=== PATIENT | male | born 1945 | race Caucasian/White ===

== ENCOUNTER 2018-02-17 02:09 | Outpatient (CLI) | payer BC, SELFPAY ==
--- NOTE | 2018-02-24 16:03 | HOLTER_ITS ---
DATE OF DICTATION: February 24, 2018 HOLTER MONITOR REPORT Baseline rhythm sinus. Frequent single PAC. Twenty-seven bursts of SVT, longest 15-beat duration, fastest 160 bpm. No atri al fibrillation. Frequent single PVC, 8082 total. 3.6% of total beat. 1329 couplet. 116 triplet. Eighteen bursts o f nonsustained ventricular tachycardia, longest 6-beat duration, fastest 161 bpm. Most ventricular tachycardia appears to be nocturnal, but not exclusively so. No bradycardia. No symptoms. Average heart rate 81 bpm. MH/dml D/
== END 2018-02-17 02:29 ==
PROVIDERS: PCP Emergency Medicine; Visit Provider Internal Medicine Cardiovascular Disease
DX: R00.2 Palpitations (principal); I47.1 Supraventricular tachycardia; I25.10 Atherosclerotic heart disease of native coronary artery without angina pectoris; I42.9 Cardiomyopathy, unspecified; I48.91 Unspecified atrial fibrillation
CPT/HCPCS: 93225

== ENCOUNTER 2018-02-20 13:57 | Outpatient (CLI) | payer BC, SELFPAY | END 2018-02-20 14:17 | PROVIDERS: PCP Emergency Medicine; Visit Provider Internal Medicine Cardiovascular Disease | DX: R00.2 Palpitations (principal); I47.1 Supraventricular tachycardia; I25.10 Atherosclerotic heart disease of native coronary artery without angina pectoris; I42.9 Cardiomyopathy, unspecified; I48.91 Unspecified atrial fibrillation | CPT/HCPCS: 93226 ==

== ENCOUNTER 2018-02-25 11:24 | Outpatient (CLI) | payer BC, SELFPAY ==
[2018-02-25 12:47] LABS: Abs Immature Grans 0.03 k/cumm (0.0-0.09); Absolute Basophil Count 0.02 k/cumm (0.0-0.2); Absolute Eosinophil Count 0.05 k/cumm (0.0-0.7); Absolute Lymphocyte Count 0.84 k/cumm (1.2-3.4); Absolute Monocyte Count 0.84 k/cumm (0.11-0.7); Absolute Neutrophil Count 8.25 k/cumm (1.2-6.7); Basophils % 0.2; Eosinophils % 0.5; HCT 40.4 % (40.0-50.0); HGB 12.8 g/dL (13.5-17.5); Immature Grans % 0.3; Lymphocytes % 8.4; Mean Corp. HGB Concentration 31.7 g/dL (32.0-36.0); Mean Corpuscular Hemoglobin 28.3 pg (27.0-33.0); Mean Corpuscular Volume 89.2 fL (80-95); Mean Platelet Volume 9.6 fL (8.0-11.0); Monocytes % 8.4; Neutrophils % 82.2; Platelet Count 545 x1000/uL (130-400); RBC 4.53 m/cumm (4.50-6.00); RBC Distribution Width 14.2 % (11.8-14.1); White Blood Cell Count 10.03 k/cumm (4.4-10.8)
[2018-02-25 13:31] LABS: ALT 51 U/L (12-78); AST 23 U/L (15-37); Albumin 2.5 g/dL (3.4-5.0); Alkaline Phosphatase 157 U/L (46-116); Anion Gap 9.7 mmol/L (3-11); BUN 15 mg/dL (7-18); Bilirubin, Total 0.8 mg/dL (0.2-1.0); CO2 30.3 mmol/L (21.0-32.0); CREATININE 1.04 mg/dL (0.70-1.30); Calcium 9.2 mg/dL (8.5-10.1); Chloride 99 mmol/L (98-107); Ferritin 911 ng/mL (8-388); Glucose 137 mg/dL (70-100); Potassium 5.1 mmol/L (3.5-5.1); Sodium 139 mmol/L (136-145); TSH 1.73 uIU/mL (0.358-3.74); Total Protein 6.6 g/dL (6.4-8.2)
[2018-02-25 14:15] LABS: C-Reactive Protein 12.11 mg/dL (0.0-0.3); NT-proBNP 1771 pg/mL
== END 2018-02-25 11:44 ==
PROVIDERS: PCP Emergency Medicine; Visit Provider Emergency Medicine
DX: R63.4 Abnormal weight loss (principal); R06.02 Shortness of breath; J90 Pleural effusion, not elsewhere classified; F32.9 Major depressive disorder, single episode, unspecified
CPT/HCPCS: 36415; 80053; 82728; 83880; 84443; 85025; 86140

== ENCOUNTER 2018-03-11 00:32 | Outpatient (CLI) | payer BC, SELFPAY ==
--- NOTE | 2018-03-11 08:19 | DI.RAD_ITS ---
SYMPTOM/DIAGNOSIS: PLEURAL EFFUSION J90 CHEST X-RAY: Comparison 08/22/17. Comparison CT scan is 09/06/17 The heart appears mildly enlarged. The patient is status post CABG. Sternal wires are in place. The left lung appears clear. No effusion or pneumothorax is identified. In the right lung there has been interval increase in the right pleural effusion which does remain small to moderate in size. There are increased opacities in the right lung base. These may represent areas of atelectasis or pneumonia. No pneumothorax is identified. Degenerative changes are seen in the spine. IMPRESSION: Interval increase in size of the right pleural effusion which is small to moderate in size. 2. Development of right basilar infiltrates. This may represent atelectasis or pneumonia. Mass cannot be entirely excluded. A follow up chest x-ray to document resolution of the effusion and infiltrate is recommended in this patient.
--- NOTE | 2018-03-11 08:20 | DI.CT_ITS ---
SYMPTOM/DIAGNOSIS: RECURRENT RIGHT EFFUSION, CHF. WT LOSS, DIASTASIS RECTI CT ABDOMEN AND PELVIS: CT scan of the abdomen and pelvis was performed following the uneventful administration of intravenous and oral contrast material. Comparison CT scan of the chest is 09/06/17. There is a moderate sized right pleural effusion present. There is a question of some encapsulation of the fluid. A few small foci of air is seen within the fluid. There is consolidation seen in the right middle and right lower lobes. The heart appears mildly enlarged. The liver is normal in size. There are several cysts seen within the liver. The largest is present in the left lobe and measures 4.8 cm. The portal and superior mesenteric veins are patent. The gallbladder is negative. No biliary ductal dilatation is present. The pancreas is unremarkable as are the spleen and adrenal glands. The kidneys show normal and symmetric enhancement. There are bilateral renal cysts present, the largest is seen in the mid pole of the left kidney and measures 3.3 cm. There is a 2 mm nonobstructing stone in the lower pole of the right kidney. The urinary bladder is intact. Reproductive organs are unremarkable. There is atherosclerosis of the abdominal aorta but no aneurysmal dilatation is present. No significant abdominal or pelvic adenopathy, ascites, or pneumoperitoneum is present. There is a small fat containing umbilical hernia. There is diverticulosis of the colon but no evidence of acute diverticulitis. There is a normal appendix seen in the right lower quadrant of the abdomen. At the rectosigmoid junction there is a segment of compressed bowel. No pericolonic inflammatory changes are seen. While this may represent nondistended bowel the possibility of a mass cannot be excluded. Colonoscopy and/or barium enema is recommended for further evaluation. The remainder of the bowel appears grossly unremarkable. Degenerative changes are present in the spine with Grade 1 pseudospondylolisthesis of L5 on S1. IMPRESSION: 1. Segment of compressed bowel at the rectosigmoid junction. While this may represent nondistended bowel mass cannot be entirely excluded. A follow up barium enema or colonoscopy is recommended for further evaluation. 2. Moderate size right pleural effusion, areas of consolidation in the right middle and right lower lobe which may represent atelectasis or pneumonia. 3. Hepatic and renal cysts, right nephrolithiasis, colonic diverticulosis but no evidence of acute diverticulitis.
[2018-03-11 08:59] LABS: INR 1.5 (1.0-3.5); Prothrombin Time 14.7 sec (9.3-10.8)
[2018-03-11 09:02] LABS: ALT 26 U/L (12-78); AST 17 U/L (15-37); Albumin 2.6 g/dL (3.4-5.0); Alkaline Phosphatase 103 U/L (46-116); BUN 14 mg/dL (7-18); Bilirubin, Total 0.6 mg/dL (0.2-1.0); CREATININE 1.07 mg/dL (0.70-1.30); Calcium 9.1 mg/dL (8.5-10.1); Chloride 99 mmol/L (98-107); Glucose 145 mg/dL (70-100); Potassium 4.5 mmol/L (3.5-5.1); Sodium 137 mmol/L (136-145); Total Protein 7.5 g/dL (6.4-8.2)
[2018-03-11] MEDS: Breeza Beverage 473 ML BTL PO (09:09)
[2018-03-11] MEDS: Omnipaque 350 MG/ML 50 ML BTL IJ (09:09)
[2018-03-11] MEDS: Omnipaque 350 MG/ML 100 ML BTL IJ (09:11)
== END 2018-03-11 00:52 ==
PROVIDERS: PCP Emergency Medicine; Visit Provider Emergency Medicine
DX: R63.4 Abnormal weight loss (principal); J90 Pleural effusion, not elsewhere classified; R91.8 Other nonspecific abnormal finding of lung field; I50.9 Heart failure, unspecified; I51.7 Cardiomegaly; K57.30 Diverticulosis of large intestine without perforation or abscess without bleeding; K56.699 Other intestinal obstruction unspecified as to partial versus complete obstruction; K76.89 Other specified diseases of liver; N28.1 Cyst of kidney, acquired; I48.91 Unspecified atrial fibrillation; Z79.01 Long term (current) use of anticoagulants; Z95.1 Presence of aortocoronary bypass graft
CPT/HCPCS: 36415; 80053; 71046; 74177; 85610; J3490; Q9967

== ENCOUNTER 2018-03-20 15:36 | Outpatient (REF) | payer BC, SELFPAY ==
[2018-03-20 22:25] LABS: Bilirubin Moderate (Negative); Blood Negative (Negative); Clarity Clear; Glucose Negative (Negative); Ketones Trace mg/dL (Negative); Leukocyte Esterase Negative (Negative); Nitrite Negative (Negative); Urobilinogen >=8.0 EU/dL (Up TO 0.2)
[2018-03-20 22:43] LABS: Bacteria Moderate HPF (Negative); C & S Indicated? Yes; Casts Negative LPF (Negative); Crystals Negative HPF (Negative); Epithelial Cells Negative HPF (Negative); Mucus Negative (Negative); RBC Negative (0-2)
== END 2018-03-20 15:56 ==
LOC: LBN 15:36
PROVIDERS: PCP Emergency Medicine; Visit Provider Emergency Medicine
DX: R30.0 Dysuria (principal); R82.2 Biliuria
CPT/HCPCS: 81003; 81015; 87086

== ENCOUNTER 2018-03-21 10:17 | Outpatient (CLI) | payer BC, SELFPAY ==
[2018-03-21 10:53] LABS: HCT 36.1 % (40.0-50.0); HGB 11.6 g/dL (13.5-17.5); Mean Corp. HGB Concentration 32.1 g/dL (32.0-36.0); Mean Corpuscular Hemoglobin 27.6 pg (27.0-33.0); Mean Corpuscular Volume 85.7 fL (80-95); Mean Platelet Volume 9.5 fL (8.0-11.0); Platelet Count 388 x1000/uL (130-400); RBC 4.21 m/cumm (4.50-6.00); RBC Distribution Width 14.4 % (11.8-14.1); White Blood Cell Count 14.27 k/cumm (4.4-10.8)
[2018-03-21 12:50] LABS: INR 2.4 (1.0-3.5); Prothrombin Time 24.3 sec (9.3-11.0)
[2018-03-21 13:04] LABS: ALT 112 U/L (12-78); AST 86 U/L (15-37); Albumin 2.1 g/dL (3.4-5.0); Alkaline Phosphatase 299 U/L (46-116); Anion Gap 12.5 mmol/L (3-11); BUN 20 mg/dL (7-18); Bilirubin, Total 1.6 mg/dL (0.2-1.0); CO2 28.5 mmol/L (21.0-32.0); CREATININE 1.03 mg/dL (0.70-1.30); Calcium 9.1 mg/dL (8.5-10.1); Chloride 94 mmol/L (98-107); Glucose 155 mg/dL (70-100); Potassium 3.9 mmol/L (3.5-5.1); Sodium 135 mmol/L (136-145); Total Protein 6.2 g/dL (6.4-8.2)
== END 2018-03-21 10:37 ==
PROVIDERS: PCP Emergency Medicine; Visit Provider Emergency Medicine
DX: R30.0 Dysuria (principal); I48.91 Unspecified atrial fibrillation; Z79.01 Long term (current) use of anticoagulants
CPT/HCPCS: 36415; 80053; 85027; 85610

== ENCOUNTER 2018-03-25 00:35 | Outpatient (CLI) | payer BC, SELFPAY ==
--- NOTE | 2018-03-25 09:15 | MERGE_ITS ---
*[facility]* *[facility]* [address] [place] [address] Date of study: 03/25/2018 Transthoracic Echocardiography M-mode, complete 2D, complete spectral Doppler, and color Doppler *STUDY CONCLUSIONS* Summary: 1. Left ventricle: The cavity size was normal. Wall thickness was normal. Systolic function was mildly reduced. The estimated ejection fraction was 45-50%. Diffuse hypokinesis. 2. Aortic valve: There was very mild stenosis. Peak velocity (S): 2m/sec. Valve area (VTI): 1.9cm^2. 3. Right ventricle: The cavity size was dilated (basal diameter 4.8 cm, mid 4.0 cm). Systolic function was reduced. 4. Right atrium: The atrium was dilated. 5. Tricuspid valve: There was moderate regurgitation. 6. Pulmonary arteries: Pulmonary systolic pressure was severely increased, >= 60mm Hg. *PATIENT PRESENTATION* Height: 193cm ((76in) ) S/D Pressure: 116 / 63 Weight: 113.4kg ((249.5lb) ) BSA: 2.49m^2 Test start time: 09:20 AM. Test stop time: 10:30 AM. ORDERING Senthil Escobar REFERRING Senthil Escobar PERFORMING Unknown REFERRING Rosa Head PERFORMING [facility] CRAB BUTCHER RT Carmen (R)(CT), CS CONSULTING Jerry Ji, Do Shawn Ndiaye *PROCEDURE DATA* Procedure information: The patient was identified by two identifiers. This study was interpreted by [facility]. Pertinent images and digital data are archived for permanent storage and are available for subsequent review. Comparison was made to the study of 07/05/2017. Study status: Routine. Transthoracic echocardiography. M-mode, complete 2D, complete spectral Doppler, and color Doppler. A Transthoracic Echocardiogram was performed. Scanning was performed from the parasternal, apical, subcostal, and suprasternal notch acoustic windows. Images were obtained using an [id number] cardiac ultrasound machine. Image quality was adequate. Study completion: The patient tolerated the procedure well. There were no complications. History: PMH: Recurrent pleural effusion on right. CHF, heart failure. *CARDIAC ANATOMY* Left ventricle: The cavity size was normal. Wall thickness was normal. Systolic function was mildly reduced. The estimated ejection fraction was 45-50%. Diffuse hypokinesis. Aortic valve: Trileaflet; mildly thickened, mildly calcified leaflets. Valve mobility was restricted. Doppler: There was very mild stenosis. There was no significant regurgitation. VTI ratio of LVOT to aortic valve: 0.51. Valve area (VTI): 1.9cm^2. Indexed valve area (VTI): 0.7cm^2/m^2. Peak velocity ratio of LVOT to aortic valve: 0.54. Valve area (Vmax): 2cm^2. Indexed valve area (Vmax): 0.8cm^2/m^2. Mean velocity ratio of LVOT to aortic valve: 0.45. Valve area (Vmean): 1.6cm^2. Indexed valve area (Vmean): 0.7cm^2/m^2. Mean gradient (S): 9.6mm Hg. Peak gradient (S): 16.7mm Hg. Aorta: Aortic root: The aortic root was normal in size. Ascending aorta: The ascending aorta was normal in size. Mitral valve: Structurally normal valve. Mobility was not restricted. Doppler: Transvalvular velocity was within the normal range. There was no evidence for stenosis. There was trivial regurgitation. Valve area by pressure half-time: 5.1cm^2. Indexed valve area by pressure half-time: 2cm^2/m^2. Peak gradient (D): 4.4mm Hg. Left atrium: The atrium was normal in size. Right ventricle: The cavity size was dilated (basal diameter 4.8 cm, mid 4.0 cm). Systolic function was reduced. Pulmonic valve: Structurally normal valve. Doppler: Transvalvular velocity was within the normal range. There was no evidence for stenosis. There was mild regurgitation. Peak gradient (S): 5.6mm Hg. Tricuspid valve: Structurally normal valve. Doppler: Transvalvular velocity was within the normal range. There was no evidence for stenosis. There was moderate regurgitation. Pulmonary artery: Pulmonary systolic pressure was severely increased, >= 60mm Hg. Right atrium: The atrium was dilated. Pericardium: There was no pericardial effusion. Systemic veins: Inferior vena cava: Well visualized. The vessel was patent and normal in size. The respirophasic diameter changes were in the normal range (greater than or equal to 50%). Baseline ECG: Normal sinus rhythm. Measurements Left ventricle Value 07/05/2017 Reference LV ID, ED, PLAX 5.5 cm 5.6 3.5 - 6.0 LV ID, ES, PLAX (H) 4.3 cm 4.3 2.1 - 4.0 LV PW thickness, ED, PLAX 1.0 cm 0.9 LV end-diastolic volume, 193 ml 142 1-p A2C LV ejection fraction, 1-p 45 % 48 A2C LV end-diastolic volume, 183 ml 169 1-p A4C LV ejection fraction, 1-p 30 % 37 A4C LV e', lateral 0.055 m/sec 0.097 LV E/e', lateral 19 11 LV e', medial 0.065 m/sec 0.058 LV E/e', medial 16 18 LV e', average 0.06 m/sec 0.078 LV E/e', average 17 13 Ventricular septum Value 07/05/2017 Reference IVS thickness, ED, PLAX 1.1 cm 1.1 LVOT Value 07/05/2017 Reference LVOT ID, A-P 2.1 cm 2.0 LVOT area 3.6 cm^2 3 LVOT peak velocity, S 1.11 m/sec 0.75 LVOT mean velocity, S 0.67 m/sec 0.58 LVOT VTI, S 23.1 cm 17.3 LVOT peak gradient, S 5 mm Hg 2.3 LVOT mean gradient, S 2.2 mm Hg 1.5 Stroke volume (SV), LVOT 84 ml 52 DP Stroke index (SV/bsa), 34 ml/m^2 20 LVOT DP Aortic valve Value 07/05/2017 Reference Aortic valve peak 2 m/sec 1.3 velocity, S Aortic valve mean 1.48 m/sec 0.93 velocity, S Aortic valve VTI, S 45.0 cm 26.5 Aortic mean gradient, S 9.6 mm Hg 3.9 Aortic peak gradient, S 16.7 mm Hg VTI ratio, LVOT/AV 0.51 0.65 Aortic valve area, VTI 1.9 cm^2 1.9 Velocity ratio, peak, 0.54 0.59 LVOT/AV Aortic valve area, peak 2 cm^2 1.8 velocity Velocity ratio, mean, 0.45 0.62 LVOT/AV Aortic valve area, mean 1.6 cm^2 1.9 velocity Aortic valve area/bsa, 0.7 cm^2/m^2 0.7 mean velocity Aorta Value 07/05/2017 Reference Aortic root ID, ED 3.4 cm 3.4 Ascending aorta ID, A-P, S 3.3 cm 3.4 RVOT Value 07/05/2017 Reference RVOT VTI, S 16.4 cm 13.0 Left atrium Value 07/05/2017 Reference LA ID, A-P, ES 4.6 cm 4.3 LA ID/bsa, A-P 1.9 cm/m^2 1.7 <=2.2 LA area, ES, A4C (H) 25 cm^2 28 8.8 - 23.4 LA area, ES, A2C 23 cm^2 29 LA volume/bsa, ES, 1-p A4C 40 ml/m^2 47 LA volume, ES, 2-p 86 ml 111 LA volume/bsa, ES, 2-p 34 ml/m^2 43 LA/aortic root ratio 1.37 1.28 Mitral valve Value 07/05/2017 Reference Mitral E-wave peak 1.05 m/sec 1.03 velocity Mitral deceleration time 150 ms 92 150 - 230 Mitral pressure half-time 43 ms 27 Mitral peak gradient, D 4.4 mm Hg 4.3 Mitral valve area, PHT, DP 5.1 cm^2 8.3 Tricuspid valve Value 07/05/2017 Reference Tricuspid regurg peak 3.9 m/sec 3 velocity Tricuspid peak RV-RA 61.7 mm Hg 36.3 gradient Right atrium Value 07/05/2017 Reference RA area, ES, A4C (H) 30.7 cm^2 36.6 8.3 - 19.5 Pulmonic valve Value 07/05/2017 Reference Pulmonic peak gradient, S 5.6 mm Hg 3.2 Legend: (L) and (H) [place] values outside specified reference range. I have personally reviewed the images and have reviewed and edited the reported findings. Electronically signed by Valentin Álvarez 03/25/2018 11:45
[2018-03-25 11:11] LABS: HCT 36.4 % (40.0-50.0); HGB 11.8 g/dL (13.5-17.5); Mean Corp. HGB Concentration 32.4 g/dL (32.0-36.0); Mean Corpuscular Hemoglobin 27.6 pg (27.0-33.0); Mean Platelet Volume 9.1 fL (8.0-11.0); Platelet Count 476 x1000/uL (130-400); RBC 4.28 m/cumm (4.50-6.00); RBC Distribution Width 14.6 % (11.8-14.1); White Blood Cell Count 14.64 k/cumm (4.4-10.8)
[2018-03-25 11:23] LABS: Prothrombin Time 52.9 sec (9.3-11.0)
[2018-03-25 11:46] LABS: INR 5.2 (1.0-3.5)
[2018-03-25 13:43] LABS: ALT 143 U/L (12-78); AST 110 U/L (15-37); Albumin 1.8 g/dL (3.4-5.0); Alkaline Phosphatase 377 U/L (46-116); Anion Gap 7.4 mmol/L (3-11); BUN 22 mg/dL (7-18); Bilirubin, Total 1.3 mg/dL (0.2-1.0); CO2 32.6 mmol/L (21.0-32.0); CREATININE 1.12 mg/dL (0.70-1.30); Calcium 8.9 mg/dL (8.5-10.1); Chloride 93 mmol/L (98-107); GGT 143 U/L (15-85); Glucose 240 mg/dL (70-100); Sodium 133 mmol/L (136-145); Total Protein 6.2 g/dL (6.4-8.2)
[2018-03-26 11:58] LABS: Hepatitis A Antibody IgM Negative (NEGAT); Hepatitis B Core Antibody Negative (NEGAT); Hepatitis B surface Ag Negative (NEGAT); Hepatitis C Ab w Rflx HCV PCR Negative (NEGAT)
== END 2018-03-25 00:55 ==
PROVIDERS: PCP Emergency Medicine; Visit Provider Emergency Medicine
DX: I50.9 Heart failure, unspecified (principal); J90 Pleural effusion, not elsewhere classified; I35.0 Nonrheumatic aortic (valve) stenosis; I36.1 Nonrheumatic tricuspid (valve) insufficiency; K75.9 Inflammatory liver disease, unspecified; I48.91 Unspecified atrial fibrillation; Z79.01 Long term (current) use of anticoagulants; Z95.2 Presence of prosthetic heart valve
CPT/HCPCS: 36415; 80053; 85027; 86704; 86709; 86803; 87340; 82977; 85610; 93306

== ENCOUNTER 2018-05-28 15:11 | Outpatient (CLI) | payer BC, SELFPAY ==
[2018-05-28 15:48] LABS: Absolute Basophil Count 0.01 k/cumm (0.0-0.2); Absolute Eosinophil Count 0.12 k/cumm (0.0-0.7); Absolute Lymphocyte Count 0.95 k/cumm (1.2-3.4); Absolute Monocyte Count 0.53 k/cumm (0.11-0.7); Absolute Neutrophil Count 4.34 k/cumm (1.2-6.7); Basophils % 0.2; HGB 10.6 g/dL (13.5-17.5); Mean Corp. HGB Concentration 31.2 g/dL (32.0-36.0); Mean Corpuscular Hemoglobin 27.5 pg (27.0-33.0); Mean Corpuscular Volume 88.1 fL (80-95); Mean Platelet Volume 8.9 fL (8.0-11.0); Monocytes % 8.9; Neutrophils % 72.9; Platelet Count 267 x1000/uL (130-400); RBC 3.86 m/cumm (4.50-6.00); RBC Distribution Width 17.8 % (11.8-14.1); White Blood Cell Count 5.95 k/cumm (4.4-10.8)
[2018-05-28 17:08] LABS: INR 2.9 (0.9-1.1); Prothrombin Time 29.2 sec (9.3-11.0)
== END 2018-05-28 15:31 ==
PROVIDERS: PCP Emergency Medicine; Visit Provider Emergency Medicine
DX: I48.91 Unspecified atrial fibrillation (principal); Z79.01 Long term (current) use of anticoagulants
CPT/HCPCS: 36415; 85025; 85610

== ENCOUNTER 2018-06-23 11:19 | Outpatient (CLI) | payer BC, SELFPAY ==
[2018-06-23 12:02] LABS: Abs Immature Grans 0.02 k/cumm (0.0-0.09); Absolute Basophil Count 0.02 k/cumm (0.0-0.2); Absolute Eosinophil Count 0.18 k/cumm (0.0-0.7); Absolute Lymphocyte Count 1.13 k/cumm (1.2-3.4); Absolute Monocyte Count 0.83 k/cumm (0.11-0.7); Absolute Neutrophil Count 5.79 k/cumm (1.2-6.7); Basophils % 0.3; Eosinophils % 2.3; HCT 33.7 % (40.0-50.0); HGB 10.4 g/dL (13.5-17.5); Immature Grans % 0.3; Lymphocytes % 14.2; Mean Corp. HGB Concentration 30.9 g/dL (32.0-36.0); Mean Corpuscular Hemoglobin 27.4 pg (27.0-33.0); Mean Corpuscular Volume 88.7 fL (80-95); Monocytes % 10.4; Neutrophils % 72.5; Platelet Count 410 x1000/uL (130-400); RBC Distribution Width 17.4 % (11.8-14.1); White Blood Cell Count 7.97 k/cumm (4.4-10.8)
[2018-06-23 12:23] LABS: INR 1.3 (0.9-1.1); Prothrombin Time 13.1 sec (9.3-11.0)
== END 2018-06-23 11:39 ==
PROVIDERS: PCP Emergency Medicine; Visit Provider Emergency Medicine
DX: I48.91 Unspecified atrial fibrillation (principal); Z79.01 Long term (current) use of anticoagulants
CPT/HCPCS: 36415; 85025; 85610

== ENCOUNTER 2018-06-30 00:59 | Outpatient (CLI) | payer BC, SELFPAY ==
--- NOTE | 2018-06-30 13:00 | DI.RAD_ITS ---
SYMPTOMS/DIAGNOSIS: LEFT HIP PAIN, M25.552 PELVIS AND LEFT HIP: There is moderate bilateral hip joint space narrowing and periarticular spurring. Spurring is also seen at the margin of the femoral heads and greater trochanters. The SI joints are unremarkable. Penile prosthesis is noted. Vascular calcifications are seen. There are degenerative changes of the left SI joint. IMPRESSION: Moderate degenerative changes of both hips.
[2018-06-30 13:33] LABS: Abs Immature Grans 0.02 k/cumm (0.0-0.09); Absolute Basophil Count 0.02 k/cumm (0.0-0.2); Absolute Eosinophil Count 0.11 k/cumm (0.0-0.7); Absolute Lymphocyte Count 1.17 k/cumm (1.2-3.4); Absolute Monocyte Count 0.62 k/cumm (0.11-0.7); Absolute Neutrophil Count 7.19 k/cumm (1.2-6.7); Basophils % 0.2; Eosinophils % 1.2; HCT 36.5 % (40.0-50.0); HGB 11.3 g/dL (13.5-17.5); Immature Grans % 0.2; Lymphocytes % 12.8; Mean Corpuscular Hemoglobin 27.6 pg (27.0-33.0); Mean Platelet Volume 9.1 fL (8.0-11.0); Monocytes % 6.8; Neutrophils % 78.8; Platelet Count 350 x1000/uL (130-400); RBC Distribution Width 17.2 % (11.8-14.1); White Blood Cell Count 9.13 k/cumm (4.4-10.8)
[2018-06-30 14:01] LABS: INR 2.2 (0.9-1.1); Prothrombin Time 21.9 sec (9.3-11.0)
[2018-06-30 14:10] LABS: Hemoglobin A1C 6.8 % (4.5-6.2)
[2018-06-30 14:28] LABS: Iron 28 ug/dL (50-175); Total Iron Binding Capacity 211 ug/dL (250-450); Transferrin Sat 13 % (20-55)
[2018-06-30 14:55] LABS: Vitamin B12 540 pg/mL (193-986)
[2018-06-30 15:22] LABS: Folate > 20.0 ng/mL (8.6-20.0)
[2018-06-30 15:32] LABS: Uric Acid 5.8 mg/dL (3.5-7.2)
== END 2018-06-30 01:19 ==
PROVIDERS: PCP Emergency Medicine; Visit Provider Emergency Medicine
DX: E11.9 Type 2 diabetes mellitus without complications (principal); D64.9 Anemia, unspecified; M10.9 Gout, unspecified; M25.552 Pain in left hip; M16.0 Bilateral primary osteoarthritis of hip; I48.91 Unspecified atrial fibrillation; Z79.01 Long term (current) use of anticoagulants
CPT/HCPCS: 36415; 73502; 82607; 82746; 83036; 83540; 83550; 84550; 85025; 85610

== ENCOUNTER 2018-07-09 13:40 | Outpatient (CLI) | payer BC, SELFPAY ==
[2018-07-09 14:13] LABS: Abs Immature Grans 0.01 k/cumm (0.0-0.09); Absolute Basophil Count 0.02 k/cumm (0.0-0.2); Absolute Eosinophil Count 0.19 k/cumm (0.0-0.7); Absolute Lymphocyte Count 1.22 k/cumm (1.2-3.4); Absolute Monocyte Count 0.59 k/cumm (0.11-0.7); Absolute Neutrophil Count 5.11 k/cumm (1.2-6.7); Basophils % 0.3; Eosinophils % 2.7; HCT 38.6 % (40.0-50.0); HGB 11.8 g/dL (13.5-17.5); Immature Grans % 0.1; Lymphocytes % 17.1; Mean Corp. HGB Concentration 30.6 g/dL (32.0-36.0); Mean Corpuscular Hemoglobin 26.9 pg (27.0-33.0); Mean Corpuscular Volume 87.9 fL (80-95); Mean Platelet Volume 9.5 fL (8.0-11.0); Monocytes % 8.3; Neutrophils % 71.5; Platelet Count 329 x1000/uL (130-400); RBC 4.39 m/cumm (4.50-6.00); RBC Distribution Width 16.4 % (11.8-14.1); White Blood Cell Count 7.14 k/cumm (4.4-10.8)
[2018-07-09 14:18] LABS: INR 2.3 (0.9-1.1); Prothrombin Time 23.5 sec (9.3-11.0)
== END 2018-07-09 14:00 ==
PROVIDERS: PCP Emergency Medicine; Visit Provider Emergency Medicine
DX: I48.91 Unspecified atrial fibrillation (principal); Z79.01 Long term (current) use of anticoagulants; Z95.1 Presence of aortocoronary bypass graft
CPT/HCPCS: 36415; 85025; 85610

== ENCOUNTER 2018-07-17 10:57 | Outpatient (CLI) | payer BC, SELFPAY ==
[2018-07-17 11:33] LABS: Abs Immature Grans 0.01 k/cumm (0.0-0.09); Absolute Basophil Count 0.02 k/cumm (0.0-0.2); Absolute Eosinophil Count 0.23 k/cumm (0.0-0.7); Absolute Monocyte Count 0.58 k/cumm (0.11-0.7); Absolute Neutrophil Count 4.86 k/cumm (1.2-6.7); Basophils % 0.3; Eosinophils % 3.4; HCT 36.7 % (40.0-50.0); HGB 11.6 g/dL (13.5-17.5); Immature Grans % 0.1; Lymphocytes % 16.2; Mean Corp. HGB Concentration 31.6 g/dL (32.0-36.0); Mean Corpuscular Hemoglobin 27.6 pg (27.0-33.0); Mean Corpuscular Volume 87.2 fL (80-95); Mean Platelet Volume 9.8 fL (8.0-11.0); Monocytes % 8.5; Neutrophils % 71.5; Platelet Count 306 x1000/uL (130-400); RBC 4.21 m/cumm (4.50-6.00); RBC Distribution Width 15.8 % (11.8-14.1)
[2018-07-17 12:11] LABS: INR 2.3 (0.9-1.1); Prothrombin Time 23.4 sec (9.3-11.0)
== END 2018-07-17 11:17 ==
PROVIDERS: PCP Emergency Medicine; Visit Provider Emergency Medicine
DX: I48.91 Unspecified atrial fibrillation (principal); Z79.01 Long term (current) use of anticoagulants
CPT/HCPCS: 36415; 85025; 85610

== ENCOUNTER 2018-07-28 00:49 | Outpatient (CLI) | payer BC, SELFPAY ==
--- NOTE | 2018-07-28 06:21 | DI.RAD_ITS ---
SYMPTOMS/DIAGNOSIS: LEFT HIP INJECTION, PRIMARY OSTEOARTHRITIS, LEFT HIP, M16.12 FLUOROSCOPIC-GUIDED LEFT HIP INJECTION: Fluoroscopy Time: 2 sec Fluoroscopy was provided for Dr. Lino for guidance with hip injection. A hard copy image shows a needle projecting at the lateral aspect of the left hip. Contrast is seen in the hip joint. Degenerative changes are also present. Please see procedure note for details.
[2018-07-28] MEDS: Bupivacaine 0.5% Pres-Free 10 ML VIAL IJ (12:26)
[2018-07-28] MEDS: Omnipaque 300 MG/ML 10 ML BTL IJ (12:26)
[2018-07-28] MEDS: methylPREDNISolone ACETATE 80 MG/ML VIAL IM (12:27)
--- NOTE | 2018-07-28 12:54 | W.PROCNOTE ---
Date of service: 07/28/18 Time of Service: 12:54 Procedure Note Date of procedure: 07/28/18 Procedure: Left Hip Injection with Fluoroscopic Guidance Surgeon/Proceduralist/Physician: David Lino Procedure Diagnosis: Left Hip Osteoarthritis Procedure Indications: Octavio has had persistent pain of the LEFT hip and groin. Noninvasive measures have been tried. To serve as both diagnostic and therapeutic, an injection under fluoroscopy was recommended. I had discussed the risks of the procedure and the patient elected to proceed. Procedure Description: Octavio was greeted in the flouroscopy room. The correct side was identified and the consent was reviewed with the patient and signed. The patient was then placed in the supine position on the fluoroscopy table. The LEFT hip was then prepped with Chloraprep. The anterolateral injection starting point was identiifed by bony landmarks and fluoroscopy. The skin and soft tissue in the tract of the injection was anesthetized with 1% Lidocaine. A spinal needle was then inserted deep into the hip joint at the level of the lateral femoral neck under fluoroscopic guidance. A small amount of Omnipaque solution was injected to confirm intraarticular placement. Once confirmed, the hip was injected with 6cc of 0.5% Bupivicaine and 80mg of Depo-Medrol. A bandaid was placed on the injection site. The patient tolerated the procedure well and noted improvement in pre-injection pain.
== END 2018-07-28 01:09 ==
PROVIDERS: PCP Emergency Medicine; Visit Provider Student in an Organized Health Care Education/Training Program
DX: M25.552 Pain in left hip (principal); M16.12 Unilateral primary osteoarthritis, left hip
CPT/HCPCS: 20610; 77002; J1040

== ENCOUNTER 2018-08-11 09:35 | Outpatient (CLI) | payer BC, SELFPAY ==
[2018-08-11 09:54] LABS: Abs Immature Grans 0.01 k/cumm (0.0-0.09); Absolute Basophil Count 0.01 k/cumm (0.0-0.2); Absolute Eosinophil Count 0.27 k/cumm (0.0-0.7); Absolute Lymphocyte Count 1.07 k/cumm (1.2-3.4); Absolute Monocyte Count 0.61 k/cumm (0.11-0.7); Basophils % 0.1; Eosinophils % 3.6; HCT 39.8 % (40.0-50.0); HGB 12.7 g/dL (13.5-17.5); Immature Grans % 0.1; Lymphocytes % 14.3; Mean Corp. HGB Concentration 31.9 g/dL (32.0-36.0); Mean Corpuscular Volume 87.7 fL (80-95); Mean Platelet Volume 9.6 fL (8.0-11.0); Monocytes % 8.2; Neutrophils % 73.7; Platelet Count 238 x1000/uL (130-400); RBC 4.54 m/cumm (4.50-6.00); RBC Distribution Width 15.9 % (11.8-14.1); White Blood Cell Count 7.47 k/cumm (4.4-10.8)
[2018-08-11 10:30] LABS: INR 1.5 (0.9-1.1); Prothrombin Time 14.7 sec (9.3-11.0)
[2018-08-11 10:43] LABS: C-Reactive Protein 1.48 mg/dL (0.0-0.3)
[2018-08-11 10:59] LABS: ESR 33 MM/HR (1-20)
== END 2018-08-11 09:55 ==
PROVIDERS: PCP Emergency Medicine; Visit Provider Family Medicine
DX: M46.1 Sacroiliitis, not elsewhere classified (principal); I48.91 Unspecified atrial fibrillation; Z79.01 Long term (current) use of anticoagulants; Z95.1 Presence of aortocoronary bypass graft
CPT/HCPCS: 36415; 85652; 85025; 85610; 86140

== ENCOUNTER 2018-08-19 13:39 | Outpatient (CLI) | payer BC, SELFPAY ==
[2018-08-19 14:04] LABS: Abs Immature Grans 0.01 k/cumm (0.0-0.09); Absolute Basophil Count 0.01 k/cumm (0.0-0.2); Absolute Eosinophil Count 0.21 k/cumm (0.0-0.7); Absolute Monocyte Count 0.61 k/cumm (0.11-0.7); Absolute Neutrophil Count 4.07 k/cumm (1.2-6.7); Basophils % 0.2; Eosinophils % 3.6; HCT 41.1 % (40.0-50.0); HGB 12.9 g/dL (13.5-17.5); Immature Grans % 0.2; Lymphocytes % 16.9; Mean Corp. HGB Concentration 31.4 g/dL (32.0-36.0); Mean Corpuscular Hemoglobin 27.6 pg (27.0-33.0); Mean Corpuscular Volume 87.8 fL (80-95); Mean Platelet Volume 9.8 fL (8.0-11.0); Monocytes % 10.3; Neutrophils % 68.8; Platelet Count 238 x1000/uL (130-400); RBC 4.68 m/cumm (4.50-6.00); RBC Distribution Width 15.8 % (11.8-14.1); White Blood Cell Count 5.91 k/cumm (4.4-10.8)
[2018-08-19 14:16] LABS: INR 1.7 (0.9-1.1); Prothrombin Time 16.8 sec (9.3-11.0)
== END 2018-08-19 13:59 ==
PROVIDERS: PCP Emergency Medicine; Visit Provider Emergency Medicine
DX: I48.91 Unspecified atrial fibrillation (principal); Z79.01 Long term (current) use of anticoagulants; Z95.1 Presence of aortocoronary bypass graft
CPT/HCPCS: 36415; 85025; 85610

== ENCOUNTER 2018-08-26 14:17 | Outpatient (CLI) | payer BC, SELFPAY ==
[2018-08-26 11:04] LABS: Abs Immature Grans 0.02 k/cumm (0.0-0.09); Absolute Basophil Count 0.02 k/cumm (0.0-0.2); Absolute Eosinophil Count 0.32 k/cumm (0.0-0.7); Absolute Lymphocyte Count 1.17 k/cumm (1.2-3.4); Absolute Monocyte Count 0.83 k/cumm (0.11-0.7); Absolute Neutrophil Count 4.34 k/cumm (1.2-6.7); Basophils % 0.3; Eosinophils % 4.8; HCT 39.9 % (40.0-50.0); HGB 12.6 g/dL (13.5-17.5); Immature Grans % 0.3; Lymphocytes % 17.5; Mean Corp. HGB Concentration 31.6 g/dL (32.0-36.0); Mean Corpuscular Hemoglobin 27.6 pg (27.0-33.0); Mean Corpuscular Volume 87.3 fL (80-95); Mean Platelet Volume 10.1 fL (8.0-11.0); Monocytes % 12.4; Neutrophils % 64.7; Platelet Count 272 x1000/uL (130-400); RBC 4.57 m/cumm (4.50-6.00); RBC Distribution Width 15.9 % (11.8-14.1)
[2018-08-26 11:17] LABS: INR 2.7 (0.9-1.1); Prothrombin Time 27.7 sec (9.3-11.0)
== END 2018-08-26 14:37 ==
PROVIDERS: PCP Emergency Medicine; Visit Provider Emergency Medicine
DX: I48.91 Unspecified atrial fibrillation (principal); Z79.01 Long term (current) use of anticoagulants
CPT/HCPCS: 36415; 85025; 85610

== ENCOUNTER 2018-09-11 09:04 | Outpatient (CLI) | payer BC, SELFPAY ==
[2018-09-11 09:33] LABS: Abs Immature Grans 0.01 k/cumm (0.0-0.09); Absolute Basophil Count 0.02 k/cumm (0.0-0.2); Absolute Eosinophil Count 0.23 k/cumm (0.0-0.7); Absolute Lymphocyte Count 1.18 k/cumm (1.2-3.4); Absolute Monocyte Count 0.71 k/cumm (0.11-0.7); Absolute Neutrophil Count 4.98 k/cumm (1.2-6.7); Basophils % 0.3; Eosinophils % 3.2; HCT 40.1 % (40.0-50.0); HGB 12.7 g/dL (13.5-17.5); Immature Grans % 0.1; Lymphocytes % 16.5; Mean Corp. HGB Concentration 31.7 g/dL (32.0-36.0); Mean Corpuscular Hemoglobin 27.9 pg (27.0-33.0); Mean Corpuscular Volume 88.1 fL (80-95); Mean Platelet Volume 9.4 fL (8.0-11.0); Neutrophils % 69.9; Platelet Count 264 x1000/uL (130-400); RBC 4.55 m/cumm (4.50-6.00); RBC Distribution Width 15.9 % (11.8-14.1); White Blood Cell Count 7.13 k/cumm (4.4-10.8)
[2018-09-11 09:43] LABS: INR 2.2 (0.9-1.1); Prothrombin Time 22.6 sec (9.3-11.0)
== END 2018-09-11 09:24 ==
PROVIDERS: PCP Emergency Medicine; Visit Provider Emergency Medicine
DX: I48.91 Unspecified atrial fibrillation (principal); Z79.01 Long term (current) use of anticoagulants
CPT/HCPCS: 36415; 85025; 85610

== ENCOUNTER 2018-10-08 09:33 | Outpatient (CLI) | payer BC, SELFPAY ==
--- NOTE | 2018-10-08 09:30 | DI.RAD_ITS ---
SYMPTOM/DIAGNOSIS: RIB PAIN, RECURRENT PLEURAL EFFUSION, J90 AP AND LATERAL CHEST: When compared with a 03/11/18 examination, again demonstrated is what appears to represent a small right pleural effusion which appears decreased in size when compared with the prior study. Again noted is an adjacent rounded density in the right lower lobe which could represent a mass. The left lung remains clear. There is no left pleural effusion. The heart is enlarged in this patient who is status post CABG. SUMMARY: Small right pleural effusion, question right lower lobe mass. The patient could be further evaluated with a thoracentesis and a follow up CT is suggested when clinically appropriate.
[2018-10-08 10:32] LABS: Abs Immature Grans 0.01 k/cumm (0.0-0.09); Absolute Basophil Count 0.01 k/cumm (0.0-0.2); Absolute Eosinophil Count 0.28 k/cumm (0.0-0.7); Absolute Lymphocyte Count 0.91 k/cumm (1.2-3.4); Absolute Monocyte Count 0.65 k/cumm (0.11-0.7); Absolute Neutrophil Count 4.73 k/cumm (1.2-6.7); Basophils % 0.2; Eosinophils % 4.2; HCT 41.2 % (40.0-50.0); HGB 13.3 g/dL (13.5-17.5); Immature Grans % 0.2; Lymphocytes % 13.8; Mean Corp. HGB Concentration 32.3 g/dL (32.0-36.0); Mean Corpuscular Hemoglobin 27.9 pg (27.0-33.0); Mean Corpuscular Volume 86.4 fL (80-95); Monocytes % 9.9; Neutrophils % 71.7; Platelet Count 244 x1000/uL (130-400); RBC 4.77 m/cumm (4.50-6.00); RBC Distribution Width 15.8 % (11.8-14.1); White Blood Cell Count 6.59 k/cumm (4.4-10.8)
[2018-10-08 10:39] LABS: INR 2.7 (0.9-1.1); Prothrombin Time 26.8 sec (9.3-11.0)
[2018-10-08 10:43] LABS: ALT 13 U/L (12-78); AST 11 U/L (15-37); Albumin 3.2 g/dL (3.4-5.0); Alkaline Phosphatase 89 U/L (46-116); Anion Gap 6.8 mmol/L (3-11); BUN 26 mg/dL (7-18); Bilirubin, Total 0.4 mg/dL (0.2-1.0); CO2 30.2 mmol/L (21.0-32.0); CREATININE 1.45 mg/dL (0.70-1.30); Chloride 104 mmol/L (98-107); Estimated GFR 47.44 (mL/min/1.73m2); Glucose 148 mg/dL (70-100); Potassium 4.4 mmol/L (3.5-5.1); Sodium 141 mmol/L (136-145); Total Protein 7.5 g/dL (6.4-8.2)
[2018-10-08 11:47] LABS: ESR 27 MM/HR (1-20)
== END 2018-10-08 09:53 ==
PROVIDERS: PCP Emergency Medicine; Visit Provider Emergency Medicine
DX: J90 Pleural effusion, not elsewhere classified (principal); R07.81 Pleurodynia; I48.91 Unspecified atrial fibrillation; Z79.01 Long term (current) use of anticoagulants; Z95.1 Presence of aortocoronary bypass graft
CPT/HCPCS: 36415; 80053; 85652; 71046; 85025; 85610

== ENCOUNTER 2018-12-05 12:08 | Outpatient (CLI) | payer BC, SELFPAY ==
[2018-12-05 12:51] LABS: Abs Immature Grans 0.02 k/cumm (0.0-0.09); Absolute Basophil Count 0.01 k/cumm (0.0-0.2); Absolute Eosinophil Count 0.21 k/cumm (0.0-0.7); Absolute Lymphocyte Count 1.24 k/cumm (1.2-3.4); Absolute Monocyte Count 0.73 k/cumm (0.11-0.7); Absolute Neutrophil Count 4.71 k/cumm (1.2-6.7); Basophils % 0.1; HCT 43.2 % (40.0-50.0); HGB 13.9 g/dL (13.5-17.5); Immature Grans % 0.3; Lymphocytes % 17.9; Mean Corp. HGB Concentration 32.2 g/dL (32.0-36.0); Mean Corpuscular Hemoglobin 28.4 pg (27.0-33.0); Mean Corpuscular Volume 88.3 fL (80-95); Mean Platelet Volume 10.1 fL (8.0-11.0); Monocytes % 10.5; Neutrophils % 68.2; Platelet Count 299 x1000/uL (130-400); RBC 4.89 m/cumm (4.50-6.00); White Blood Cell Count 6.92 k/cumm (4.4-10.8)
[2018-12-05 13:30] LABS: INR 2.8 (0.9-1.1); Prothrombin Time 27.9 sec (9.3-11.0)
== END 2018-12-05 12:28 ==
PROVIDERS: PCP Emergency Medicine; Visit Provider Emergency Medicine
DX: I48.91 Unspecified atrial fibrillation (principal); Z79.01 Long term (current) use of anticoagulants
CPT/HCPCS: 36415; 85025; 85610

== ENCOUNTER 2019-01-20 11:49 | Outpatient (CLI) | payer BC, SELFPAY ==
--- NOTE | 2019-01-20 12:00 | DI.RAD_ITS ---
EXAM: XR CHEST 2V PA LATERAL CLINICAL HISTORY: SOB, R06.02, chronic right pleural effusion TECHNIQUE: COMPARISON: XR CHEST 2V PA LATERAL from 10/08/2018 FINDINGS: The heart is enlarged. Multiple mediastinal clips and sternal sutures again noted. Right pleural ba sed radiodensities again seen, no gross interval change in appearance comparison with the previous ex amination of October 08. Lungs otherwise remain clear. IMPRESSION: No change from prior chest film of 10/08/2018. Right basilar pleural and parenchymal radiodensities again noted.
== END 2019-01-20 12:09 ==
PROVIDERS: PCP Emergency Medicine; Visit Provider General Practice
DX: R06.02 Shortness of breath (principal); J90 Pleural effusion, not elsewhere classified; I51.7 Cardiomegaly
CPT/HCPCS: 71046

== ENCOUNTER 2019-01-20 11:57 | Outpatient (CLI) | payer BC, SELFPAY ==
[2019-01-20 12:13] LABS: Abs Immature Grans 0.03 k/cumm (0.0-0.09); Absolute Basophil Count 0.03 k/cumm (0.0-0.2); Absolute Eosinophil Count 0.38 k/cumm (0.0-0.7); Absolute Lymphocyte Count 0.89 k/cumm (1.2-3.4); Absolute Monocyte Count 1.11 k/cumm (0.11-0.7); Basophils % 0.4; Eosinophils % 4.4; HCT 42.2 % (40.0-50.0); HGB 13.9 g/dL (13.5-17.5); Immature Grans % 0.4; Lymphocytes % 10.4; Mean Corp. HGB Concentration 32.9 g/dL (32.0-36.0); Mean Corpuscular Hemoglobin 29.2 pg (27.0-33.0); Mean Corpuscular Volume 88.7 fL (80-95); Mean Platelet Volume 9.5 fL (8.0-11.0); Neutrophils % 71.4; Platelet Count 248 x1000/uL (130-400); RBC 4.76 m/cumm (4.50-6.00); RBC Distribution Width 14.8 % (11.8-14.1); White Blood Cell Count 8.54 k/cumm (4.4-10.8)
[2019-01-20 12:58] LABS: INR 2.1 (0.9-1.1); Prothrombin Time 20.3 sec (9.3-11.0)
== END 2019-01-20 12:17 ==
PROVIDERS: PCP Emergency Medicine; Visit Provider Emergency Medicine
DX: I48.91 Unspecified atrial fibrillation (principal); Z95.1 Presence of aortocoronary bypass graft; Z79.01 Long term (current) use of anticoagulants
CPT/HCPCS: 36415; 85025; 85610

== ENCOUNTER 2019-02-27 11:00 | Outpatient (CLI) | payer BC, SELFPAY ==
[2019-02-27 11:39] LABS: Abs Immature Grans 0.01 k/cumm (0.0-0.09); Absolute Basophil Count 0.02 k/cumm (0.0-0.2); Absolute Lymphocyte Count 1.22 k/cumm (1.2-3.4); Absolute Monocyte Count 0.86 k/cumm (0.11-0.7); Absolute Neutrophil Count 5.29 k/cumm (1.2-6.7); Basophils % 0.3; Eosinophils % 5.1; HCT 43.7 % (40.0-50.0); HGB 13.9 g/dL (13.5-17.5); Immature Grans % 0.1; Lymphocytes % 15.6; Mean Corp. HGB Concentration 31.8 g/dL (32.0-36.0); Mean Corpuscular Hemoglobin 28.7 pg (27.0-33.0); Mean Corpuscular Volume 90.3 fL (80-95); Mean Platelet Volume 9.7 fL (8.0-11.0); Neutrophils % 67.9; Platelet Count 245 x1000/uL (130-400); RBC 4.84 m/cumm (4.50-6.00); RBC Distribution Width 14.6 % (11.8-14.1)
[2019-02-27 11:42] LABS: INR 2.1 (0.9-1.1); Prothrombin Time 20.6 sec (9.3-11.0)
== END 2019-02-27 11:20 ==
PROVIDERS: PCP Emergency Medicine; Visit Provider Emergency Medicine
DX: I48.91 Unspecified atrial fibrillation (principal); Z79.01 Long term (current) use of anticoagulants; Z95.1 Presence of aortocoronary bypass graft
CPT/HCPCS: 36415; 85025; 85610

== ENCOUNTER 2019-04-14 09:19 | Outpatient (CLI) | payer BC, SELFPAY ==
--- NOTE | 2019-04-14 13:16 | PFT_ITS ---
PULMONARY FUNCTION TEST REPORT DATE OF SERVICE: April 14, 2019 REQUESTING PROVIDER: Dr. Dill Spirometry shows no evidence of obstructive airways disease, no bronchodilator response. Lung volumes show moderate restriction. Diffusion capacity mildly reduced, which is normal when corrected to alveolar volume. Airways resistance normal. IMPRESSION: Moderately severe restrictive lung disease, which is associated with mild diffusion defect. Clinical correlation recommended. PATRICIA/bruce D/
[2019-04-14] MEDS: Albuterol HFA 18 GM 200 PUFF INH IH (16:11)
[2019-04-14] MEDS: Inhaler, Assist Device 1 EACH MC (16:11)
== END 2019-04-14 09:39 ==
PROVIDERS: PCP Emergency Medicine; Visit Provider Surgery
DX: J90 Pleural effusion, not elsewhere classified (principal)
CPT/HCPCS: 94060; 94150; 94726; 94729

== ENCOUNTER 2019-04-14 09:21 | Outpatient (CLI) | payer BC, SELFPAY ==
--- NOTE | 2019-04-14 13:47 | DI.RAD_ITS ---
EXAM: XR CHEST 2V PA LATERAL INDICATION: WORSENING SHORTNESS OF BREATH R06.02. TECHNIQUE: 2D digital imaging was performed. FINDINGS: Heart is enlarged, unchanged. The aorta shows calcification and is mildly tortuous. Sternal wires a nd mediastinal clips from prior CABG are again noted. There is no significant change in right lower lobe pleural-based densities. No new infiltrate, effusion or pulmonary edema is seen. IMPRESSION: Stable changes at the right lung base. No new abnormalities are seen.
== END 2019-04-14 09:41 ==
PROVIDERS: PCP Emergency Medicine; Visit Provider Emergency Medicine
DX: R06.02 Shortness of breath (principal); I51.7 Cardiomegaly; Z95.1 Presence of aortocoronary bypass graft; J98.4 Other disorders of lung
CPT/HCPCS: 71046

== ENCOUNTER 2019-04-27 12:15 | Outpatient (CLI) | payer BC, SELFPAY ==
[2019-04-27 12:54] LABS: Abs Immature Grans 0.02 k/cumm (0.0-0.09); Absolute Basophil Count 0.02 k/cumm (0.0-0.2); Absolute Eosinophil Count 0.22 k/cumm (0.0-0.7); Absolute Lymphocyte Count 0.94 k/cumm (1.2-3.4); Absolute Monocyte Count 0.91 k/cumm (0.11-0.7); Absolute Neutrophil Count 7.35 k/cumm (1.2-6.7); Basophils % 0.2; Eosinophils % 2.3; HCT 43.7 % (40.0-50.0); HGB 14.3 g/dL (13.5-17.5); Immature Grans % 0.2 %; Lymphocytes % 9.9; Mean Corp. HGB Concentration 32.7 g/dL (32.0-36.0); Mean Corpuscular Hemoglobin 28.9 pg (27.0-33.0); Mean Corpuscular Volume 88.5 fL (80-95); Monocytes % 9.6; Neutrophils % 77.8; Platelet Count 281 x1000/uL (130-400); RBC 4.94 m/cumm (4.50-6.00); RBC Distribution Width 14.9 % (11.8-14.1); White Blood Cell Count 9.46 k/cumm (4.4-10.8)
[2019-04-27 13:50] LABS: D-Dimer 769 ng/mlFEU (<500)
[2019-04-27 13:59] LABS: ALT 26 U/L (16-63); AST 32 U/L (15-37); Albumin 3.3 g/dL (3.4-5.0); Alkaline Phosphatase 96 U/L (46-116); Anion Gap 7.1 mmol/L (3-11); BUN 19 mg/dL (7-18); Bilirubin, Total 0.7 mg/dL (0.2-1.0); C-Reactive Protein 2.29 mg/dL (0.0-0.3); CO2 33.9 mmol/L (21.0-32.0); CREATININE 1.33 mg/dL (0.70-1.30); Calcium 9.1 mg/dL (8.5-10.1); Chloride 102 mmol/L (98-107); Estimated GFR 52.28 (mL/min/1.73m2); Glucose 137 mg/dL (74-106); NT-proBNP 1457 pg/mL (<300); Sodium 143 mmol/L (136-145); Total Protein 6.9 g/dL (6.4-8.2)
[2019-04-27 14:31] LABS: ESR 31 mm/hr (1-20)
== END 2019-04-27 12:35 ==
PROVIDERS: PCP Emergency Medicine; Visit Provider Emergency Medicine
DX: R06.02 Shortness of breath (principal); I50.9 Heart failure, unspecified
CPT/HCPCS: 36415; 80053; 85652; 83880; 85025; 85379; 86140

== ENCOUNTER 2019-05-26 10:47 | Outpatient (CLI) | payer BC, SELFPAY ==
[2019-05-26 14:59] LABS: INR 3.3 (0.9-1.1); Prothrombin Time 31.9 sec (9.3-11.0)
== END 2019-05-26 11:07 ==
PROVIDERS: PCP Emergency Medicine; Visit Provider Emergency Medicine
DX: I25.10 Atherosclerotic heart disease of native coronary artery without angina pectoris (principal); Z79.01 Long term (current) use of anticoagulants
CPT/HCPCS: 36415; 85610

== ENCOUNTER 2019-07-01 14:03 | Outpatient (CLI) | payer BC, SELFPAY ==
[2019-07-01 14:35] LABS: INR 2.8 (0.9-1.1); Prothrombin Time 27.4 sec (9.3-11.0)
== END 2019-07-01 14:23 ==
PROVIDERS: PCP Emergency Medicine; Visit Provider Emergency Medicine
DX: I48.91 Unspecified atrial fibrillation (principal); Z79.01 Long term (current) use of anticoagulants
CPT/HCPCS: 36415; 85610

== ENCOUNTER 2019-07-30 02:06 | Outpatient (CLI) | payer BC, SELFPAY ==
--- NOTE | 2019-08-03 11:02 | W.HOLTRPT ---
Date of service: 08/03/19 Time of Service: 11:03 Holter Monitor Report Holter Monitor Note: This is a 48-hour Holter monitor ordered for the indication of dyspnea. ?Patient was then atrial fibrillation for the majority of the recording (90%). ?The patient had one episode of atrial fibrillation lasting 1 day 18 hours and 57 minutes. Maximum heart rate while in AF was 113 bpm. ?There were 3 episodes of ventricular tachycardia with the longest lasting 6 beats. ?There were occasional (1.8%) single ventricular ectopic beats as well as couplets and triplets. ?There were no pauses greater than 3 seconds and no evidence of high degree heart block.
== END 2019-07-30 02:26 ==
PROVIDERS: PCP Emergency Medicine; Visit Provider Emergency Medicine
DX: R06.00 Dyspnea, unspecified (principal); I48.91 Unspecified atrial fibrillation
CPT/HCPCS: 93225

== ENCOUNTER 2019-08-03 08:48 | Outpatient (CLI) | payer BC, SELFPAY | END 2019-08-03 09:08 | PROVIDERS: PCP Emergency Medicine; Visit Provider Emergency Medicine | DX: R06.00 Dyspnea, unspecified (principal); I48.91 Unspecified atrial fibrillation | CPT/HCPCS: 93226 ==

== ENCOUNTER 2019-12-29 09:29 | Outpatient (REF) | payer BC, SELFPAY ==
[2019-12-29 13:14] LABS: Hemoglobin A1C 6.4 % (<5.7)
== END 2019-12-29 09:49 ==
LOC: LBN 09:29
PROVIDERS: PCP Emergency Medicine; Visit Provider Emergency Medicine
DX: E11.9 Type 2 diabetes mellitus without complications (principal)
CPT/HCPCS: 83036

== ENCOUNTER 2020-03-15 04:37 | Outpatient (CLI) | payer BC, SELFPAY ==
[2020-03-15 11:50] LABS: Bilirubin Negative (Negative); Blood Negative (Negative); Clarity Clear (Clear); Glucose Negative (Negative); Ketones Negative (Negative); Leukocyte Esterase Negative (Negative); Nitrite Negative (Negative); Urobilinogen 0.2 EU/dL (Up TO 0.2)
[2020-03-15 11:50] LABS: HCT 47.5 % (40.0-50.0); HGB 15.4 g/dL (13.5-17.5); MCH 29.8 pg (27.0-33.0); MCHC 32.4 % (32.0-36.0); MCV 91.9 fL (80-95); MPV 9.7 fL (8.0-11.0); Platelet Count 231 10^3/uL (130-400); RBC 5.17 10^6/uL (4.36-5.78); RDW 13.9 % (11.8-14.1); RDW-SD 47.3 fL; WBC 7.74 10^3/uL (4.4-10.8)
[2020-03-15 12:06] LABS: INR 2.1 (0.9-1.1); Prothrombin Time 20.8 sec (9.3-11.0)
[2020-03-15 12:55] LABS: Anion Gap 7.2 mmol/L (3-11); BUN 19 mg/dL (7-18); CO2 32.8 mmol/L (21.0-32.0); CREATININE 1.35 mg/dL (0.70-1.30); Chloride 102 mmol/L (98-107); Estimated GFR 51.38 (mL/min/1.73m2); Glucose 154 mg/dL (74-106); Potassium 4.3 mmol/L (3.5-5.1); Sodium 142 mmol/L (136-145)
== END 2020-03-15 04:57 ==
PROVIDERS: PCP Emergency Medicine; Visit Provider Emergency Medicine
DX: I48.91 Unspecified atrial fibrillation (principal); Z79.01 Long term (current) use of anticoagulants
CPT/HCPCS: 36415; 80048; 85027; 81003; 85610

== ENCOUNTER 2020-04-26 04:08 | Outpatient (RCR) | payer BC, SELFPAY ==
--- NOTE | 2020-04-26 13:00 | HOLTER_ITS ---
APPROVED REPORT Exam Type: HOLTER MONITOR APPLICATION Reason for Test: AF Patient Location: O Conclusion This was a 24-hour Holter monitor ordered for atrial fibrillation Predominant rhythm was sinus. Average heart rate was 75, minimum 61. There were moderately frequent premature ventricular contractions. There were several couplets tripl ets and 4-5 beat runs of nonsustained ventricular tachycardia There were were multiple brief runs of supraventricular tachycardia. Two more prolonged runs were co nsistent with self-limited paroxysmal atrial fibrillation with aberrant conduction rate approximately 148. These were not sustained ventricular tachycardia. There were no pauses greater than 3 seconds. There was no high-grade AV block. No patient symptoms corresponded to dysrhythmia
== END 2020-05-08 23:59 | disposition home or self-care (01) ==
LOC: RT 04:08
PROVIDERS: PCP Emergency Medicine; Visit Provider Emergency Medicine
DX: I48.91 Unspecified atrial fibrillation (principal)
CPT/HCPCS: 93225; 93226

== ENCOUNTER 2020-06-20 00:56 | Outpatient (CLI) | payer BC, SELFPAY ==
[2020-06-20 12:38] LABS: Abs Immature Grans 0.03 10^3/uL (0.0-0.06); Absolute Basophil Count 0.02 10^3/uL (0.0-0.2); Absolute Eosinophil Count 0.27 10^3/uL (0.0-0.7); Absolute Lymphocyte Count 0.96 10^3/uL (1.2-3.4); Absolute Neutrophil Count 5.43 10^3/uL (1.2-6.7); Basophils % 0.3; Eosinophils % 3.7; HCT 44.2 % (40.0-50.0); HGB 14.4 g/dL (13.5-17.5); Immature Grans % 0.4; Lymphocytes % 13.1; MCH 29.8 pg (27.0-33.0); MCHC 32.6 % (32.0-36.0); MCV 91.5 fL (80-95); Monocytes % 8.2; Neutrophils % 74.3; Nucleated RBC 0 %; Platelet Count 222 10^3/uL (130-400); RBC 4.83 10^6/uL (4.36-5.78); RDW-SD 43.6 fL; WBC 7.31 10^3/uL (4.4-10.8)
[2020-06-20 12:40] LABS: Anion Gap 7.8 mmol/L (3-11); BUN 24 mg/dL (7-18); CO2 30.2 mmol/L (21.0-32.0); CREATININE 1.2 mg/dL (0.70-1.30); Calcium 9.1 mg/dL (8.5-10.1); Chloride 102 mmol/L (98-107); Estimated GFR 58.71 (mL/min/1.73m2); Glucose 117 mg/dL (74-106); Potassium 3.9 mmol/L (3.5-5.1); Sodium 140 mmol/L (136-145)
[2020-06-20 12:41] LABS: Bilirubin Negative (Negative); Blood Negative (Negative); Clarity Clear (Clear); Glucose Negative (Negative); Ketones Negative (Negative); Leukocyte Esterase Negative (Negative); Nitrite Negative (Negative); Specific Gravity 1.025 (1.005-1.025); Urobilinogen 0.2 EU/dL (Up TO 0.2); pH 6.5 (5-8)
[2020-06-20 12:50] LABS: Bacteria Rare HPF (Negative); C & S Indicated? No; Casts Negative LPF (Negative); Crystals Negative HPF (Negative); Epithelial Cells Rare HPF (Negative); Mucus Trace (Negative)
[2020-06-20] MEDS: Normal Saline - Diluent 50 ML VIAL IV (12:57)
[2020-06-20] MEDS: Omnipaque 350 MG/ML 100 ML BTL IJ (12:58)
--- NOTE | 2020-06-20 12:58 | DI.CT_ITS ---
EXAM: CT CHEST W CLINICAL HISTORY: F/U abnormal chest ct done in [place],r93.89. TECHNIQUE: Multi planar reconstructions were performed. CONTRAST MATERIAL: Omnipaque 350; 75 cc COMPARISON: CT CHEST WITH CONTRAST from 09/06/2017 CR XR CHEST 2V PA LATERAL from 04/14/2019 FINDINGS: CHEST: LUNGS: The size of the right pleural effusion has decreased significantly when compared to 09/06/2017 . There is, however, some remaining mild loculated appearing pleural fluid in the lower right pleura l space. Also some infiltrate in the adjacent right lower lobe. There is no overlying rib destructi on evident.. The opposite-left lung is relatively clear and there is no pleural effusion on the left side. There is a 5 millimeter nodule in the left lower lobe which appears unchanged from the prior study. Also a few benign pleural based densities are again noted. There is no left pleural effusion There are no new focal findings in the trachea and mainstem bronchi. MEDIASTINUM: Slightly enlarged subcarinal and left hilar lymph nodes are noted.Visualized thyroid a ppears unremarkable. CARDIAC: Sternotomy wires again noted as well as CABG. Cardiomegaly is again noted.There is no peric ardial effusion. Caliber of the thoracic aorta is upper normal. VISUALIZED UPPER ABDOMEN:There are no significant adrenal masses. Previously described multiple hypo densities in the liver are again noted and are probably cysts, unchanged. OSSEOUS: No significant osseous lesions.. IMPRESSION: 1. Compared to the CT scan of September 2017 the size of right pleural effusion has decreased. Presently there is a small loculated appearing right pleural effusion noted. There is also some infiltrate in the right lung base noted.. 2. Stable appearance of 5 millimeters nodule in the left lung left lower lobe. No pleural effusion o n the left side. 3. Slightly enlarged left hilar and subcarinal lymph nodes noted. 4. Cardiomegaly. Sternotomy wires. 5. Stable appearing well-defined hypodensities in the liver which are probably benign cysts. RADIATION DOSE DELIVERED: 698.19mGy.cm Total DLP DATA REPOSITORY: All CT scans at this facility are submitted to the National Radiology Data Registry (NRDR) Dose Index Registry (DIR) with the [employer] ([employer]). RADIATION OPTIMIZATION: All CT scans at this facility use at least one of these dose optimization te chniques: automated exposure control; mA and/or kV adjustment per patient size (includes targeted exa ms where dose is matched to clinical indication); or iterative reconstruction.
== END 2020-06-20 01:16 ==
PROVIDERS: PCP Emergency Medicine; Visit Provider Emergency Medicine
DX: J90 Pleural effusion, not elsewhere classified; R91.1 Solitary pulmonary nodule; I51.7 Cardiomegaly; Z95.1 Presence of aortocoronary bypass graft; I10 Essential (primary) hypertension; Z01.810 Encounter for preprocedural cardiovascular examination
CPT/HCPCS: 80048; 71260; 81003; 81015; 85025; J3490

== ENCOUNTER 2020-12-21 03:11 | Outpatient (CLI) | payer BC, SELFPAY ==
[2020-12-21 13:54] LABS: Abs Immature Grans 0.02 10^3/uL (0.0-0.06); Absolute Basophil Count 0.02 10^3/uL (0.0-0.2); Absolute Eosinophil Count 0.24 10^3/uL (0.0-0.7); Absolute Lymphocyte Count 1.01 10^3/uL (1.2-3.4); Absolute Monocyte Count 0.92 10^3/uL (0.1-0.8); Basophils % 0.3; Eosinophils % 3.3; HCT 44.6 % (40.0-50.0); HGB 14.7 g/dL (13.5-17.5); Immature Grans % 0.3; MCH 30.2 pg (27.0-33.0); MCV 91.8 fL (80-95); MPV 10.2 fL (8.0-11.0); Monocytes % 12.8; Neutrophils % 69.3; Nucleated RBC 0 %; Platelet Count 221 10^3/uL (130-400); RBC 4.86 10^6/uL (4.36-5.78); RDW 13.2 % (11.8-14.1); RDW-SD 44.1 fL; WBC 7.21 10^3/uL (4.4-10.8)
[2020-12-21 14:15] LABS: Hemoglobin A1C 6.2 % (<5.7)
[2020-12-21 14:59] LABS: ALT 29 U/L (16-63); AST 17 U/L (15-37); Albumin 3.5 g/dL (3.4-5.0); Alkaline Phosphatase 77 U/L (46-116); Anion Gap 5.4 mmol/L (3-11); BUN 19 mg/dL (7-18); Bilirubin, Total 0.6 mg/dL (0.2-1.0); C-Reactive Protein 0.37 mg/dL (0.0-0.3); CO2 30.6 mmol/L (21.0-32.0); CREATININE 1.4 mg/dL (0.70-1.30); Calcium 8.9 mg/dL (8.5-10.1); Chloride 105 mmol/L (98-107); Estimated GFR 49.14 (mL/min/1.73m2); Glucose 136 mg/dL (74-106); Potassium 4.1 mmol/L (3.5-5.1); Sodium 141 mmol/L (136-145); Total Protein 6.9 g/dL (6.4-8.2)
[2020-12-21 21:39] LABS: Rheumatoid Factor <8.6 IU/mL (<12.0)
== END 2020-12-21 03:12 | disposition home or self-care (01) ==
LOC: LBO 03:11
PROVIDERS: PCP Emergency Medicine; Visit Provider Emergency Medicine
DX: E11.9 Type 2 diabetes mellitus without complications; R05 Cough; R93.89 Abnormal findings on diagnostic imaging of other specified body structures; R06.00 Dyspnea, unspecified; M25.50 Pain in unspecified joint
CPT/HCPCS: 36415; 80053; 83036; 85025; 86140; 86431

== ENCOUNTER 2021-03-16 13:08 | Outpatient (REF) | payer BC, SELFPAY ==
[2021-04-14 13:14] LABS: Fungus Smear No Fungi Seen
== END 2021-03-16 13:09 | disposition home or self-care (01) ==
LOC: LBN 13:08
PROVIDERS: PCP Emergency Medicine; Visit Provider Student in an Organized Health Care Education/Training Program
DX: J47.9 Bronchiectasis, uncomplicated (principal)
CPT/HCPCS: 87102; 87116; 87206; 87070; 87205

== ENCOUNTER 2021-03-17 15:23 | Outpatient (REF) | payer BC, SELFPAY ==
--- OUTSIDE RECORDS SUMMARY | 2021-03-17 15:25 | XMS_ITS ---
:1945 Author Care Team Providers Name Role Phone GURMEET ROBERT Primary Care Provider [phone] YASIR WOOD MD Media Analyst [phone] STEFAN GONSALEZ MD General Surgeon Unavailable LING WRIGHT MD Heel Nail Rasper Unavailable Allergies Code Code Name Reaction Severity Status Onset System Carlos Inhibitors Cough ? Active ? 4413 RxNorm Hydromorphone Hallucinations ? Active ? 5839 RxNorm Metformin Diarrhea ? Active ? 5552 RxNorm Morphine Hallucinations ? Active ? Nausea ? Active ? Other ? Active ? Medications Name Status Start Date Stop Date ? ? allopurinol 300 mg tablet Active ? Not av ailable amiodarone 200 mg tablet Completed ? 018 amoxicillin 500 mg capsule Active ? Not a vailable as needed for dental visits Arnuity Ellipta 200 mcg/actuation powder for inhalation Complete d ? 03/07/2018 Inhale 1 puff every day by inhalation route. aspirin 81 mg tablet,delayed release Active ? Not available Take 1 tablet every day by oral route. atorvastatin 20 mg tablet Completed 09/12/20172017 atorvastatin 40 mg tablet Active ? Not av ailable benzonatate 200 mg capsule Completed ? 09/12 bisoprolol fumarate 5 mg tablet Active ? Not available clindamycin HCl 150 mg capsule Completed ? 0 09/12/2017 Colace 100 mg capsule Completed ? 12/20/2017 Take 1 capsule every day by oral route as needed. Fish Oil Active ? Not available one capsule once daily Fluad 65yr up(PF)45 Completed ? 10/2017 mcg(15 mcgx3)/0.5 mL intramuscular syringe Fluad 65yr up(PF)45 Active ? Not available mcg(15 mcgx3)/0.5 mL intramuscular syringe fluticasone propionate 50 Completed ? 2017 mcg/actuation nasal spray,suspension furosemide 40 mg tablet Active ? Not avai lable hydromorphone 4 mg tablet Completed 02/06/20132015 1-3 Tablet: Every four hours as needed for pain indomethacin 25 mg capsule Completed ? 09/18 isosorbide mononitrate ER 30 mg Completed ? 03/07/2018 tablet,extended release 24 hr lisinopril 10 mg tablet Completed ? 09/13/19 18 lorazepam 1 mg tablet Active ? Not availa ble 1 tablet prior to flying or prior to surgical procedures losartan 25 mg tablet Active ? Not availa ble metoprolol succinate ER 25 mg tablet,extended release 24 hr Acti ve 09/18/2017 Not available one tablet once daily take with 50mg tablet to equal 75mg metoprolol succinate ER 50 mg Active ? No t available tablet,extended release 24 hr metoprolol tartrate 50 mg tablet Completed ? 09/12/2017 multivitamin Active ? Not available one tablet once daily prednisone 10 mg tablet Completed ? 03/07/20 18 20 mg qd x 10 days then 10 mg qd x 10 days then stop prednisone 20 mg tablet Completed ? 09/19/19 18 ProAir HFA 90 mcg/actuation Active ? Not available aerosol inhaler sertraline 25 mg tablet Active ? Not avai lable sulfamethoxazole 800 Active ? Not availab le mg-trimethoprim 160 mg tablet Vitamin C Active ? Not available one tablet once daily Vitamin D3 Active ? Not available one capsule once daily warfarin 5 mg tablet Active ? Not availab le Problems Name Status Onset Date Source ? [place]: Positive Active 04/08/1981 ? Diabetes Mellitus Active 09/09/2017 ? Coronary Arteriosclerosis Unknown 09/09/2017 ? Cardiomyopathy Active 09/09/2017 ? Atrial Fibrillation Active 09/09/2017 ? History of Hypertension Active 09/09/2017 ? Pleural Effusion Active 09/18/2017 ? Obstructive Sleep Apnea Syndrome Active ? History Idiopathic Sleep Related Active ? History Non-obstructive Alveolar Hypoventilation Posterior Rhinorrhea Active ? History Knee Pain Active ? History Procedures Date Name Performed by ? 02/05/2018 Chest Procedure Information not avai lable Notes: Pleurodesis Right lung 01/22/2018 Chest Procedure Information not avai lable Notes: Pleurodesis 12/23/2017 Chest Pleural Catheter Insertion Informa tion not available 11/27/2017 Thoracentesis Information not avai lable Notes: right for 2200 mL of fluid 03/08/2017 Cabg Information not avai lable Notes: x3 04/08/2015 Colonoscopy Information not avai lable Notes: [facility] 04/08/2011 Cataract Surgery Information not avai lable Notes: Bilateral during the same year 04/08/2010 Penis Plastic Surgery Information not av ailable Notes: Penile implant for erectile dy sfunction 04/08/2009 Total Knee Arthroplasty Information not available Notes: Bilateral 3 months apart 04/08/2003 Cardiac Surgery Information not avai lable Notes: cardiac ablation 5-6 times 200 4 being the first ? Dental Surgery Procedure Information not available Notes: tooth extraction 09/18/2017 [facility] [address] [place] [address] (Work Place) 11/19/2017 X[facility] [address] [place] [address] (Work Place) 11/28/2017 XR, Chest, [facility] [address] [place] [address] (Work Place) 01/10/2018 CT, Chest, W/ Contrast [facility] (Internal) [address] [place] [address] (Work Place) 02/10/2018 XR, [facility], [facility] [address] [place] [address] (Work Place) 02/19/2018 XR, Chest, [facility] [address] [place] [address] (Work Place) 02/24/2018 CT, Chest, W/ Contrast [facility] (Internal) [address] [place] [address] (Work Place) Results Lab Results Date Name Specimen Result Interpretation Description Value Range Status Address ? 05/19/2018 RBC Morphology, BLD - Aniso small ? Zuleyka l [facility] (Internal) : [address] ? ? BLD - Oval occasional ? Final [facility] ([facility]) : [address] 05/19/2018 Prothrombin BLD High Pt 40.9 S 9.1 Final N [facility] Time -11 Country .7 Hospital L ab S (Internal) : [address] ? ? BLD CRITICAL Inr 4.4 ? Final [facility] L [facility] (Internal) : [address] 05/19/2018 CBC W/ Auto BLD - Wbc 8.1 10*3/uL 5.0 Fin [facility] [place] Diff -10 Country .0 Hospital L ab 10* (Internal) : 3/u [address] [place] ? ? BLD Low Rbc 4.25 4.6 Final [facility] 10*6/uL 0-6 Country .00 Hospital L ab 10* (Internal) : 6/u [address] [place] ? ? BLD Low Hgb 11.4 g/dL 14. Final [facility] 0-1 Country 8.0 Hospital L ab g/d (Internal) : L [address] [place] ? ? BLD Low Hct 37.7 % 41. Final [facility] 0-5 Country 1.0 Hospital L ab % (Internal) : [address] [place] ? ? BLD - Mcv 88.7 fL 80. Final [facility] 0-9 Country 6.0 Hospital L ab fL (Internal) : [address] [place] ? ? BLD - Mch 26.8 pg 26. Final [facility] 0-3 Country 2.0 Hospital L ab pg (Internal) : [address] [place] ? ? BLD Low Mchc 30.2 g/dL 31. Final [facility] 0-3 Country 5.0 Hospital L ab g/d (Internal) : L [address] [place] ? ? BLD High Rdw 17.6 % 11. Final [facility] 5-1 Country 4.5 Hospital L ab % (Internal) : [address] [place] ? ? BLD - Plt 383 10*3/uL 130 Final [facility] - [facility] 0 Hospital L ab 10* (Internal) : 3/u [address] [place] ? ? BLD - Anc 6.19 ? Final [facility] 10*3/uL [facility] (Internal) : [address], [place] ? ? BLD High Neutro 76.6 % 40. Final [facility] 0-7 Country 5.0 Hospital L ab % (Internal) : [address], [place] ? ? BLD Low Lymph 11.4 % 20. Final [facility] 0-5 Country 0.0 Hospital L ab % (Internal) : [address] , [place] ? ? BLD - Coleman 9.3 % 2.0 Final [facility] -10 [facility] .0 Hospital L ab % (Internal) : [address] , [place] ? ? BLD - Eos 2.2 % 1.0 Final [facility] -6. Country 0 % Hospital L ab (Internal) : [address] [place] ? ? BLD - Baso 0.1 % 0.0 Final [facility]. Country 0 % Hospital L ab (Internal) : [address] [place] ? ? BLD - Ig 0.4 % 0.0 Final [facility]. Country 9 % Hospital L ab (Internal) : [address] 05/12/2018 RBC Morphology, BLD - Aniso small ? Zuleyka l [facility] (Internal) : [address] 05/12/2018 CBC W/ Auto BLD - Wbc 8.4 10*3/uL 5.0 [facility] Diff -10 Country .0 Hospital L ab 10* (Internal) : 3/u [address] [place] ? ? BLD Low Rbc 3.88 4.6 [facility] 10*6/uL 0-6 Country .00 Hospital L ab 10* (Internal) : 6/u [address] [place] ? ? BLD Low Hgb 10.7 g/dL 14. Final [facility] 0-1 Country 8.0 Hospital L ab g/d (Internal) : L [address] [place] ? ? BLD Low Hct 34.7 % 41. Final [facility] 0-5 Country 1.0 Hospital L ab % (Internal) : [address] [place] ? ? BLD - Mcv 89.4 fL 80. Final [facility] 0-9 Country 6.0 Hospital L ab fL (Internal) : [address] [place] ? ? BLD - Mch 27.6 pg 26. Final [facility] 0-3 Country 2.0 Hospital L ab pg (Internal) : [address] [place] ? ? BLD Low Mchc 30.8 g/dL 31. Final [facility] 0-3 Country 5.0 Hospital L ab g/d (Internal) : L [address], [place] ? ? BLD High Rdw 18.1 % 11. Final [facility] 5-1 Country 4.5 Hospital L ab % (Internal) : [address] [place] ? ? BLD - Plt 431 10*3/uL 130 Final [place] [address] Country 0 Hospital L ab 10* (Internal) : 3/u [address] [place] ? ? BLD - Anc 6.35 ? Final [facility] 10*3/uL [facility] (Internal) : [address] [place] ? ? BLD High Neutro 75.6 % 40. Final [facility] 0-7 Country 5.0 Hospital L ab % (Internal) : [address], [place] ? ? BLD Low Lymph 11.8 % 20. Final [facility] 0-5 Country 0.0 Hospital L ab % (Internal) : [address], [place] ? ? BLD - Coleman 9.9 % 2.0 Final [facility] -10 [facility] .0 Hospital L ab % (Internal) : [address], [place] ? ? BLD - Eos 2.1 % 1.0 Final [facility]. Country 0 % Hospital L ab (Internal) : [address], [place] ? ? BLD - Baso 0.2 % 0.0 Final [facility]. Country 0 % Hospital L ab (Internal) : [address], [place] ? ? BLD - Ig 0.4 % 0.0 Final [facility]. Country 9 % Hospital L ab (Internal) : [address] [place] 02/14/2018 Prothrombin BLD High Pt 17.4 S 9.1 Final N orth Time -11 Country .7 Hospital L ab S (Internal) : [address] [place] ? ? BLD - Inr 1.7 ? Final [facility] L ab (Internal) : [address] [place] 01/13/2018 Creatinine, S - Crea 1.20 mg/dL 0.6 [facility] Serum or Plasma 6-1 C ountry .25 Hospital L ab mg/ (Internal) : dL [address] 01/01/2018 Prothrombin BLD High Pt 16.7 S 9.1 Final N orth Time -11 Country .7 Hospital L ab S (Internal) : [address], [place] ? ? BLD - Inr 1.6 ? Final [facility] L ab (Internal) : [address] [place] 11/28/2017 Flow Cytometry, MISC - Report results ? [facility] Unspecified below Count ry Specimen Hospital Lab (Internal) : [address] [place] 11/27/2017 Cell Count, MISC - Source, Bf pleural ? [facility] L ab (Internal) : [address], [place] ? ? MISC - Color, Bf yellow ? Final [facility] L ab (Internal) : [address] , [place] ? ? MISC - Clarity hazy ? Final [facility] L ab (Internal) : [address] , [place] ? ? MISC - WBC, Bf 0.75 ? Final [facility] (Auto) 10*3/uL [facility] Hospital L ab (Internal) : [address] , [place] ? ? MISC - RBC, Bf <0.01 ? Final [facility] (Auto) 10*6/uL [facility] L ab (Internal) : [address] , [place] ? ? MISC - Polys, Bf 3 % ? Final [facility] (Auto) [facility] L ab (Internal) : [address] [place] ? ? MISC - Lymphs, 93 % ? Final [facility] Bf(auto) [facility] L ab (Internal) : [address] , [place] ? ? MISC - Monocyte, 4 % ? Final [facility] Bf (Auto) [facility] Hospital L ab (Internal) : [address] , [place] ? ? MISC - Eos, Bf 0 % ? Final [facility] (Auto) [facility] L ab (Internal) : [address] , [place] ? ? MISC - Baso, Bf 0 % ? Final [facility] (Auto) [facility] L ab (Internal) : [address] [place] 11/27/2017 Go-fahc MISC - [id number] see below ? Final No rth 11/27/2017 Countr y 08:58 pm Hospital Lab (Internal) : [address] [place] 11/27/2017 Go-fahc MISC - [id number] see below ? Final No rth 11/27/2017 Countr y 08:58 pm Hospital Lab (Internal) : [address] [place] 11/27/2017 Go-fahc MISC - [id number] see below ? Final No rth 11/27/2017 Countr y 08:40 pm Hospital Lab (Internal) : [address] [place] jordan 11/27/2017 Go-fahc MISC - [id number] see below ? Final No rth 11/27/2017 Countr y 08:58 pm Hospital Lab (Internal) : [address] [place] 11/27/2017 Go-fahc MISC - [id number] see below ? Final No rth 11/27/2017 Countr y 08:58 pm Hospital Lab (Internal) : [address] 11/27/2017 Cytology, TISS - Report results ? Final N orth Non-gynecologic below C ountry al, Unspecified H ospital Lab Specimen (Interna l): [address] [place] julian 11/27/2017 Go-roch MISC - [id number] see below ? Final No rth Refrigerate 11/29/2017 C ountry 11:46 pm Hospital Lab (Internal) : [address] [place] julian 11/27/2017 Go-roch Frozen MISC - [id number] see below ? Fi nal Saúl 12/03/2017 Countr y 11:39 AM Hospital Lab (Internal) : [address] 11/27/2017 Culture, Afb MISC - Specimen (see note) ? Final [facility] (Acid-fast Description C ountry Bacilli) Hospital Lab (Internal) : [address] ? ? MISC - Result (see note) ? Final [facility] L ab (Internal) : [address] ? ? MISC - Report (see note) ? Final [facility] L ab (Internal) : [address] 11/06/2017 Prothrombin BLD High Pt 20.1 S 9.1 Final N orth Time -11 Country .7 Hospital L ab S (Internal) : [address] ? ? BLD - Inr 2.0 ? Final [facility] L ab (Internal) : [address], [place] 08/13/2017 Venipuncture BLD ? Venpn* ? ? Final [facility] L ab (Internal) : [address], [place] 08/13/2017 Prothrombin BLD High Pt 21.4 S 9.1 Final N orth Time -11 Country .7 Hospital L ab S (Internal) : [address], [place] ? ? BLD ? Inr 2.1 ? Final [facility] L ab (Internal) : [address], [place] 08/05/2017 Venipuncture BLD ? Venpn* ? ? Final [facility] L ab (Internal) : [address], [place] 08/05/2017 Prothrombin BLD High Pt 13.2 S 9.1 Final N orth Time - Country .7 Hospital L ab S (Internal) : [address], [place] ? ? BLD ? Inr 1.3 ? Final [facility] L ab (Internal) : [address], [place] 07/26/2017 Venipuncture BLD ? Venpn* ? ? Final [facility] L ab (Internal) : [address], [place] 07/26/2017 Prothrombin BLD ? Pt 10.9 S 9.1 Final N orth Time - Country .7 Hospital L ab S (Internal) : [address], [place] ? ? BLD ? Inr 1.1 ? Final [facility] L ab (Internal) : [address], [place] 07/09/2017 Venipuncture BLD ? Venpn* ? ? Final [facility] L ab (Internal) : [address], [place] 07/09/2017 Prothrombin BLD High Pt 14.4 S 9.1 Final N orth Time -11 Country .7 Hospital L ab S (Internal) : [address], [place] ? ? BLD ? Inr 1.4 ? Final [facility] L ab (Internal) : [address], [place] 07/03/2017 Venipuncture BLD ? Venpn* ? ? Final [facility] L ab (Internal) : [address] 07/03/2017 Prothrombin BLD High Pt 14.3 S 9.1 Final N orth Time -11 Country .7 Hospital L ab S (Internal) : [address] ? ? BLD ? Inr 1.4 ? Final [facility] L ab (Internal) : [address], [facility] t 06/24/2017 Venipuncture BLD ? Venpn* ? ? Final [facility] L ab (Internal) : [address], [facility] t 06/24/2017 Prothrombin BLD High Pt 11.8 S 9.1 Final N orth Time -11 Country .7 Hospital L ab S (Internal) : [address] [facility] ? ? BLD ? Inr 1.1 ? Final [facility] L ab (Internal) : [address], [facility] t 06/17/2017 Venipuncture BLD ? Venpn* ? ? Final [facility] L ab (Internal) : [address] [facility] t 06/17/2017 Prothrombin BLD High Pt 11.9 S 9.1 Final N orth Time -11 Country .7 Hospital L ab S (Internal) : [address] [place] [address] ? ? BLD ? Inr 1.1 ? Final [facility] L ab (Internal) : [address] [facility] t 04/26/2017 Venipuncture BLD ? Venpn* ? ? Final [facility] L ab (Internal) : [address] [facility] t 04/26/2017 Prothrombin BLD High Pt 20.9 S 9.1 Final N orth Time -11 Country .7 Hospital L ab S (Internal) : [address] ? ? BLD ? Inr 2.0 ? Final [facility] L ab (Internal) : [address] [facility] t 03/09/2017 Partial BLD ? APTT (Op) 24 s 22- Final N orth Thromboplastin 35 Co untry Time s Hospital L ab (Internal) : [address] [facility] t 03/09/2017 Troponin I, S ? Trop <0.06 NG/mL 0.0 Fin al [facility] Serum or Plasma 0-0 C ountry .06 Hospital L ab NG/ (Internal) : mL [address] [place] 03/09/2017 CMP, Serum or S High g/r 121 mg/dL 74- Fin al [facility] Plasma 106 Country mg/ Hospital L ab dL (Internal) : [address], [place] ? ? S High Bun 31 mg/dL 9-2 Final [facility] 0 Country mg/ Hospital L ab dL (Internal) : [address], [place] ? ? S High Crea 1.60 mg/dL 0.6 Final [facility] 6-1 Country .25 Hospital L ab mg/ (Internal) : dL [address], [place] ? ? S ? Ca 9.5 mg/dL 8.4 Final [facility] -10 Country .2 Hospital L ab mg/ (Internal) : dL [address], [place] ? ? S ? Na 141 mmol/L 137 Final [facility] -14 Country 5 Hospital L ab mmo (Internal) : l/L [address] [place] ? ? S ? K 4.0 mmol/L 3.5 Final [facility] -5. Country 1 Hospital L ab mmo (Internal) : l/L [address] [place] ? ? S ? Cl 99 mmol/L 98- Final [facility] 107 Country mmo Hospital L ab l/L (Internal) : [address], [place] ? ? S High Tco2 31.0 mmol/L 22. Final [facility] 0-3 Country 0.0 Hospital L ab mmo (Internal) : l/L [address] [place] ? ? S ? Tp 7.2 g/dL 6.3 Final [facility] -8. Country 2 Hospital L ab g/d (Internal) : L [address] [place] ? ? S ? Alb 4.2 g/dL 3.5 Final [facility] -5. Country 0 Hospital L ab g/d (Internal) : L [address] [place] ? ? S ? Tbil 0.6 mg/dL 0.2 Final [facility] -1. Country 3 Hospital L ab mg/ (Internal) : dL [address] [place] ? ? S ? Alp 55 U/L 38- Final [facility] 126 [facility] U/L Hospital L ab (Internal) : [address] [place] ? ? S ? Alt (Sgpt) 40 U/L 21- Final [facility] 72 Country U/L Hospital L ab (Internal) : [address], [place] ? ? S ? Ast (Sgot) 27 U/L 17- Final [facility] 59 Country U/L Hospital L ab (Internal) : [address] , [place] 03/09/2017 CBC W/ Auto BLD ? Wbc 9.2 10*3/uL 5.0 Fin al [facility] Diff -10 Country .0 Hospital L ab 10* (Internal) : 3/u [address] , [place] ? ? BLD ? Rbc 5.11 4.6 Final [facility] 10*6/uL 0-6 Country .00 Hospital L ab 10* (Internal) : 6/u [address] , [place] ? ? BLD ? Hgb 15.2 g/dL 14. Final [facility] 0-1 Country 8.0 Hospital L ab g/d (Internal) : L [address] , [place] ? ? BLD ? Hct 46.1 % 41. Final [facility] 0-5 Country 1.0 Hospital L ab % (Internal) : [address] , [place] ? ? BLD ? Mcv 90.2 fL 80. Final [facility] 0-9 Country 6.0 Hospital L ab fL (Internal) : [address] [place] ? ? BLD ? Mch 29.7 pg 26. Final [facility] 0-3 Country 2.0 Hospital L ab pg (Internal) : [address] , [place] ? ? BLD ? Mchc 33.0 g/dL 31. Final [facility] 0-3 Country 5.0 Hospital L ab g/d (Internal) : L [address] , [place] ? ? BLD ? Rdw 13.0 % 11. Final [facility] 5-1 Country 4.5 Hospital L ab % (Internal) : [address] , [place] ? ? BLD ? Plt 222 10*3/uL 130 Final [facility] -45 Country 0 Hospital L ab 10* (Internal) : 3/u [address] , [place] ? ? BLD ? Anc 6.57 ? Final [facility] 10*3/uL [facility] Hospital L ab (Internal) : [address] , [place] ? ? BLD ? Neutro 71.1 % 40. Final [facility] 0-7 Country 5.0 Hospital L ab % (Internal) : [address], [place] ? ? BLD Low Lymph 15.4 % 20. Final [facility] 0-5 Country 0.0 Hospital L ab % (Internal) : [address], [place] ? ? BLD ? Coleman 9.5 % 2.0 Final [facility] -10 Country .0 Hospital L ab % (Internal) : [address], [place] ? ? BLD ? Eos 3.6 % 1.0 Final [facility] -6. Country 0 % Hospital L ab (Internal) : [address], [place] ? ? BLD ? Baso 0.2 % 0.0 Final [facility] -1. Country 0 % Hospital L ab (Internal) : [address], [place] ? ? BLD ? Ig 0.2 % 0.0 Final [facility] -0. Country 9 % Hospital L ab (Internal) : [address], [place] Past Encounters None recorded. Social History Tobacco Smoking Status Former Smoker Notes: quit 35 years ago Vaccine List Vaccine Type influenza, injectable, quadrivalent 12/24/2016 influenza, trivalent, adjuvanted 12/07/2017 pneumococcal polysaccharide PPV23 09/07/2007 Plan of Care Reminders Provider Appointments None ? ? recorded. Lab None ? ? recorded. Referral None ? ? recorded. Procedures None ? ? recorded. Surgeries None ? ? recorded. Imaging None ? ? recorded. Vitals 03/13/2018 02:00PM Office 15 Height 185.42 cm 03/07/2018 09:30AM Follow Up 30 Height Weight BMI Blood Pressure 185.42 cm 117.5 kg 34.2 kg/m2 130/70 mm[Hg] 03/05/2018 01:15PM Office 15 Height 185.42 cm 02/24/2018 09:00AM Office 15 Height 185.42 cm 02/14/2018 02:00PM Office 15 Height 185.42 cm 02/10/2018 09:30AM Follow Up 15 Height 185.42 cm 02/03/2018 01:30PM Office 15 Height 185.42 cm 01/27/2018 10:30AM Acute 15 Height 185.42 cm 01/20/2018 10:00AM Office 15 Height 185.42 cm 01/13/2018 01:45PM Office 15 Height 185.42 cm 01/09/2018 11:00AM Office 15 Height 185.42 cm 01/06/2018 09:30AM Office 30 Height 185.42 cm 01/06/2018 11:00AM Follow Up 30 Height Weight BMI Blood Pressure 185.42 cm 124.7 kg 36.3 kg/m2 128/70 mm[Hg] 12/30/2017 09:30AM Acute 15 Height 185.42 cm 12/19/2017 01:15PM Acute 15 Height 185.42 cm 09/12/2017 10:00AM Office 30 Height Weight BMI Blood Pressure 185.42 cm 123.38 kg 35.9 kg/m2 120/80 mm[Hg] 08/18/2015 Height Weight Blood Pressure 187.96 cm 126.69 kg 128/78 mm[Hg] 06/30/2015 Height Weight Blood Pressure 187.96 cm 127.46 kg 130/72 mm[Hg]
== END 2021-03-17 15:24 | disposition home or self-care (01) ==
LOC: LBN 15:23
PROVIDERS: PCP Emergency Medicine; Visit Provider Student in an Organized Health Care Education/Training Program
DX: J47.9 Bronchiectasis, uncomplicated (principal)
CPT/HCPCS: 87116; 87206; 87070; 87205

== ENCOUNTER 2021-06-15 01:21 | Outpatient (CLI) | payer BC, SELFPAY ==
--- NOTE | 2021-06-15 09:27 | DI.US_ITS ---
APPROVED REPORT EXAM: Comprehensive 2D, Doppler, and color-flow Echocardiogram Patient Location: Out-Patient [employer] Operator: Zakia Fernandes RDCS (AE) Indications: Dyspnea on exertion, Cardiomyopathy, CHF Other Information Study Quality: Adequate Conclusion Normal left ventricular wall thickness and chamber size. Estimated ejection fraction is 50 to 55%. There are no segmental wall motion abnormalities Right ventricle is moderately dilated The left atrium is normal in size. The right atrium is moderately dilated The aortic valve is calcified without stenosis or regurgitation. Unable to determine accurately numb er of aortic valve leaflets Mildly thickened mitral leaflets, mild mitral regurgitation Normal tricuspid valve with mild regurgitation. Estimated right ventricular systolic pressure is 34 mmHg Wall motion Left Ventricle The left ventricle is normal size. Left ventricular systolic function is borderline. There is normal left ventricular wall thickness. No segmental wall motion abnormalities There is no ventricular septa l defect visualized. LVEF is 50-55%. Right Ventricle Right ventricle is moderately dilated. Right ventricular systolic function is grossly normal. The RVS P is 34.4 mmHg. Atria The left atrium size is normal. Right atrium is moderately dilated. The interatrial septum is intact with no evidence for an atrial septal defect. Aortic Valve Aortic valve is calcified. Number of aortic valve leaflets could not be assessed. No hemodynamically significant valvular aortic stenosis. No aortic regurgitation is present. Mitral Valve Mitral valve leaflets are mildly thickened. No evidence of mitral valve stenosis. Mild mitral regurgi tation. Tricuspid Valve The tricuspid valve is normal in structure. There is no tricuspid valve stenosis. Mild tricuspid regu rgitation. Pulmonic Valve The pulmonary valve is normal in structure. There is no pulmonic valvular stenosis. Mild pulmonic reg urgitation. Great Vessels The aortic root is normal in size. The ascending aorta is normal in size. Aortic arch is not well vis ualized. IVC is normal in size and collapses >50% with inspiration. Pericardium There is no pericardial effusion. 2D Dimensions IVSD d PLAX 1.13 cm M: 0.6-1.2 LV Vol A2C d MOD 199.9 mL LVPW d PLAX 1.10 cm M: 0.6 - 1.2 LV Vol A4C d MOD 171.7 mL LVID d PLAX 5.40 cm M: 4.2 - 5.8 LA vol/ BSA A2C s A-L 17.6 mL/m2 LVDs 4.00 cm M: 2.5 - 4.0 LA vol/ BSA A4C s A-L 14.4 mL/m2 Ao Root d 3.41 cm M: 3.1 - 3.7 LA Vol/ BSA Biplane s A-L 16.2 mL/m2 RA Area A4C 27.96 cm2 LA Area A4C s MOD 16.21 cm2 RA Vol/ BSA A4C s A-L 38.2 mL/m2 LA Area A2C s MOD 17.58 cm2 Ao Asc Diam d 3.42 cm M: 2.6 - 3.4 LV EF A4C MOD 45.7 % LV EF Teichholz 49.4 % LV EF A2C MOD 40.2 % LVEF (Salas's) 42.92 % M: 52 - 72 LV EF Biplane MOD 42.9 % LV Volume 129.16 mL M: 62 - 150 SV 79.86 mL LV Volume Index 50.25 mL/m2 M: 34 - 74 SV Index 31.01 mL/m2 LV Vol Biplane MOD 186.1 mL FS 25.20 % LV Diastology MV E Vmax 0.82 (0.4-1.3 m/s) Aortic Valve LVOT Area 4.15 cm2 AoV Area Vmax 2.81 cm2 LVOT Vmax 1.29 m/s AoV Area/ BSA (Vmax) 1.09 cm2/m2 LVOT Mean Ralf. 0.98 m/s BORIS Mean Ralf. 2.91 cm2 LVOT Peak Grad 6.7 mmHg BORIS Mean Ralf. Index 1.13 cm2/m2 LVOT Mean Grad 4.4 mmHg LVOT VTI 0.317 m LVOT Diam s 2.25 cm AoV Vmax 1.91 m/s Velocity Ratio 0.67 AoV Mean Ralf. 1.40 m/s AoV Peak Grad 14.6 mmHg LVOT SV 131.65 mL AoV Mean Grad 8.5 mmHg AoV VTI 0.446 m AoV Area VTI 2.95 cm2 AoV Area/ BSA (VTI) 1.15 cm/m2 Mitral Valve MV DT 253 (160-240 msec) MV PHT 73 msec MV Area PHT 3.00 cm2 MV VTI 0.361 m MV Area VTI 3.65 (4.0-6.0 cm2) Pulmonary Valve PV Vmax 1.04 (0.5-1.5 m/s) RVOT Peak Gr. 1.36 mmHg PV Peak Grad 4.4 mmHg RVOT Mean Gr. 0.70 mmHg PV Mean Grad 1.7 mmHg RVOT VTI 0.148 m PV VTI 0.212 m RVOT Vmax 0.58 m/s Tricuspid Valve TR Peak Grad 31.4 mmHg TR Vmax 2.80 m/s RA Pressure 3.00 mmHg RVSP (TR) 34.4 mmHg
== END 2021-06-15 01:41 ==
PROVIDERS: PCP Family Medicine; Visit Provider Emergency Medicine
DX: I42.8 Other cardiomyopathies (principal); I50.89 Other heart failure; R06.09 Other forms of dyspnea
CPT/HCPCS: 93306

== ENCOUNTER 2021-07-11 08:07 | Outpatient (CLI) | payer BC, SELFPAY ==
--- NOTE | 2021-07-11 08:00 | RT.EKG_ITS ---
APPROVED REPORT Exam: Resting ECG Reason for Exam: cardiomyopathy Patient Location: O HR:83 bpm ECG Measurements Heart Rate 83 AXIS OR 127 P 119 QRSd 155 QRS 8 QT 468 T -5 QTc 550 Conclusion Sinus rhythm...normal P axis, V-rate 50- 99 Ventricular bigeminy...bigeminy string>4 w/ V complexes Right bundle branch block...QRSd>120, terminal axis(90,270)
== END 2021-07-11 08:08 | disposition home or self-care (01) ==
LOC: DI.CARD 08:08
PROVIDERS: PCP Family Medicine; Visit Provider Internal Medicine Cardiovascular Disease
DX: I45.10 Unspecified right bundle-branch block; I48.91 Unspecified atrial fibrillation; I25.10 Atherosclerotic heart disease of native coronary artery without angina pectoris; I42.9 Cardiomyopathy, unspecified; I50.82 Biventricular heart failure
CPT/HCPCS: 93010

== ENCOUNTER 2021-07-25 00:35 | Outpatient (CLI) | payer BC, SELFPAY ==
--- NOTE | 2021-07-25 07:45 | DI.NM_ITS ---
APPROVED REPORT Exam: Pharmacologic paired w/ low level exercise Patient Location: Out-Patient Room/Bed: Stress Nurse: Mimi Wilson RN Ordering Provider:TC CHINCHILLA, Contact Number: BMI: 0 Indications: SOB, HX CARDIAC RADIOFREQUENCY ABLATION, CARDIOMOPATHY, AFIB. Medical History Medical History: CVA (during AFIB Ablation), Cardiomyopathy, SYKES, CAD, HLD, pAF, DM, DOLLY, Obesity, HT N, CKD stage 2 Cardiac Medications: Metoprolol succinate, Furosemide, Atorvastatin, Apixaban, Albuterol sulfate. Allergies: JAMAL Inhibitors, Hydromorphone, Metformin Cardiac Risk Factors: FHX of CAD, HTN, Hyperlipidemia, DM, CVD, Obesity, Smoking (former) Previous Cardiac Procedures: Ablations, CABG Pretest Chest Pain Characteristics: Dyspnea Exercise History: Sedentary Physical Disabilities: None Lung Sounds: Left side CTA, Right side diminished/absent airflow Heart Sounds: Regular Stress Test Details Test: Exercise stress converted to pharmacologic stress due to failure to obtain a diagnostic stress test. Reason for pharmacologic stress test: physical limitation. Nuclear Acquisition: Rest Tc-99m/Stress Tc-99m 1 day Rest Isotope: Tc-99m Sestamibi. Dose: 13.5 Date: 07/25/2021 Injection Time: 1100 Stress Isotope: Tc-99m Sestamibi. Dose: 43.0 Date: 07/25/2021 Injection Time: 1300 HR Resting HR Supine: 70 bpm Max Heart Rate (APMHR): 142.901305 bpm Resting HR Standin bpm Target HR (85% APMHR): 120.130004 bpm Max HR Achieved: 132 bpm % of APMHR: 92.96 Recovery HR: 76 bpm Comment: Metoprolol succinate not held for test. BP Resting BP Supine: 128/78 mmHg Resting BP Standin/78 mmHg Max BP: 158/70 mmHg Recovery BP: 142/78 mmHg ECG Resting ECG: Sinus Rhythm, Bundle Branch Block (Nonspecific intraventricular conduction delay) Ectopy: mutifocal PVCs, PVC couplet, PACs Comment: T wave inversions noted in leads V2 and V3 Stress ECG: Sinus Tachycardia ST Change: No significant ST segment changes noted Arrhythmia: PACs, PVCs, PVC couplets, bigeminy Recovery ECG: Sinus Rhythm/Tachycardia Recovery ST Change: No significant ST segment changes noted Recovery Arrhythmia: PACs, PVCs, bigeminy, 3 beat runs, Comment: brief period of tachycardia (HR in the 120's) at 2:41 recovery. Clinical Reason for Termination: Dyspnea Stress Symptoms: Dyspnea, Dizziness, Nausea Exercise duration: 1 min59 sec Rate Pressure Product: [id number] Stress ECG Conclusion 1. The resting electrocardiogram showed a right bundle branch block 2. Patient underwent exercise testing using low-level exercise and pharmacologic stress with regadeno son 3. Peak heart rate achieved was 92% of predicted for age. Normal blood pressure response to stress 4. The electrocardiographic portion of the test was nondiagnostic, in part due to frequent ventricula r ectopic beats 5. See MPI report Stress Test Summary STAGE Time (mins) Speed (mph) Grade (%) HR BP SYMPTOMS METS Supine 70 128/78 Standing 65 138/78 SpO2 96% RA 1 3 1.7 10 severe dyspnea reported, SpO2 90% 4.6 3 min post Lexiscan injection 80 158/70 SpO2 96%; symptoms resolved 6 min post Lexiscan injection 76 142/78 MPI Conclusion No evidence of myocardial ischemia or prior infarction EF 39% LV appears mildly dilated. Wall motion is normal Radiologist Interpretation Radiologist agrees with Bobbin Washer's Interpretation. Radiologist Interpretation by: Mendez Hobbs MD Interpretation Date/Time: 07/26/2021 11:23:39
[2021-07-25] MEDS: Regadenoson 0.4 MG/5 ML SYR IVP (13:10)
== END 2021-07-25 00:55 ==
PROVIDERS: PCP Family Medicine; Visit Provider Internal Medicine Cardiovascular Disease
DX: I25.10 Atherosclerotic heart disease of native coronary artery without angina pectoris (principal); I42.9 Cardiomyopathy, unspecified; I48.91 Unspecified atrial fibrillation; Z98.890 Other specified postprocedural states; R06.02 Shortness of breath
CPT/HCPCS: 78452; 93017; J2785

== ENCOUNTER 2021-07-25 09:25 | Outpatient (CLI) | payer BC, SELFPAY ==
--- NOTE | 2021-08-21 09:21 | W.CARDEVENT ---
Date of service: 08/21/21 Time of Service: 08:21 Cardiac Event Recorder Referring Provider:: Marilyn Wong Indications:: Paroxysmal atrial fibrillation, cardiomyopathy Cardiac Event Note: This is a 14-day event recorder Predominant rhythm was sinus with an average heart rate of 77. Minimum was 50, maximum 119 There were moderately frequent premature ventricular contractions, comprising 6% of total. There were multiple brief episodes of nonsustained ventricular tachycardia. These were not symptomatic. Longest episode was 8 beats in duration. Some episodes labeled ventricular tachycardia were more likely SVT with a Arevalo C There were moderately frequent atrial premature beats, comprising 4% of total. There were multiple episodes of supraventricular tachycardia. Some episodes labeled SVT may have been sinus tachycardia. Other episodes labeled SVT may have been self-limited paroxysmal atrial fibrillation. None of these dysrhythmias were symptomatic There was no high-grade AV block, no pauses greater than 3 seconds Patient symptoms were reported which did not correspond to any dysrhythmia
== END 2021-07-25 09:26 | disposition home or self-care (01) ==
PROVIDERS: PCP Family Medicine; Visit Provider Internal Medicine Cardiovascular Disease
DX: Z98.890 Other specified postprocedural states (principal); I48.91 Unspecified atrial fibrillation; I42.9 Cardiomyopathy, unspecified
CPT/HCPCS: 93246

== ENCOUNTER → 2021-09-07 01:21 | Outpatient (CLI) | payer BC, SELFPAY ==
--- NOTE | 2021-09-07 15:11 | W.PROCNOTE ---
Date of service: 09/07/21 Time of Service: 14:20 Procedure Note Date of procedure: 09/07/21 Procedure: Right Hip Injection with Fluoroscopic Guidance Surgeon/Proceduralist/Physician: David Lino Procedure Diagnosis: Right Hip Osteoarthritis Procedure Indications: Octavio has had persistent pain of the RIGHT hip and groin. Noninvasive measures have been tried. To serve as both diagnostic and therapeutic, an injection under fluoroscopy was recommended. I had discussed the risks of the procedure and the patient elected to proceed. Procedure Description: Octavio was greeted in the flouroscopy room. The correct side was identified and the consent was reviewed with the patient and signed. The patient was then placed in the supine position on the fluoroscopy table. The RIGHT hip was then prepped with Chloraprep. The anterolateral injection starting point was identiifed by bony landmarks and fluoroscopy. The skin and soft tissue in the tract of the injection was anesthetized with 1% Lidocaine. A spinal needle was then inserted deep into the hip joint at the level of the lateral femoral neck under fluoroscopic guidance. A small amount of Omnipaque solution was injected to confirm intraarticular placement. Once confirmed, the hip was injected with 6cc of 0.5% Bupivicaine and 80mg of Depo-Medrol. A bandaid was placed on the injection site. The patient tolerated the procedure well and noted improvement in pre-injection pain.
--- NOTE | 2021-09-07 15:23 | DI.RAD_ITS ---
Exam(s) RF JOINT INJECTION FLUORO GUID EXAM: RF JOINT INJECTION FLUORO GUID CLINICAL HISTORY: OA RT HIP, RT HIP INJ UNDER FLUORO, M16.11 TECHNIQUE: Fluoroscopy provided. Radiologist not present. CONTRAST MATERIAL: None COMPARISON: No exams were available for comparison FINDINGS: Fluoroscopy was provided for therapeutic right hip injection. Submitted image(s) reveal needle tip at lateral aspect femoral head-junction injection of a small nicole unt of intra-articular contrast for position verification. Please refer to the procedure report for complete details. Cumulative Dose: Ka,r=0.410 mGy IMPRESSION: RADIATION DOSE DELIVERED:
[2021-09-07] MEDS: methylPREDNISolone ACETATE 80 MG/ML VIAL IM (15:24)
[2021-09-07] MEDS: Omnipaque 300 MG/ML 10 ML BTL IJ (15:24)
[2021-09-07] MEDS: Bupivacaine 0.5% Pres-Free 30 ML VIAL 5 ML IJ (15:25)
== END ==
PROVIDERS: PCP Family Medicine; Visit Provider Student in an Organized Health Care Education/Training Program
DX: M16.11 Unilateral primary osteoarthritis, right hip (principal); M25.551 Pain in right hip
CPT/HCPCS: 20610; 77002; J1040

== ENCOUNTER 2021-09-07 18:46 | Outpatient (CLI) | payer BC, SELFPAY ==
[2021-09-07 11:29] LABS: HCT 44.8 % (40.0-50.0); HGB 14.8 g/dL (13.5-17.5); MCH 30.2 pg (27.0-33.0); MCV 91 fL (80-95); MPV 9.9 fL (8.0-11.0); Platelet Count 263 10^3/uL (130-400); RDW 13.5 % (11.8-14.1); RDW-SD 45.2 fL; WBC 6.86 10^3/uL (4.4-10.8)
[2021-09-07 11:53] LABS: COMMENT (LAB VIEW ONLY) 142.32 mg/dL
[2021-09-07 12:18] LABS: Hemoglobin A1C 6.2 % (<5.7)
[2021-09-07 12:54] LABS: ALT 27 U/L (16-63); Anion Gap 10.5 mmol/L (3-11); BUN 33 mg/dL (7-18); CO2 32.5 mmol/L (21.0-32.0); CREATININE 1.6 mg/dL (0.70-1.30); Calcium 9.3 mg/dL (8.5-10.1); Calculated LDL 92 mg/dL (<100); Chloride 100 mmol/L (98-107); Cholesterol 161 mg/dL (<200); Estimated GFR 42.01 (mL/min/1.73m2); Glucose 121 mg/dL (74-106); HDL Cholesterol 58 mg/dL (40-60); Potassium 4.1 mmol/L (3.5-5.1); Sodium 143 mmol/L (136-145); TSH (W/Ref FT4) 2.38 uIU/mL (0.36-3.74); Triglyceride 58 mg/dL (<150)
== END 2021-09-07 18:47 | disposition home or self-care (01) ==
LOC: LBO 18:49
PROVIDERS: PCP Family Medicine; Visit Provider Family Medicine
DX: I10 Essential (primary) hypertension (principal); E11.9 Type 2 diabetes mellitus without complications; R53.83 Other fatigue
CPT/HCPCS: 36415; 80048; 80061; 85027; 82043; 82570; 83036; 84443; 84460

== ENCOUNTER 2022-11-01 09:36 | Outpatient (CLI) | payer SELFPAY ==
[2022-11-01 15:54] LABS: HCT 41.4 % (40.0-50.0); HGB 13.7 g/dL (13.5-17.5); MCH 30.5 pg (27.0-33.0); MCHC 33.1 % (32.0-36.0); MCV 92 fL (80-95); Platelet Count 198 10^3/uL (130-400); RBC 4.49 10^6/uL (4.36-5.78); RDW 14.4 % (11.8-14.1); RDW-SD 48.6 fL; WBC 6.52 10^3/uL (4.4-10.8)
[2022-11-01 16:02] LABS: Anion Gap 4.4 mmol/L (3-11); BUN 32 mg/dL (7-18); CO2 29.6 mmol/L (21.0-32.0); CREATININE 1.4 mg/dL (0.70-1.30); Calcium 8.8 mg/dL (8.5-10.1); Calculated LDL 74 mg/dL (<100); Chloride 106 mmol/L (98-107); Cholesterol 148 mg/dL (<200); Estimated GFR 51.13 (mL/min/1.73m2); Glucose 122 mg/dL (74-106); HDL Cholesterol 64 mg/dL (40-60); Potassium 4.2 mmol/L (3.5-5.1); Sodium 140 mmol/L (136-145); Triglyceride 51 mg/dL (<150)
[2022-11-01 16:06] LABS: ESR 14 mm/hr (0-20)
[2022-11-04 10:06] LABS: HIV-1/2 Ag & Ab Screen Negative (Negative)
[2022-11-05 15:38] LABS: Hepatitis C Ab w Rflx HCV PCR Negative (Negative)
[2022-11-05 17:02] LABS: Hep B Core Antibody Negative (Negative)
== END 2022-11-01 09:37 | disposition home or self-care (01) ==
LOC: LOS 09:36
PROVIDERS: PCP Family Medicine; Referring Provider Family Medicine; Visit Provider Family Medicine
DX: E78.5 Hyperlipidemia, unspecified (principal); M25.50 Pain in unspecified joint; R53.83 Other fatigue; E87.1 Hypo-osmolality and hyponatremia; Z00.00 Encounter for general adult medical examination without abnormal findings; Z11.59 Encounter for screening for other viral diseases
CPT/HCPCS: 36415; 80048; 80061; 85027; 85652; 86704; 86803; 87389

== ENCOUNTER 2022-11-01 16:20 | Outpatient (REF) | payer SELFPAY ==
[2022-11-03 13:04] LABS: Chlamydia Result Negative (Negative); GC Result Negative (Negative)
== END 2022-11-01 16:21 | disposition home or self-care (01) ==
LOC: LBN 16:20
PROVIDERS: PCP Family Medicine; Visit Provider Family Medicine
DX: Z20.2 Contact with and (suspected) exposure to infections with a predominantly sexual mode of transmission (principal)
CPT/HCPCS: 87491; 87591

== ENCOUNTER 2023-08-22 09:40 | Outpatient (CLI) | payer BC, SELFPAY ==
[2023-08-22 12:50] LABS: Abs Immature Grans 0.01 10^3/uL (0.0-0.06); Absolute Basophil Count 0.03 10^3/uL (0.0-0.2); Absolute Eosinophil Count 0.19 10^3/uL (0.0-0.7); Absolute Lymphocyte Count 0.94 10^3/uL (1.2-3.4); Absolute Monocyte Count 0.72 10^3/uL (0.1-0.8); Absolute Neutrophil Count 4.79 10^3/uL (1.2-6.7); Basophils % 0.4 %; Eosinophils % 2.8 %; HCT 43.7 % (40.0-50.0); Immature Grans % 0.1 %; Lymphocytes % 14.1 %; MCH 29.8 pg (27.0-33.0); MCV 93 fL (80-95); MPV 11.4 fL (8.0-11.0); Monocytes % 10.8 %; Neutrophils % 71.8 %; Platelet Count 250 10^3/uL (130-400); RDW 14.7 % (11.8-14.1); RDW-SD 50.9 fL; WBC 6.68 10^3/uL (4.4-10.8)
[2023-08-22 13:13] LABS: Hemoglobin A1C 6.7 % (<5.7)
[2023-08-22 15:40] LABS: ALT 31 U/L (16-63); AST 22 U/L (15-37); Albumin 3.4 g/dL (3.4-5.0); Alkaline Phosphatase 78 U/L (46-116); Anion Gap 9.1 mmol/L (3-11); BUN 21 mg/dL (7-18); CO2 29.9 mmol/L (21.0-32.0); CREATININE 1.4 mg/dL (0.70-1.30); Calcium 9.4 mg/dL (8.5-10.1); Chloride 102 mmol/L (98-107); Estimated GFR 50.81 (mL/min/1.73m2); Glucose 134 mg/dL (74-106); Sodium 141 mmol/L (136-145); Total Protein 7.4 g/dL (6.4-8.2)
== END 2023-08-22 09:41 | disposition home or self-care (01) ==
LOC: LOS 09:41
PROVIDERS: PCP Family Medicine; Visit Provider Family Medicine
DX: R73.01 Impaired fasting glucose (principal); E11.9 Type 2 diabetes mellitus without complications; L03.115 Cellulitis of right lower limb; Z00.00 Encounter for general adult medical examination without abnormal findings
CPT/HCPCS: 36415; 80053; 83036; 85025

== ENCOUNTER 2023-09-18 16:52 | Inpatient (IN) | payer BC, SELFPAY ==
[2023-09-18] VITALS (15 sets, daily range): BP systolic 120–152; BP diastolic 68–119; PULSE 95–125; RESP 12–32; TEMP 35.9–36.6; O2SAT 91–94
--- NOTE | 2023-09-18 16:45 | RT.EKG_ITS ---
APPROVED REPORT Exam: Resting ECG Reason for Exam: a-fib rvr Patient Location: E HR:121 bpm ECG Measurements Heart Rate 121 AXIS CA [id number] P [id number] QRSd 148 QRS 30 QT 376 T 39 QTc 534 Conclusion Atrial fibrillation...? atrial activity Right bundle branch block...QRSd>120, terminal axis(90,270) Atrial fibrillation with rapid ventricular response at a rate of 121. Left axis deviation. Right bu ndle branch block?bifascicular block. Prolonged QTc. Multiple PVCs. Mild inferior new ST segm ent depressions.
--- NOTE | 2023-09-18 17:00 | DI.RAD_ITS ---
Exam(s) XR PORTABLE CHEST AP EXAM: XR PORTABLE CHEST AP CLINICAL HISTORY: sob TECHNIQUE: 2D digital imaging was performed of the chest. One image was obtained. An AP view was ob tained. COMPARISON: CR XR CHEST 2V PA LATERAL from 01/20/2019 CR XR CHEST 2V PA LATERAL from 04/14/2019 FINDINGS: MEDIASTINUM: Normal. HEART: There is cardiomegaly. The patient is status post CABG. PULMONARY VASCULATURE: Normal. LUNGS: There is a persistent opacity in the lateral aspect of the base of the right lung. There is i ncreased opacity in the right lower lobe and a superimposed pneumonia should be considered. The left lung appears clear. PLEURAL SPACE: No pleural effusion or pneumothorax. BONE:Within normal limits for the patient's age. OTHER FINDINGS:Normal. IMPRESSION: 1. Stable opacity in the lateral aspect of the right lung base. 2. Superimposed infiltrate in the right lung base. This may represent a developing pneumonia. The l eft lung is clear. 3. Cardiomegaly. DATA REPOSITORY: RADIATION DOSE DELIVERED:
--- NOTE | 2023-09-18 17:12 | W.ED.GENAD ---
Discharge Plan Disposition Patient Disposition: Admit to [facility] Discharge Details Clinical Impression: Acute HFrEF (heart failure with reduced ejection fraction), Atrial fibrillation with rapid ventricular response Admit Date/Time: 09/18/23 19:05 Admit Provider: Huan Upton Attending Provider: Huan Upton Primary Care Provider: Severiano Coy ED Provider: Huan Benitez Discharge Data Discharge Date/Time-TO BE ENTERED AT DEPARTURE: 09/18/23 20:02 HPI General Date/Time Provider Initiated Documentation: 09/18/23 17:06. HPI Narrative: MDM This is a normotensive and normothermic 78-year-old male with atrial fibrillation rapid ventricular response and acute systolic heart failure for which patient will receive diuresis and digoxin load given reduced ejection fraction. No chest pain to suggest ACS however will obtain troponin to assess for demand ischemia. I considered PE however the patient is not hypoxic nor hypotensive and given that he takes apixaban I did not send a D-dimer. No pain out of proportion to suggest necrotizing soft tissue infection. No cough nor fevers to suggest pneumonia. No trauma so doubt pneumothorax. No black nor bloody stools so doubt anemia. Given 10 pound weight gain over the past month and a half with bilateral B-lines suspect patient will benefit from hospitalization for updated echocardiogram and diuresis. Will defer metoprolol given digoxin load. 6:25 PM Negative troponin. Elevated proBNP worse compared to prior. Comprehensive metabolic panel showing CKD. No KALYAN. No acute LFT abnormalities. Potassium within normal limits. Mild hypomagnesemia. CBC lacks anemia thrombocytopenia and leukocytosis. 6:50 PM I spoke with Dr. Upton who agreed graciously to accept the patient for hospitalization. I updated the patient on his plan of care. Chronic conditions affecting the care of the patient: Heart failure History obtained from an outside historian: N/A External record review: [facility] EMR [Diagnostic interpretations performed by me: Per my independent interpretation chest x-ray shows: Bilateral increased interstitial markings Per my independent interpretation EKG shows: Atrial fibrillation with rapid ventricular response at a rate of 121. Left axis deviation. Right bundle branch block??bifascicular block. Prolonged QTc. Multiple PVCs. Mild inferior new ST segment depressions. ]Medications: Furosemide digoxin Social determinants of health affecting disposition: N/A Management discussed with: Hospitalist Treatment/interventions considered: Discharge but deferred Response to therapies provided: N/A HPI This is an 78-year-old male history of pulmonary hypertension remote CVA atrial fibrillation on apixaban arrived to the emergency department via private vehicle in the setting of shortness of breath and lower extremity swelling. Patient also notes that he has had rapid heart rates. He says over the past month and a half he has unintentionally gained 10 pounds of weight. He endorses a tightness in his chest. He has a history of right pleural effusion. No recent falls. Remote history of CABG. He reports that he is due to take 50 mg of metoprolol this evening. No fevers no cough. He is on for 40 mg of daily furosemide. He denies routine tobacco, ethanol, and illicits. Exam General: Chronically ill-appearing in no acute distress speaking in complete sentences. Head: Normocephalic, atraumatic. Eye: Extraocular eye movements intact. No conjunctival injection. No scleral icterus. Ear, nose, mouth, throat: Grossly normal inspection. Normal voice, handling secretions normally. Neck: Trachea midline. Cardiovascular: Well-perfused distal extremities. Irregularly irregular rhythm Respiratory: Nonlabored respiration. Decreased breath sounds bilateral bases Gastrointestinal: Nondistended abdomen. Soft nontender Musculoskeletal: 2+ bilateral lower extremity pitting edema. Moving all 4 extremities spontaneously. Skin: Normal for age and race, grossly normal temperature and turgor. No acute rash. Neurologic: Alert and appropriate, no apparent acute deficits. Psychiatric: Mood and manner are appropriate. Grooming and personal hygiene are appropriate. Related Data Home Medications Medication Instructions Recorded Confirmed cholecalciferol (vitamin D3) 25 1,000 unit PO DAILY 06/27/12 09/18/23 mcg (1,000 unit) tablet multivitamin (Daily Multi-Vitamin 1 ea PO DAILY 06/27/12 09/18/23 tablet) ascorbic acid (vitamin C) 500 mg 500 mg PO DAILY 12/09/12 09/18/23 tablet (Vitamin C) blood sugar diagnostic (FreeStyle #90 strips 08/25/19 09/18/23 Test strips) lancets 28 gauge (FreeStyle #90 ea 08/25/19 09/18/23 Lancets) allopurinol 300 mg tablet 300 mg PO DAILY #90 tab-caps 01/30/23 09/18/23 atorvastatin 40 mg tablet 40 mg PO DAILY #90 tab-caps 01/30/23 09/18/23 triamcinolone acetonide 0.1 % 1 applic topical BID rash on back 02/25/23 09/18/23 topical ointment #80 grams tramadol 50 mg tablet 50 mg PO Q8H PRN pain #20 tabs 05/07/23 09/18/23 apixaban 5 mg tablet (Eliquis) 5 mg PO BID #180 tabs 08/14/23 09/18/23 lorazepam 1 mg capsule,extended 1 mg PO DAILY PRN 09/18/23 09/18/23 release 24 hr digoxin 125 mcg (0.125 mg) tablet 0.125 mg PO Q48H #15 tabs 09/20/23 empagliflozin 10 mg tablet 10 mg PO DAILY #30 tabs 09/20/23 potassium chloride 20 mEq 20 meq PO TID #90 tabs 09/20/23 tablet,extended release(part/cryst) (Klor-Con M) spironolactone 25 mg tablet 25 mg PO DAILY #30 tabs 09/20/23 torsemide 20 mg tablet 20 mg PO DAILY #30 tabs 09/20/23 Previous Rx's Medication Instructions Recorded blood sugar diagnostic (FreeStyle #90 strips 08/25/19 Test strips) lancets 28 gauge (FreeStyle #90 ea 08/25/19 Lancets) allopurinol 300 mg tablet 300 mg PO DAILY #90 tab-caps 01/30/23 atorvastatin 40 mg tablet 40 mg PO DAILY #90 tab-caps 01/30/23 triamcinolone acetonide 0.1 % 1 applic topical BID rash on back 02/25/23 topical ointment #80 grams tramadol 50 mg tablet 50 mg PO Q8H PRN pain #20 tabs 05/07/23 apixaban 5 mg tablet (Eliquis) 5 mg PO BID #180 tabs 08/14/23 digoxin 125 mcg (0.125 mg) tablet 0.125 mg PO Q48H #15 tabs 09/20/23 empagliflozin 10 mg tablet 10 mg PO DAILY #30 tabs 09/20/23 potassium chloride 20 mEq 20 meq PO TID #90 tabs 09/20/23 tablet,extended release(part/cryst) (Klor-Con M) spironolactone 25 mg tablet 25 mg PO DAILY #30 tabs 09/20/23 torsemide 20 mg tablet 20 mg PO DAILY #30 tabs 09/20/23 Allergies Allergy/AdvReac Type Severity Reaction Status Date / Time hydromorphone HCl AdvReac Severe Hallucinati Verified 09/18/23 17:04 [From Dilaudid] ons morphine AdvReac Intermediate Nausea Verified 09/18/23 17:04 JAMAL Inhibitors AdvReac Mild COUGH Verified 09/18/23 17:04 General Stated Complaint: SOB LIZZY: 2 Course Vital Signs Vital signs: Vital Signs Temperature 36.6 C 09/18/23 16:55 Pulse 125 H 09/18/23 16:55 Respiratory Rate 32 H 09/18/23 16:55 Blood Pressure 152/104 H 09/18/23 16:55 Pulse Oximetry 94 09/18/23 16:55 Temperature 36.6 C 09/18/23 16:55 Temperature Source Skin 09/18/23 16:55 Pulse 125 H 09/18/23 16:55 Respiratory Rate 32 H 09/18/23 16:55 Respiratory Effort Short of Breath 09/18/23 17:01 Blood Pressure 152/104 H 09/18/23 16:55 Blood Pressure Position Supine 09/18/23 16:55 Pulse Oximetry 94 09/18/23 16:55 Oxygen Delivery Method Room Air 09/18/23 16:55 Oxygen Flow Rate 0 09/18/23 16:55 Medical Decision Making Quality:SDOH Health Related Social Needs: No Data to Display PFSH All Active Problems (Updated 09/21/23 @ 00:01 by ANABELLE SHEETS) Medication monitoring encounter (Acute) Abnormal gall bladder diagnostic imaging (Acute) Cor pulmonale (Acute) Acute on chronic heart failure with reduced ejection fraction and diastolic dysfunction (Acute) RUQ abdominal tenderness (Acute) Atrial fibrillation with rapid ventricular response (Acute) Acute HFrEF (heart failure with reduced ejection fraction) (Acute) Chronic venous stasis dermatitis of both lower extremities (Acute) COVID-19 (Acute ~12/28/22) Bilateral knee pain (Acute) Chronic pain (Chronic) Joint pain (Acute) Asymmetrical sensorineural hearing loss (Acute) Hearing loss (Acute) Hip pain, right (Acute) Stage 3 chronic kidney disease (Acute) 09/2021- cr-1.6 Premature ventricular contractions (Acute) History of cardiac radiofrequency ablation (Acute) last ablation 03/27 [facility] Fibrothorax (Acute) Bronchiectasis (Acute) Pulmonary hypertension (Acute) Biventricular heart failure (Acute) Restrictive lung disease (Acute) Dyspnea on exertion (Acute) Chronic cough (Acute) Abnormal chest CT (Acute) CVA (cerebral vascular accident) (Chronic) righgt hemispshere during AF ablation. 28.20 Pre-operative cardiovascular examination (Acute) Facial skin lesion (Acute) Anticoagulation adequate (Acute) Hypoxemia (Acute) Exertional dyspnea (Acute) Depressive disorder (Acute) Perennial allergic rhinitis (Acute 03/22/16) Sacroiliitis (Chronic) Primary osteoarthritis of left hip (Chronic) Steroid injection: 07/28/2018 Chronic anticoagulation (Acute) Sexual function problem (Chronic) Tubular adenoma of colon (Chronic) 01/29/14-DR. 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) Diverticulosis (Chronic) Cardiomyopathy (Chronic) Coronary atherosclerosis of [place] coronary vessel (Chronic) Atrial fibrillation (Chronic) success after multiple ablations Anxiety (Chronic) Anal fistula (Chronic) Hyperlipidemia (Chronic) Obstructive sleep apnea (Chronic) Osteoarthritis (Chronic) Hypertension (Chronic) History of atrial fibrillation (Chronic) Diabetes mellitus (Chronic) Recurrent right pleural effusion (Chronic) s/p VATS total decortication 04/18/19 Medical History Acute urinary retention (05/15/13) Alcohol abuse Edema Encounter for rehabilitation (05/15/13) Gout of hand index finger History of tobacco use Infected finger joint (12/16/14) Surgical History Colonoscopy - MAC 01/29/14 Extraction of cataract Bilateral History of cataract removal with insertion of prosthetic lens History of tonsillectomy and adenoidectomy Prosthesis, Penile implant Recurrent major depression in partial remission Atrial Replacement of total knee joint 2012; [facility] [place]; RIGHT, left Status post ablation of atrial fibrillation Status post total bilateral knee replacement Family History Brother Stroke Diabetes Father Heart attack pt of [place] at 51 Mother Skin cancer Breast cancer Colon cancer Social History Smoking/Tobacco Use Status: Former Tobacco Use tobacco type: cigarettes Quit Date: 04/08/79 Smoking risk assessment performed?: Yes Alcohol Intake: current Alcohol Intake frequency: a few times a week Drug use: Never Housing: house Pets and animals: Yes Pets and animals: cat(s) and dog(s) What type of physical activity do you participate in: additional Details: [employer]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 Do you feel safe in your relationship?: Yes POCUS Exam (ED) Limited Cardiac Exam DATE OF EXAM: 09/18/23 TIME OF EXAM: 18:00 PROVIDER THAT PERFORMED THE STUDY: Huan Benitez IS THIS A REPEAT EXAM DURING THIS ENCOUNTER: no REASON FOR EXAM: Dyspnea VISUALIZED STRUCTURES: Four Chambers, Left ventricle, LVOT and Other structure: Bilateral lungs VIEW OBTAINED: Apical 4-Chamber, Parasternal long-axis and Subxiphoid PERTINENT FINDINGS/IMPRESSION: No pericardial effusion and No RV dilation DIFFERENTIAL DIAGNOSES: Aortic outflow track less than 4 cm, moderate squeeze, RV less than LV, no significant pericardial effusion. Exam complete
[2023-09-18 17:49] LABS: Abs Immature Grans 0.02 10^3/uL (0.0-0.06); Absolute Basophil Count 0.03 10^3/uL (0.0-0.2); Absolute Eosinophil Count 0.18 10^3/uL (0.0-0.7); Absolute Lymphocyte Count 1.06 10^3/uL (1.2-3.4); Absolute Monocyte Count 0.72 10^3/uL (0.1-0.8); Absolute Neutrophil Count 4.87 10^3/uL (1.2-6.7); Basophils % 0.4 %; Eosinophils % 2.6 %; HCT 42.1 % (40.0-50.0); HGB 13.6 g/dL (13.5-17.5); Immature Grans % 0.3 %; Lymphocytes % 15.4 %; MCHC 32.3 % (32.0-36.0); MCV 93 fL (80-95); MPV 10.9 fL (8.0-11.0); Monocytes % 10.5 %; Neutrophils % 70.8 %; Platelet Count 215 10^3/uL (130-400); RBC 4.53 10^6/uL (4.36-5.78); RDW 14.8 % (11.8-14.1); RDW-SD 51.1 fL; WBC 6.88 10^3/uL (4.4-10.8)
[2023-09-18 18:10] LABS: Magnesium 1.7 mg/dL (1.8-2.4)
[2023-09-18 18:21] LABS: ALT 35 U/L (16-63); AST 22 U/L (15-37); Albumin 3.3 g/dL (3.4-5.0); Alkaline Phosphatase 88 U/L (46-116); Anion Gap 7.2 mmol/L (3-11); BUN 19 mg/dL (7-18); CO2 31.8 mmol/L (21.0-32.0); CREATININE 1.5 mg/dL (0.70-1.30); Calcium 8.9 mg/dL (8.5-10.1); Chloride 102 mmol/L (98-107); Estimated GFR 46.77 (mL/min/1.73m2); Glucose 122 mg/dL (74-106); NT-proBNP 5398 pg/mL (<300); Potassium 3.6 mmol/L (3.5-5.1); Sodium 141 mmol/L (136-145); Troponin I < 50 ng/L (< or =60)
[2023-09-18] MEDS: Potassium Chloride 20 MEQ TABCR 40 MEQ PO (18:46)
[2023-09-18] MEDS: Magnesium Oxide 400 MG TAB PO (18:46)
[2023-09-18] MEDS: Furosemide 40 MG/4 ML VIAL IVP (18:47)
[2023-09-18] MEDS: Digoxin 0.5 MG/2 ML AMP IVP (18:47)
[2023-09-18 20:35] LABS: Troponin I < 50 ng/L (< or =60)
--- NOTE | 2023-09-18 22:17 | HPE_ITS ---
Date of service: 09/18/23 Time of Service: 22:17 Assessment and Plan Assessment and plan (1) Acute HFrEF (heart failure with reduced ejection fraction): Status: Acute Assessment and plan: Exacerbated by atrial fibrillation with elevated rate. Initial trigger seems to be related to evolving lack of response to 40mg oral furosemide, with his CKD this dose likely didn't hit threshhold to cause diuresis. Last echo at [facility] [place] in 2022, trend in LVEF was down He is responding to 40mg IV furosemide, continue this in am Repeat ECHO admit to tele (2) Atrial fibrillation with rapid ventricular response: Status: Acute Assessment and plan: Due to acute CHF metoprolol held, started digoxin. I will complete her loading IV over the next 16 hours. He is interested in rate control that makes him less tired than metoprolol, though we did discuss survival benefit to beta rajiv so he may want to try a lower dose of metoprolol with digoxin if the dig works well. With dig I'd like his magnesium around 2 and potassium around 4, will supplument (3) Stage 3 chronic kidney disease: Status: Acute Assessment and plan: At his baseline, monitor renal function with diuresis. (4) Fibrothorax: Status: Acute Assessment and plan: Abnormal right lower lung x-ray, raises concern for pneumonia but he does not have fever, WBC, significant cough. I don't this focal finding explain his SOB. Treating CHF as above. (5) RUQ abdominal tenderness: Status: Acute Assessment and plan: Liver feels big and tender. Probably some congestion, but would like to get u/s imaging. (6) Coronary atherosclerosis of [place] coronary vessel: Status: Chronic Assessment and plan: Some EKG chages but no chest pain or troponemia. Continue atorvastatin, also on apixaban. History of Present Illness History of Present Illness Chief Complaint: shortness of breath Narrative: 78 yo M with history of ASCVD s/p CABG complicated by recurrent effusions, HFmrEF 43%, PAD and atrial fibrillation s/p ablations, type 2 DM, and CVA complicating his second ablation who went to his PCP today for progressive dyspnea on exertion over the past 6 weeks and was sent to the emergency room with atrial fibrillation and heart rate around 120. He states about 6 weeks ago his 40mg furosemide stopped working and he started to put on weight. He tried taking a second dose in the afternoon but this didn't help. He noted increased shortness of breath, especially with exertion, as well as increased general fatigue during this time. He never had chest pain or overt palpitations. He did not change his medication otherwise. By the Saturday 2 days prior to admission the SOB was becoming intolerable, but he waited to go see his primary care, who sent him to the ED for evaluation. He does have a history of pulmonary effusions after his CABG which needed draining, but not recently. He has been taking all his medication regularly Review of Systems All systems reviewed & are unremarkable except as noted in HPI and below Cardiovascular Cardiovascular: Denies chest pain, Denies chest pain with activity, Reports pedal edema, Reports dyspnea, Reports dyspnea on exertion, Denies orthopnea and Denies paroxysmal nocturnal dyspnea Respiratory Respiratory: Denies chest congestion, Denies cough, Reports dyspnea, Reports dyspnea on exertion and Denies wheezing Gastrointestinal Gastrointestinal: Denies melena, Denies hematochezia, Denies nausea and Denies vomiting Hematologic/Lymphatic Comments: taking apixaban, no bleeding noted Allergic/Immunologic Allergic/Immunologic: Denies wheezing PFSH All Active Problems (Updated 09/18/23 @ 22:49 by Huan Upton) RUQ abdominal tenderness (Acute) Atrial fibrillation with rapid ventricular response (Acute) Acute HFrEF (heart failure with reduced ejection fraction) (Acute) Chronic venous stasis dermatitis of both lower extremities (Acute) COVID-19 (Acute ~12/28/22) Bilateral knee pain (Acute) Chronic pain (Chronic) Joint pain (Acute) Asymmetrical sensorineural hearing loss (Acute) Hearing loss (Acute) Hip pain, right (Acute) Stage 3 chronic kidney disease (Acute) 09/2021- cr-1.6 Premature ventricular contractions (Acute) History of cardiac radiofrequency ablation (Acute) last ablation 03/[facility] Fibrothorax (Acute) Bronchiectasis (Acute) Pulmonary hypertension (Acute) Biventricular heart failure (Acute) Restrictive lung disease (Acute) Dyspnea on exertion (Acute) Chronic cough (Acute) Abnormal chest CT (Acute) CVA (cerebral vascular accident) (Chronic) righgt hemispshere during AF ablation. 04.04.20 Pre-operative cardiovascular examination (Acute) Facial skin lesion (Acute) Anticoagulation adequate (Acute) Hypoxemia (Acute) Exertional dyspnea (Acute) Depressive disorder (Acute) Perennial allergic rhinitis (Acute 03/22/16) Sacroiliitis (Chronic) Primary osteoarthritis of left hip (Chronic) Steroid injection: 07/28/2018 Chronic anticoagulation (Acute) Sexual function problem (Chronic) Tubular adenoma of colon (Chronic) 01/29/14-DR. 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) Diverticulosis (Chronic) Cardiomyopathy (Chronic) Coronary atherosclerosis of [place] coronary vessel (Chronic) Atrial fibrillation (Chronic) success after multiple ablations Anxiety (Chronic) Anal fistula (Chronic) Hyperlipidemia (Chronic) Obstructive sleep apnea (Chronic) Osteoarthritis (Chronic) Hypertension (Chronic) History of atrial fibrillation (Chronic) Diabetes mellitus (Chronic) Recurrent right pleural effusion (Chronic) s/p VATS total decortication 04/18/19 Medical History Acute urinary retention (05/15/13) Alcohol abuse Edema Encounter for rehabilitation (05/15/13) Gout of hand index finger History of tobacco use Infected finger joint (12/16/14) Surgical History Colonoscopy - MAC 01/29/14 Extraction of cataract Bilateral History of cataract removal with insertion of prosthetic lens History of tonsillectomy and adenoidectomy Prosthesis, Penile implant Recurrent major depression in partial remission Atrial Replacement of total knee joint 2012; [facility] [place]; RIGHT, left Status post ablation of atrial fibrillation Status post total bilateral knee replacement Family History Brother Stroke Diabetes Father Heart attack pt of [place] at 51 Mother Skin cancer Breast cancer Colon cancer Social History Smoking/Tobacco Use Status: Former Tobacco Use tobacco type: cigarettes Quit Date: 04/08/79 Smoking risk assessment performed?: Yes Alcohol Intake: current Alcohol Intake frequency: a few times a week Drug use: Never Pets and animals: Yes Pets and animals: cat(s) and dog(s) What type of physical activity do you participate in: additional 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 Do you feel safe in your relationship?: Yes Meds Allergies and Home Medications Allergies Allergy/AdvReac Type Severity Reaction Status Date / Time hydromorphone HCl AdvReac Severe Hallucinati Verified 09/18/23 17:04 [From Dilaudid] ons morphine AdvReac Intermediate Nausea Verified 09/18/23 17:04 JAMAL Inhibitors AdvReac Mild COUGH Verified 09/18/23 17:04 Home Medications Medication Instructions Recorded Confirmed Type cholecalciferol (vitamin D3) 25 1,000 unit PO DAILY 06/27/12 09/18/23 History mcg (1,000 unit) tablet multivitamin (Daily Multi-Vitamin 1 ea PO DAILY 06/27/12 09/18/23 History tablet) ascorbic acid (vitamin C) 500 mg 500 mg PO DAILY 12/09/12 09/18/23 History tablet (Vitamin C) blood sugar diagnostic (FreeStyle #90 strips 08/25/19 09/18/23 Rx Test strips) lancets 28 gauge (FreeStyle #90 ea 08/25/19 09/18/23 Rx Lancets) allopurinol 300 mg tablet 300 mg PO DAILY #90 tab-caps 01/30/23 09/18/23 Rx atorvastatin 40 mg tablet 40 mg PO DAILY #90 tab-caps 01/30/23 09/18/23 Rx furosemide 40 mg tablet 40 mg PO DAILY #90 tabs 01/30/23 09/18/23 Rx metoprolol succinate 50 mg 50 mg PO DAILY #90 tabs 01/30/23 09/18/23 Rx tablet,extended release 24 hr triamcinolone acetonide 0.1 % 1 applic topical BID rash on back 02/25/23 09/18/23 Rx topical ointment #80 grams tramadol 50 mg tablet 50 mg PO Q8H PRN pain #20 tabs 05/07/23 09/18/23 Rx apixaban 5 mg tablet (Eliquis) 5 mg PO BID #180 tabs 08/14/23 09/18/23 Rx lorazepam 1 mg capsule,extended 1 mg PO DAILY PRN 09/18/23 09/18/23 History release 24 hr Exam Narrative Exam Narrative: GEN: Alert and oriented, pleasent and cooperative, gives linear history. No acute distress at rest. HEENT: Head atraumatic. Conjunctiva clear, no icterus. PEERL, EOMI. no rhinorrhea. MMM, OP benign. Neck is supple with no masses or lymphadenopathy, trachea midline LUNGS: CTAB with slight basilar rales more on left, slightly diminished on right base, but normal effort. no wheeze. CV: RRR with 2/6 systolic at RSB, no radiation. No gallops or rubs. ABD: +BS, soft, mild RUQ tenderness with hepatomegaly to palpation, purcusses to around 15cm. no other masses, no fluid palpable. EXT: no cyanosis, clubbing. 2-3+ montserrat pitting edema to knees MSK: No joint redness or swelling. NEURO: CN 2-12 grossly intact. Normal movement of 4 extremities. Normal speech and coordination SKIN: bilateral venous stasis changes in ankles to shins. no open wounds. pink intertrigo on panus. PSYCH: normal mood and affect Results Imaging Chest x-ray: report reviewed (1. Stable opacity in the lateral aspect of the right lung base. 2. Superimposed infiltrate in the right lung base. This may represent a developing pneumonia. The left lung is clear. 3. Cardiomegaly.) and image reviewed EKG: report reviewed and image reviewed (atrial fibrillation 121, RBBB with borderline left axis. PVCs. No STEMI, ST depressed in V2-3, which is new) Labs 09/18/23 17:14 09/18/23 17:14 Labs: Laboratory Results - last 24 hr 09/18/23 09/18/23 17:14 20:18 WBC 6.88 RBC 4.53 Hgb 13.6 Hct 42.1 MCV 93 MCH 30.0 MCHC 32.3 RDW 14.8 H Plt Count 215 MPV 10.9 Immature Gran % 0.3 Neutrophils % 70.8 Lymphocytes % 15.4 Monocytes % 10.5 Eosinophils % 2.6 Basophils % 0.4 Nucleated RBC % 0.0 Absolute Neutrophils 4.87 Absolute Lymphocytes 1.06 L Absolute Monocytes 0.72 Absolute Eosinophils 0.18 Absolute Basophils 0.03 Sodium 141 Potassium 3.6 Chloride 102 Carbon Dioxide 31.8 Anion Gap 7.2 BUN 19 H Creatinine 1.5 H Est GFR (CKD-EPI 2020) 46.77 Glucose 122 H Calcium 8.9 Magnesium 1.7 L Total Bilirubin 1.0 AST 22 ALT 35 Alkaline Phosphatase 88 Troponin I < 50 < 50 NT-Pro-B Natriuret Pep 5398 H Total Protein 7.0 Albumin 3.3 L Last Vital Signs Temp 35.9 C L 09/18/23 22:04 Pulse 95 H 09/18/23 22:04 Resp 18 09/18/23 22:04 BP 120/75 09/18/23 22:04 Pulse Ox 91 L 09/18/23 22:04 Time Spent Time spent with Patient: 55-74 minutes Time was spent: preparing to see the patient(eg.review tests), obtaining and/or reviewing separately otained hiistory, ordering medications,tests, procedures, referring, communicating with other health hospice care transitions coordinator, indepentently interpreting results and counseling the patient
[2023-09-18] MEDS: Apixaban 5 MG TAB PO (22:35)
[2023-09-18] MEDS: Triamcinolone 0.1% OINT 15 GM TUBE TP (22:36)
[2023-09-18] MEDS: MAGNESIUM SULFATE 1 GM/100 ML BAG IVINF (23:56)
[2023-09-19] VITALS (13 sets, daily range): BP systolic 100–141; BP diastolic 58–97; PULSE 72–113; RESP 16–20; TEMP 36.2–36.7; O2SAT 93–96
--- NOTE | 2023-09-19 | DI.US_ITS ---
Exam(s) US ABDOMEN EXAM: US ABDOMEN CLINICAL HISTORY: hepatomegaly, RUQ tenderness in setting of CHF TECHNIQUE: Ultrasound abdomen performed using standard protocol. FINDINGS: ABDOMINAL AORTA AND IVC: The IVC was visualized proximally and is unremarkable. The aorta cannot be visualized due to overlying bowel. PANCREAS: Normal where visualized. LIVER: There are several hepatic cysts again seen. The liver measures 17.9 cm long. No suspicious h epatic masses are seen sonographically. Hepatopetal flow in the Portal Vein. GALLBLADDER:Gallstones and sludge are present. There is gallbladder wall thickening. No pericholecy stic fluid identified. BILIARY SYSTEM: Common bile duct measures < 7 mm. No intrahepatic biliary ductal dilation. STEWART'S SIGN: Negative. KIDNEYS: Kidneys are symmetric in size. No evidence of renal calculi. No evidence of hydronephrosis. Left renal cysts are again visualized. No follow-up is recommended. SPLEEN: Not enlarged. ASCITES: There is a small amount of perihepatic ascites. IMPRESSION: 1. Cholelithiasis and gallbladder sludge. No biliary ductal dilatation. Mild gallbladder wall thick ening. 2. Small amount of perihepatic ascites. 3. Hepatic and renal cysts are again noted. 4. Mild hepatomegaly. DATA REPOSITORY:
[2023-09-19] MEDS: Nystatin POWDER 15 GM JAR TP (00:08)
[2023-09-19] MEDS: Digoxin 0.5 MG/2 ML AMP 0.125 MG IVP ×2 (02:10→11:27)
--- NOTE | 2023-09-19 06:00 | DI.US_ITS ---
APPROVED REPORT EXAM: Comprehensive 2D, Doppler, and color-flow Echocardiogram Patient Location: In-Patient Room/Bed: 211 Agent Contract Clerk: Zakia Fernandes RDCS (AE) Indications: CHF exacerbation, CAD Other Information Study Quality: Fair. Technically limited study due to body habitus. Conclusion Normal left ventricular wall thickness and chamber size. Ejection fraction is approximately 40%. Se ptal motion is paradoxic Right ventricle is severely dilated, with paradoxic septal motion consistent with right ventricular v olume overload Normal left atrial size. Right atrium is severely dilated Aortic valve is sclerotic. There is mild aortic stenosis with a mean gradient of 9 mmHg. No aortic regurgitation Mildly thickened mitral leaflets. Mild mitral annular calcification. Mild mitral regurgitation Moderate tricuspid regurgitation. Estimated right ventricular systolic pressure is 50 mmHg Wall motion Left Ventricle The left ventricle is normal size. Left ventricular systolic function is decreased. There is normal l eft ventricular wall thickness. Paradoxical septal motion consistent with right ventricular volume ov erload. There is no ventricular septal defect visualized. LVEF is 40%. Right Ventricle Right ventricle is severely dilated. Right ventricle is hypokinetic. Atria The left atrium size is normal. Right atrium is severely dilated. The interatrial septum is intact wi th no evidence for an atrial septal defect. Aortic Valve Aortic valve is calcified. Number of aortic valve leaflets could not be assessed. Mild aortic stenosi s. No aortic regurgitation is present. Mitral Valve Mild mitral annular calcification. Mitral valve leaflets are mildly thickened. Mild mitral regurgita tion. Tricuspid Valve The tricuspid valve is normal in structure. There is no tricuspid valve stenosis. Moderate tricuspid regurgitation. The RVSP is 49.4_ mmHg. Pulmonic Valve The pulmonary valve is normal in structure. There is no pulmonic valvular stenosis. Trace to mild pul arian regurgitation. Great Vessels The aortic root is normal in size. Ascending aorta is not well visualized. Aortic arch is not well vi sualized. The IVC collapses <50% with inspiration. Pericardium There is no pericardial effusion. 2D Dimensions IVSD d PLAX 1.10 cm M: 0.6-1.2 Ao Root d 3.18 cm M: 3.1 - 3.7 LVPW d PLAX 1.10 cm M: 0.6 - 1.2 LVID d PLAX 5.28 cm M: 4.2 - 5.8 LVDs 4.27 cm M: 2.5 - 4.0 LV EF Teichholz 39.0 % FS 19.06 % LV EDV (Teich) 134.0 mL LV ESV (Teich) 81.8 mL LV Diastology MV E' medial 0.044 (>0.07 m/s) MV E Vmax 1.02 (0.4-1.3 m/s) MV E/E' MED 23.23 (<14) Aortic Valve AoV Vmax 2.00 m/s LVOT Vmax 0.78 m/s AoV Peak Grad 15.9 mmHg LVOT Peak Grad 2.4 mmHg AoV VTI 0.364 m LVOT VTI 0.159 m AoV Mean Ralf. 1.47 m/s LVOT Mean Grad 1.2 mmHg AoV Mean Grad 9.5 mmHg Velocity Ratio 0.39 Mitral Valve MV DT 133 (160-240 msec) MV Vmax TIPS 0.92 m/s MV Mean Grad 1.3 (<2mmHg) MV VTI 0.150 m Pulmonary Valve PV Vmax 0.88 (0.5-1.5 m/s) RVOT Vmax 0.45 m/s PV Peak Grad 3.1 mmHg RVOT Peak Gr. 0.8 mmHg PV Mean Ralf 0.65 m/s RVOT VTI 0.075 m PV Mean Grad 1.8 mmHg RVOT Mean Gr. 0.5 mmHg Tricuspid Valve RA Pressure 8.00 mmHg TR Vmax 3.22 m/s TV S' 0.06 m/s TR Peak Grad 41.3 mmHg RVSP (TR) 49.4 mmHg
[2023-09-19] MEDS: Allopurinol 300 MG TAB PO (09:30)
[2023-09-19] MEDS: Multivitamin TAB 1 TAB PO (09:30)
[2023-09-19] MEDS: Potassium Chloride 20 MEQ TABCR PO ×2 (09:30→19:37)
[2023-09-19] MEDS: Furosemide 40 MG/4 ML VIAL IVP ×3 (09:30→17:41)
[2023-09-19] MEDS: Cholecalciferol (Vitamin D3) 1,000 UNIT TAB 1000 UNITS PO (09:30)
[2023-09-19] MEDS: Ascorbic Acid 500 MG TAB PO (09:30)
[2023-09-19] MEDS: Apixaban 5 MG TAB PO ×2 (09:30→19:36)
[2023-09-19] MEDS: Atorvastatin 40 MG TAB PO (09:30)
[2023-09-19 10:21] LABS: BUN 19 mg/dL (7-18); CREATININE 1.3 mg/dL (0.70-1.30); Calcium 8.6 mg/dL (8.5-10.1); Chloride 104 mmol/L (98-107); Estimated GFR 55.53 (mL/min/1.73m2); Glucose 100 mg/dL (74-106); Magnesium 1.9 mg/dL (1.8-2.4); Potassium 3.4 mmol/L (3.5-5.1); Sodium 143 mmol/L (136-145)
--- NOTE | 2023-09-19 15:04 | PHA.REVIEW2 ---
Pharmacy Admission Review Admission Clinical Review Admission Pharmacy Review: RUQ abdominal tenderness (Acute) Atrial fibrillation with rapid ventricular response (Acute) Acute HFrEF (heart failure with reduced ejection fraction) (Acute) Stage 3 chronic kidney disease (Acute) Fibrothorax (Acute) hydromorphone HCl [From Dilaudid] Adverse Reaction (Severe, Verified 09/18/23 17:04) Hallucinations morphine Adverse Reaction (Intermediate, Verified 09/18/23 17:04) Nausea JAMAL Inhibitors Adverse Reaction (Mild, Verified 09/18/23 17:04) COUGH Resuscitation Status Full Code Height 6 ft 2 in Weight 118.1 kg Pharmacy Admission Review Renal Dosing Renal Dosing: BUN 19 mg/dL (7-18) H 09/19/23 06:25 Creatinine 1.3 mg/dL (0.70-1.30) 09/19/23 06:25 Medications needing adjustments: Reviewed (CrCl 61.8 mL/min, SCr decreased from 1.5) List of meds needing interventions: Current medications are okay Anticoagulation Anticoagulation: Hgb 13.6 g/dL (13.5-17.5) 09/18/23 17:14 Hct 42.1 % (40.0-50.0) 09/18/23 17:14 Plt Count 215 10^3/uL (130-400) 09/18/23 17:14 Creatinine 1.3 mg/dL (0.70-1.30) 09/19/23 06:25 DVT Prophylaxis: Reviewed Medications: Apixaban (5mg PO BID) Relevant Labs Relevant Labs: Sodium 143 mmol/L (136-145) 09/19/23 06:25 Potassium 3.4 mmol/L (3.5-5.1) L 09/19/23 06:25 Chloride 104 mmol/L (98-107) 09/19/23 06:25 Magnesium 1.9 mg/dL (1.8-2.4) 09/19/23 06:25 Electrolytes, C-Reactive P, ESR: Reviewed (K 3.4 - has order for 20mEq tablet daily) Cardiac Review Cardiac Review: Troponin I < 50 ng/L (< or =60) 09/18/23 20:18 NT-Pro-B Natriuret Pep 5398 pg/mL (<300) H 09/18/23 17:14 BP, HR, EF%: Reviewed (HR and BP WNL) QTc Review QTc: Reviewed (534 from 09/18/23) IV to PO Switch IV Medications: Reviewed (Furosemide) Home Meds Home Med List reviewed: Intervened Relevent Home Meds Not ordered & why?: metoprolol (on hold per H+P), lorazepam (order was put in as patients own, there is no fill history from the past year per [facility], canceled order) Current Meds Current Medication Order Review: Intervened Comments: Canceled [place] lorazepam order (see above) Added IV access order set
--- NOTE | 2023-09-19 16:09 | PGE_ITS ---
Date of Service Date of service: 09/19/23 Time of Service: 16:09 Assessment and Plan Assessment and plan (1) Atrial fibrillation with rapid ventricular response: Status: Acute Assessment and plan: rate is improved control. Dr. Bailey has decided to put him on digoxin. While metoprolol would be usual choice in ischemic heart disease, given his worsening LVEF and RV, it may be some benefit to using digoxin for rate control and allow more BP for diuresis and GDT of his CHF. I will ask Dr. Wong for her opinion on best course of action given his worsening LV and RV function. I will continue iv lasix and add spironolactone, continue apixaban, he should be referred to pulmonary htn clinic. I will get CTA today to be sure he has not had some chronic or acute thromboembolic contribution to his recent worsening. (2) Acute on chronic heart failure with reduced ejection fraction and diastolic dysfunction: Status: Acute Assessment and plan: as above (3) Cor pulmonale: Status: Acute (4) Pulmonary hypertension: Status: Acute (5) Stage 3 chronic kidney disease: Status: Acute (6) Fibrothorax: Status: Acute (7) Coronary atherosclerosis of [place] coronary vessel: Status: Chronic Assessment and plan: Some EKG chages but no chest pain or troponemia. Continue atorvastatin, also on apixaban. (8) Abnormal gall bladder diagnostic imaging: Status: Acute Assessment and plan: he has some GB wall thickening and sludge but clinically he does not have acute cholecystitis Subjective Subjective Interval history since last seen: Mr. Davidson states that he has had progressive bilateral leg edema developing for over a month. He felt that his lasix was not working for him. He says that his usual weight is around 260 lb. He states that his CHF began after his CABG in 2017 when he had complications w/ right sided effusion and had to have repeated thoracentesis and eventually ended up w/ a physican at [facility] performing pleurodesis. Since that time he had gone back to [facility] to see Dr. Dill who performed a VATS procedure. As for his afib he says that he has had multiple ablations including some done at [facility]. He says that he feels better today but is still edematous. I went over his echo w/ him. His current echo has shown deterioration in his RV function w/ severely dilated w/ paradoxical septal wall motion, severely dilated RA and RVSP of 50 mm, moderate TR. He also now has mild LV dysfunction w/ LVEF 40%. compared to his echo 06/15/21, his LV function has decreased from 50-55% and his RV went from moderate to severe dilatation. His RVSP has gone up from 34 to 50. I am recommending to him that we consult w/ Dr. Wong while he is here but then get him a referral to pulmonary hypertension clinic given his worsening RV function and elevated PHTN. I inquired about hx of COPD or DOLLY. He says that until he lost 80 lbs a few years ago he was on CPAP for DOLLY. As for COPD he has never been given this dx and he quit smoking 40 yrs ago. Exam Narrative Exam Narrative: Large while male who is moderately obes (BMI 33). he is not on oxygen and not dy spneic w/ prolonged conversation Lungs: clear anteriorly, posterior there is diminished breath sounds at right lung base but clear on the left Heart: irregularly irregular, slightly tachycardic, he is currently in afib Abdomen: obese, soft, nontender Legs: 3+ pitting edema to his thighs Objective Last Vital Signs Temp 36.6 C 09/19/23 15:44 Pulse 83 09/19/23 15:44 Resp 16 09/19/23 15:44 BP 141/89 H 09/19/23 15:44 Pulse Ox 93 09/19/23 15:44 Laboratory Results - last 24 hr 09/18/23 09/18/23 09/19/23 17:14 20:18 06:25 WBC 6.88 RBC 4.53 Hgb 13.6 Hct 42.1 MCV 93 MCH 30.0 MCHC 32.3 RDW 14.8 H Plt Count 215 MPV 10.9 Immature Gran % 0.3 Neutrophils % 70.8 Lymphocytes % 15.4 Monocytes % 10.5 Eosinophils % 2.6 Basophils % 0.4 Nucleated RBC % 0.0 Absolute Neutrophils 4.87 Absolute Lymphocytes 1.06 L Absolute Monocytes 0.72 Absolute Eosinophils 0.18 Absolute Basophils 0.03 Sodium 141 143 Potassium 3.6 3.4 L Chloride 102 104 Carbon Dioxide 31.8 30.0 Anion Gap 7.2 9.0 BUN 19 H 19 H Creatinine 1.5 H 1.3 Est GFR (CKD-EPI 2020) 46.77 55.53 Glucose 122 H 100 Calcium 8.9 8.6 Magnesium 1.7 L 1.9 Total Bilirubin 1.0 AST 22 ALT 35 Alkaline Phosphatase 88 Troponin I < 50 < 50 NT-Pro-B Natriuret Pep 5398 H Total Protein 7.0 Albumin 3.3 L Time Spent with Patient Time Spent with Patient: >50 minutes Time was spent: preparing to see the patient(eg.review tests), obtaining and/or reviewing separately otained hiistory, ordering medications,tests, procedures, indepentently interpreting results, counseling the patient and care coordination
[2023-09-19] MEDS: Normal Saline Flush 10 ML SYR IVP ×2 (16:12→17:41)
--- NOTE | 2023-09-19 16:30 | INITIAL_ITS ---
Date of service: 09/19/23 Time of Service: 16:30 Care Management Initial Assmt Initial Assessment Reason for Hospitalization: CHF Functional Status/Living Situation Patient Presentation: Vinny, leighton Moss as he prefers to be called, was sitting on the side of the bed when CM met with him. He was pleasant in interaction and agreeable to conversation. Isa was admitted with CHF and Afib with RVR. He is being diuresed with IV Lasix and received Digoxin for rate control with good effect. His HR is now in the 80s. Although Isa is age eligible for Medicare, he never contributed to social Security so he does not have that benefit. He shared that he pays almost $900/month for his BC/BS plan. Isa does not have advanced directives. At his request, CM provided him with a blank copy and a plan to complete them together in the morning. 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) Instrumental Activities of Daily Living (ADLs): Independent Physical Functioning/Mobility Assistive Device: none Advance Directives Advance Directives: Do you have an Advance Directive: N 05/15/13 15:16 AD On File at [facility]: N 05/15/13 15:16 Date Asked 09/18/23 09/18/23 16:56 AD Date Reviewed COLST On File at [facility] COLST Date Scanned Comment: given forms; will complete in am Code Status Resuscitation Status Full Code Portal Pt does not currently have a portal and education provided: No Insurance Coverage/Financial Issues Insurance: BC/BS ACO Member: No Care Team Visit Care Team Role Provider Type Severiano Coy MD Primary Care Provider [facility] STAFF PHYSICIAN Huan Benitez MD Emergency Provider [facility] STAFF PHYSICIAN Huan Upton Admit Provider [facility] STAFF PHYSICIAN Attending Provider Discharge Potential Discharge Needs: PCP F/U Appt and Other (possibly Cardiology) Anticipated Barriers to Discharge: None Identified Patient/Family Education Needs: Review discharge instructions, discuss Ask Me Three Transportation: Private vehicle Plan: Anticipate Isa will be discharged home with no new services. he will follow up with his PCP and plan of care and transport with family. CM will follow and continue to assess for discharge needs. PFSH All Active Problems (Updated 09/18/23 @ 22:49 by Huan Upton) RUQ abdominal tenderness (Acute) Atrial fibrillation with rapid ventricular response (Acute) Acute HFrEF (heart failure with reduced ejection fraction) (Acute) Chronic venous stasis dermatitis of both lower extremities (Acute) COVID-19 (Acute ~12/28/22) Bilateral knee pain (Acute) Chronic pain (Chronic) Joint pain (Acute) Asymmetrical sensorineural hearing loss (Acute) Hearing loss (Acute) Hip pain, right (Acute) Stage 3 chronic kidney disease (Acute) 09/2021- cr-1.6 Premature ventricular contractions (Acute) History of cardiac radiofrequency ablation (Acute) last ablation 03/27 [facility] Fibrothorax (Acute) Bronchiectasis (Acute) Pulmonary hypertension (Acute) Biventricular heart failure (Acute) Restrictive lung disease (Acute) Dyspnea on exertion (Acute) Chronic cough (Acute) Abnormal chest CT (Acute) CVA (cerebral vascular accident) (Chronic) righgt hemispshere during AF ablation. 20 Pre-operative cardiovascular examination (Acute) Facial skin lesion (Acute) Anticoagulation adequate (Acute) Hypoxemia (Acute) Exertional dyspnea (Acute) Depressive disorder (Acute) Perennial allergic rhinitis (Acute 03/22/16) Sacroiliitis (Chronic) Primary osteoarthritis of left hip (Chronic) Steroid injection: 07/28/2018 Chronic anticoagulation (Acute) Sexual function problem (Chronic) Tubular adenoma of colon (Chronic) 01/29/14-DR. 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) Diverticulosis (Chronic) Cardiomyopathy (Chronic) Coronary atherosclerosis of redding coronary vessel (Chronic) Atrial fibrillation (Chronic) success after multiple ablations Anxiety (Chronic) Anal fistula (Chronic) Hyperlipidemia (Chronic) Obstructive sleep apnea (Chronic) Osteoarthritis (Chronic) Hypertension (Chronic) History of atrial fibrillation (Chronic) Diabetes mellitus (Chronic) Recurrent right pleural effusion (Chronic) s/p VATS total decortication 04/18/19 Medical History Acute urinary retention (05/15/13) Alcohol abuse Edema Encounter for rehabilitation (05/15/13) Gout of hand index finger History of tobacco use Infected finger joint (12/16/14) Surgical History Colonoscopy - MAC 01/29/14 Extraction of cataract Bilateral History of cataract removal with insertion of prosthetic lens History of tonsillectomy and adenoidectomy Prosthesis, Penile implant Recurrent major depression in partial remission Atrial Replacement of total knee joint 2012; [facility] [place]; RIGHT, left Status post ablation of atrial fibrillation Status post total bilateral knee replacement Family History Brother Stroke Diabetes Father Heart attack pt of RI at 51 Mother Skin cancer Breast cancer Colon cancer Social History Smoking/Tobacco Use Status: Former Tobacco Use tobacco type: cigarettes Quit Date: 04/08/79 Smoking risk assessment performed?: Yes Alcohol Intake: current Alcohol Intake frequency: a few times a week Drug use: Never Housing: house Pets and animals: Yes Pets and animals: cat(s) and dog(s) What type of physical activity do you participate in: 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
[2023-09-19] MEDS: Spironolactone 25 MG TAB PO (17:41)
[2023-09-19] MEDS: Potassium Chloride 10 MEQ CAPCR 20 MEQ PO (17:50)
[2023-09-19] MEDS: Digoxin 0.125 MG TAB PO (18:07)
--- NOTE | 2023-09-19 18:15 | RT.EKG_ITS ---
APPROVED REPORT Exam: Resting ECG Reason for Exam: ST depression Patient Location: I HR:111 bpm ECG Measurements Heart Rate 111 AXIS OR [id number] P [id number] QRSd 147 QRS 41 QT 381 T 27 QTc 518 Conclusion Atrial fibrillation...? atrial activity Ventricular premature complex...V complex w/ short R-R interval Right bundle branch block...QRSd>120, terminal axis(90,270)
[2023-09-19] MEDS: Triamcinolone 0.1% OINT 15 GM TUBE TP (19:37)
[2023-09-19] MEDS: Omnipaque 350 MG/ML 100 ML BTL IJ (19:48)
[2023-09-19] MEDS: Normal Saline - Diluent 50 ML VIAL IJ (19:49)
--- NOTE | 2023-09-19 20:00 | DI.CT_ITS ---
Exam(s) CT CHEST PE CTA EXAM: CT CHEST PE CTA CLINICAL HISTORY: dyspnea, RV failure. TECHNIQUE: Imaging Protocol: CT angiography of the chest was performed using pulmonary embolus delgado col. Multi planar reconstructions were performed. CONTRAST MATERIAL: Intravenous: Omnipaque 350 Contrast volume: 100 cc COMPARISON: CT,NM,TMT NM MPI REST STRESS GRP from 07/25/2021 CR XR PORTABLE CHEST AP from 09/18/2023 FINDINGS: CHEST: PULMONARY ARTERIES: There are no intraluminal filling defects to suggest acute pulmonary emboli. LUNGS: There are small bilateral pleural effusions, slightly larger on the left side. The left pleur al effusion is not loculated. The right pleural effusion is loculated with peripheral calcification. There is also adjacent infiltrate in the right lung base-right lower lobe adjacent to this loculate d pleural effusion, possibly rounded-type atelectasis. Other infiltrate higher up in the lateral asp ect of the right upper lobe is also noted. Mild increased markings are noted in the left lower lobe basal segments but no confluent infiltrate.. There is no evidence of rib destruction. Appearance of a few right ribs reflects prior healed fractures. MEDIASTINUM: There few enlarged lymph nodes in left hilum; less so on the right side. A few slightly enlarged subcarinal lymph nodes are noted. Visualized thyroid unremarkable. CARDIAC: Are sternotomy wires and evidence of previous CABG. Heart is significantly enlarged. Some reflux of contrast into the intrahepatic IVC implies an element of right heart failure. Caliber of t he thoracic aorta is within normal limits. There is no evidence of aortic dissection. PARTIALLY VISUALIZED UPPERMOST ABDOMEN: No adrenal masses. Multiple hypodensities in the liver noted which are probably cysts, 1 of which contains some focal mural calcification. Spleen size is normal . OSSEOUS: No significant osseous lesions.No acute fractures.. IMPRESSION: 1. No evidence of acute pulmonary emboli.. 2. Cardiomegaly. Sternotomy/CABG. Probable element of right heart failure. 3. Small bilateral pleural effusions. The right pleural effusion is peripherally calcified and locul ated. Adjacent to this in the right lower lobe are findings which suggest rounded atelectasis and/or infiltrates. 4. Enlarged lymph nodes in left hilum and subcarinal region. RADIATION DOSE DELIVERED: Total DLP DATA REPOSITORY: All CT scans at this facility are submitted to the National Radiology Data Registry (NRDR) Dose Index Registry (DIR) with the [employer] (ACR). RADIATION OPTIMIZATION: All CT scans at this facility use at least one of these dose optimization te chniques: automated exposure control; mA and/or kV adjustment per patient size (includes targeted exa ms where dose is matched to clinical indication); or iterative reconstruction.
--- NOTE | 2023-09-19 20:20 | DI.VRAD_ITS ---
PROCEDURE INFORMATION: Exam: CTA Chest With Contrast Exam date and time: 09/19/2023 7:51 PM Age: 78 years old Clinical indication: Other: Dyspnea, rv failure TECHNIQUE: Imaging protocol: Computed tomographic angiography of the chest with contrast. Exam focused on the arteries. 3D rendering (Not supervised by radiologist): MIP and/or 3D reconstructed images were created by the technologist. Contrast material: OMNIPAQUE; Contrast volume: 100 ml; Contrast route: INTRAVENOUS (IV); COMPARISON: CT CHEST WO 12/20/2020 8:59 AM FINDINGS: Pulmonary arteries: Well opacified with contrast. No pulmonary emboli. Aorta: Atherosclerotic calcium. No aortic aneurysm. No aortic dissection. Lungs: Increased interstitial ground-glass markings bilaterally suggesting interstitial edema or congestive heart failure. Mild chronic atelectasis in the posteroinferior right lower lobe. Pleural spaces: Small to moderate left pleural effusion. Small right pleural effusion. There is a component of the right pleural fluid which is loculated in the inferolateral right hemithorax. There is a calcified pleural rind at this level. Recommend clinical correlation. This appears to be chronic and was present in 2020. Likely a benign chronic loculated pleural effusion. Heart: Severe cardiac enlargement. Severe coronary artery atherosclerotic calcium. Previous open-heart surgery. Right atrial dilatation. Minor reflux of contrast into the inferior vena cava and hepatic veins suggesting elevated right heart pressure or right heart failure. Lymph nodes: Mild left hilar lymph node enlargement. Largest node measuring 21 x 18 mm. Liver: Liver with benign-appearing low-attenuation foci consistent with cysts. Largest measuring 3.7 cm in the medial left hepatic lobe. Bones/joints: Degenerative thoracic spine changes. Soft tissues: Unremarkable. IMPRESSION: 1. Congestive heart failure/fluid overload. 2. Cardiomegaly. Coronary artery atherosclerosis. Previous open-heart surgery. Right atrial dilatation. 3. Bilateral pleural effusions. Posteriorly layering left pleural effusion of small to moderate size. Chronic rim calcified loculated inferior right hemithorax pleural fluid collection. 4. Pulmonary arterial opacification of good quality. No embolism. 5. Enlarged left hilar lymph node measuring 21 x 18 mm. Dictated and Authenticated by: Nasim Meier MD. Ordering:[facility] Shantanu Lee MD
[2023-09-20 03:21] VITALS: BP 100/58; PULSE 89; RESP 18; TEMP 36.7; O2SAT 96
[2023-09-20 05:39] VITALS: BP 121/74; PULSE 77; RESP 16; TEMP 36.2; O2SAT 90
[2023-09-20 07:26] VITALS: BP 102/68; PULSE 71; RESP 18; TEMP 36.8; O2SAT 96
[2023-09-20 07:35] LABS: Anion Gap 8.2 mmol/L (3-11); BUN 22 mg/dL (7-18); CO2 31.8 mmol/L (21.0-32.0); CREATININE 1.6 mg/dL (0.70-1.30); Calcium 8.9 mg/dL (8.5-10.1); Chloride 100 mmol/L (98-107); Estimated GFR 43.29 (mL/min/1.73m2); Glucose 163 mg/dL (74-106); Potassium 3.5 mmol/L (3.5-5.1); Sodium 140 mmol/L (136-145)
[2023-09-20 07:42] LABS: ALT 24 U/L (16-63); AST 16 U/L (15-37); Albumin 2.9 g/dL (3.4-5.0); Alkaline Phosphatase 79 U/L (46-116); Bilirubin, Total 0.9 mg/dL (0.2-1.0); Total Protein 6.3 g/dL (6.4-8.2)
[2023-09-20] MEDS: Furosemide 40 MG/4 ML VIAL 80 MG IVP (07:49)
[2023-09-20] MEDS: Normal Saline Flush 10 ML SYR IVP (07:50)
[2023-09-20] MEDS: Potassium Chloride 20 MEQ TABCR PO ×2 (07:52→14:21)
[2023-09-20] MEDS: Cholecalciferol (Vitamin D3) 1,000 UNIT TAB 1000 UNITS PO (07:52)
[2023-09-20] MEDS: Apixaban 5 MG TAB PO (07:52)
[2023-09-20] MEDS: Ascorbic Acid 500 MG TAB PO (07:52)
[2023-09-20] MEDS: Atorvastatin 40 MG TAB PO (07:52)
[2023-09-20] MEDS: Spironolactone 25 MG TAB PO (07:52)
[2023-09-20] MEDS: Multivitamin TAB 1 TAB PO (07:52)
[2023-09-20] MEDS: Allopurinol 300 MG TAB PO (07:52)
[2023-09-20 07:53] LABS: Bilirubin, Direct 0.3 mg/dL (0.0-0.2)
--- NOTE | 2023-09-20 08:41 | PDOC.CMPRO ---
Date of service: 09/20/23 Time of Service: 08:41 Care Management Progress Note Discharge Potential Discharge Needs: PCP F/U Appt Anticipated Barriers to Discharge: None Identified Patient/Family Education Needs: Review discharge instructions, discuss Ask Me Three Transportation: Private vehicle Plan: Anticipate Isa will be discharged home with no new services. he will follow up with his PCP and plan of care and transport with family. CM will follow and continue to assess for discharge needs. SDOH(Care Management) Screening Will the Patient Participate in the Screening?: Yes Do you worry about having a steady place to live?: no Problems where you live: no known problems In the past 12 months, have you had to go without electric, gas, oil or water in your home?: no Have you or anyone in your house had to go without enough food to eat?: no Has lack of transportation kept you from medical appointments or from doing things needed for daily living?: no Has anyone in your support network made you feel unsafe for any reason?: no
[2023-09-20 09:58] VITALS: PULSE 94
[2023-09-20] MEDS: Digoxin 0.125 MG TAB PO (09:58)
[2023-09-20] MEDS: Triamcinolone 0.1% OINT 15 GM TUBE TP (09:58)
--- NOTE | 2023-09-20 10:33 | W.PM.PROGNOT ---
Date of Service Date of service: 09/20/23 Time of Service: 10:34 Objective Last Vital Signs Temp 36.8 C 09/20/23 07:26 Pulse 94 H 09/20/23 09:58 Resp 18 09/20/23 07:26 BP 102/68 09/20/23 07:26 Pulse Ox 96 09/20/23 07:26 Laboratory Results - last 24 hr 09/19/23 09/20/23 06:25 06:05 Sodium 143 140 Potassium 3.4 L 3.5 Chloride 104 100 Carbon Dioxide 30.0 31.8 Anion Gap 9.0 8.2 BUN 19 H 22 H Creatinine 1.3 1.6 H Est GFR (CKD-EPI 2020) 55.53 43.29 Glucose 100 163 H Calcium 8.6 8.9 Magnesium 1.9 2.0 Total Bilirubin 0.9 Conjugated Bilirubin 0.3 H AST 16 ALT 24 Alkaline Phosphatase 79 Total Protein 6.3 L Albumin 2.9 L
[2023-09-20 11:10] VITALS: BP 123/90; PULSE 89; RESP 18; TEMP 36.9; O2SAT 94
--- NOTE | 2023-09-20 14:24 | W.PM.DS.N ---
Date of service: 09/20/23 Time of Service: 14:25 DS: Diagnosis Discharge Diagnosis (1) Atrial fibrillation with rapid ventricular response: Status: Acute (2) Acute on chronic heart failure with reduced ejection fraction and diastolic dysfunction: Status: Acute (3) Cor pulmonale: Status: Acute (4) Pulmonary hypertension: Status: Acute (5) Stage 3 chronic kidney disease: Status: Acute (6) Fibrothorax: Status: Acute (7) Coronary atherosclerosis of [place]iat[place] coronary vessel: Status: Chronic (8) Abnormal gall bladder diagnostic imaging: Status: Acute Discharge Plan Disposition Patient Disposition: Home Condition: Improving Discharge Details Reason For Visit: CHF Admit Date/Time: 09/18/23 19:05 Admit Provider: Huan Upton Attending Provider: Huan Upton Primary Care Provider: Severiano Coy Home Meds and New Rx's Prescriptions: New spironolactone 25 mg Tablet 25 mg PO DAILY Qty: 30 0RF digoxin 125 mcg (0.125 mg) Tablet 0.125 mg PO Q48H Qty: 15 0RF potassium chloride [Klor-Con M20] 20 mEq Tablet,Er Particles/Crystals 20 meq PO TID Qty: 90 0RF torsemide 20 mg tablet 20 mg PO DAILY Qty: 30 0RF empagliflozin 10 mg tablet 10 mg PO DAILY Qty: 30 0RF Continued atorvastatin 40 mg tablet 40 mg PO DAILY Qty: 90 3RF allopurinol 300 mg tablet 300 mg PO DAILY Qty: 90 3RF Eliquis 5 mg tablet 5 mg PO BID Qty: 180 3RF tramadol 50 mg tablet 50 mg PO Q8H PRN (Reason: pain) Qty: 20 0RF multivitamin [Daily Multi-Vitamin] 1 EACH tablet 1 ea PO DAILY cholecalciferol (vitamin D3) 1,000 UNIT tablet 1,000 unit PO DAILY ascorbic acid (vitamin C) [Vitamin C] 500 MG tablet 500 mg PO DAILY triamcinolone acetonide 0.1 % ointment 1 applic topical BID Qty: 80 2RF lorazepam 1 mg capsule,extended release 24hr 1 mg PO DAILY PRN Discontinued furosemide 40 mg tablet 40 mg PO DAILY Qty: 90 3RF metoprolol succinate 50 mg tablet extended release 24 hr 50 mg PO DAILY Qty: 90 3RF No Action (DME) FreeStyle Test Strip 1 ea Miscellaneous DAILY Qty: 90 3RF Rx Instructions: test in a.m. daily (DME) lancets [FreeStyle Lancets] 28 gauge misc 1 ea Miscellaneous DAILY Qty: 90 3RF Rx Instructions: test daily in a.m Discharge Instructions Instructions: Heart Failure, Adult (DC), Digoxin, Spironolactone, Torsemide, Empagliflozin Additional Instructions: You were treated for rapid atrial fibrillation which likely worsened your chronic congestive heart failure. You were treated w/ digoxin which replaced your metoprolol and your were given iv lasix to diurese fluids and decongest you from your acute heart failure.Troponin levels were checked to rule out a myocardial infarction (heart attack) and this showed that no acute heart attack was occurring. Initially you were given iv form of digoxin given a loading dose then put on oral digoxin. With the iv diuretics (lasix) your wt came down from 119.4 kg (262 lbs) to 113.7 kg (250 lbs). We monitored your labs including electrolytes and kidney function. Your potassium dropped below normal and you were put on oral potassium supplementation. Low potassium is a side effect or consequence of taking diuretics. We added spironolactone to help with diuresis and to help limit potassium losses. I have added Jardiance (empagliflozin) which is a diabetic agent that has been found to reduce the incidence of worsening heart failure and kidney failure. It is now used in patients who do not have diabetes but have heart failure. You should get follow up labs next week to asses your kidney function and electrolytes. When taking digoxin low potassium levels should be avoided, best to keep potassium over 4. However because you are now on spironolactone potassium levels and kidney function should be monitored periodically to also avoid too high of potassium level or watch for worsening renal function. I am recommending that you follow up locally w/ Dr. Wong as well as Dr. Coy and recommend referral to a pulmonary hypertensive specialist as you have worsening right heart failure and you may be eligible for medications that help w/ pulmonary artery dilatation which can help lower pulmonary pressures. However, a parachute accessories attacher who specializes in pulmonary hypertension would be the best one to assess this. Please monitor your weights daily, report any significant weight gain or loss over 3 lbs. Please follow low sodium diet. Sodium will stimulate the kidneys to retain fluids and worsen your heart failure. During your workup you had an ultrasound of your abdomen and this gallstones and bile sludge but no evidence of acute cholecystitis. If you develope abdomominal pain, nausea and vomiting particularly right upper abdominal pain or upper back pains this could be a gall bladder attack and should be evaluated immediately. Stand Alone Forms: Nursing Discharge Form Referrals: CARDIOLOGY,[facility] [place] [OTHER] - (needs referral to pulmonary hypertension clinic) Karol Wong MD [ [facility] STAFF PHYSICIAN] - 09/23/23 1:00 pm Severiano Coy MD [Primary Care Provider] - (Please call the office to set up a hospital follow up within 10-14 days, the office may call you as I left a message. ) Activity:: Activity as Tolerated Equipment/Supplies:: No Equipment Needed Diet:: Low Sodium Discharge Orders Discharge Orders: Discharge Order (Routine); Ordered 09/20/23 Ordered By: Jesus Johnson Ambulatory Orders: Basic Metabolic Panel (Routine) Timeframe: 5 Days Facility: [facility] - Location: Laboratory Outpatient - [facility] Ordered By: Jesus Fournier Discharge Data Discharge Date/Time-TO BE ENTERED AT DEPARTURE: 09/20/23 15:25 DS: Summary Time Spent with Patient providing and/or coordinating discharge services: Greater than 30 minutes Specific discharge activities: Interview/exam of patient; review of discharge instructions, completion of prescriptions/discharge instructions; discussion w/ nursing and CM; documentation of hospital visit Status at Discharge Functional status at discharge: independent ambulation Overall status at discharge: patient is back to baseline Mental Status: mental status grossly normal Speech and Movement: speech and movement normal Mood: congruent mood Affect: normal affect Quality:SDOH Health Related Social Needs: No Data to Display Exam Narrative Exam Narrative: Octavio is feeling markedly better. Leg edema has gone down significantly, he has had no dyspnea or CP or palpitations. in fact he says he purposely did laps around the nursing station this morning to see if this would worsen his afib and he felt fine. Lungs: markedly improved, although right lung base still w/ diminished sounds, I think this is going to be chronic condition from his fibrothorax; left side is clear Heart: irregularly irregular but rate is improved, controlled. soft systolic mumur over LLSB Abdomen appears smaller today Legs: definite improvement in the edema, now has definitiion of his tibia over the anterior lower legs and definition of his ankles; still w/ 1+ pedal edema Psych Mental Status: mental status grossly normal Speech and Movement: speech and movement normal Mood: congruent mood Affect: normal affect DS: Data Vitals/I&O Vitals and I&O: Vital Signs Temperature 36.9 C 09/20/23 11:10 Temperature Source Tympanic 09/20/23 11:10 Pulse 89 09/20/23 11:10 Pulse Rhythm Irregular 09/20/23 08:01 Respiratory Rate 18 09/20/23 11:10 Respiratory Effort Normal 09/20/23 08:01 Respiratory Depth Normal 09/20/23 08:01 Respiratory Pattern Normal 09/20/23 08:01 Blood Pressure 123/90 09/20/23 11:10 Blood Pressure Position Supine 09/18/23 18:11 Pulse Oximetry 94 09/20/23 11:10 Oxygen Delivery Method Room Air 09/20/23 11:10 Oxygen Flow Rate 0 09/20/23 11:10 Pain Level 0 09/20/23 11:10 Intake & Output 09/19/23 09/20/23 09/20/23 23:59 11:59 23:59 Intake Total 550 / 550 50 / 50 Output Total 5025 / 5525 2850 / 2850 Balance -4475 / -4975 -2800 / -2800 Weight 113.7 kg Intake: IV 50 / 50 50 / 50 Oral 500 / 500 Output: Urine 5025 / 5525 2850 / 2850 Other: Urine Color Yellow Yellow Urine Appearance Clear Clear Urine Odor Normal None Voiding Methods Urinal Urinal Data Completed and Pending Labs on day of discharge: Labs from last 24 hours 09/20/23 06:05 Sodium 140 Potassium 3.5 Chloride 100 Carbon Dioxide 31.8 Anion Gap 8.2 BUN 22 H Creatinine 1.6 H Est GFR (CKD-EPI 2020) 43.29 Glucose 163 H Calcium 8.9 Magnesium 2.0 Total Bilirubin 0.9 Conjugated Bilirubin 0.3 H AST 16 ALT 24 Alkaline Phosphatase 79 Total Protein 6.3 L Albumin 2.9 L PFSH All Active Problems (Updated 09/20/23 @ 13:46 by Jesus Fournier MD) Medication monitoring encounter (Acute) Abnormal gall bladder diagnostic imaging (Acute) Cor pulmonale (Acute) Acute on chronic heart failure with reduced ejection fraction and diastolic dysfunction (Acute) RUQ abdominal tenderness (Acute) Atrial fibrillation with rapid ventricular response (Acute) Acute HFrEF (heart failure with reduced ejection fraction) (Acute) Chronic venous stasis dermatitis of both lower extremities (Acute) COVID-19 (Acute ~12/28/22) Bilateral knee pain (Acute) Chronic pain (Chronic) Joint pain (Acute) Asymmetrical sensorineural hearing loss (Acute) Hearing loss (Acute) Hip pain, right (Acute) Stage 3 chronic kidney disease (Acute) 09/2021- cr-1.6 Premature ventricular contractions (Acute) History of cardiac radiofrequency ablation (Acute) last ablation 03/27 [facility] Fibrothorax (Acute) Bronchiectasis (Acute) Pulmonary hypertension (Acute) Biventricular heart failure (Acute) Restrictive lung disease (Acute) Dyspnea on exertion (Acute) Chronic cough (Acute) Abnormal chest CT (Acute) CVA (cerebral vascular accident) (Chronic) righgt hemispshere during AF ablation. 04.04.20 Pre-operative cardiovascular examination (Acute) Facial skin lesion (Acute) Anticoagulation adequate (Acute) Hypoxemia (Acute) Exertional dyspnea (Acute) Depressive disorder (Acute) Perennial allergic rhinitis (Acute 03/22/16) Sacroiliitis (Chronic) Primary osteoarthritis of left hip (Chronic) Steroid injection: 07/28/2018 Chronic anticoagulation (Acute) Sexual function problem (Chronic) Tubular adenoma of colon (Chronic) 01/29/14-DR. 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) Diverticulosis (Chronic) Cardiomyopathy (Chronic) Coronary atherosclerosis of [place]iat[place] coronary vessel (Chronic) Atrial fibrillation (Chronic) success after multiple ablations Anxiety (Chronic) Anal fistula (Chronic) Hyperlipidemia (Chronic) Obstructive sleep apnea (Chronic) Osteoarthritis (Chronic) Hypertension (Chronic) History of atrial fibrillation (Chronic) Diabetes mellitus (Chronic) Recurrent right pleural effusion (Chronic) s/p VATS total decortication 04/18/19 Medical History Acute urinary retention (05/15/13) Alcohol abuse Edema Encounter for rehabilitation (05/15/13) Gout of hand index finger History of tobacco use Infected finger joint (12/16/14) Surgical History Colonoscopy - MAC 01/29/14 Extraction of cataract Bilateral History of cataract removal with insertion of prosthetic lens History of tonsillectomy and adenoidectomy Prosthesis, Penile implant Recurrent major depression in partial remission Atrial Replacement of total knee joint 2012; [facility] [place]; RIGHT, left Status post ablation of atrial fibrillation Status post total bilateral knee replacement Family History Brother Stroke Diabetes Father Heart attack pt of OR at 51 Mother Skin cancer Breast cancer Colon cancer Social History Smoking/Tobacco Use Status: Former Tobacco Use tobacco type: cigarettes Quit Date: 04/08/79 Smoking risk assessment performed?: Yes Alcohol Intake: current Alcohol Intake frequency: a few times a week Drug use: Never Housing: house Pets and animals: Yes Pets and animals: cat(s) and dog(s) What type of physical activity do you participate in: 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
--- NOTE | 2023-09-20 15:11 | PDOC.CMDIS ---
Date of service: 09/20/23 Time of Service: 15:11 LACE Index Scoring Tool Questions: Length of Stay (in days): 2 Was the patient admitted via the E.D.?: Yes Comorbidities: Cerebrovascular Disease, Diabetes w/o Complication, Congestive Heart Failure, Chronic Pulmonary Disease and Liver or Renal Disease E.D. Visits: 1 Answers: Total Score: 11 Risk of Readmission: High Risk Care Management Discharge Plan Reason for Hospitalization: CHF Discharge Plan: Isa will be discharged home with no new services. He will follow up with his PCP and plan of care and transport with family. A referral has been sent [place] [facility] [facility] by his provider. Patient/Family Education Needs: Review discharge instructions, discuss Ask Me Three [facility] Health Related Social Needs: No Data to Display
== END 2023-09-20 15:25 | disposition home or self-care (01) | DRG 292 ==
LOC: ER 18:49 → MS 19:56
PROVIDERS: Internal Medicine; Admitting Provider Family Medicine; Emergency Provider Emergency Medicine; PCP Family Medicine; Visit Provider Family Medicine
DX: I50.43 Acute on chronic combined systolic (congestive) and diastolic (congestive) heart failure (principal); I42.9 Cardiomyopathy, unspecified; I45.2 Bifascicular block; I48.91 Unspecified atrial fibrillation; N18.30 Chronic kidney disease, stage 3 unspecified; J94.1 Fibrothorax; I25.10 Atherosclerotic heart disease of native coronary artery without angina pectoris; R10.811 Right upper quadrant abdominal tenderness; I27.81 Cor pulmonale (chronic); Z79.01 Long term (current) use of anticoagulants; Z86.73 Personal history of transient ischemic attack (TIA), and cerebral infarction without residual deficits; Z95.1 Presence of aortocoronary bypass graft; Z79.899 Other long term (current) drug therapy; I73.9 Peripheral vascular disease, unspecified; I87.2 Venous insufficiency (chronic) (peripheral); G89.29 Other chronic pain; I49.3 Ventricular premature depolarization; M16.12 Unilateral primary osteoarthritis, left hip; E66.9 Obesity, unspecified; K57.30 Diverticulosis of large intestine without perforation or abscess without bleeding; F41.9 Anxiety disorder, unspecified; G47.33 Obstructive sleep apnea (adult) (pediatric); E11.22 Type 2 diabetes mellitus with diabetic chronic kidney disease; Z96.653 Presence of artificial knee joint, bilateral; K80.20 Calculus of gallbladder without cholecystitis without obstruction
CPT/HCPCS: 00123; 36415; 71275; 80048; 80053; 80076; 93005; 93308; 96374; 96375; 99285; 71045; 76700; 83735; 83880; 84484; 85025; 93010; 93306; 99222; 99233; 99239; J1160; J1205; J1940; J3475; J3490

== ENCOUNTER 2023-09-27 01:12 | Outpatient (CLI) | payer BC, SELFPAY ==
[2023-09-27 13:09] LABS: Anion Gap 9.9 mmol/L (3-11); BUN 27 mg/dL (7-18); CO2 27.1 mmol/L (21.0-32.0); CREATININE 1.7 mg/dL (0.70-1.30); Calcium 9.7 mg/dL (8.5-10.1); Chloride 101 mmol/L (98-107); Estimated GFR 40.25 (mL/min/1.73m2); Glucose 136 mg/dL (74-106); Potassium 4.9 mmol/L (3.5-5.1); Sodium 138 mmol/L (136-145)
== END 2023-09-27 01:13 | disposition home or self-care (01) ==
LOC: LOS 01:16
PROVIDERS: PCP Family Medicine; Visit Provider Internal Medicine
DX: I50.43 Acute on chronic combined systolic (congestive) and diastolic (congestive) heart failure (principal); N18.30 Chronic kidney disease, stage 3 unspecified; Z51.81 Encounter for therapeutic drug level monitoring
CPT/HCPCS: 36415; 80048

== ENCOUNTER 2023-10-09 02:31 | Outpatient (CLI) | payer BC, SELFPAY ==
[2023-10-09 13:01] LABS: Anion Gap 8.6 mmol/L (3-11); BUN 31 mg/dL (7-18); CO2 27.4 mmol/L (21.0-32.0); CREATININE 1.6 mg/dL (0.70-1.30); Calcium 9.5 mg/dL (8.5-10.1); Chloride 102 mmol/L (98-107); Estimated GFR 43.29 (mL/min/1.73m2); Glucose 167 mg/dL (74-106); Potassium 4.3 mmol/L (3.5-5.1); Sodium 138 mmol/L (136-145)
== END 2023-10-09 02:32 | disposition home or self-care (01) ==
LOC: LOS 02:31
PROVIDERS: PCP Family Medicine; Visit Provider Family Medicine
DX: E87.1 Hypo-osmolality and hyponatremia (principal)
CPT/HCPCS: 36415; 80048

== ENCOUNTER 2023-11-08 02:41 | Outpatient (CLI) | payer BC, SELFPAY ==
[2023-11-08 12:48] LABS: Anion Gap 8.5 mmol/L (3-11); BUN 32 mg/dL (7-18); CO2 31.5 mmol/L (21.0-32.0); CREATININE 1.7 mg/dL (0.70-1.30); Calcium 9.5 mg/dL (8.5-10.1); Chloride 100 mmol/L (98-107); Digoxin 0.58 ng/mL (0.90-2.00); Estimated GFR 40.25 (mL/min/1.73m2); Glucose 135 mg/dL (74-106); Potassium 4.4 mmol/L (3.5-5.1); Sodium 140 mmol/L (136-145)
== END 2023-11-08 02:42 | disposition home or self-care (01) ==
PROVIDERS: PCP Family Medicine; Visit Provider Family Medicine
DX: I48.91 Unspecified atrial fibrillation (principal); E87.1 Hypo-osmolality and hyponatremia
CPT/HCPCS: 36415; 80048; 80162

== ENCOUNTER 2024-01-18 10:35 | Emergency (ER) | payer BC, SELFPAY ==
[2024-01-18 10:42] VITALS: BP 128/84; PULSE 87; RESP 15; TEMP 36.3; O2SAT 92
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
[2024-01-18] MEDS: Lidocaine/Epinephri/Tetracaine Topical Gel 3 ML (11:33)
[2024-01-18] MEDS: Chlorhexidine 4% 120 ML BTL (11:34)
[2024-01-18] MEDS: Silver Nitrate Stick 1 EACH (11:34)
--- NOTE | 2024-01-18 12:00 | ED.GENADUL_ITS ---
Discharge Plan Disposition Patient Disposition: Home Condition: Good Discharge Details Clinical Impression: Fracture of phalanx of multiple toes of right foot, Laceration of foot, right Primary Care Provider: Severiano Coy ED Provider: Brown Manjarrez Home Meds and New Rx's Prescriptions: New cephalexin 500 mg capsule 500 mg PO QID 7 Days Qty: 28 0RF No Action atorvastatin 40 mg tablet 40 mg PO DAILY Qty: 90 3RF apixaban 2.5 mg tablet 2.5 mg PO BID Qty: 180 3RF tramadol 50 mg tablet 50 mg PO Q8H PRN (Reason: pain) Qty: 20 0RF diltiazem HCl 120 mg capsule,extended release 24 hr 120 mg PO DAILY Qty: 30 2RF allopurinol 100 mg tablet 100 mg PO DAILY Qty: 90 3RF triamcinolone acetonide 0.1 % ointment 1 applic topical BID Qty: 80 2RF multivitamin [Daily Multi-Vitamin] 1 EACH tablet 1 ea PO DAILY cholecalciferol (vitamin D3) 1,000 UNIT tablet 1,000 unit PO DAILY ascorbic acid (vitamin C) [Vitamin C] 500 MG tablet 500 mg PO DAILY (DME) FreeStyle Test Strip 1 ea Miscellaneous DAILY Qty: 90 3RF Rx Instructions: test in a.m. daily (DME) lancets [FreeStyle Lancets] 28 gauge misc 1 ea Miscellaneous DAILY Qty: 90 3RF Rx Instructions: test daily in a.m torsemide 20 mg tablet 20 mg PO DAILY Qty: 90 3RF empagliflozin 10 mg tablet 10 mg PO DAILY Qty: 90 3RF spironolactone 25 mg tablet 12.5 mg PO DAILY Qty: 60 3RF Rx Instructions: dose reduction 10/29/23 potassium chloride [Klor-Con M20] 20 mEq tablet,ER particles/crystals 20 meq PO TID Qty: 90 3RF metoprolol succinate 50 mg tablet extended release 24 hr 50 mg PO DAILY lorazepam 1 mg capsule,extended release 24hr 1 mg PO DAILY PRN Discharge Instructions Instructions: Wound Infection Additional Instructions: At this time you have a fracture of your third and fourth toes. Additionally we are not able to suture the laceration secondary to the amount of time since the initial injury. Please resume taking your blood thinner. Please keep your foot elevated to prevent any repeat bleeding. Please remain nonweightbearing on your foot for the next few weeks as your toes heal and allowing opportunity for the lacerations to heal. As we discussed together for the process for bandaging, please change the bandaging every day. Please use the supplies that were given to you. Please allow few hours for your foot to be out in the open air to dry every day. If you do develop bleeding, please apply mild direct pressure to the area with the bandaging technique that we discussed. Because of the fracture and the nature of the lacerations, please take the antibiotic to prevent infection. Please follow-up closely with your primary care provider for reassessment. There is a risk that infection of the skin and the bones can develop, and this is why you need close continued monitoring and close follow-up with your primary care provider. If you notice any worsening of your symptoms, or any new symptoms such as vomiting, diarrhea, fever, chills, shortness of breath, chest pain, numbness, weakness, or fainting , please return immediately to the emergency department for reevaluation. Please follow up with your primary care provider as soon as possible for reassessment and reevaluation. As always, it was a pleasure participating in your medical care today. Referrals: Severiano Coy MD [Primary Care Provider] - [facility] General Date/Time Provider Initiated Documentation: 01/18/24 10:43 . 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 Patient states that 3 days ago he dropped a large piece of wood on his right foot and had notable pain. There was also significant bleeding. He stopped taking his anticoagulant at that time. He has not taken it for the last 3 days. The bandaging was changed that day, but has not been changed for the last 48 hours. He admits notable pain on the foot. He is uncertain if there is a laceration. He denies any other complaints at this time. He denies any fever or chills. He denies any pain in the ankle. No other complaint Related Data Home Medications ?Medication ?Instructions ?Recorded ?Confirmed cholecalciferol (vitamin D3) 25 1,000 unit PO DAILY 06/27/12 01/18/24 mcg (1,000 unit) tablet multivitamin (Daily Multi-Vitamin 1 ea PO DAILY 06/27/12 01/18/24 tablet) ascorbic acid (vitamin C) 500 mg 500 mg PO DAILY 12/09/12 01/18/24 tablet (Vitamin C) blood sugar diagnostic (FreeStyle #90 strips 08/25/19 01/18/24 Test strips) lancets 28 gauge (FreeStyle #90 ea 08/25/19 01/18/24 Lancets) atorvastatin 40 mg tablet 40 mg PO DAILY #90 tab-caps 01/30/23 01/18/24 tramadol 50 mg tablet 50 mg PO Q8H PRN pain #20 tabs 05/07/23 01/18/24 lorazepam 1 mg capsule,extended 1 mg PO DAILY PRN 09/18/23 01/18/24 release 24 hr triamcinolone acetonide 0.1 % 1 applic topical BID rash on back 10/02/23 01/18/24 topical ointment #80 grams allopurinol 100 mg tablet 100 mg PO DAILY #90 tabs 10/29/23 01/18/24 diltiazem HCl 120 mg capsule,24 120 mg PO DAILY #30 caps 10/29/23 01/18/24 hr,extended release empagliflozin 10 mg tablet 10 mg PO DAILY #90 tabs 11/07/23 01/18/24 potassium chloride 20 mEq 20 meq PO TID #90 tabs 11/07/23 01/18/24 tablet,extended release(part/cryst) (Klor-Con M) spironolactone 25 mg tablet 12.5 mg (1/2 x 25 mg) PO DAILY #60 11/07/23 01/18/24 tabs torsemide 20 mg tablet 20 mg PO DAILY #90 tabs 11/07/23 01/18/24 metoprolol succinate 50 mg 50 mg PO DAILY 12/03/23 01/18/24 tablet,extended release 24 hr apixaban 2.5 mg tablet 2.5 mg PO BID #180 tabs 12/05/23 01/18/24 cephalexin 500 mg capsule 500 mg PO QID 7 days #28 caps 01/18/24 Previous Rx's ?Medication ?Instructions ?Recorded blood sugar diagnostic (FreeStyle #90 strips 08/25/19 Test strips) lancets 28 gauge (FreeStyle #90 ea 08/25/19 Lancets) atorvastatin 40 mg tablet 40 mg PO DAILY #90 tab-caps 01/30/23 tramadol 50 mg tablet 50 mg PO Q8H PRN pain #20 tabs 05/07/23 triamcinolone acetonide 0.1 % 1 applic topical BID rash on back 10/02/23 topical ointment #80 grams allopurinol 100 mg tablet 100 mg PO DAILY #90 tabs 10/29/23 diltiazem HCl 120 mg capsule,24 120 mg PO DAILY #30 caps 10/29/23 hr,extended release empagliflozin 10 mg tablet 10 mg PO DAILY #90 tabs 11/07/23 potassium chloride 20 mEq 20 meq PO TID #90 tabs 11/07/23 tablet,extended release(part/cryst) (Klor-Con M) spironolactone 25 mg tablet 12.5 mg (1/2 x 25 mg) PO DAILY #60 11/07/23 tabs torsemide 20 mg tablet 20 mg PO DAILY #90 tabs 11/07/23 apixaban 2.5 mg tablet 2.5 mg PO BID #180 tabs 12/05/23 cephalexin 500 mg capsule 500 mg PO QID 7 days #28 caps 01/18/24 Allergies Allergy/AdvReac Type Severity Reaction Status Date / Time hydromorphone HCl (From AdvReac Severe Hallucinati Verified 12/05/23 10:13 Dilaudid) ons morphine AdvReac Intermediate Nausea Verified 12/05/23 10:13 JAMAL Inhibitors AdvReac Mild COUGH Verified 12/05/23 10:13 General Stated Complaint: Orthopedic LIZZY: 3 Review of Systems All systems reviewed & are unremarkable except as noted in HPI and below Exam Narrative Exam Narrative: 1.Const: Well-nourished, Well-developed, appearing stated age 2.Eyes: PERRL, no conjunctival injection, and symmetrical lids. 3.ENT: Atraumatic external nose and ears. Moist MM. Neck: Symmetric, trachea midline, No thyromegaly. 4.CVS: +S1/S2, No murmurs or gallops. Peripheral pulses 2+ and equal in all extremities. Brisk capillary refill in all extremities. 5.RESP: Unlabored respiratory effort. Clear to auscultation bilaterally. No wheezes rales or rhonchi 6.GI: Soft, Nontender/Nondistended, No hepatosplenomegaly. No guarding or rebound. 7.MSK: Patient's right foot demonstrates tenderness over the third and fourth proximal phalanges. There is also a laceration noted over the dorsal aspect that is relatively 4 to 5 cm long, and relatively superficial. There is also a small laceration 2 cm long between the third and the fourth toe at the toe interspace. Notable tenderness with movement of the third and fourth toes. No active bleeding at this time. No purulent drainage or discharge. No erythema or redness. Capillary refill is around 3 to 4 seconds for all toes. Sensation is intact for the toes. 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 Sensation grossly intact, no focal neurologic deficits. 10.Psych: (AAO) x3. Appropriate mood and affect Course Vital Signs Vital signs: Vital Signs Temperature 36.3 C L 01/18/24 10:42 Pulse 87 01/18/24 10:42 Respiratory Rate 15 01/18/24 10:42 Blood Pressure 128/84 01/18/24 10:42 Pulse Oximetry 92 01/18/24 10:42 Temperature 36.3 C L 01/18/24 10:42 Pulse 87 01/18/24 10:42 Respiratory Rate 15 01/18/24 10:42 Respiratory Effort Normal 01/18/24 10:45 Blood Pressure 128/84 01/18/24 10:42 Blood Pressure Position Sitting 01/18/24 10:42 Pulse Oximetry 92 01/18/24 10:42 Oxygen Delivery Method Room Air 01/18/24 10:42 Oxygen Flow Rate 0 01/18/24 10:42 Pain Level 8 01/18/24 11:58 Medical Decision Making This is a very pleasant 78-year-old male with a past medical history of heart failure, atrial fibrillation on Eliquis, diabetes, chronic kidney disease, previous stroke, 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 Patient states that 3 days ago he dropped a large piece of wood on his right foot and had notable pain. There was also significant bleeding. He stopped taking his anticoagulant at that time. He has not taken it for the last 3 days. The bandaging was changed that day, but has not been changed for the last 48 hours. He admits notable pain on the foot. He is uncertain if there is a laceration. He denies any other complaints at this time. He denies any fever or chills. He denies any pain in the ankle. No other complaint Patient's right foot demonstrates tenderness over the third and fourth proximal phalanges. There is also a laceration noted over the dorsal aspect that is relatively 4 to 5 cm long, and relatively superficial. There is also a small laceration 2 cm long between the third and the fourth toe at the toe interspace. Notable tenderness with movement of the third and fourth toes. No active bleeding at this time. No purulent drainage or discharge. No erythema or redness. Capillary refill is around 3 to 4 seconds for all toes. Sensation is intact for the toes. Concern for potential fracture secondary to the patient's notable tenderness. Unfortunately he is out of the window for suturing secondary to the nature of the superficial lacerations and the timing index as well. Last tetanus was 2016, we will update today. We will get an x-ray to evaluate for fracture. We will anesthetize the area prior to cleaning with topical let. Will monitor closely and reassess. 12:25 PM X-ray shows notable fracture of the proximal phalanx for the third and fourth toes. Because of this there is increased concern for need for antibiotics. Area was anesthetized, then cleaned with chlorhexidine. Clots were removed. No active bleeding. The area was then chemically cauterized with silver nitrate to prevent any bleeding as the patient restarts his anticoagulation. The area was then bandaged, and a large amount of supplies was given to the patient and his for bandage changes. Will start the patient on Keflex. Will give a dose here, small bottle to go, and a prescription for 7 days. Recommend close follow-up with his PCP in the next week for wound recheck. Additionally we discussed how to control bleeding if some oozing does occur, the importance of remaining nonweightbearing while he heals and to stay off the wound itself, the importance of keeping the wound elevated and clean and dry, and also red flags that would indicate return and infection. Patient does have both crutches and walker at home. Recommend continue nonweightbearing. Discussed red flags which to return. I have extensively reviewed the treatment plan and discharge instructions with the patient. I have addressed all patient concerns at this time. The patient was made aware of what symptoms to monitor for that would warrant a return to the emergency department. Discussed the plan with the patient, they demonstrate verbal understanding and agreement with our assessment and plan at this time. The documentation in this chart was dictated using [employer] dictation software. Please excuse any dictation errors. Quality:SDOH Health Related Social Needs: No Data to Display PFSH All Active Problems Laceration of foot, right (Acute) Fracture of phalanx of multiple toes of right foot (Acute) Actinic keratosis (Acute) Gout (Chronic) Medication monitoring encounter (Acute) Abnormal gall bladder diagnostic imaging (Acute) Cor pulmonale (Acute) Acute on chronic heart failure with reduced ejection fraction and diastolic dysfunction (Acute) RUQ abdominal tenderness (Acute) Atrial fibrillation with rapid ventricular response (Acute) Acute HFrEF (heart failure with reduced ejection fraction) (Acute) Chronic venous stasis dermatitis of both lower extremities (Acute) COVID-19 (Acute ~12/28/22) Bilateral knee pain (Acute) Chronic pain (Chronic) Joint pain (Acute) Asymmetrical sensorineural hearing loss (Acute) Hearing loss (Acute) Hip pain, right (Acute) Stage 3 chronic kidney disease (Acute) 09/2021- cr-1.6 Premature ventricular contractions (Acute) History of cardiac radiofrequency ablation (Acute) last ablation 03/27 [facility] Fibrothorax (Acute) Bronchiectasis (Acute) Pulmonary hypertension (Acute) Biventricular heart failure (Acute) Restrictive lung disease (Acute) Dyspnea on exertion (Acute) Chronic cough (Acute) Abnormal chest CT (Acute) CVA (cerebral vascular accident) (Chronic) righgt hemispshere during AF ablation. 04.04.20 Pre-operative cardiovascular examination (Acute) Facial skin lesion (Acute) Anticoagulation adequate (Acute) Hypoxemia (Acute) Exertional dyspnea (Acute) Depressive disorder (Acute) Perennial allergic rhinitis (Acute 03/22/16) Sacroiliitis (Chronic) Primary osteoarthritis of left hip (Chronic) Steroid injection: 07/28/2018 Chronic anticoagulation (Acute) Sexual function problem (Chronic) Tubular adenoma of colon (Chronic) 01/29/14-DR. 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) Diverticulosis (Chronic) Cardiomyopathy (Chronic) Coronary atherosclerosis of chilkoot coronary vessel (Chronic) Atrial fibrillation (Chronic) success after multiple ablations Anxiety (Chronic) Anal fistula (Chronic) Hyperlipidemia (Chronic) Obstructive sleep apnea (Chronic) Osteoarthritis (Chronic) Hypertension (Chronic) History of atrial fibrillation (Chronic) Diabetes mellitus (Chronic) Recurrent right pleural effusion (Chronic) s/p VATS total decortication 04/18/19 Medical History Alcohol abuse History of tobacco use Infected finger joint (12/16/14) Edema Gout of hand index finger Acute urinary retention (05/15/13) Encounter for rehabilitation (05/15/13) Surgical History History of tonsillectomy and adenoidectomy History of cataract removal with insertion of prosthetic lens Status post ablation of atrial fibrillation Status post total bilateral knee replacement Replacement of total knee joint 2012; [facility] [place]; RIGHT, left Prosthesis, Penile implant Colonoscopy - MAC 01/29/14 Extraction of cataract Bilateral Recurrent major depression in partial remission Atrial Family History Brother Stroke Diabetes Father Heart attack pt of MD at 51 Mother Skin cancer Breast cancer Colon cancer Social History Smoking/Tobacco Use Status: Former Tobacco Use tobacco type: cigarettes Quit Date: 04/08/79 Smoking risk assessment performed?: Yes Alcohol Intake: current Alcohol Intake frequency: a few times a week Drug use: Never Housing: house Pets and animals: Yes Pets and animals: cat(s) and dog(s) What type of physical activity do you participate in: 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
[2024-01-18] MEDS: Cephalexin 500 MG CAP, 4 CAPS/BTL PO (12:22)
--- NOTE | 2024-01-18 12:58 | DI.VRAD_ITS ---
PROCEDURE INFORMATION: Exam: XR Right Foot Exam date and time: 01/18/2024 11:22 AM Age: 78 years old Clinical indication: Injury or trauma; Other: Hit toes on woodblock; Blunt trauma; Right lesser toe(s) TECHNIQUE: Imaging protocol: Radiologic exam of the right foot. Views: 3 or more views. COMPARISON: No relevant prior studies available. FINDINGS: Bones/joints: Acute fractures in the proximal phalanx of the 3rd 4th and 5th toes. Fractures in the 3rd and 4th toes are displaced. Fifth toe fractures are essentially nondisplaced Acute fracture in the middle phalanx of the 5th toe. Degenerative changes in the tarsal bones and tarsometatarsal joints and 1st metatarsophalangeal joint Soft tissues: Soft tissue swelling of the foot IMPRESSION: Acute fractures in the proximal phalanx of the 3rd 4th and 5th toes. Fractures in the 3rd and 4th toes are displaced. Fifth toe fractures are essentially nondisplaced Acute fracture in the middle phalanx of the 5th toe. Dictated and Authenticated by: Blank Vazquez MD. Ordering:DAVID Dasilva MD
== END 2024-01-18 12:33 | disposition home or self-care (01) ==
PROVIDERS: Emergency Provider Student in an Organized Health Care Education/Training Program; PCP Family Medicine
DX: S92.501A Displaced unspecified fracture of right lesser toe(s), initial encounter for closed fracture (principal); W20.8XXA Other cause of strike by thrown, projected or falling object, initial encounter; S91.311A Laceration without foreign body, right foot, initial encounter
CPT/HCPCS: 90471; 90715; 99284; 73630

== ENCOUNTER 2024-01-24 15:08 | Emergency (ER) | payer BC, SELFPAY ==
[2024-01-24 15:09] VITALS: BP 108/74; PULSE 98; RESP 17; TEMP 36.4
--- NOTE | 2024-01-24 15:40 | W.ED.GENAD ---
Discharge Plan Disposition Patient Disposition: Home Condition: Stable Discharge Details Clinical Impression: Fracture of phalanx of multiple toes of right foot, Laceration of foot, right Primary Care Provider: Severiano Coy ED Provider: Kelsie Mendiola Home Meds and New Rx's Prescriptions: New cephalexin 500 mg capsule 500 mg PO QID Qty: 30 0RF Continued atorvastatin 40 mg tablet 40 mg PO DAILY Qty: 90 3RF apixaban 2.5 mg tablet 2.5 mg PO BID Qty: 180 3RF tramadol 50 mg tablet 50 mg PO Q8H PRN (Reason: pain) Qty: 20 0RF diltiazem HCl 120 mg capsule,extended release 24 hr 120 mg PO DAILY Qty: 30 2RF allopurinol 100 mg tablet 100 mg PO DAILY Qty: 90 3RF triamcinolone acetonide 0.1 % ointment 1 applic topical BID Qty: 80 2RF multivitamin [Daily Multi-Vitamin] 1 EACH tablet 1 ea PO DAILY cholecalciferol (vitamin D3) 1,000 UNIT tablet 1,000 unit PO DAILY ascorbic acid (vitamin C) [Vitamin C] 500 MG tablet 500 mg PO DAILY (DME) FreeStyle Test Strip 1 ea Miscellaneous DAILY Qty: 90 3RF Rx Instructions: test in a.m. daily (DME) lancets [FreeStyle Lancets] 28 gauge misc 1 ea Miscellaneous DAILY Qty: 90 3RF Rx Instructions: test daily in a.m torsemide 20 mg tablet 20 mg PO DAILY Qty: 90 3RF empagliflozin 10 mg tablet 10 mg PO DAILY Qty: 90 3RF spironolactone 25 mg tablet 12.5 mg PO DAILY Qty: 60 3RF Rx Instructions: dose reduction 10/29/23 potassium chloride [Klor-Con M20] 20 mEq tablet,ER particles/crystals 20 meq PO TID Qty: 90 3RF metoprolol succinate 50 mg tablet extended release 24 hr 50 mg PO DAILY lorazepam 1 mg capsule,extended release 24hr 1 mg PO DAILY PRN Discharge Instructions Additional Instructions: Please follow-up with orthopedics within the week as discussed. Continue taking antibiotics, I have sent a refill of your prescription. You can get your foot wet, just be sure to change the dressing and put the Xeroform dressing between your toes to help keep the skin from sticking to a bandage. Cover with nonstick bandage. Elevate foot as much as possible throughout the day. Use a postop shoe to help support your foot. Return to emergency care if you develop new fever/chills, general feeling of unwellness/malaise, worsening swelling/redness, pus drainage, or if you are very worried and need to be rechecked again immediately. Referrals: [facility] [Provider Group] HPI General Date/Time Provider Initiated Documentation: 01/24/24 15:23. HPI Narrative: Vinny is a 78 year old male who presents to the emergency dept for evaluation of R foot cellulitis following open fx at the recommendation of Dr Garcia, who he saw for a follow up today. He reports he dropped a cord of wood on his foot 8 days ago while barefoot on cement; did not seek care for it until two days later. He was started on keflex and has been taking that as prescribed. Has been doing dressing changes with celar/pink drainage on bandages, no other wound care. Denies fever/chills, general malaise, change in appetite, change in bowel/bladder function, distal numbness/tingling, or pain to foot at rest. Denies history of T2DM or immunocompromise. He is anticoagulated on eliquis 2.5 mg bid. Physical exam remarkable for erythema and edema to dorsum of R foot up to ankle. Significant tenderness with palpation. Blacked tissue noted along healing laceration, scant pus drainage noted from between 3rd and 4th toes. Distal pulses intact, 2 sec cap refill. He is able to wiggle toes, sensation is intact. Patient is well appearing, in no acute distress. D/dx includes but is not limited to: cellulitis associated with open fracture, abscess, osteomyelitis, healing hematoma I independently interpreted the following tests: CBC reassuring. CMp unchanged from baseline. Slightly elevated CRP 2.59, ESR and procalcitonin negative. CT of right lower extremity obtained, acute fractures of the proximal phalanges of the third, fourth, and fifth toes of the right foot as well as fracture of the middle phalanx of the fifth toe noted, unchanged from previous. No evidence of osteomyelitis, radiopaque foreign body, or abscess. Discussed findings with Dr. Martinez. I did review PCP visit today and ED visit from 01/18/24. Bleeding was controlled using silver nitrate. 4-5 cm laceration noted to dorsum of foot and 2 cm laceration between 3rd and 4th toes. Fractures to proximal phalynxes of 3rd and 4th toes of R foot. He does take Jardiance. Discussed case with Dr Lino, orthopedic surgeon. There is concern that patient may require skin grafting after debridement if there is any abscess/pus collection; this would necessitate transfer for specialized care. He does have a history of significant peripheral vascular disease. Labs and CT ordered per discussion with specialist. Dr Lino in to see patient and evaluate labs, feels this is likely not infected but rather healing hematoma. If CT negative, wound to be cleansed with xeroform dressing applied. Recommends post op shoe and daily dressing changes w/ orthopedics follow up. Reviewed discharge instructions with patient. Wound was cleansed by RN and dressed with gauze and bacitracin, covered with nonstick bandage. Patient is agreeable with plan of care, will follow-up with Dr. Lino. Will continue Keflex until patient is reevaluated by ortho. Related Data Home Medications ?Medication ?Instructions ?Recorded ?Confirmed cholecalciferol (vitamin D3) 25 1,000 unit PO DAILY 06/27/12 01/24/24 mcg (1,000 unit) tablet multivitamin (Daily Multi-Vitamin 1 ea PO DAILY 06/27/12 01/24/24 tablet) ascorbic acid (vitamin C) 500 mg 500 mg PO DAILY 12/09/12 01/24/24 tablet (Vitamin C) blood sugar diagnostic (FreeStyle #90 strips 08/25/19 01/24/24 Test strips) lancets 28 gauge (FreeStyle #90 ea 08/25/19 01/24/24 Lancets) atorvastatin 40 mg tablet 40 mg PO DAILY #90 tab-caps 01/30/23 01/24/24 tramadol 50 mg tablet 50 mg PO Q8H PRN pain #20 tabs 05/07/23 01/24/24 lorazepam 1 mg capsule,extended 1 mg PO DAILY PRN 09/18/23 01/24/24 release 24 hr triamcinolone acetonide 0.1 % 1 applic topical BID rash on back 10/02/23 01/24/24 topical ointment #80 grams allopurinol 100 mg tablet 100 mg PO DAILY #90 tabs 10/29/23 01/24/24 diltiazem HCl 120 mg capsule,24 120 mg PO DAILY #30 caps 10/29/23 01/24/24 hr,extended release empagliflozin 10 mg tablet 10 mg PO DAILY #90 tabs 11/07/23 01/24/24 potassium chloride 20 mEq 20 meq PO TID #90 tabs 11/07/23 01/24/24 tablet,extended release(part/cryst) (Klor-Con M) spironolactone 25 mg tablet 12.5 mg (1/2 x 25 mg) PO DAILY #60 11/07/23 01/24/24 tabs torsemide 20 mg tablet 20 mg PO DAILY #90 tabs 11/07/23 01/24/24 metoprolol succinate 50 mg 50 mg PO DAILY 12/03/23 01/24/24 tablet,extended release 24 hr apixaban 2.5 mg tablet 2.5 mg PO BID #180 tabs 12/05/23 01/24/24 cephalexin 500 mg capsule 500 mg PO QID #30 caps 01/24/24 Previous Rx's ?Medication ?Instructions ?Recorded blood sugar diagnostic (FreeStyle #90 strips 08/25/19 Test strips) lancets 28 gauge (FreeStyle #90 ea 08/25/19 Lancets) atorvastatin 40 mg tablet 40 mg PO DAILY #90 tab-caps 01/30/23 tramadol 50 mg tablet 50 mg PO Q8H PRN pain #20 tabs 05/07/23 triamcinolone acetonide 0.1 % 1 applic topical BID rash on back 10/02/23 topical ointment #80 grams allopurinol 100 mg tablet 100 mg PO DAILY #90 tabs 10/29/23 diltiazem HCl 120 mg capsule,24 120 mg PO DAILY #30 caps 10/29/23 hr,extended release empagliflozin 10 mg tablet 10 mg PO DAILY #90 tabs 11/07/23 potassium chloride 20 mEq 20 meq PO TID #90 tabs 11/07/23 tablet,extended release(part/cryst) (Klor-Con M) spironolactone 25 mg tablet 12.5 mg (1/2 x 25 mg) PO DAILY #60 11/07/23 tabs torsemide 20 mg tablet 20 mg PO DAILY #90 tabs 11/07/23 apixaban 2.5 mg tablet 2.5 mg PO BID #180 tabs 12/05/23 cephalexin 500 mg capsule 500 mg PO QID #30 caps 01/24/24 Allergies Allergy/AdvReac Type Severity Reaction Status Date / Time hydromorphone HCl (From AdvReac Severe Hallucinati Verified 01/24/24 15:14 Dilaudid) ons morphine AdvReac Intermediate Nausea Verified 01/24/24 15:14 JAMAL Inhibitors AdvReac Mild COUGH Verified 01/24/24 15:14 General Stated Complaint: Orthopedic LIZZY: 4 Review of Systems Narrative: see HPI Exam Const General: cooperative, healthy appearing, comfortable, no acute distress and well developed Nutritional Appearance: average body habitus Orientation: alert and oriented x3 Resp Effort & Inspection: normal respiratory effort and able to speak in complete sentences Skin Rashes: rashes noted (dorsum of R foot) Extrem Right lower extremity: foot (blackened eschar noted to dorsum of R foot along laceration extending betwe) Details: normal capillary refill Course Vital Signs Vital signs: Vital Signs Temperature 36.4 C 01/24/24 15:09 Pulse 98 H 01/24/24 15:09 Respiratory Rate 17 01/24/24 15:09 Blood Pressure 108/74 01/24/24 15:09 Temperature 36.4 C 01/24/24 15:09 Pulse 98 H 01/24/24 15:09 Respiratory Rate 17 01/24/24 15:09 Blood Pressure 108/74 01/24/24 15:09 Pain Level 1 01/24/24 15:09 Medical Decision Making Imaging Data Radiologic Study: Radiologist's impression: CLINICAL HISTORY: cellulitis with concern for abscess. TECHNIQUE: Imaging Protocol: Axial computed tomography images with coronal and sagittal reformatted images were created and reviewed. CONTRAST MATERIAL: Intravenous: Omnipaque 350 Contrast volume:structured data in ml Contrast route:IV COMPARISON: CR,XR XR FOOT RT COMPLETE from 01/18/2024 FINDINGS: OSSEOUS: This patient recently sustained acute fractures of the proximal phalanges of the 3rd, 4th, and 5th toes of the right foot as well as a fracture of the middle phalanx of the 5th toe. (See plain from report 01/18/2024) CT reveals the above phalangeal fractures. Also advanced degenerative changes in the great toe metatarsophalangeal joint. There are no metatarsal fractures evident. No midfoot fractures nor hindfoot fractures evident. Moderate size inferior calcaneal spur is noted. There are no fractures of the tibia and fibula nor significant lesions nor erosions of the tibia and fibula. There is no evidence of osteomyelitis. Ipsilateral knee prosthesis is noted. SOFT TISSUES: There is vascular calcification in the runoff vessels of the calf including the posterior tibial and peroneal arteries with this calcification extending into the foot within the plantar vessels. There is a diffuse subcutaneous edema pattern throughout the lower leg and extending into the foot consistent with probable cellulitis-type pattern. There is no discernible abscess. There is no obvious radiopaque foreign body evident. IMPRESSION: The previously described fractures of the 3rd, 4th, and 5th toes are again evident, seen on recent plain films of 6 days ago. There is diffuse subcutaneous edema in the calf. There is no discernible abscess. There is no radiopaque foreign body. No evidence of osteomyelitis. There is no gas in the soft tissues. Findings discussed by phone with ER provider 01/24/2024 6:25 p.m. Quality:SDOH Health Related Social Needs: No Data to Display PFSH All Active Problems (Updated 01/24/24 @ 17:33 by Kelsie Brock) Laceration of foot, right (Acute) Fracture of phalanx of multiple toes of right foot (Acute) Actinic keratosis (Acute) Gout (Chronic) Medication monitoring encounter (Acute) Abnormal gall bladder diagnostic imaging (Acute) Cor pulmonale (Acute) Acute on chronic heart failure with reduced ejection fraction and diastolic dysfunction (Acute) RUQ abdominal tenderness (Acute) Atrial fibrillation with rapid ventricular response (Acute) Acute HFrEF (heart failure with reduced ejection fraction) (Acute) Chronic venous stasis dermatitis of both lower extremities (Acute) COVID-19 (Acute ~12/28/22) Bilateral knee pain (Acute) Chronic pain (Chronic) Joint pain (Acute) Asymmetrical sensorineural hearing loss (Acute) Hearing loss (Acute) Hip pain, right (Acute) Stage 3 chronic kidney disease (Acute) 09/2021- cr-1.6 Premature ventricular contractions (Acute) History of cardiac radiofrequency ablation (Acute) last ablation 03/27 [facility] Fibrothorax (Acute) Bronchiectasis (Acute) Pulmonary hypertension (Acute) Biventricular heart failure (Acute) Restrictive lung disease (Acute) Dyspnea on exertion (Acute) Chronic cough (Acute) Abnormal chest CT (Acute) CVA (cerebral vascular accident) (Chronic) righgt hemispshere during AF ablation. 28.20 Pre-operative cardiovascular examination (Acute) Facial skin lesion (Acute) Anticoagulation adequate (Acute) Hypoxemia (Acute) Exertional dyspnea (Acute) Depressive disorder (Acute) Perennial allergic rhinitis (Acute 03/22/16) Sacroiliitis (Chronic) Primary osteoarthritis of left hip (Chronic) Steroid injection: 07/28/2018 Chronic anticoagulation (Acute) Sexual function problem (Chronic) Tubular adenoma of colon (Chronic) 01/29/14-DR. 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) Diverticulosis (Chronic) Cardiomyopathy (Chronic) Coronary atherosclerosis of [place] coronary vessel (Chronic) Atrial fibrillation (Chronic) success after multiple ablations Anxiety (Chronic) Anal fistula (Chronic) Hyperlipidemia (Chronic) Obstructive sleep apnea (Chronic) Osteoarthritis (Chronic) Hypertension (Chronic) History of atrial fibrillation (Chronic) Diabetes mellitus (Chronic) Recurrent right pleural effusion (Chronic) s/p VATS total decortication 04/18/19 Medical History Alcohol abuse History of tobacco use Infected finger joint (12/16/14) Edema Gout of hand index finger Acute urinary retention (05/15/13) Encounter for rehabilitation (05/15/13) Surgical History History of tonsillectomy and adenoidectomy History of cataract removal with insertion of prosthetic lens Status post ablation of atrial fibrillation Status post total bilateral knee replacement Replacement of total knee joint 2012; [facility] [place], left Prosthesis, Penile implant Colonoscopy - MAC 01/29/14 Extraction of cataract Bilateral Recurrent major depression in partial remission Atrial Family History Brother Stroke Diabetes Father Heart attack pt of [place] at 51 Mother Skin cancer Breast cancer Colon cancer Social History Smoking/Tobacco Use Status: Former Tobacco Use tobacco type: cigarettes Quit Date: 04/08/79 Smoking risk assessment performed?: Yes Alcohol Intake: current Alcohol Intake frequency: a few times a week Drug use: Never Substance use type: does not use Housing: house Pets and animals: Yes Pets and animals: cat(s) and dog(s) 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
[2024-01-24 16:03] LABS: Abs Immature Grans 0.02 10^3/uL (0.0-0.06); Absolute Basophil Count 0.02 10^3/uL (0.0-0.2); Absolute Eosinophil Count 0.17 10^3/uL (0.0-0.7); Absolute Lymphocyte Count 0.78 10^3/uL (1.2-3.4); Absolute Monocyte Count 0.86 10^3/uL (0.1-0.8); Basophils % 0.3 %; Eosinophils % 2.4 %; HCT 44.7 % (40.0-50.0); HGB 14.4 g/dL (13.5-17.5); Immature Grans % 0.3 %; Lymphocytes % 11.1 %; MCH 30.2 pg (27.0-33.0); MCHC 32.2 % (32.0-36.0); MCV 94 fL (80-95); MPV 10.2 fL (8.0-11.0); Monocytes % 12.2 %; Neutrophils % 73.7 %; Platelet Count 252 10^3/uL (130-400); RBC 4.77 10^6/uL (4.36-5.78); RDW 13.9 % (11.8-14.1); RDW-SD 47.6 fL; WBC 7.05 10^3/uL (4.4-10.8)
[2024-01-24 16:04] LABS: ESR 18 mm/hr (0-20)
[2024-01-24 16:19] LABS: ALT 24 U/L (16-63); AST 20 U/L (15-37); Albumin 3.4 g/dL (3.4-5.0); Alkaline Phosphatase 96 U/L (46-116); Anion Gap 9.1 mmol/L (3-11); BUN 36 mg/dL (7-18); Bilirubin, Total 0.87 mg/dL (0.2-1.0); C-Reactive Protein 2.59 mg/dL (<or=0.5); CO2 31.9 mmol/L (21.0-32.0); CREATININE 1.6 mg/dL (0.70-1.30); Calcium 9.4 mg/dL (8.5-10.1); Chloride 101 mmol/L (98-107); Estimated GFR 43.29 (mL/min/1.73m2); Glucose 94 mg/dL (74-106); Sodium 142 mmol/L (136-145); Total Protein 7.8 g/dL (6.4-8.2)
[2024-01-24 16:40] LABS: Lab Add On Test DONE
[2024-01-24 16:51] LABS: Procalcitonin < 0.1 ng/mL
[2024-01-24 17:18] LABS: Hemoglobin A1C 6.1 % (<5.7)
[2024-01-24] MEDS: Omnipaque 350 MG/ML 100 ML BTL IJ (17:22)
[2024-01-24] MEDS: Normal Saline - Diluent 50 ML VIAL IJ (17:24)
--- NOTE | 2024-01-24 17:24 | DI.CT_ITS ---
Exam(s) CT LOWER EXTREMITY RT W EXAM: CT LOWER EXTREMITY RT W CLINICAL HISTORY: cellulitis with concern for abscess. TECHNIQUE: Imaging Protocol: Axial computed tomography images with coronal and sagittal reformatted images were created and reviewed. CONTRAST MATERIAL: Intravenous: Omnipaque 350 Contrast volume:structured data in ml Contrast route:I V COMPARISON: CR,XR XR FOOT RT COMPLETE from 01/18/2024 FINDINGS: OSSEOUS: This patient recently sustained acute fractures of the proximal phalanges of the 3rd, 4th, and 5th to es of the right foot as well as a fracture of the middle phalanx of the 5th toe. (See plain from rep ort 01/18/2024) CT reveals the above phalangeal fractures. Also advanced degenerative changes in the great toe metat arsophalangeal joint. There are no metatarsal fractures evident. No midfoot fractures nor hindfoot fractures evident. Moderate size inferior calcaneal spur is noted. There are no fractures of the tibia and fibula nor significant lesions nor erosions of the tibia and fibula. There is no evidence of osteomyelitis. Ipsilateral knee prosthesis is noted. SOFT TISSUES: There is vascular calcification in the runoff vessels of the calf including the posteri or tibial and peroneal arteries with this calcification extending into the foot within the plantar ve ssels. There is a diffuse subcutaneous edema pattern throughout the lower leg and extending into the foot co nsistent with probable cellulitis-type pattern. There is no discernible abscess. There is no obviou s radiopaque foreign body evident. IMPRESSION: The previously described fractures of the 3rd, 4th, and 5th toes are again evident, seen on recent pl ain films of 6 days ago. There is diffuse subcutaneous edema in the calf. There is no discernible abscess. There is no radio paque foreign body. No evidence of osteomyelitis. There is no gas in the soft tissues. Findings discussed by phone with ER provider 01/24/2024 6:25 p.m. RADIATION DOSE DELIVERED: 516.28mGy.cm Total DLP DATA REPOSITORY: All CT scans at this facility are submitted to the National Radiology Data Registry (NRDR) Dose Index Registry (DIR) with the [employer] ([employer]). RADIATION OPTIMIZATION: All CT scans at this facility use at least one of these dose optimization te chniques: automated exposure control; mA and/or kV adjustment per patient size (includes targeted exa ms where dose is matched to clinical indication); or iterative reconstruction.
--- NOTE | 2024-01-24 21:15 | W.ORTHOCONSU ---
Date of service: 01/24/24 Time of Service: 16:55 History of Present Illness Narrative: Ocatvio presents to the ED today for his right foot. Approximately 9 days ago he had a large log fall onto his right foot. He noted some mild bleeding at the time for which she astutely stopped his blood thinners. He is able to walk and move but noticed some increasing swelling and some persistent bleeding therefore presented to the emergency department approximately 3 days after his injury. He is diagnosed with multiple toe fractures. There is also noted to be notable bleeding from what appeared to be a superficial wound about the top of the foot. Silver nitrate was utilized to decrease bleeding at that time. He reports he still been able to walk and move around on this. He denies fevers or chills. He was seen by his primary care physician today who is concerned about swelling and redness and infection. He denies any purulent discharge from the wound. He does report having some very mild scant amount of clear type fluid. He denies any increase in pain. He denies any ill feeling. Consults Consult date: 01/24/24 Requesting physician: Kelsie Brock Consult Reason Right foot wound Assessment and Plan Assessment and plan (1) Laceration of foot, right: Status: Acute Qualifiers: Encounter type: subsequent encounter Qualified Code(s): S91.311D - Laceration without foreign body, right foot, subsequent encounter (2) Fracture of phalanx of multiple toes of right foot: Status: Acute Assessment and plan: Octavio is an 78-year-old male who suffered a direct contusion to the right foot with a superficial laceration. It took him 3 days to present initially to the emergency department and is now been a week since that visit. Is very possible this did actually represent open fracture of the foot. He has been on some antibiotics and for the most part I think his ongoing issue the foot is actually not related to infection. There is no collection on the CT scan. There is no expressible fluid today. Unfortunately, given the blood thinner usage and the intensity of the injury, this is likely devitalized some tissues about the foot giving it its appearance today. Engorgement of blood within the soft tissues leads to discoloration. At this point, I think is very reasonable to continue to follow. He has significant medical comorbidities which makes surgery at [facility] unlikely as I would recommend tertiary referral for surgical treatment. Nevertheless, the best option is to let his tissues heal. I recommend he elevate is much as possible when not ambulating. He may ambulate with a postop shoe. We will clean the foot the day of some of the dried blood and fluid and dressed with Xeroform, 4 x 4's and gauze. He should redo the dressing daily. Furthermore, he may shower although it avoid soaking this for any extended period of times. I will plan to see him back in 1 week for an evaluation of the foot. If he has any new symptoms, he is to let me know. Review of Systems All systems reviewed & are unremarkable except as noted in HPI and below PFSH All Active Problems (Updated 01/24/24 @ 17:33 by Kelsie Brock) Laceration of foot, right (Acute) Fracture of phalanx of multiple toes of right foot (Acute) Actinic keratosis (Acute) Gout (Chronic) Medication monitoring encounter (Acute) Abnormal gall bladder diagnostic imaging (Acute) Cor pulmonale (Acute) Acute on chronic heart failure with reduced ejection fraction and diastolic dysfunction (Acute) RUQ abdominal tenderness (Acute) Atrial fibrillation with rapid ventricular response (Acute) Acute HFrEF (heart failure with reduced ejection fraction) (Acute) Chronic venous stasis dermatitis of both lower extremities (Acute) COVID-19 (Acute ~12/28/22) Bilateral knee pain (Acute) Chronic pain (Chronic) Joint pain (Acute) Asymmetrical sensorineural hearing loss (Acute) Hearing loss (Acute) Hip pain, right (Acute) Stage 3 chronic kidney disease (Acute) 09/2021- cr-1.6 Premature ventricular contractions (Acute) History of cardiac radiofrequency ablation (Acute) last ablation 03/27 [facility] Fibrothorax (Acute) Bronchiectasis (Acute) Pulmonary hypertension (Acute) Biventricular heart failure (Acute) Restrictive lung disease (Acute) Dyspnea on exertion (Acute) Chronic cough (Acute) Abnormal chest CT (Acute) CVA (cerebral vascular accident) (Chronic) righgt hemispshere during AF ablation. 04.04.20 Pre-operative cardiovascular examination (Acute) Facial skin lesion (Acute) Anticoagulation adequate (Acute) Hypoxemia (Acute) Exertional dyspnea (Acute) Depressive disorder (Acute) Perennial allergic rhinitis (Acute 03/22/16) Sacroiliitis (Chronic) Primary osteoarthritis of left hip (Chronic) Steroid injection: 07/28/2018 Chronic anticoagulation (Acute) Sexual function problem (Chronic) Tubular adenoma of colon (Chronic) 01/29/14-DR. 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) Diverticulosis (Chronic) Cardiomyopathy (Chronic) Coronary atherosclerosis of [place] coronary vessel (Chronic) Atrial fibrillation (Chronic) success after multiple ablations Anxiety (Chronic) Anal fistula (Chronic) Hyperlipidemia (Chronic) Obstructive sleep apnea (Chronic) Osteoarthritis (Chronic) Hypertension (Chronic) History of atrial fibrillation (Chronic) Diabetes mellitus (Chronic) Recurrent right pleural effusion (Chronic) s/p VATS total decortication 04/18/19 Medical History Alcohol abuse History of tobacco use Infected finger joint (12/16/14) Edema Gout of hand index finger Acute urinary retention (05/15/13) Encounter for rehabilitation (05/15/13) Surgical History History of tonsillectomy and adenoidectomy History of cataract removal with insertion of prosthetic lens Status post ablation of atrial fibrillation Status post total bilateral knee replacement Replacement of total knee joint 2012; [facility] [place], [place]; RIGHT, left Prosthesis, Penile implant Colonoscopy - MAC 01/29/14 Extraction of cataract Bilateral Recurrent major depression in partial remission Atrial Family History Brother Stroke Diabetes Father Heart attack pt of [place] at 51 Mother Skin cancer Breast cancer Colon cancer Social History Smoking/Tobacco Use Status: Former Tobacco Use tobacco type: cigarettes Quit Date: 04/08/79 Smoking risk assessment performed?: Yes Alcohol Intake: current Alcohol Intake frequency: a few times a week Drug use: Never Substance use type: does not use Housing: house Pets and animals: Yes Pets and animals: cat(s) and dog(s) What type of physical activity do you participate in: 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 No acute distress. Alert and oriented x 3. Evaluation of the right lower extremity shows some generalized edema from the knee down. This seems to be similar to the contralateral side. At the level of foot there is some hyperemia and some increased swelling in addition to a wound about the dorsal and distal aspect. This has an oblique nature running around from the fourth toe proximally. There is engorgement of the tissue with blood and potentially some superficial necrosis. There is pain to palpation in this region. However, I am unable to express any purulent material. There is no area of fluctuance. There is bruising and engorgement seen into the third and fourth toe with some dried blood in between. No crepitus with palpation of the soft tissues. Results Last Vital Signs Temp 36.4 C 01/24/24 15:09 Pulse 98 H 01/24/24 15:09 Resp 17 01/24/24 15:09 BP 108/74 01/24/24 15:09 Labs 01/24/24 15:40 01/24/24 15:40 Labs: Laboratory Results - last 24 hr 01/24/24 01/24/24 15:40 Unknown WBC 7.05 RBC 4.77 Hgb 14.4 Hct 44.7 MCV 94 MCH 30.2 MCHC 32.2 RDW 13.9 Plt Count 252 MPV 10.2 Immature Gran % 0.3 Neutrophils % 73.7 Lymphocytes % 11.1 Monocytes % 12.2 Eosinophils % 2.4 Basophils % 0.3 Nucleated RBC % 0.0 Absolute Neutrophils 5.20 Absolute Lymphocytes 0.78 L Absolute Monocytes 0.86 H Absolute Eosinophils 0.17 Absolute Basophils 0.02 ESR 18 Sodium 142 Potassium 4.0 Chloride 101 Carbon Dioxide 31.9 Anion Gap 9.1 BUN 36 H Creatinine 1.6 H Est GFR (CKD-EPI 2020) 43.29 Glucose 94 Hemoglobin A1c 6.1 H Calcium 9.4 Total Bilirubin 0.87 AST 20 ALT 24 Alkaline Phosphatase 96 C-Reactive Protein 2.59 H Total Protein 7.8 Albumin 3.4 Procalcitonin < 0.1 Add-On Test Request DONE Imaging Imaging Studies: Previous x-rays of the right foot reviewed. This shows fractures of the third, fourth, and fifth toes. There is some mild displacement seen. CT scan of the right foot also shows the aforementioned fractures. If anything, alignment is improved from the x-rays. There is notable soft tissue edema. No abscess. No fluid collection.
--- NOTE | 2024-01-25 12:48 | NUR.NOTE ---
Accessed Pt chart to obtain the DX for the [facility] paperwork
== END 2024-01-24 18:43 | disposition home or self-care (01) ==
PROVIDERS: Student in an Organized Health Care Education/Training Program; Emergency Provider Nurse Practitioner Family; PCP Family Medicine
DX: S92.511D Displaced fracture of proximal phalanx of right lesser toe(s), subsequent encounter for fracture with routine healing; S92.521D Displaced fracture of middle phalanx of right lesser toe(s), subsequent encounter for fracture with routine healing; S91.311D Laceration without foreign body, right foot, subsequent encounter; M77.31 Calcaneal spur, right foot; E11.22 Type 2 diabetes mellitus with diabetic chronic kidney disease; I13.0 Hypertensive heart and chronic kidney disease with heart failure and stage 1 through stage 4 chronic kidney disease, or unspecified chronic kidney disease; N18.30 Chronic kidney disease, stage 3 unspecified; I50.22 Chronic systolic (congestive) heart failure; I48.91 Unspecified atrial fibrillation; E78.5 Hyperlipidemia, unspecified; Z96.653 Presence of artificial knee joint, bilateral; Z79.01 Long term (current) use of anticoagulants; Z87.891 Personal history of nicotine dependence; W20.8XXD Other cause of strike by thrown, projected or falling object, subsequent encounter
CPT/HCPCS: 80053; 84145; 85652; 87040; 99285; 73701; 83036; 85025; 86140; 99284; J3490

== ENCOUNTER 2024-03-24 01:44 | Outpatient (CLI) | payer BC, SELFPAY ==
--- NOTE | 2024-03-24 07:30 | DI.CT_ITS ---
Exam(s) CT ABD AORTA CTA W RUNOFF EXAM: CT ABD AORTA CTA W RUNOFF CLINICAL HISTORY: noN healing wound LLE,HYPERTENSION. TECHNIQUE: Imaging Protocol: Axial CT angiography was performed with multi-slice acquisition and mu lti-planar and/or 3D reconstructions. CONTRAST MATERIAL: Intravenous: Omnipaque 350 Contrast volume:150 mL Oral: No CT CT CHEST PE CTA from 09/19/[address] LOWER EXTREMITY RT W from 01/24/2024 FINDINGS: Vascular Structures: Abdomen and pelvis: Celiac [place]/SMA: Atherosclerotic calcification is seen at the origins of both the celiac axis and th e superior mesenteric artery. There is moderate stenosis seen at the origin of the superior mesenter ic artery. Renal Arteries: No evidence of occlusion or significant stenosis. There is atherosclerosis seen at th e origins the renal arteries bilaterally. Aorta: No aneurysm, occlusion or significant stenosis. No dissection. Atherosclerotic calcification is present. Iliac Arteries: No evidence of occlusion or significant stenosis. Atherosclerotic calcification is p resent. Lower extremities: Right: Femoral: No evidence of occlusion or significant stenosis. Atherosclerotic calcification is present. Deep Femoral Artery: No evidence of occlusion or significant stenosis. Popliteal: No evidence of occlusion or significant stenosis. Atherosclerotic calcification is present . Knee Trifurcation: No evidence of occlusion or significant stenosis. Atherosclerotic calcification is present. Anterior Tibial: No evidence of occlusion or significant stenosis. Atherosclerotic calcification is p resent. Posterior Tibial: No evidence of occlusion or significant stenosis. Atherosclerotic calcification is present. Peroneal:No evidence of occlusion or significant stenosis. Atherosclerotic calcification is present. Left: Femoral: No evidence of occlusion or significant stenosis. Atherosclerotic calcification is present b ut no significant stenosis is seen. Deep femoral artery: No evidence of occlusion or significant stenosis. There is mild atherosclerotic calcification seen at the origin. Popliteal: No evidence ofocclusion or significant stenosis. Mild atherosclerotic calcification is s een. Knee Trifurcation: No evidence of occlusion or significant stenosis. Atherosclerotic calcification i s seen. Anterior tibial: No evidence of occlusion or significant stenosis. There is atherosclerotic calcifica tion without significant stenosis. Posterior Tibial: No evidence of occlusion or significant stenosis. There is atherosclerotic calcific ation present without significant stenosis. Peroneal: No evidence of occlusion or significant stenosis. There is atherosclerotic calcification p resent. Soft Tissues: Lung bases: There is again seen and in capsulated and peripherally partially calcified fluid collecti on in the right lower quadrant with subjacent infiltrate which may represent atelectasis or pneumonia . Cardiomegaly. There is a stable nodule in the left lower lobe. Liver: Normal density. There are multiple hepatic cysts again seen. No suspicious hepatic masses pre sent. Portal, splenic and superior mesenteric veins: Due to the timing of the bolus, the veins are not adeq uately opacified. Gallbladder and biliary tract: There are few small stones seen within the gallbladder. No biliary du ctal dilatation. Pancreas: Normal density, no abnormal calcifications or inflammatory process. Spleen: Normal. Kidneys: Normal size, contour and axis. No radiodense stones or obstructive uropathy. Bilateral renal cysts are present. No follow-up is recommended. Adrenal glands: No masses seen. Lymph nodes: Unremarkable. Bladder: Portions of the base of the urinary bladder are poorly visualized due to artifact from the p dash's right hip prosthesis. Overall no gross abnormality is seen in the urinary bladder. Reproductive organs: A large portion of the prostate gland could not be visualized. Prostatic calci fications are seen. Patient has a penile prosthesis. Bowel: No obstruction or bowel wall thickening. No evidence of appendicitis. Peritoneal cavity: No ascites, collection or mesenteric inflammatory response. No free air. Bones: Within normal limits for the patient's age. The patient has a right total hip arthroplasty. There are degenerative changes seen in the left hip. Soft tissues: Unremarkable. IMPRESSION: 1. Atherosclerotic calcification is present in the lower extremities without evidence of occlusion or significant stenosis. 2. Stable appearance of the right lung base as described above. 3. No acute abdominal or pelvic process. 4. Limited visualization in the lower pelvis due to artifact from the patient's right total hip arthr oplasty. RADIATION DOSE DELIVERED: 1,104.07mGy.cm Total DLP 1,104.07mGy.cm Total DLP DATA REPOSITORY: All CT scans at this facility are submitted to the National Radiology Data Registry (NRDR) Dose Index Registry (DIR) with the [employer] (ACR). RADIATION OPTIMIZATION: All CT scans at this facility use at least one of these dose optimization te chniques: automated exposure control; mA and/or kV adjustment per patient size (includes targeted exa ms where dose is matched to clinical indication); or iterative reconstruction.
[2024-03-24 13:04] LABS: CREATININE 1.6 mg/dL (0.70-1.30); Estimated GFR 43.29 (mL/min/1.73m2)
[2024-03-24] MEDS: Omnipaque 350 MG/ML 500 ML BTL-Imaging package IJ (13:14)
[2024-03-24] MEDS: Normal Saline - Diluent 50 ML VIAL IJ ×2 (13:15→13:16)
== END 2024-03-24 02:04 ==
LOC: DI 01:44
PROVIDERS: PCP Family Medicine; Visit Provider Surgery
DX: N18.30 Chronic kidney disease, stage 3 unspecified; I50.43 Acute on chronic combined systolic (congestive) and diastolic (congestive) heart failure
CPT/HCPCS: 75635; 82565

== ENCOUNTER 2024-05-20 08:40 | Day surgery (SDC) | payer BC, SELFPAY ==
--- NOTE | 2024-05-19 20:01 | W.PM.DSUDISC ---
Date of service: 05/20/24 Discharge Plan Disposition Patient Disposition: Home Condition: Good Discharge Details Reason For Visit: excisional biopsy of skin lesion on back Attending Provider: Jonathan Morton Primary Care Provider: Severiano Coy Home Meds and New Rx's Prescriptions: New tramadol 50 mg tablet 50 mg PO Q8H PRNQty: 12 0RF Rx Instructions: Take 1 tablet by mouth if needed for severe pain. Continued atorvastatin 40 mg tablet 40 mg PO DAILY Qty: 90 3RF tramadol 50 mg tablet 50 mg PO Q8H PRN (Reason: pain) Qty: 20 0RF allopurinol 100 mg tablet 100 mg PO DAILY Qty: 90 3RF triamcinolone acetonide 0.1 % ointment 1 applic topical BID Qty: 80 2RF multivitamin [Daily Multi-Vitamin] 1 EACH tablet 1 ea PO DAILY cholecalciferol (vitamin D3) 1,000 UNIT tablet 1,000 unit PO DAILY ascorbic acid (vitamin C) [Vitamin C] 500 MG tablet 500 mg PO DAILY (DME) FreeStyle Test Strip 1 ea Miscellaneous DAILY Qty: 90 3RF Rx Instructions: test in a.m. daily (DME) lancets [FreeStyle Lancets] 28 gauge misc 1 ea Miscellaneous DAILY Qty: 90 3RF Rx Instructions: test daily in a.m torsemide 20 mg tablet 20 mg PO DAILY Qty: 90 3RF empagliflozin 10 mg tablet 10 mg PO DAILY Qty: 90 3RF potassium chloride [Klor-Con M20] 20 mEq tablet,ER particles/crystals 20 meq PO TID Qty: 90 3RF metoprolol succinate 50 mg tablet extended release 24 hr See Rx Instructions .ROUTE .COMPLEX Qty: 90 3RF Dose Instruction: TAKE ONE TABLET BY MOUTH EVERY DAY Rx Instructions: TAKE ONE TABLET BY MOUTH EVERY DAY spironolactone 25 mg tablet 12.5 mg PO DAILY Qty: 60 3RF Rx Instructions: dose reduction 10/29/23 lorazepam 1 mg capsule,extended release 24hr 1 mg PO DAILY PRN No Action apixaban 2.5 mg tablet 2.5 mg PO BID Qty: 180 3RF Discharge Instructions Additional Instructions: Octavio, it was a pleasure meeting you today, and I hope you make a quick recovery from the operation. Everything went very smoothly. I excised the lesion just like we talked about, taking care to ensure that we had good margins of healthy tissue all around it. I was able to get the skin back together primarily, so you just have a bandage on top, and then a few layers of stitches underneath. The stitches on your skin will need to be removed in the office, and we have gone ahead and set up a follow-up appointment on the at 10 AM. You can leave the Band-Aid in place until tomorrow, then remove it, and shower with warm soapy water just like you normally would. After the shower, you are welcome to apply a new Band-Aid if that is most comfortable, but the incision itself does not necessarily need it. Be a little careful when you lean over and stretch her back with activities like putting your shoes on, or getting up from bed or the chair. He did have any questions, please do not hesitate to call at any point. Otherwise we look forward to seeing you in the office. 1. Resume all of your regular medications. 2. Use ice packs over the incision if needed for pain and swelling 3. Alternate [id number] Tylenol and ibuprofen every 6 hours for the first 2 days, then use as needed. Use the prescription for tramadol if needed for more severe pain. 4. Leave bandage in place for 24 hours, then remove. 5. Shower with warm soapy water. Pat dry. Use a bandaid if needed to protect your clothing. 6. No soaking or tub baths until I see you in the office. 7. No heavy lifting until I see you in the office. 8. Call the office (or go directly to the emergency room after hours) if you notice any of the following: Develop chills (warm to touch), or if you have a thermometer and your temperature is above 101 Difficulty breathing or difficultly swallowing Persistent vomiting Any bleeding ? exceeding one tablespoon 9. Call your physician if the site where your intravenous was started becomes red, swollen, painful, and warm to touch. Stand Alone Forms: Anesthesia Discharge InstJuan, Charmaine Blount (DSU) Referrals: Jonathan Morton MD [ [facility] STAFF PHYSICIAN] - (June 03 at 10 AM) Activity:: Activity as Tolerated Remove Dressings/Wound Care:: 24 hours Shower/Bathe:: 24 hours Diet:: As Tolerated Discharge Orders Discharge Orders: Discharge Order (Routine); Ordered 05/19/24 Ordered By: Jonathan Morton DS: Diagnosis Discharge Diagnosis (1) Dysplastic nevus: Status: Acute
--- NOTE | 2024-05-19 20:05 | W.PM.OP ---
Operative Note Operative Note PRE-OP DIAGNOSIS: dysplastic nevus POST-OP DIAGNOSIS: same PROCEDURE: Excision and primary closure of the lesion from the right back SURGEON: Jonathan Morton SECRETARIAL TEACHER: Joanna Cain Refer to Anesthesia Record ESTIMATED BLOOD LOSS: 25 PATHOLOGY: other (Skin lesion from back) COMPLICATIONS: None Patient was transported to: same day Patient's condition: stable Indications: Octavio is an 79-year-old male with a dysplastic nevus on his back. Clinical features are concerning for basal cell carcinoma. He needs a wide local excision Procedure Description: I met with Octavio in the preoperative area and reviewed the plan for surgery today. He had the chance to ask any questions. He was able to provide informed consent. Next, we moved back to the operating room, and he was assisted onto the OR table. He was gently assisted to the left lateral cubitus position, taking great care to pad and support him appropriately. Once he felt comfortable, general anesthesia with a natural airway was initiated. I prepped and draped the right side of his back incorporating the skin lesion. I established a generous field block using local anesthetic. Next, given the clinical features that were consistent with basal cell carcinoma, I marked out 5 mm margins on each side of the lesion. Next, I made semielliptical incisions on each side of the lesion in a horizontal fashion. This orientation appeared to provide optimal tissue coverage for primary closure. I incised the skin sharply and dissected down into the subcutaneous fat. Next, using combination of sharp dissection as well as electrocautery, I mobilized the entire pedicle of skin down to the subcutaneous fat, taking great care to ensure that I had a full-thickness specimen, and an appropriate deep margin. Once this was completely excised, sutures were used to affix orientation. 1 suture to [place] to the medial aspect of the lesion, and 2 stitches marked cephalad portion. The specimen was passed off for pathologic analysis. The wound was irrigated. Small amount of bleeding from the skin edge was easily controlled with electrocautery. Next, the deep edges were reapproximated with interrupted Vicryl stitches. With the skin edges aligned, interrupted vertical mattress stitches were used as the final closure. Bandages were applied, the patient was awoken from the anesthetic, rolled into the supine position, and transferred back to the recovery unit. Date of Procedure: 05/20/24
[2024-05-20] VITALS (15 sets, daily range): BP systolic 111–149; BP diastolic 55–112; PULSE 63–122; RESP 11–24; TEMP 36.2–36.5; O2SAT 90–98; BMI 32.1
[2024-05-20] MEDS: Lactated Ringers 1,000 ML 80 ML IV ×2 (09:53→12:40)
--- NOTE | 2024-05-20 12:00 | ANES.PREOP_ITS ---
General Info Date of Service Date Performed: 05/20/24 Height: 6 ft 2 in Weight: 113.6 kg Body Mass Index (BMI): 32.1 Surgical Procedure: Operation Date: 05/20/24 10:25 Proposed Procedure Side Surgeon p Excisional Biopsy Lesion on Back Jonathan Morton MD Meds Allergies and Home Medications Allergies Allergy/AdvReac Type Severity Reaction Status Date / Time JAMAL Inhibitors AdvReac Mild COUGH Verified 05/20/24 09:21 Home Medication ?Medication ?Instructions ?Recorded cholecalciferol (vitamin D3) 25 1,000 unit PO DAILY 06/27/12 mcg (1,000 unit) tablet multivitamin (Daily Multi-Vitamin 1 ea PO DAILY 06/27/12 tablet) ascorbic acid (vitamin C) 500 mg 500 mg PO DAILY 12/09/12 tablet (Vitamin C) blood sugar diagnostic (FreeStyle #90 strips 08/25/19 Test strips) lancets 28 gauge (FreeStyle #90 ea 08/25/19 Lancets) lorazepam 1 mg capsule,extended 1 mg PO DAILY PRN 09/18/23 release 24 hr triamcinolone acetonide 0.1 % 1 applic topical BID rash on back 10/02/23 topical ointment #80 grams allopurinol 100 mg tablet 100 mg PO DAILY #90 tabs 10/29/23 empagliflozin 10 mg tablet 10 mg PO DAILY #90 tabs 11/07/23 potassium chloride 20 mEq 20 meq PO TID #90 tabs 11/07/23 tablet,extended release(part/cryst) (Klor-Con M) torsemide 20 mg tablet 20 mg PO DAILY #90 tabs 11/07/23 apixaban 2.5 mg tablet 2.5 mg PO BID #180 tabs 12/05/23 metoprolol succinate 50 mg See Rx Instructions .Route 02/11/24 tablet,extended release 24 hr .COMPLEX #90 tabs atorvastatin 40 mg tablet 40 mg PO DAILY #90 tab-caps 03/26/24 tramadol 50 mg tablet 50 mg PO Q8H PRN pain #20 tabs 03/26/24 spironolactone 25 mg tablet 12.5 mg (1/2 x 25 mg) PO DAILY #60 03/30/24 tabs Current Visit Medications: Current Medications Generic Name Dose Route Start Last Admin Trade Name Freq PRN Reason Stop Dose Admin Droperidol 0.625 mg 05/20/24 11:15 Droperidol 2.5 Mg/Ml Vial IVP 06/19/24 11:14 DIRECTED PRN Ephedrine Sulfate 0 mg 05/20/24 11:15 Ephedrine 25 Mg/5 Ml Syringe IVP 06/19/24 11:14 DIRECTED PRN Hypotension Fentanyl 0 mcg 05/20/24 11:15 Fentanyl 100 Mcg/2 Ml Vial IVP 06/19/24 11:14 DIRECTED PRN Moderate to Severe Pain Ringer's Solution 1,000 mls @ 80 mls/hr 05/20/24 06:00 05/20/24 09:53 IV 06/18/24 23:59 80 mls/hr INFUSION FRANCISCO Administration IV Miscellaneous Supplies 1 each 05/20/24 06:00 Iv Access IV 06/18/24 23:59 DIRECTED FRANCISCO Lorazepam 0.5 mg 05/20/24 11:15 Lorazepam 2 Mg/Ml Vial IVP 06/19/24 11:14 DIRECTED PRN Naloxone HCl 0 mg 05/20/24 11:15 Naloxone 0.4 Mg/Ml Vial IVP 06/19/24 11:14 PRN PRN Ondansetron HCl 4 mg 05/20/24 11:15 Ondansetron 4 Mg/2 Ml Vial IVP 06/19/24 11:14 .X 1 DOSE PRN Nausea / Vomiting Sodium Chloride 0 ml 05/20/24 06:00 Normal Saline Flush 10 Ml Syr IV 06/18/24 23:59 PRN PRN Sodium Chloride 0 ml 05/20/24 06:00 Normal Saline 10 Ml Vial IJ 06/18/24 23:59 DIRECTED PRN Sterile Water 0 ml 05/20/24 06:00 Water,Injection,Sterile 10 Ml Vial IJ 06/18/24 23:59 DIRECTED PRN Tramadol HCl 50 mg 05/19/24 20:06 Tramadol 50 Mg Tab PO 06/18/24 20:05 Q6H PRN PRN Pain PFSH Active Problems Active Problems: Problem Status Onset Code Dysplastic nevus Acute D23.9 Seborrheic keratoses Acute L82.1 Non-healing wound of left lower extremity Acute S81.802A Actinic keratosis Acute L57.0 Gout Chronic M10.9 Medication monitoring encounter Acute Z51.81 Abnormal gall bladder diagnostic imaging Acute R93.2 Cor pulmonale Acute I27.81 Acute on chronic heart failure with reduced ejection fraction and diastolic dysfunction Acute I50.43 RUQ abdominal tenderness Acute R10.811 Atrial fibrillation with rapid ventricular response Acute I48.91 Acute HFrEF (heart failure with reduced ejection fraction) Acute I50.21 Chronic venous stasis dermatitis of both lower extremities Acute I87.2 COVID-19 Acute ~12/28/23 U07.1 Bilateral knee pain Acute M25.561, M25.562 Chronic pain Chronic G89.29 Joint pain Acute M25.50 Asymmetrical sensorineural hearing loss Acute H90.3 Hearing loss Acute H91.90 Hip pain, right Acute M25.551 Stage 3 chronic kidney disease Acute N18.30 Premature ventricular contractions Acute I49.3 History of cardiac radiofrequency ablation Acute Z98.890 Fibrothorax Acute 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 Bronchiectasis Acute J47.9 Pulmonary hypertension Acute I27.20 Biventricular heart failure Acute I50.82 Restrictive lung disease Acute J98.4 Dyspnea on exertion Acute R06.00 Chronic cough Acute R05 Abnormal chest CT Acute R93.89 CVA (cerebral vascular accident) Chronic I63.9 Pre-operative cardiovascular examination Acute Z01.810 Facial skin lesion Acute L98.9 Anticoagulation adequate Acute Z79.01 Hypoxemia Acute R09.02 Exertional dyspnea Acute R06.00 Depressive disorder Acute F32.9 Perennial allergic rhinitis Acute 15/16 J30.89 Sacroiliitis Chronic M46.1 Primary osteoarthritis of left hip Chronic M16.12 Chronic anticoagulation Acute Z79.01 Tubular adenoma of colon Chronic D12.6 Stage 2 chronic kidney disease Chronic 17 N18.2 Sexual function problem Chronic F52.9 Obesity Chronic E66.9 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 Lumbago Chronic M54.5 Knee pain Chronic 12/09/12 M25.569 Idiopathic chronic gout, unspecified site, without tophus (tophi) Chronic 16 [id number] Diverticulosis Chronic K57.90 Cardiomyopathy Chronic I42.9 Coronary atherosclerosis of [place] coronary vessel Chronic I25.10 Atrial fibrillation Chronic I48.91 Anxiety Chronic F41.9 Anal fistula Chronic K60.3 Recurrent right pleural effusion Chronic J90 Diabetes mellitus Chronic E11.9 History of atrial fibrillation Chronic Z86.79 Hypertension Chronic I10 Osteoarthritis Chronic M19.90 Obstructive sleep apnea Chronic G47.33 Hyperlipidemia Chronic E78.5 Medical History Medical History Alcohol abuse History of tobacco use Infected finger joint (12/16/14) Edema Gout of hand index finger Acute urinary retention (05/15/13) Encounter for rehabilitation (05/15/13) Surgical History Surgical History History of hip replacement History of tonsillectomy and adenoidectomy History of cataract removal with insertion of prosthetic lens Status post ablation of atrial fibrillation Status post total bilateral knee replacement Replacement of total knee joint 2012; [facility]; RIGHT, left Prosthesis, Penile implant Colonoscopy - MAC 01/29/14 Extraction of cataract Bilateral Recurrent major depression in partial remission Atrial Tobacco Smoking/Tobacco Use Status: Former Tobacco Use Alcohol Alcohol Intake: current Alcohol intake frequency: a few times a week Substance Use Substance use: Never Substance use type: does not use Vital Signs and Lab Results Vital Signs Most Recent Vital Signs in EMR: Most Recent Vital Signs Temp Pulse Resp BP Pulse Ox 36.5 C 122 H 16 138/109 H 90 L 05/20/24 09:14 05/20/24 09:14 05/20/24 09:14 05/20/24 09:14 05/20/24 09:14 Point of Care Results Point of Care Results: Finger Stick Blood Glucose 118 05/20/24 09:14 Lab Results Blood Type / Crossmatch: No Data to Display Complete Blood Count: No Data to Display Complete Metabolic Panel: No Data to Display Liver Function Panel: No Data to Display Coagulation Panel: No Data to Display Cardiac Panel: No Data to Display Arterial Blood Gas: No Data to Display Venous Blood Gas: No Data to Display Pancreas Panel: No Data to Display Thyroid Panel: No Data to Display Infectious Disease: No Data to Display Blood Cultures: No Data to Display Toxicology Panel: No Data to Display Anesthesia Assessment and Plan Anesthesia History Personal History: PONV Family History: No Family History of Anesthesia Complications Exercise Tolerance Exercise Tolerance: Metabolic Equivalents>4 Pertinent Negatives Pertinent Negatives: No Symptoms of GERD Cardiac & Pulmonary Exam Cardiac Exam: Other Pulmonary Exam: Clear Bilateral Breath Sounds Implantable Cardiac Device Does patient have a Pacemaker or an ICD?: No Airway Exam Known Difficult Airway: No Mallampati Class: 1 Mouth Opening: Normal (> 3cm) Thyromental Distance: Greater than 3 cm Neck Range of Motion: Full ROM Neck Circumference: Normal Teeth Condition: Normal Dentition ASA Classification ASA Score: ASA 3 Emergency Case?: No NPO Status NPO Status: NPO Clears >2 hours, Solids >8 hours Anesthesia Plan Resuscitation Status: Full Code Anesthesia Technique: General Anesthesia Airway Planned: Natural Airway Pain Management: Surgeon and patient request nerve block Monitors Used: Standard Monitors
--- NOTE | 2024-05-20 13:11 | SKI_PTH ---
PATIENT: Vinny Davidson LOC: [facility] U#:[id number] AGE/SX: 79/M ROOM: RE05/20/[address]: Jonathan Morton MD : 1945 BED: DIS: 05/20/2024 SPEC #: [id number] RECD: 05/20/24 17:27 STATUS: FAWAD RE #: [id number] PATT: 05/20/24 13:[address]: Jonathan Morton DEPT: Surgical Specimen RECD BY: Shabana Carey ENTERED: 05/20/24 17:28 SP TYPE: JASMIN SALEEM DR: Severiano Coy MD Tissues: 1 - SKIN BIOPSY(SHAVE/PUNCH) Procedures: SKIN LEVEL 4 Comments: [id number]
[2024-05-20] MEDS: Bupivacaine 0.25% Pres-Free W/EPI 30 ML VIAL (13:15)
--- NOTE | 2024-05-20 14:33 | W.ANESPOSTOP ---
Postoperative Evaluation Date, Time and Location Date Performed: 05/20/24 Time Performed: 14:34 Patient Location: Day Surgery Unit Vital Signs Most Recent Imported Vital Signs: Most Recent Vital Signs Temp Pulse Resp BP Pulse Ox 36.2 C L 78 16 121/86 93 05/20/24 14:14 05/20/24 14:14 05/20/24 14:14 05/20/24 14:14 05/20/24 14:14 Pain Score Most Recent Pain Score: Most Recent Pain Score Pain Level 0 05/20/24 14:14 Assessment Mental Status: Awake (Alert & Oriented to Patient Baseline) Airway and Respiratory Function: Patent airway with normal (patient baseline) respiratory exam Cardiovascular Function: Hemodynamically Stable Hydration Status: Adequately Hydrated Nausea & Vomiting: No Nausea or Vomiting Pain: Pt. Denies Any Pain Peripheral Nerve Block: Patient did not receive a nerve block
== END 2024-05-20 15:20 | disposition home or self-care (01) ==
LOC: SUR 08:40
PROVIDERS: PCP Family Medicine; Visit Provider Surgery
PROC: (CPT 11603; principal; 2024-05-20 10:15)
DX: C44.529 Squamous cell carcinoma of skin of other part of trunk (principal)
CPT/HCPCS: 11603; 12031; 88305; J1100; J2250; J2405; J2704

== ENCOUNTER 2024-07-22 09:15 | Outpatient (CLI) | payer BC, SELFPAY ==
[2024-07-22 12:43] LABS: Hemoglobin A1C 6.4 % (<5.7)
== END 2024-07-22 09:16 | disposition home or self-care (01) ==
LOC: LOS 09:16
PROVIDERS: PCP Family Medicine; Visit Provider Family Medicine
DX: I10 Essential (primary) hypertension (principal); R73.9 Hyperglycemia, unspecified
CPT/HCPCS: 36415; 83036; 84132

== ENCOUNTER 2024-09-24 12:14 | Outpatient (CLI) | payer BC, SELFPAY ==
--- NOTE | 2024-09-24 13:27 | DI.US_ITS ---
APPROVED REPORT EXAM: Comprehensive 2D, Doppler, and color-flow Echocardiogram Patient Location: Out-Patient Slackman: Zakia Fernandes RDCS (AE) Indications: Cardiomyopathy, Fatigue unspecified type Other Information Study Quality: Fair. Technically limited study due to body habitus, inability to position patient, patient unalbe to stay LLD supine images were also acquired.. Conclusion Normal left ventricular wall thickness and chamber size. EF is 40%. Septal motion is paradoxic and consistent with right ventricular pacing Right ventricle appears enlarged. Device lead is seen Right atrium is moderately dilated. Left atrial size is normal Aortic valve is calcified. There is mild aortic stenosis. Peak gradient is 23, mean 13 mmHg. Calculated aortic valve area is 1.2 cm??. Trace aortic regurgitation Mitral annular calcification. Mild mitral regurgitation Mild tricuspid regurgitation. Estimated right ventricular systolic pressure is 30 mmHg Wall motion Left Ventricle The left ventricle is normal size. Left ventricular systolic function is moderately decreased. There is normal left ventricular wall thickness. Flattened septum consistent with right ventricular volume and pressure overload. Septal motion consistent with right ventricular pacing Paradoxical septal motion consistent with right ventricular volume overload. There is no ventricular septal defect visualized. LVEF is 40%. Right Ventricle Right ventricle is not well visualized but appears dilated with the device lead Right ventricular systolic function could not be assessed. Atria The left atrium size is normal. Right atrium is moderately dilated. The interatrial septum is intact with no evidence for an atrial septal defect. Aortic Valve Aortic valve is calcified. Number of aortic valve leaflets could not be assessed. Mild aortic stenosis. Highest mean aortic valve gradient is 13.09._mmHg. Peak aortic valve gradient is 23.12mmHg Calculated BORIS by the continuity equation is 1.2cm2. Trace aortic regurgitation. Mitral Valve Mild mitral annular calcification. No evidence of mitral valve stenosis. Mild mitral regurgitation. Tricuspid Valve The tricuspid valve is normal in structure. There is no tricuspid valve stenosis. Mild tricuspid regurgitation. The RVSP is 30.1 mmHg. Pulmonic Valve The pulmonary valve is normal in structure. There is no pulmonic valvular stenosis. There is no pulmonic valvular regurgitation. Great Vessels The aortic root is normal in size. The ascending aorta is normal in size. Aortic arch is not well visualized. The IVC collapses <50% with inspiration. Pericardium There is no pericardial effusion. 2D Dimensions IVSD d PLAX 1.04 cm M: 0.6-1.2 Ao Root d 3.11 cm M: 3.1 - 3.7 LVPW d PLAX 1.01 cm M: 0.6 - 1.2 Ao Asc Diam d 3.22 cm M: 2.6 - 3.4 LVID d PLAX 5.43 cm M: 4.2 - 5.8 LVDs 4.32 cm M: 2.5 - 4.0 LV EF Teichholz 41.4 % FS 20.49 % LV EDV (Teich) 143.1 mL LV ESV (Teich) 83.8 mL Auto EF LV EDV A4C 183.7 mL LV EDV A2C 165.2 mL LV EDV BP 174.2 mL LV ESV A4C 107.2 mL LV ESV A2C 99.6 mL LV ESV BP 105.6 mL LVEF(%) A4C 41.7 % LVEF(%) A2C 39.7 % LVEF(%) BP 39.4 % LV SV A4C 76.6 ml LV SV A2C 65.6 ml LV SV BP 68.6 ml LV CO A4C 4.4 L/min LV CO A2C 3.2 L/min LV CO BP 3.8 L/min HR A4C 57.24 BPM HR A2C 48.85 BPM LV EDV Index (BP) LA Volume LA Length A4C 6.3 cm LA Length A2C LA Area A4C s 23.04 cm2 LA Area A2C s LA Vol A4C A-L 71.61 mL LA Vol A2C A-L LA Vol Biplane A-L LA Vol A4C MOD 67.7 mL LA Vol A2C MOD LA Vol BP MOD RA Volume RA Area A4C 32.5 cm2 RA ESV A4C (A-L) 129.8mL RA Vol/BSA A4C A-L RA Length A4C 6.9 cm RA ESV A4C (MOD) 122.6mL LV Diastology MV E' medial 0.047 (>0.07 m/s) MV E Vmax 0.96 (0.4-1.3 m/s) MV E' lateral 0.046 (>0.1 m/s) Aortic Valve AoV Vmax 2.40 m/s LVOT Vmax 0.85 m/s AoV Peak Grad 23.1 mmHg LVOT Peak Grad 2.9 mmHg AoV Area (Vmax) 1.19 cm2 LVOT VTI 0.238 m AoV VTI 0.591 m LVOT Mean Grad 1.7 mmHg AoV Mean Ralf. 1.67 m/s LVOT SV 80.49 mL AoV Mean Grad 13.1 mmHg LVOT Diam s 2.05 cm AoV Area (VTI) 1.36 cm2 AV Regurg Peak Gr. 23.12 mmHg Velocity Ratio 0.35 Mitral Valve MV Vmax TIPS 1.01 m/s MV Mean Grad 1.0 (<2mmHg) MV Area PHT 2.89 cm2 MV VTI 0.321 m Pulmonary Valve PV Vmax 0.85 (0.5-1.5 m/s) RVOT Vmax 0.75 m/s PV Peak Grad 2.9 mmHg RVOT Peak Gr. 2.2 mmHg PV Mean Ralf 0.49 m/s RVOT VTI 0.154 m PV Mean Grad 1.2 mmHg RVOT Mean Gr. 0.9 mmHg Tricuspid Valve RA Pressure 8.00 mmHg TR Vmax 2.35 m/s TV S' 0.07 m/s TR Peak Grad 22.1 mmHg RVSP (TR) 30.1 mmHg
== END 2024-09-24 12:34 ==
LOC: DI 12:14
PROVIDERS: PCP Family Medicine; Visit Provider Internal Medicine
DX: I42.9 Cardiomyopathy, unspecified (principal); R53.83 Other fatigue; I08.3 Combined rheumatic disorders of mitral, aortic and tricuspid valves
CPT/HCPCS: 93306

== ENCOUNTER 2025-01-28 13:28 | Outpatient (CLI) | payer BC, SELFPAY ==
[2025-01-28 16:06] LABS: Anion Gap 8.0 mmol/L (3-11); BUN 27 mg/dL (7-18); CO2 31.0 mmol/L (21.0-32.0); Calcium 9.5 mg/dL (8.5-10.1); Chloride 102 mmol/L (98-107); Estimated GFR 32.91 (mL/min/1.73m2); Glucose 105 mg/dL (74-106); NT-proBNP 6577 pg/mL (<300); Potassium 4.3 mmol/L (3.5-5.1); Sodium 141 mmol/L (136-145)
[2025-01-28 16:21] LABS: Hemoglobin A1C 6.2 % (<5.7)
== END 2025-01-28 13:29 | disposition home or self-care (01) ==
PROVIDERS: PCP Family Medicine; Visit Provider Family Medicine
DX: I48.91 Unspecified atrial fibrillation (principal); I42.9 Cardiomyopathy, unspecified; E87.1 Hypo-osmolality and hyponatremia; R73.9 Hyperglycemia, unspecified
CPT/HCPCS: 36415; 80048; 83036; 83880

== ENCOUNTER → 2025-02-18 02:24 | Outpatient (CLI) | payer BC, SELFPAY ==
--- NOTE | 2025-02-18 | DI.NM_ITS ---
APPROVED REPORT Exam: Pharmacologic Patient Location: Out-Patient Room/Bed: Stress Nurse: Kenyetta Dallas RN Ordering Provider:YASIR WOOD, Contact Number: [phone] BMI: 31.83 Baseline Rhythm: Atrial Fibrillation, RBBB Indications: Fatigue, SYKES, CAD s/p CABG exertional fatigue and dyspnea Medical History Medical History: Alcohol abuse, edema, hx tobacco use, non-healing wound of LLE, gout, cor pulmonale, acute on chronic heart failure with reduced ejection factor and diastolic dysfunction, afib with RVR, chronic venous dermatitis of both LE's, chronic pain, stage 3 CKD, PVC's, bronchiectasis, pulmonary HTN, biventricular heart failure, restrictive lung disease, CVA, hypoxemia, exertional dyspnea, depressive disorder, obesity, cardiomyopathy, CAD, anxiety, DM, HTN, DOLLY, HLD Cardiac Medications: Allopurinol, apixaban, atorvastatin, lorsartan, lorazepam, metoprolol succinate, ondansetron, potassium chloride, torsemide, tramadol Allergies: Adhesive, JAMAL inhibitors Cardiac Risk Factors: Family hx, HTN, HLD, CVD, former smoker, obesity Previous Cardiac Procedures: History of cardiac radio frequency ablation Pretest Chest Pain Characteristics: None Exercise History: Sedentary Physical Disabilities: Generalized weakness Lung Sounds: Clear to auscultation Heart Sounds: Tachycardia Stress Test Details Test: Pharmacologic stress testing performed using 0.4 mg of regadenoson per 5 mL given IV over 10 seconds. Reason for pharmacologic stress test: physical limitation. Nuclear Acquisition: Rest Tc-99m/Stress Tc-99m 1 day Rest Isotope: Tc-99m Sestamibi. Dose: 10.0 Date: 02/18/2025 Injection Time: 1110 Stress Isotope: Tc-99m Sestamibi. Dose: 30.0 Date: 02/18/2025 Injection Time: 1340 HR Resting HR Supine: 92 bpm Max Heart Rate (APMHR): 139 bpm Target HR (85% APMHR): 118 bpm Max HR Achieved: 109 bpm % of APMHR: 78 Recovery HR: 100 bpm Comment: Unable to determine max HR r/t artifact in which inaccurate max HR was recorded BP Resting BP Supine: 115/70 mmHg Max BP: 132/88 mmHg Recovery BP: 132/88 mmHg ECG Resting ECG: Atrial Fibrillation, RBBB Ectopy: Occasional PVC's Stress ECG: Atrial Fibrillation, RBBB ST Change: Nondiagnostic (faheem test performed) Arrhythmia: Occasional PVC's Recovery ECG: Atrial Fibrillation, RBBB Recovery ST Change: Nondiagnostic (faheem test performed) Recovery Arrhythmia: Occasional PVC's Clinical Stress Symptoms: Headache Angina Score: None Rate Pressure Product: 20858 Stress ECG Conclusion 1. Resting EKG showed atrial fibrillation, right bundle branch block and left anterior fascicular block. 2. Patient underwent testing using pharmacologic stress with regadenoson 3. Maximum heart rate achieved was 78% of predicted for age 4. The electrocardiographic portion of the test was nondiagnostic 5. See MPI report Stress Test Summary STAGE HR BP SpO2 Symptoms NOTES Supine 92 115/70 1 min post Lexiscan injection 102 124/80 3 min post Lexiscan injection 94 125/83 6 min post Lexiscan injection 100 132/88 Laying faheem performed r/t generalized weakness. Patient c/o headache. Patient proceeded to imaging ambulatory in no apparent distress. MPI Conclusion Left ventricle is dilated. Myocardial perfusion is notable for the absence of ischemia or evidence of prior infarction. There is apical thinning Calculated EF is 10%. The ventricle is globally hypocontractile and dyssynchronous
[2025-02-18] MEDS: Regadenoson 0.4 MG/5 ML SYR IVP (14:17)
== END ==
LOC: DI 02:24
PROVIDERS: PCP Family Medicine; Visit Provider Internal Medicine
DX: R06.09 Other forms of dyspnea (principal); R53.83 Other fatigue; I48.0 Paroxysmal atrial fibrillation
CPT/HCPCS: 78452; 93017; J2785

== ENCOUNTER 2025-02-22 17:00 | Inpatient (IN) | payer BC, SELFPAY ==
[2025-02-22] VITALS (59 sets, daily range): BP systolic 112–140; BP diastolic 76–104; PULSE 91–129; RESP 14–44; TEMP 36.6; O2SAT 90–96
--- NOTE | 2025-02-22 17:00 | DI.RAD_ITS ---
Exam(s) XR PORTABLE CHEST AP EXAM: XR PORTABLE CHEST AP CLINICAL HISTORY: tachcyardia. TECHNIQUE: 2D digital imaging was performed. COMPARISON: CT CT CHEST WO from 12/20/2020 CR XR PORTABLE CHEST AP from 09/18/2023 FINDINGS: Single AP portable view. Sternotomy wires and evidence of previous CABG again noted. Cardiomegaly again noted. The mediastinum is not widened. The left lung remains clear. There is infiltrate and pleural thickening in the lateral right lung base again noted which appears similar to chest x-ray of September [address] scan of December 2020. There is also suggestion of small amount of loculated pleural fluid at this level. Chronic pleural calcification also evident, similar to previous. There is also a mild pulmonary venous hypertension pattern but no bib airspace pulmonary edema.. IMPRESSION: Cardiomegaly. CABG. Sternotomy. Pulmonary venous hypertension pattern. Pleural parenchymal thickening in the lateral right lung base with probable loculated fluid at this level again noted, with minimal change from previous. DATA REPOSITORY: RADIATION DOSE DELIVERED:
--- NOTE | 2025-02-22 17:15 | RT.EKG_ITS ---
APPROVED REPORT Exam: Resting ECG Reason for Exam: palpitations Patient Location: E HR:126 bpm ECG Measurements Heart Rate 126 AXIS OK 93 P -43 QRSd 161 QRS -41 QT 384 T 59 QTc 557 Conclusion Sinus tachycardia...rate> 99 Multiform ventricular premature complexes...short R-R, variable morphology RBBB and LAFB...QRSd >120mS, axis(-40,240) No STEMI
[2025-02-22 18:01] LABS: BE (Venous) 10 mmol/L (-2-3); HCO3 (Venous) 35 mmol/L (23-28); O2 Sat (Venous) 34 %; TCO2 (Venous) 31 mmol/L (24-29); pCO2 (Venous) 57 mmHg (41-51); pO2 (Venous) 22 mmHg
[2025-02-22 18:02] LABS: Abs Immature Grans 0.02 10^3/uL (0.0-0.06); HCT 43.5 % (40.0-50.0); HGB 14.0 g/dL (13.5-17.5); Immature Grans % 0.3 %; MCH 29.2 pg (27.0-33.0); MCHC 32.2 % (32.0-36.0); MCV 91 fL (80-95); MPV 10.2 fL (8.0-11.0); Platelet Count 208 10^3/uL (130-400); RBC 4.80 10^6/uL (4.36-5.78); RDW 13.4 % (11.8-14.1); RDW-SD 44.8 fL; WBC 6.48 10^3/uL (4.4-10.8)
[2025-02-22 18:23] LABS: Magnesium 1.9 mg/dL (1.6-2.6)
[2025-02-22 18:24] LABS: ALT 22 U/L (10-49); AST 24 U/L (<34); Albumin 4.3 g/dL (3.4-5.0); Alkaline Phosphatase 108 U/L (46-116); Anion Gap 6.9 mmol/L (3-11); BUN 21 mg/dL (9-23); Bilirubin, Total 0.90 mg/dL (0.2-1.2); CO2 34.2 mmol/L (20.0-31.0); Calcium 9.1 mg/dL (8.3-10.6); Chloride 100 mmol/L (98-107); Glucose 114 mg/dL (74-106); Potassium 3.6 mmol/L (3.5-5.1); Sodium 141 mmol/L (136-145); Total Protein 7.4 g/dL (5.7-8.2); Troponin I 30 ng/L (<54)
[2025-02-22 18:52] LABS: COVID-19 PCR Negative (Negative); RSV PCR Negative (Negative)
[2025-02-22 20:01] LABS: Troponin I 32 ng/L (<54)
[2025-02-22] MEDS: Metoprolol 5 MG/5 ML VIAL IVP (20:21)
--- NOTE | 2025-02-22 22:35 | W.ED.GENAD ---
Discharge Plan Disposition Patient Disposition: Admit to [facility] Discharge Details Clinical Impression: Heart palpitations, Sinus tachycardia Primary Care Provider: Severiano Coy ED Provider: Missael Plata Home Meds and New Rx's Prescriptions: No Action tramadol 50 mg tablet 50 mg PO Q8H PRN (Reason: pain) Qty: 20 0RF apixaban 2.5 mg tablet 2.5 mg PO BID Qty: 180 3RF ondansetron 4 mg tablet,disintegrating 4 mg PO Q8H PRN (Reason: nausea and vomiting) Qty: 14 0RF triamcinolone acetonide 0.1 % ointment 1 applic topical BID Qty: 80 2RF atorvastatin 40 mg tablet 40 mg PO DAILY Qty: 90 3RF metoprolol succinate 50 mg tablet extended release 24 hr See Rx Instructions .ROUTE .COMPLEX Qty: 90 3RF Dose Instruction: TAKE ONE TABLET BY MOUTH EVERY DAY Rx Instructions: TAKE ONE TABLET BY MOUTH EVERY DAY torsemide 20 mg tablet 20 mg PO BID Qty: 180 3RF Rx Instructions: double dose 01/28/25 potassium chloride 20 mEq tablet,ER particles/crystals 20 meq PO DAILY Qty: 90 3RF multivitamin [Daily Multi-Vitamin] 1 EACH tablet 1 ea PO DAILY cholecalciferol (vitamin D3) 1,000 UNIT tablet 1,000 unit PO DAILY ascorbic acid (vitamin C) [Vitamin C] 500 MG tablet 500 mg PO DAILY (DME) FreeStyle Test Strip 1 ea Miscellaneous DAILY Qty: 90 3RF Rx Instructions: test in a.m. daily (DME) lancets [FreeStyle Lancets] 28 gauge misc 1 ea Miscellaneous DAILY Qty: 90 3RF Rx Instructions: test daily in a.m losartan 25 mg tablet 25 mg PO DAILY Qty: 90 3RF allopurinol 100 mg tablet 50 mg PO DAILY Qty: 45 3RF lorazepam 1 mg capsule,extended release 24hr 1 mg PO DAILY PRN HPI General Date/Time Provider Initiated Documentation: 02/22/25 17:01. HPI Narrative: MDM/Narrative: 79-year-old male past medical history of A-fib, presents for evaluation of rapid heart rate. Given recent titration of patient's medications without significant impact on heart rate we will treat with IV medications. Patient however notes that he has had amiodarone in the past with significant issue, and known HFrEF making calcium channel blockers less attractive in the situation, as such will avoid medication, will trial initially on p.o. metoprolol and reassess patient. Will also assess for possible infectious or metabolic causes of the patient's A-fib RVR ED course: Lab results are unremarkable, chest x-ray shows no evidence of acute pneumonia. Patient's heart rate is only minimally improved following p.o. metoprolol. Case discussed with Dr. Soto the hospitalist who will admit patient for further management. Disposition: Admit [facility] HPI: 79-year-old male with past medical history of atrial fibrillation, HFrEF, presents for evaluation of rapid heart rate. Patient states that his metoprolol has been being adjusted over the past week, and has not controlled his heart rate. He notes his heart rate has been over 100 in the past several days, he feels generalized malaise. Patient is currently taking 25 mg of metoprolol in the morning, another 25 mg in the late morning, followed by 50 mg before bedtime. He notes that this dosing pattern alleviates side effects of severe fatigue, however he has not been able to control his heart rate. Denies any associated shortness of breath, chest pain, or any other new or concerning symptoms. ROS: Negative besides as mentioned above Exam: Gen: A&O NAD HEENT: NCAT, EOMI, not icteric. External ears normal. No rhinorrhea. Moist mucous membranes. Neck: Supple, full range of motion, no observable masses, No meningeal sign. Lungs: No Respiratory distress. CV: Sinus tachycardia, no edema. Abdomen: Soft, nondistended, No rebound tenderness. MSK: No joint swelling, no redness. Skin: No rashes, petechiae, lesions. Normal color per patient. Neuro: Normal Gait, Grossly intact. Psych: Appropriate for situation. Rhythm: Sinus tachycardia Rate: 126 [place]: Normal axis Intervals: Normal intervals Other findings: No acute ST segment or T wave changes to suggest acute ischemia. Labs: Laboratory Tests Range/Units 11/02/22/25 02/22/25 17:57 18:12 19:34 WBC (4.4-10.8) 10^3/uL 6.48 RBC (4.36-5.78) 10^6/uL 4.80 Hgb (13.5-17.5) g/dL 14.0 Hct (40.0-50.0) % 43.5 MCV (80-95) fL 91 MCH (27.0-33.0) pg 29.2 MCHC (32.0-36.0) % 32.2 RDW (11.8-14.1) % 13.4 Plt Count (130-400) 10^3/uL 208 MPV (8.0-11.0) fL 10.2 Immature Gran % % 0.3 Neutrophils % % 74.3 Lymphocytes % % 13.1 Monocytes % % 9.7 Eosinophils % % 2.3 Basophils % % 0.3 Nucleated RBC % (0.0-0.3) % 0.0 Absolute Neutrophils (1.2-6.7) 10^3/uL 4.81 Absolute Lymphocytes (1.2-3.4) 10^3/uL 0.85 L Absolute Monocytes (0.1-0.8) 10^3/uL 0.63 Absolute Eosinophils (0.0-0.7) 10^3/uL 0.15 Absolute Basophils (0.0-0.2) 10^3/uL 0.02 VBG pH (7.31-7.41) 7.40 VBG pCO2 (41-51) mmHg 57 H VBG pO2 mmHg 22 VBG HCO3 (23-28) mmol/L 35 H VBG Total CO2 (24-29) mmol/L 31 H VBG O2 Saturation % 34 VBG Base Excess (-2-3) mmol/L 10 H VBG Lactate (<or=2.0) mmol/L 0.9 Sodium (136-145) mmol/L 141 Potassium (3.5-5.1) mmol/L 3.6 Chloride (98-107) mmol/L 100 Carbon Dioxide (20.0-31.0) mmol/L 34.2 H Anion Gap (3-11) mmol/L 6.9 BUN (9-23) mg/dL 21 Creatinine (0.73-1.18) mg/dL 1.3 H Est GFR (CKD-EPI 2020) (mL/min/1.73m2) 51.95 Glucose (74-106) mg/dL 114 H Calcium (8.3-10.6) mg/dL 9.1 Magnesium (1.6-2.6) mg/dL 1.9 Total Bilirubin (0.2-1.2) mg/dL 0.90 AST (<34) U/L 24 ALT (10-49) U/L 22 Alkaline Phosphatase (46-116) U/L 108 Troponin I (<54) ng/L 30 32 NT-Pro-B Natriuret Pep (<300) pg/mL 6987 H Total Protein (5.7-8.2) g/dL 7.4 Albumin (3.4-5.0) g/dL 4.3 COVID-19 Source Nasopharynx SARS-CoV-2 (PCR) (Negative) Negative Influenza Type A (PCR) (Negative) Negative Influenza Type B (PCR) (Negative) Negative RSV (PCR) (Negative) Negative Radiology: xam(s) XR PORTABLE CHEST AP EXAM: XR PORTABLE CHEST AP CLINICAL HISTORY: tachcyardia. TECHNIQUE: 2D digital imaging was performed. COMPARISON: CT CT CHEST WO from 12/20/2020 CR XR PORTABLE CHEST AP from 09/18/2023 FINDINGS: Single AP portable view. Sternotomy wires and evidence of previous CABG again noted. Cardiomegaly again noted. The mediastinum is not widened. The left lung remains clear. There is infiltrate and pleural thickening in the lateral right lung base again noted which appears similar to chest x-ray of September [address] scan of December 2020. There is also suggestion of small amount of loculated pleural fluid at this level. Chronic pleural calcification also evident, similar to previous. There is also a mild pulmonary venous hypertension pattern but no bib airspace pulmonary edema.. IMPRESSION: Cardiomegaly. CABG. Sternotomy. Pulmonary venous hypertension pattern. Pleural parenchymal thickening in the lateral right lung base with probable loculated fluid at this level again noted, with minimal change from previous. Related Data Home Medications ?Medication ?Instructions ?Recorded ?Confirmed cholecalciferol (vitamin D3) 25 1,000 unit PO DAILY 06/27/1225 mcg (1,000 unit) tablet multivitamin (Daily Multi-Vitamin 1 ea PO DAILY 06/27/12 02/22/25 tablet) ascorbic acid (vitamin C) 500 mg 500 mg PO DAILY 12/09/12 02/22/25 tablet (Vitamin C) blood sugar diagnostic (FreeStyle #90 strips 08/25/19 02/22/25 Test strips) lancets 28 gauge (FreeStyle #90 ea 08/25/19 02/22/25 Lancets) lorazepam 1 mg capsule,extended 1 mg PO DAILY PRN 09/18/23 02/22/25 release 24 hr triamcinolone acetonide 0.1 % 1 applic topical BID rash on back 10/02/23 02/22/25 topical ointment #80 grams tramadol 50 mg tablet 50 mg PO Q8H PRN pain #20 tabs 03/26/24 02/22/25 losartan 25 mg tablet 25 mg PO DAILY #90 tabs 07/20/24 02/22/25 Held on 01/28/25. Instructions: rising creatinine apixaban 2.5 mg tablet 2.5 mg PO BID #180 tabs 10/15/24 02/22/25 ondansetron 4 mg disintegrating 4 mg PO Q8H PRN nausea and 10/15/24 02/22/25 tablet vomiting #14 tabs allopurinol 100 mg tablet 50 mg (1/2 x 100 mg) PO DAILY #45 10/17/24 02/22/25 tabs atorvastatin 40 mg tablet 40 mg PO DAILY #90 tab-caps 01/28/25 02/22/25 metoprolol succinate 50 mg See Rx Instructions .Route 01/28/25 02/22/25 tablet,extended release 24 hr .COMPLEX #90 tabs torsemide 20 mg tablet 20 mg PO BID #180 tabs 01/28/25 02/22/25 potassium chloride 20 mEq 20 meq PO DAILY #90 tabs 01/30/25 02/22/25 tablet,extended release(part/cryst) Previous Rx's ?Medication ?Instructions ?Recorded blood sugar diagnostic (FreeStyle #90 strips 08/25/19 Test strips) lancets 28 gauge (FreeStyle #90 ea 08/25/19 Lancets) triamcinolone acetonide 0.1 % 1 applic topical BID rash on back 10/02/23 topical ointment #80 grams tramadol 50 mg tablet 50 mg PO Q8H PRN pain #20 tabs 03/26/24 losartan 25 mg tablet 25 mg PO DAILY #90 tabs 07/20/24 Held on 01/28/25. Instructions: rising creatinine apixaban 2.5 mg tablet 2.5 mg PO BID #180 tabs 10/15/24 ondansetron 4 mg disintegrating 4 mg PO Q8H PRN nausea and 10/15/24 tablet vomiting #14 tabs allopurinol 100 mg tablet 50 mg (1/2 x 100 mg) PO DAILY #45 10/17/24 tabs atorvastatin 40 mg tablet 40 mg PO DAILY #90 tab-caps 01/28/25 metoprolol succinate 50 mg See Rx Instructions .Route 01/28/25 tablet,extended release 24 hr .COMPLEX #90 tabs torsemide 20 mg tablet 20 mg PO BID #180 tabs 01/28/25 potassium chloride 20 mEq 20 meq PO DAILY #90 tabs 01/30/25 tablet,extended release(part/cryst) Allergies Allergy/AdvReac Type Severity Reaction Status Date / Time adhesive AdvReac Intermediate skin Verified 02/22/25 17:19 irritation/rash JAMAL Inhibitors AdvReac Mild COUGH Verified 02/22/25 17:19 General Stated Complaint: Palpitatns LIZZY: 3 Course Vital Signs Vital signs: Vital Signs Temperature 36.6 C 02/22/25 17:14 Pulse 122 H 02/22/25 17:14 Respiratory Rate 18 02/22/25 17:14 Blood Pressure 139/83 02/22/25 17:14 Pulse Oximetry 90 L 02/22/25 17:14 Temperature 36.6 C 02/22/25 17:14 Pulse 108 H 02/22/25 20:21 Pulse 113 H 02/22/25 20:20 Respiratory Rate 18 02/22/25 21:05 Respiratory Effort Normal, Non-Labored 02/22/25 21:05 Respiratory Depth Normal 02/22/25 21:05 Blood Pressure 125/83 02/22/25 20:21 Blood Pressure Mean 95 02/22/25 20:16 Pulse Oximetry 95 02/22/25 19:30 Pain Level 0 02/22/25 17:14 Lab/Test Results Lab/Test Results: Laboratory Tests Range/Units 02/22/25 02/22/25 02/22/25 17:57 18:12 19:34 WBC (4.4-10.8) 10^3/uL 6.48 RBC (4.36-5.78) 10^6/uL 4.80 Hgb (13.5-17.5) g/dL 14.0 Hct (40.0-50.0) % 43.5 MCV (80-95) fL 91 MCH (27.0-33.0) pg 29.2 MCHC (32.0-36.0) % 32.2 RDW (11.8-14.1) % 13.4 Plt Count (130-400) 10^3/uL 208 MPV (8.0-11.0) fL 10.2 Immature Gran % % 0.3 Neutrophils % % 74.3 Lymphocytes % % 13.1 Monocytes % % 9.7 Eosinophils % % 2.3 Basophils % % 0.3 Nucleated RBC % (0.0-0.3) % 0.0 Absolute Neutrophils (1.2-6.7) 10^3/uL 4.81 Absolute Lymphocytes (1.2-3.4) 10^3/uL 0.85 L Absolute Monocytes (0.1-0.8) 10^3/uL 0.63 Absolute Eosinophils (0.0-0.7) 10^3/uL 0.15 Absolute Basophils (0.0-0.2) 10^3/uL 0.02 VBG pH (7.31-7.41) 7.40 VBG pCO2 (41-51) mmHg 57 H VBG pO2 mmHg 22 VBG HCO3 (23-28) mmol/L 35 H VBG Total CO2 (24-29) mmol/L 31 H VBG O2 Saturation % 34 VBG Base Excess (-2-3) mmol/L 10 H VBG Lactate (<or=2.0) mmol/L 0.9 Sodium (136-145) mmol/L 141 Potassium (3.5-5.1) mmol/L 3.6 Chloride (98-107) mmol/L 100 Carbon Dioxide (20.0-31.0) mmol/L 34.2 H Anion Gap (3-11) mmol/L 6.9 BUN (9-23) mg/dL 21 Creatinine (0.73-1.18) mg/dL 1.3 H Est GFR (CKD-EPI 2020) (mL/min/1.73m2) 51.95 Glucose (74-106) mg/dL 114 H Calcium (8.3-10.6) mg/dL 9.1 Magnesium (1.6-2.6) mg/dL 1.9 Total Bilirubin (0.2-1.2) mg/dL 0.90 AST (<34) U/L 24 ALT (10-49) U/L 22 Alkaline Phosphatase (46-116) U/L 108 Troponin I (<54) ng/L 30 32 NT-Pro-B Natriuret Pep (<300) pg/mL 6987 H Total Protein (5.7-8.2) g/dL 7.4 Albumin (3.4-5.0) g/dL 4.3 COVID-19 Source Nasopharynx SARS-CoV-2 (PCR) (Negative) Negative Influenza Type A (PCR) (Negative) Negative Influenza Type B (PCR) (Negative) Negative RSV (PCR) (Negative) Negative PFSH All Active Problems (Updated 02/22/25 @ 22:41 by Missael Plata MD) Sinus tachycardia (Acute) Heart palpitations (Acute) Nausea (Acute) Squamous cell carcinoma of back (Acute) Dysplastic nevus (Acute) Seborrheic keratoses (Acute) Non-healing wound of left lower extremity (Acute) Actinic keratosis (Acute) Gout (Chronic) Medication monitoring encounter (Acute) Abnormal gall bladder diagnostic imaging (Acute) Cor pulmonale (Acute) Acute on chronic heart failure with reduced ejection fraction and diastolic dysfunction (Acute) RUQ abdominal tenderness (Acute) Atrial fibrillation with rapid ventricular response (Acute) Acute HFrEF (heart failure with reduced ejection fraction) (Acute) Chronic venous stasis dermatitis of both lower extremities (Acute) COVID-19 (Acute ~12/28/22) Bilateral knee pain (Acute) Chronic pain (Chronic) Joint pain (Acute) Asymmetrical sensorineural hearing loss (Acute) Hearing loss (Acute) Hip pain, right (Acute) Stage 3 chronic kidney disease (Acute) 09/2021- cr-1.6 Premature ventricular contractions (Acute) History of cardiac radiofrequency ablation (Acute) last ablation 03/27 [facility] Fibrothorax (Acute) Bronchiectasis (Acute) Pulmonary hypertension (Acute) Biventricular heart failure (Acute) Restrictive lung disease (Acute) Dyspnea on exertion (Acute) Chronic cough (Acute) Abnormal chest CT (Acute) CVA (cerebral vascular accident) (Chronic) righgt hemispshere during AF ablation. 12.28.20 Pre-operative cardiovascular examination (Acute) Facial skin lesion (Acute) Anticoagulation adequate (Acute) Hypoxemia (Acute) Exertional dyspnea (Acute) Depressive disorder (Acute) Perennial allergic rhinitis (Acute 03/22/16) Sacroiliitis (Chronic) Primary osteoarthritis of left hip (Chronic) Steroid injection: 07/28/2018 Chronic anticoagulation (Acute) Tubular adenoma of colon (Chronic) 01/29/14-DR. 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) Diverticulosis (Chronic) Cardiomyopathy (Chronic) Coronary atherosclerosis of [place] coronary vessel (Chronic) Atrial fibrillation (Chronic) success after multiple ablations Anxiety (Chronic) Anal fistula (Chronic) Recurrent right pleural effusion (Chronic) s/p VATS total decortication 04/18/19 Diabetes mellitus (Chronic) History of atrial fibrillation (Chronic) Hypertension (Chronic) Osteoarthritis (Chronic) Obstructive sleep apnea (Chronic) Hyperlipidemia (Chronic) Medical History (Updated 02/22/25 @ 22:41 by Missael Plata MD) Alcohol abuse History of tobacco use Infected finger joint (12/16/14) Edema Gout of hand index finger Acute urinary retention (05/15/13) Encounter for rehabilitation (05/15/13) Surgical History (Updated 05/29/24 @ 14:47 by Zina Hart) History of colonoscopy (~05/2024) History of hip replacement History of tonsillectomy and adenoidectomy History of cataract removal with insertion of prosthetic lens Status post ablation of atrial fibrillation Status post total bilateral knee replacement Replacement of total knee joint 2012; [facility] [place]; RIGHT, left Prosthesis, Penile implant Colonoscopy - MAC 01/29/14 Extraction of cataract Bilateral Recurrent major depression in partial remission Atrial Family History Brother Stroke Diabetes Father Heart attack pt of [place] at 51 Mother Skin cancer Breast cancer Colon cancer Social History Smoking/Tobacco Use Status: Former Tobacco Use tobacco type: cigarettes Quit Date: 04/08/79 Smoking risk assessment performed?: Yes Alcohol Intake: current Alcohol Intake frequency: a few times a week Drug use: Never Substance use type: does not use Housing: house Pets and animals: Yes Pets and animals: cat(s) and dog(s) 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
[2025-02-23] VITALS (29 sets, daily range): BP systolic 93–125; BP diastolic 57–94; PULSE 56–135; RESP 12–29; TEMP 36.1–36.7; O2SAT 88–97
--- NOTE | 2025-02-23 | DI.US_ITS ---
APPROVED REPORT EXAM: Comprehensive 2D, Doppler, and color-flow Echocardiogram Patient Location: In-Patient Room/Bed: [address]: Zakia Fernandes RDCS (AE) Indications: CHF, MPI suggest worse LVEF Other Information Study Quality: Fair. Technically limited study due to body habitus exam done bedside. Conclusion Normal left ventricular wall thickness and chamber size. Ejection fraction is 20%. Septal motion is paradoxic. There is otherwise global hypokinesis Dilated right ventricle. Paradoxic septal motion suggests right ventricular volume overload Right atrium is moderately enlarged. Normal left atrial size Aortic valve is calcified. There is no hemodynamically significant aortic stenosis, no aortic regurgitation Normal mitral valve with mild regurgitation Mild to moderate tricuspid regurgitation. Estimated right ventricular systolic pressure is 42 mmHg Wall motion Left Ventricle The left ventricle is normal size. Left ventricular systolic function is severely decreased. Technically limited apical imaging. There is normal left ventricular wall thickness. There is global hypokinesis of the left ventricle. Septal motion is paradoxic There is no ventricular septal defect visualized. LVEF is 19%. Right Ventricle Right ventricle is moderately dilated. Right ventricular septal motion is paradoxical. Atria The left atrium size is normal. Right atrium is moderately dilated. The interatrial septum is intact with no evidence for an atrial septal defect. Aortic Valve Aortic valve is calcified. Number of aortic valve leaflets could not be assessed. No hemodynamically significant valvular aortic stenosis. No aortic regurgitation is present. Mitral Valve The mitral valve is normal in structure. No evidence of mitral valve stenosis. Mild mitral regurgitation. Tricuspid Valve The tricuspid valve is normal in structure. There is no tricuspid valve stenosis. Mild to moderate tricuspid regurgitation. The RVSP is 41.6 mmHg. Pulmonic Valve The pulmonary valve is normal in structure. There is no pulmonic valvular stenosis. Trace pulmonic regurgitation. Great Vessels The aortic root is normal in size. The ascending aorta is normal in size. Aortic arch is not well visualized. The IVC collapses <50% with inspiration. Pericardium There is no pericardial effusion. 2D Dimensions IVSD d PLAX 0.96 cm M: 0.6-1.2 Ao Root d 3.12 cm M: 3.1 - 3.7 LVPW d PLAX 1.03 cm M: 0.6 - 1.2 Ao Asc Diam d 3.46 cm M: 2.6 - 3.4 LVID d PLAX 5.42 cm M: 4.2 - 5.8 LVDs 4.96 cm M: 2.5 - 4.0 LV EF Teichholz 18.6 % FS 8.48 % LV EDV (Teich) 142.4 mL LV ESV (Teich) 116.0 mL LV Diastology MV E Vmax 0.88 (0.4-1.3 m/s) Aortic Valve AoV Vmax 2.32 m/s LVOT Vmax 0.61 m/s AoV Peak Grad 21.5 mmHg LVOT Peak Grad 1.5 mmHg AoV Area (Vmax) 0.89 cm2 LVOT VTI 0.124 m AoV VTI 0.494 m LVOT Mean Grad 0.7 mmHg AoV Mean Ralf. 1.78 m/s LVOT SV 42.07 mL AoV Mean Grad 14.3 mmHg LVOT Diam s 2.05 cm AoV Area (VTI) 0.85 cm2 AV Regurg Peak Gr. 21.50 mmHg Velocity Ratio 0.26 Mitral Valve MV Vmax TIPS 0.90 m/s MV Mean Grad 1.1 (<2mmHg) MV Area PHT 4.66 cm2 MV VTI 0.176 m Pulmonary Valve PV Vmax 0.60 (0.5-1.5 m/s) RVOT Vmax 0.46 m/s PV Peak Grad 1.4 mmHg RVOT Peak Gr. 0.9 mmHg PV Mean Ralf 0.50 m/s RVOT VTI 0.105 m PV Mean Grad 1.0 mmHg RVOT Mean Gr. 0.4 mmHg Tricuspid Valve RA Pressure 8.00 mmHg TR Vmax 2.90 m/s TR Peak Grad 33.5 mmHg RVSP (TR) 41.6 mmHg
[2025-02-23] MEDS: dilTIAZem 125 MG in Normal Saline 100 ML IV (00:29)
[2025-02-23] MEDS: POTASSIUM CHLORIDE 10 MEQ/100 ML BAG 100 MEQ IV_INF ×2 (00:39→01:56)
[2025-02-23] MEDS: Torsemide 20 MG TAB PO (00:40)
[2025-02-23] MEDS: Apixaban 2.5 MG TAB PO ×3 (00:56→21:08)
--- NOTE | 2025-02-23 01:53 | HPE_ITS ---
Date of service: 02/23/25 Time of Service: 01:53 Assessment and Plan Assessment and plan (1) History of atrial fibrillation: Status: Chronic Assessment and plan: Patient does follow with [facility] cardiology and had recently had his metoprolol increased due to palpitations. While he was in our ED did not respond well to IV metoprolol also switched to Cardizem with a good result. Consider reached out to cardiology at [facility] tomorrow for recommendations. His concert promoter is a Dr. Jerry Shah. He is on Eliquis 2.5 mg twice daily (2) Coronary atherosclerosis of [place] coronary vessel: Status: Chronic Assessment and plan: Patient is status post CABG in 2017. Recent stress test done area was nondiagnostic (3) Cardiomyopathy: Status: Chronic Assessment and plan: Noted (4) Hyperlipidemia: Status: Chronic Assessment and plan: Continue with medical management and including atorvastatin 40 daily (5) Hypertension: Status: Chronic Assessment and plan: Patient is on losartan as well as torsemide. Blood pressure is currently well- controlled (6) CHF (congestive heart failure): Status: Chronic Assessment and plan: Most recent echo does show picture of heart failure with reduced ejection fraction. Not exactly sure why the patient is not on a GLP?1 agonist. Would consider starting this medication but will try to reach out to his concert promoter first History of Present Illness History of Present Illness Chief Complaint: palpitations Narrative: Mr Davidson is a 79-year-old gentleman with a known history of A-fib who has had multiple ablations as well as cardioversions who presents with palpitations over the last few days. Patient did see his concert promoter who did increase his metoprolol to 100 mg p.o. twice daily patient has been taking it on a staggered scale. While he was in the ED he was started on a metoprolol drip but his heart rate was only dropping into the low 100s. I did place the patient on a Cardizem drip and currently his heart rates in the 80s. Patient's main complaint is of dyspnea on exertion especially since he increasing on his beta-blockade. Patient's other medical problems include gout and chf. patient did get an echocardiogram here in September of this year and the conclusion showed an EF of 40% the patient does have a paradoxic septal motion consistent with right ventricular pacing. Enlarged right atrium. Mild aortic stenosis. Mild tricuspid regurgitation. Patient did not tell me he had pacemaker but I did not asked that specific. The patient did get a stress test here last week which was read by Dr. Lockhart as this A-fib right bundle branch block and left anterior fascicular block test was nondiagnostic. I have reviewed a note from [facility] cardiology dated 09/03/2024. States the patient had CABG in 2017 for robotic decortication of a chronic right-sided pleural effusion. In review of the echo from 523 done at [facility] there is no mention of a pacer. In regards to his other laboratory data his BMP is normal 7000. His viral panel is negative chest x-ray shows cardiomegaly as well as a chronic loculated fluid in the right lower lobe. EKG at that time showed heart rate of 132 left axis deviation right bundle branch block as well as A-fib. Patient is on Eliquis. Patient is full code. Review of Systems All systems reviewed & are unremarkable except as noted in HPI and below PFSH All Active Problems (Updated 02/23/25 @ 02:05 by Scooby Soto MD) CHF (congestive heart failure) (Chronic) Sinus tachycardia (Acute) Heart palpitations (Acute) Nausea (Acute) Squamous cell carcinoma of back (Acute) Dysplastic nevus (Acute) Seborrheic keratoses (Acute) Non-healing wound of left lower extremity (Acute) Actinic keratosis (Acute) Gout (Chronic) Medication monitoring encounter (Acute) Abnormal gall bladder diagnostic imaging (Acute) Cor pulmonale (Acute) Acute on chronic heart failure with reduced ejection fraction and diastolic dysfunction (Acute) RUQ abdominal tenderness (Acute) Atrial fibrillation with rapid ventricular response (Acute) Acute HFrEF (heart failure with reduced ejection fraction) (Acute) Chronic venous stasis dermatitis of both lower extremities (Acute) COVID-19 (Acute ~12/28/22) Bilateral knee pain (Acute) Chronic pain (Chronic) Joint pain (Acute) Asymmetrical sensorineural hearing loss (Acute) Hearing loss (Acute) Hip pain, right (Acute) Stage 3 chronic kidney disease (Acute) 09/2021- cr-1.6 Premature ventricular contractions (Acute) History of cardiac radiofrequency ablation (Acute) last ablation 03/27 [facility] Fibrothorax (Acute) Bronchiectasis (Acute) Pulmonary hypertension (Acute) Biventricular heart failure (Acute) Restrictive lung disease (Acute) Dyspnea on exertion (Acute) Chronic cough (Acute) Abnormal chest CT (Acute) CVA (cerebral vascular accident) (Chronic) righgt hemispshere during AF ablation. 20 Pre-operative cardiovascular examination (Acute) Facial skin lesion (Acute) Anticoagulation adequate (Acute) Hypoxemia (Acute) Exertional dyspnea (Acute) Depressive disorder (Acute) Perennial allergic rhinitis (Acute 03/22/16) Sacroiliitis (Chronic) Primary osteoarthritis of left hip (Chronic) Steroid injection: 07/28/2018 Chronic anticoagulation (Acute) Tubular adenoma of colon (Chronic) 01/29/14-DR. 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) Diverticulosis (Chronic) Cardiomyopathy (Chronic) Coronary atherosclerosis of [place] coronary vessel (Chronic) Atrial fibrillation (Chronic) success after multiple ablations Anxiety (Chronic) Anal fistula (Chronic) Recurrent right pleural effusion (Chronic) s/p VATS total decortication 04/18/19 Diabetes mellitus (Chronic) History of atrial fibrillation (Chronic) Hypertension (Chronic) Osteoarthritis (Chronic) Obstructive sleep apnea (Chronic) Hyperlipidemia (Chronic) Medical History (Updated 02/23/25 @ 02:05 by Scooby Soto MD) Alcohol abuse History of tobacco use Infected finger joint (12/16/14) Edema Gout of hand index finger Acute urinary retention (05/15/13) Encounter for rehabilitation (05/15/13) Surgical History (Updated 05/29/24 @ 14:47 by Zina Hart) History of colonoscopy (~05/2024) History of hip replacement History of tonsillectomy and adenoidectomy History of cataract removal with insertion of prosthetic lens Status post ablation of atrial fibrillation Status post total bilateral knee replacement [place] [facility] [place] Prost[place], Penile implant Colonoscopy - MAC 01/29/14 Extraction of cataract Bilateral Recurrent major depression in partial remission Atrial Family History Brother Stroke Diabetes Father Heart attack pt of [place] at 51 Mother Skin cancer Breast cancer Colon cancer Social History Smoking/Tobacco Use Status: Former Tobacco Use tobacco type: cigarettes Quit Date: 04/08/79 Smoking risk assessment performed?: Yes Alcohol Intake: current Alcohol Intake frequency: a few times a week Drug use: Never Substance use type: does not use Housing: house Pets and animals: Yes Pets and animals: cat(s) and dog(s) What type of 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 Do you feel safe at home: Yes Do you feel safe in your relationship?: Yes Meds Allergies and Home Medications Allergies Allergy/AdvReac Type Severity Reaction Status Date / Time adhesive AdvReac Intermediate skin Verified 02/22/25 17:19 irritation/rash amiodarone AdvReac Intermediate Cardiac Unverified 02/23/25 00:52 Dysrhythmia JAMAL Inhibitors AdvReac Mild COUGH Verified 02/22/25 17:19 Home Medications ?Medication ?Instructions ?Recorded ?Confirmed ?Type cholecalciferol (vitamin D3) 25 1,000 unit PO DAILY 02/22/25 History mcg (1,000 unit) tablet multivitamin (Daily Multi-Vitamin 1 ea PO DAILY 02/23/25 History tablet) ascorbic acid (vitamin C) 500 mg 500 mg PO DAILY 12/0902/22/25 History tablet (Vitamin C) blood sugar diagnostic (FreeStyle #90 strips 08/25/19 02/22/25 Rx Test strips) lancets 28 gauge (FreeStyle #90 ea 08/25/19 02/22/25 R x Lancets) lorazepam 1 mg capsule,extended 1 mg PO DAILY PRN 09/0602/22/25 History release 24 hr triamcinolone acetonide 0.1 % 1 applic topical BID marek h on back 10/02/23 02/22/25 Rx topical ointment #80 grams tramadol 50 mg tablet 50 mg PO Q8H PRN pain #20 ta bs 03/26/24 02/22/25 Rx losartan 25 mg tablet 25 mg PO DAILY #90 tabs 07/0702/22/25 Rx Held on 01/28/25. Instructions: rising creatinine apixaban 2.5 mg tablet 2.5 mg PO BID #180 tabs 10/0602/22/25 Rx ondansetron 4 mg disintegrating 4 mg PO Q8H PRN nausea and 10/15/24 02/22/25 Rx tablet vomiting #14 tabs allopurinol 100 mg tablet 50 mg (1/2 x 100 mg) PO SIRENA Y #45 10/17/24 02/23/25 Rx tabs atorvastatin 40 mg tablet 40 mg PO DAILY #90 tab-caps 01/28/25 02/22/25 Rx torsemide 20 mg tablet 20 mg PO BID #180 tabs 01/2802/22/25 Rx potassium chloride 20 mEq 20 meq PO DAILY #90 tabs 02/22/25 Rx tablet,extended release(part/cryst) metoprolol succinate 50 mg 100 mg PO BID 02/23/2502/06 History tablet,extended release 24 hr Exam Narrative Exam Narrative: HEENT normocephalic atraumatic mucous membranes moist oropharynx is clear Neck no lymphadenopathy no JVD no thyromegaly Cardiovascular tachycardic irregularly irregular without appreciated murmur Lungs clear to auscultation bilaterally good air exchange Abdomen soft nontender nondistended bowel sounds active Extremity 1+ lower extremity edema bilaterally Neuro nonfocal Results Labs 02/22/25 17:57 02/22/25 17:57 Labs: Laboratory Results - last 24 hr 02/22/25 02/22/25 02/22/25 17:57 18:12 19:34 WBC 6.48 RBC 4.80 Hgb 14.0 Hct 43.5 MCV 91 MCH 29.2 MCHC 32.2 RDW 13.4 Plt Count 208 MPV 10.2 Immature Gran % 0.3 Neutrophils % 74.3 Lymphocytes % 13.1 Monocytes % 9.7 Eosinophils % 2.3 Basophils % 0.3 Nucleated RBC % 0.0 Absolute Neutrophils 4.81 Absolute Lymphocytes 0.85 L Absolute Monocytes 0.63 Absolute Eosinophils 0.15 Absolute Basophils 0.02 VBG pH 7.40 VBG pCO2 57 H VBG pO2 22 VBG HCO3 35 H VBG Total CO2 31 H VBG O2 Saturation 34 VBG Base Excess 10 H VBG Lactate 0.9 Sodium 141 Potassium 3.6 Chloride 100 Carbon Dioxide 34.2 H Anion Gap 6.9 BUN 21 Creatinine 1.3 H Est GFR (CKD-EPI 2020) 51.95 Glucose 114 H Calcium 9.1 Magnesium 1.9 Total Bilirubin 0.90 AST 24 ALT 22 Alkaline Phosphatase 108 Troponin I 30 32 NT-Pro-B Natriuret Pep 6987 H Total Protein 7.4 Albumin 4.3 COVID-19 Source Nasopharynx SARS-CoV-2 (PCR) Negative Influenza Type A (PCR) Negative Influenza Type B (PCR) Negative RSV (PCR) Negative Last Vital Signs Temp 36.6 C 02/23/25 00:10 Pulse 116 H 02/23/25 00:46 Resp 12 02/23/25 00:46 BP 115/87 02/23/25 00:46 Pulse Ox 91 L 02/23/25 00:42 Time Spent Time spent with Patient: >75 minutes Time was spent: preparing to see the patient(eg.review tests), obtaining and/or reviewing separately otained hiistory, ordering medications,tests, procedures, referring, communicating with other health respiratory care instructor, indepentently interpreting results, counseling the patient and care coordination
--- NOTE | 2025-02-23 02:29 | W.PC.ACHO ---
Registration Status: ADM IN Primary Language: Preferred Language: Mongolian ED Information & Data Chief Complaint Palpitatns 02/22/25 22:41 Triage Note pt with afib pt was seen at 02/22/25 17:14 ultrasonic solderer last saturday for elevated heart rate pt states increased metoprolol dose was increased heart rate still remaining elevated Medical / Surgical History (Last Reviewed 05/20/24 @ 09:16 by Charlotte Gordon RN) Alcohol abuse History of tobacco use Infected finger joint (12/16/14) Edema Gout of hand Acute urinary retention (05/15/13) Encounter for rehabilitation (05/15/13) (Last Updated 05/29/24 @ 14:47 by Zina Hart) History of colonoscopy (~05/2024) History of hip replacement History of tonsillectomy and adenoidectomy History of cataract removal with insertion of prosthetic lens Status post ablation of atrial fibrillation Status post total bilateral knee replacement Replacement of total knee joint Prosthesis, Penile implant Colonoscopy - MAC Extraction of cataract Recurrent major depression in partial remission Most Recent Vital Signs Temperature 36.6 C 02/23/25 00:10 Pulse 116 H 02/23/25 00:46 Pulse 119 H 02/23/25 00:46 Respiratory Rate 12 02/23/25 00:46 Respiratory Effort Normal, Short of Breath 02/23/25 00:10 Respiratory Depth Normal 02/23/25 00:10 Respiratory Pattern Normal 02/23/25 00:10 Blood Pressure 115/87 02/23/25 00:46 Blood Pressure Mean 98 02/23/25 00:46 Pulse Oximetry 91 L 02/23/25 00:42 Oxygen Delivery Method Room Air 02/23/25 00:10 Oxygen Flow Rate 0 02/23/25 00:10 Pain Level 0 02/22/25 17:14 Allergies adhesive Adverse Reaction (Intermediate, Verified 02/22/25 17:19) skin irritation/rash has been able to tolerate medipore tape. amiodarone Adverse Reaction (Intermediate, Unverified 02/23/25 00:52) Cardiac Dysrhythmia PT reports he was started on this and ultrasonic solderer told him he had too many long pauses JAMAL Inhibitors Adverse Reaction (Mild, Verified 02/22/25 17:19) COUGH Active Medications Generic Name Dose Route Start Last Admin Trade Name Freq PRN Reason Stop Dose Admin Apixaban 2.5 mg 02/23/25 01:00 02/23/25 00:56 Apixaban 2.5 Mg Tab PO 2.5 mg BID FRANCISCO Administration Diltiazem HCl 125 mg/ Sodium 125 mls @ 10 mls/hr 02/22/25 22:45 02/23/25 00:29 Chloride IV 5 mg/hr INFUSION FRANCISCO 5 mls/hr Protocol Administration 10 MG/HR Potassium Chloride 10 meq in 100 mls @ 100 mls/hr 02/23/25 00:45 02/23/25 01:56 IV_INF 02/23/25 02:44 100 mls/hr Q1H FRANCISCO Administration Torsemide 20 mg 02/23/25 00:30 02/23/25 00:40 Torsemide 20 Mg Tab PO 20 mg 0800,1200 FRANCISCO Administration IV IV Catheter Type [Right Peripheral IV Antecubital] IV Catheter Type [Left Forearm Saline Lock ] IV Catheter Gauge [Right 20 Antecubital] IV Catheter Gauge [Left 18 Forearm] Diet Orders Category Date Time Status Regular/Normal [DIET] Nutrition 02/23/25 Breakfast Active Diagnostics 02/22/25 02/22/25 02/22/25 Range/Units 19:34 18:12 17:57 WBC 6.48 (4.4-10.8) 10^3/uL RBC 4.80 (4.36-5.78) 10^6/uL Hgb 14.0 (13.5-17.5) g/dL Hct 43.5 (40.0-50.0) % MCV 91 (80-95) fL MCH 29.2 (27.0-33.0) pg MCHC 32.2 (32.0-36.0) % RDW 13.4 (11.8-14.1) % Plt Count 208 (130-400) 10^3/uL MPV 10.2 (8.0-11.0) fL Immature Gran % 0.3 % Neutrophils % 74.3 % Lymphocytes % 13.1 % Monocytes % 9.7 % Eosinophils % 2.3 % Basophils % 0.3 % Nucleated RBC % 0.0 (0.0-0.3) % Absolute Neutrophils 4.81 (1.2-6.7) 10^3/uL Absolute Lymphocytes 0.85 L (1.2-3.4) 10^3/uL Absolute Monocytes 0.63 (0.1-0.8) 10^3/uL Absolute Eosinophils 0.15 (0.0-0.7) 10^3/uL Absolute Basophils 0.02 (0.0-0.2) 10^3/uL VBG pH 7.40 (7.31-7.41) VBG pCO2 57 H (41-51) mmHg VBG pO2 22 mmHg VBG HCO3 35 H (23-28) mmol/L VBG Total CO2 31 H (24-29) mmol/L VBG O2 Saturation 34 % VBG Base Excess 10 H (-2-3) mmol/L VBG Lactate 0.9 (<or=2.0) mmol/L Sodium 141 (136-145) mmol/L Potassium 3.6 (3.5-5.1) mmol/L Chloride 100 (98-107) mmol/L Carbon Dioxide 34.2 H (20.0-31.0) mmol/L Anion Gap 6.9 (3-11) mmol/L BUN 21 (9-23) mg/dL Creatinine 1.3 H (0.73-1.18) mg/dL Est GFR (CKD-EPI 2020) 51.95 (mL/min/1.73m2) Glucose 114 H (74-106) mg/dL Calcium 9.1 (8.3-10.6) mg/dL Magnesium 1.9 (1.6-2.6) mg/dL Total Bilirubin 0.90 (0.2-1.2) mg/dL AST 24 (<34) U/L ALT 22 (10-49) U/L Alkaline Phosphatase 108 (46-116) U/L Troponin I 32 30 (<54) ng/L NT-Pro-B Natriuret Pep 6987 H (<300) pg/mL Total Protein 7.4 (5.7-8.2) g/dL Albumin 4.3 (3.4-5.0) g/dL COVID-19 Source Nasopharynx SARS-CoV-2 (PCR) Negative (Negative) Influenza Type A (PCR) Negative (Negative) Influenza Type B (PCR) Negative (Negative) RSV (PCR) Negative (Negative) Intake and Output - 24 Hour Total 02/22/25 17:00 thru 02/23/25 01:45 Intake Total 110 Balance 110 Weight 108 kg Intake: IV 110 Falls Risk Assessment History of Falls Previous History 02/23/25 00:10 Contributing Factors Medications 02/23/25 00:10 Ambulatory Aids Independent 02/23/25 00:10 Tubes/Lines With any additional score 02/23/25 00:10 Gait Evaluation No gait disturbance 02/23/25 00:10 Cognition No cognitive impairment 02/22/25 18:13 Fall Total Score 38 02/23/25 00:10 Level of Risk Moderate Risk 02/23/25 00:10 Problems (Last Reviewed 05/20/24 @ 09:16 by Charlotte Gordon RN) CHF (congestive heart failure) (Chronic) Sinus tachycardia (Acute) Heart palpitations (Acute) Cardiomyopathy (Chronic) Coronary atherosclerosis of [place] coronary vessel (Chronic) History of atrial fibrillation (Chronic) Hypertension (Chronic) Hyperlipidemia (Chronic) Attestation Statement: By documenting the first initial, last name, and credentials of the reporting nurse below, both parties acknowledge that all relevant information regarding the patient handoff has been communicated, and that all questions have been addressed to ensure continuity and safety of care. Additional Patient Information/Comments: Report Received From: Tonya Garcia RN
--- NOTE | 2025-02-23 07:30 | RT.EKG_ITS ---
APPROVED REPORT Exam: Resting ECG Reason for Exam: New onset chest tightness Patient Location: I HR:68 bpm ECG Measurements Heart Rate 68 AXIS AZ 85 P 0 QRSd 149 QRS -47 QT 528 T 90 QTc 562 Conclusion Sinus rhythm...normal P axis, V-rate 50- 99 Short AZ interval...AZ <110mS RBBB and LAFB...QRSd >120mS, axis(-40,240)
[2025-02-23] MEDS: Triamcinolone 0.1% OINT 15 GM TUBE TP (08:30)
[2025-02-23] MEDS: Losartan 25 MG TAB PO (08:43)
[2025-02-23] MEDS: Cholecalciferol (Vitamin D3) 1,000 UNIT TAB 1000 UNITS PO (08:43)
[2025-02-23] MEDS: Potassium Chloride 20 MEQ TABCR PO (08:43)
[2025-02-23] MEDS: Ascorbic Acid 500 MG TAB PO (08:44)
[2025-02-23] MEDS: Furosemide 40 MG/4 ML VIAL IVP ×2 (09:12→16:30)
[2025-02-23] MEDS: Metoprolol 50 MG TAB PO ×3 (09:12→21:09)
[2025-02-23 09:13] LABS: Lab Add On Test DONE
[2025-02-23 09:36] LABS: HCT 40.6 % (40.0-50.0); HGB 13.3 g/dL (13.5-17.5); MCH 29.6 pg (27.0-33.0); MCHC 32.8 % (32.0-36.0); MCV 90 fL (80-95); MPV 10.5 fL (8.0-11.0); Platelet Count 203 10^3/uL (130-400); RBC 4.49 10^6/uL (4.36-5.78); RDW 13.6 % (11.8-14.1); RDW-SD 45.4 fL; WBC 6.71 10^3/uL (4.4-10.8)
--- NOTE | 2025-02-23 09:38 | PDOC.CMIN ---
Date of service: 02/23/25 Care Management Initial Assmt Initial Assessment Reason for Hospitalization: Afib with RVR Functional Status/Living Situation Patient Presentation: Isa, as Vinny prefers to be called, was sitting up in a chair when CM met with him. He was pleasant in manner and easily engaged with CM, although he declined to answer some of the questions,. Isa lives in a single family home in [facility] with his Jackie. They have 3 children. Isa is retired and does not receive any community services. He was admitted with atrial fibrillation which he has had for many years. He informed CM that he has had 5 or 6 ablations and has undergone cardioversion in the past. This morning Isa converted to NSR with a rate between mid 50s and 70s. Town of Residence: [place] Resides with: Spouse (Jackie - ) Employment Status: Retired Medications Medication Management: No Issues/Barriers identified Advance Directives Advance Directives: Do you have an Advance Directive: N 05/15/13, 15:16 AD On File at [facility]: N 05/15/13, 15:16 Date Asked 02/22/25 02/22/25, 17:03 AD Date Reviewed COLST On File at [facility] COLST Date Scanned Code Status Resuscitation Status Full Code Portal Pt does not currently have a portal and education provided: Yes Insurance Coverage/Financial Issues Insurance: / Care Team Visit Care Team Role Provider Type Huan Upton MD [facility] STAFF PHYSICIAN Severiano Coy MD Primary Care Provider [facility] STAFF PHYSICIAN Missael Plata MD Emergency Provider [facility] STAFF PHYSICIAN Scooby Soto MD Admit Provider [facility] STAFF PHYSICIAN Attending Provider Discharge Potential Discharge Needs: PCP F/U Appt and Other (Cardiology) Anticipated Barriers to Discharge: None Identified Patient/Family Education Needs: Review discharge instructions, discuss Ask Me Three Transportation: Private vehicle Plan: Anticipate Isa will be discharged home with no new services when medically cleared. He will follow up with his PCP and Social Service Liaison as well as his discharge plan of care as prescribed. Isa will transport home via private vehicle with family. CM will follow and continue to assess for discharge needs. Social Determinants of Health Screening Will the Patient Participate in the Screening?: Declined to provide PFSH All Active Problems (Updated 02/23/25 @ 02:05 by Scooby Soto MD) CHF (congestive heart failure) (Chronic) Sinus tachycardia (Acute) Heart palpitations (Acute) Nausea (Acute) Squamous cell carcinoma of back (Acute) Dysplastic nevus (Acute) Seborrheic keratoses (Acute) Non-healing wound of left lower extremity (Acute) Actinic keratosis (Acute) Gout (Chronic) Medication monitoring encounter (Acute) Abnormal gall bladder diagnostic imaging (Acute) Cor pulmonale (Acute) Acute on chronic heart failure with reduced ejection fraction and diastolic dysfunction (Acute) RUQ abdominal tenderness (Acute) Atrial fibrillation with rapid ventricular response (Acute) Acute HFrEF (heart failure with reduced ejection fraction) (Acute) Chronic venous stasis dermatitis of both lower extremities (Acute) COVID-19 (Acute ~12/28/22) Bilateral knee pain (Acute) Chronic pain (Chronic) Joint pain (Acute) Asymmetrical sensorineural hearing loss (Acute) Hearing loss (Acute) Hip pain, right (Acute) Stage 3 chronic kidney disease (Acute) 09/2021- cr-1.6 Premature ventricular contractions (Acute) History of cardiac radiofrequency ablation (Acute) last ablation 03/27 [facility] Fibrothorax (Acute) Bronchiectasis (Acute) Pulmonary hypertension (Acute) Biventricular heart failure (Acute) Restrictive lung disease (Acute) Dyspnea on exertion (Acute) Chronic cough (Acute) Abnormal chest CT (Acute) CVA (cerebral vascular accident) (Chronic) righgt hemispshere during AF ablation. 04.04.20 Pre-operative cardiovascular examination (Acute) Facial skin lesion (Acute) Anticoagulation adequate (Acute) Hypoxemia (Acute) Exertional dyspnea (Acute) Depressive disorder (Acute) Perennial allergic rhinitis (Acute 03/22/16) Sacroiliitis (Chronic) Primary osteoarthritis of left hip (Chronic) Steroid injection: 07/28/2018 Chronic anticoagulation (Acute) Tubular adenoma of colon (Chronic) 01/29/14-DR. 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) Diverticulosis (Chronic) Cardiomyopathy (Chronic) Coronary atherosclerosis of [place] coronary vessel (Chronic) Atrial fibrillation (Chronic) success after multiple ablations Anxiety (Chronic) Anal fistula (Chronic) Recurrent right pleural effusion (Chronic) s/p VATS total decortication 04/18/19 Diabetes mellitus (Chronic) History of atrial fibrillation (Chronic) Hypertension (Chronic) Osteoarthritis (Chronic) Obstructive sleep apnea (Chronic) Hyperlipidemia (Chronic) Medical History (Updated 02/23/25 @ 02:05 by Scooby Soto MD) Alcohol abuse History of tobacco use Infected finger joint (12/16/14) Edema Gout of hand index finger Acute urinary retention (05/15/13) Encounter for rehabilitation (05/15/13) Surgical History (Updated 05/29/24 @ 14:47 by Zina Hart) History of colonoscopy (~05/2024) History of hip replacement History of tonsillectomy and adenoidectomy History of cataract removal with insertion of prosthetic lens Status post ablation of atrial fibrillation Status post total bilateral knee replacement [place] [facility] [place] Prost[place], Penile implant Colonoscopy - MAC 01/29/14 Extraction of cataract Bilateral Recurrent major depression in partial remission Atrial Family History Brother Stroke Diabetes Father Heart attack pt of [place] at 51 Mother Skin cancer Breast cancer Colon cancer Social History Smoking/Tobacco Use Status: Former Tobacco Use tobacco type: cigarettes Quit Date: 04/08/79 Smoking risk assessment performed?: Yes Alcohol Intake: current Alcohol Intake frequency: a few times a week Drug use: Never Substance use type: does not use Housing: house Pets and animals: Yes Pets and animals: cat(s) and dog(s) What type of physical activity do you participate in: 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
[2025-02-23 10:00] LABS: ALT 20 U/L (10-49); AST 24 U/L (<34); Albumin 4.0 g/dL (3.4-5.0); Alkaline Phosphatase 104 U/L (46-116); Anion Gap 8.5 mmol/L (3-11); BUN 21 mg/dL (9-23); Bilirubin, Total 1.00 mg/dL (0.2-1.2); CO2 31.8 mmol/L (20.0-31.0); Calcium 9.0 mg/dL (8.3-10.6); Chloride 99 mmol/L (98-107); Glucose 182 mg/dL (74-106); Potassium 3.8 mmol/L (3.5-5.1); Sodium 139 mmol/L (136-145); Total Protein 6.9 g/dL (5.7-8.2); Troponin I 32 ng/L (<54)
[2025-02-23 10:04] LABS: TSH 2.91 uIU/mL (0.55-4.78)
--- NOTE | 2025-02-23 12:38 | PGE_ITS ---
Date of Service Date of service: 02/23/25 Time of Service: 12:38 Assessment and Plan Assessment and plan (1) Atrial fibrillation with rapid ventricular response: Status: Acute Assessment and plan: Has been in poorly controlled afib for weeks, Antique Clocks Repairer increased his metoprolol but persistened. Converted with IV diltiazem, will stop diltiazem given reduced LVEF. His scrap crane operator is a Dr. Jerry Shah, I messaged Scottie and awaing call back. Consider rhythm control? He is on apixaban 2.5 mg twice daily (baseline Cr >1.5 though low today, age >80), which covers VTE prophylaxis (2) Coronary atherosclerosis of [place] coronary vessel: Status: Chronic Assessment and plan: Patient is status post CABG in 2017. Recent stress test done area was nondiagnostic for ischemia. Troponins reassuring here. continue outpatient therapy (3) Cardiomyopathy: Status: Chronic Assessment and plan: MPI in November, 2-3 months after most recent echo, showed worse hypokenesis and LVEF 10% vs 40% on echo. Given this and some clinical CHF now, repeat echo Increased loop diuretic to 40mg IV BID for now. likely would also benefit from SGLT2i, d/w cardiology (4) Hypertension: Status: Chronic Assessment and plan: Patient is on losartan as well as torsemide. Blood pressure is currently well- controlled (5) CHF (congestive heart failure): Status: Chronic Assessment and plan: see above. Subjective Subjective Patient reports: no new complaints and feels better; denies diarrhea, vomiting, shortness of breath or fever Interval history since last seen: Events: Converted to SNR He feels better this morning. Still some mild residual chest tightness, but breathing is better. He confirms he has been taking his metoprolol, recently increased from 50mg to 200mg, but he had been splitting the dose 50mg, 50mg, 100mg. He also recently doubled his torsemide because his PCP thought he was getting fluid overload. Exam Narrative Exam Narrative: GEN: alert and oriented, NAD Cardiovascular: RRR with some skipped beats, no m/g/r. No elevation JVP notable. Lungs: clear to auscultation bilaterally good air exchange Abdomen soft nontender nondistended bowel sounds active Extremity 1+ lower extremity edema bilaterally Neuro nonfocal Objective Last Vital Signs Temp 36.6 C 02/23/25 00:10 Pulse 66 11/18/25 08:01 Resp 22 02/23/25 08:01 BP 118/78 02/23/25 08:01 Pulse Ox 90 L 02/23/25 08:01 Laboratory Results - last 24 hr 02/22/25 02/22/25 02/22/25 17:57 18:12 19:34 WBC 6.48 RBC 4.80 Hgb 14.0 Hct 43.5 MCV 91 MCH 29.2 MCHC 32.2 RDW 13.4 Plt Count 208 MPV 10.2 Immature Gran % 0.3 Neutrophils % 74.3 Lymphocytes % 13.1 Monocytes % 9.7 Eosinophils % 2.3 Basophils % 0.3 Nucleated RBC % 0.0 Absolute Neutrophils 4.81 Absolute Lymphocytes 0.85 L Absolute Monocytes 0.63 Absolute Eosinophils 0.15 Absolute Basophils 0.02 VBG pH 7.40 VBG pCO2 57 H VBG pO2 22 VBG HCO3 35 H VBG Total CO2 31 H VBG O2 Saturation 34 VBG Base Excess 10 H VBG Lactate 0.9 Sodium 141 Potassium 3.6 Chloride 100 Carbon Dioxide 34.2 H Anion Gap 6.9 BUN 21 Creatinine 1.3 H Est GFR (CKD-EPI 2020) 51.95 Glucose 114 H Calcium 9.1 Magnesium 1.9 Total Bilirubin 0.90 AST 24 ALT 22 Alkaline Phosphatase 108 Troponin I 30 32 NT-Pro-B Natriuret Pep 6987 H Total Protein 7.4 Albumin 4.3 TSH COVID-19 Source Nasopharynx SARS-CoV-2 (PCR) Negative Influenza Type A (PCR) Negative Influenza Type B (PCR) Negative RSV (PCR) Negative Add-On Test Request 02/23/25 02/23/25 09:12 09:30 WBC 6.71 RBC 4.49 Hgb 13.3 L Hct 40.6 MCV 90 MCH 29.6 MCHC 32.8 RDW 13.6 Plt Count 203 MPV 10.5 Immature Gran % Neutrophils % Lymphocytes % Monocytes % Eosinophils % Basophils % Nucleated RBC % Absolute Neutrophils Absolute Lymphocytes Absolute Monocytes Absolute Eosinophils Absolute Basophils VBG pH VBG pCO2 VBG pO2 VBG HCO3 VBG Total CO2 VBG O2 Saturation VBG Base Excess VBG Lactate Sodium 139 Potassium 3.8 Chloride 99 Carbon Dioxide 31.8 H Anion Gap 8.5 BUN 21 Creatinine 1.3 H Est GFR (CKD-EPI 2020) 54.81 Glucose 182 H Calcium 9.0 Magnesium Total Bilirubin 1.00 AST 24 ALT 20 Alkaline Phosphatase 104 Troponin I 32 NT-Pro-B Natriuret Pep Total Protein 6.9 Albumin 4.0 TSH 2.91 COVID-19 Source SARS-CoV-2 (PCR) Influenza Type A (PCR) Influenza Type B (PCR) RSV (PCR) Add-On Test Request DONE Time Spent with Patient Time Spent with Patient: >50 minutes Time was spent: preparing to see the patient(eg.review tests), obtaining and/or reviewing separately otained hiistory, ordering medications,tests, procedures, referring, communicating with other health care team coordinator scheduler, indepentently interpreting results, counseling the patient and care coordination
--- NOTE | 2025-02-23 15:19 | CHAPLAIN ---
Isa was up in the chair when I visited. He was very pleasant and easily engaged in conversation. He was recently moved out of the ICU and is here wiht Afib and RVR. Isa lives in [facility] with his . 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 We talked about work on the committee and the changes in people's interest in different kinds of burials. I explained my role and offered support. Isa said his will be visiting tomorrow.
--- NOTE | 2025-02-23 17:11 | W.PC.ACHO ---
Registration Status: ADM IN Primary Language: Preferred Language: Yakut ED Information & Data Chief Complaint Palpitatns 02/22/25 22:41 Triage Note pt with afib pt was seen at 02/22/25 17:14 digital content manager last saturday for elevated heart rate pt states increased metoprolol dose was increased heart rate still remaining elevated Medical / Surgical History (Last Reviewed 05/20/24 @ 09:16 by Charlotte Gordon RN) Alcohol abuse History of tobacco use Infected finger joint (12/16/14) Edema Gout of hand Acute urinary retention (05/15/13) Encounter for rehabilitation (05/15/13) (Last Updated 05/29/24 @ 14:47 by Zina Hart) History of colonoscopy (~05/2024) History of hip replacement History of tonsillectomy and adenoidectomy History of cataract removal with insertion of prosthetic lens Status post ablation of atrial fibrillation Status post total bilateral knee replacement Replacement of total knee joint Prosthesis, Penile implant Colonoscopy - MAC Extraction of cataract Recurrent major depression in partial remission Most Recent Vital Signs Temperature 36.7 C 02/23/25 14:19 Temperature Source Tympanic 02/23/25 14:19 Pulse 76 02/23/25 14:19 Pulse 81 02/23/25 14:00 Respiratory Rate 17 02/23/25 14:19 Respiratory Effort Normal, Short of Breath 02/23/25 00:10 Respiratory Depth Normal 02/23/25 00:10 Respiratory Pattern Normal 02/23/25 00:10 Blood Pressure 117/64 02/23/25 14:19 Blood Pressure Mean 81 02/23/25 14:19 Pulse Oximetry 93 02/23/25 14:19 Oxygen Delivery Method Room Air 02/23/25 14:19 Oxygen Flow Rate 0 02/23/25 14:19 Pain Level 0 02/23/25 14:20 Allergies adhesive Adverse Reaction (Intermediate, Verified 02/22/25 17:19) skin irritation/rash has been able to tolerate medipore tape. amiodarone Adverse Reaction (Intermediate, Unverified 02/23/25 00:52) Cardiac Dysrhythmia PT reports he was started on this and digital content manager told him he had too many long pauses JAMAL Inhibitors Adverse Reaction (Mild, Verified 02/22/25 17:19) COUGH Active Medications Generic Name Dose Route Start Last Admin Trade Name Freq PRN Reason Stop Dose Admin Apixaban 2.5 mg 02/23/25 01:00 02/23/25 08:43 Apixaban 2.5 Mg Tab PO 2.5 mg BID FRANCISCO Administration Ascorbic Acid 500 mg 02/23/25 08:30 02/23/25 08:44 Ascorbic Acid 500 Mg Tab PO 500 mg DAILY FRANCISCO Administration Cholecalciferol 1,000 units 02/23/25 08:30 02/23/25 08:43 Cholecalciferol (Vitamin D3) 1,000 Unit Tab PO 1,000 units DAILY FRANCISCO Administration Furosemide 40 mg 02/23/25 08:00 02/23/25 16:30 Furosemide 40 Mg/4 Ml Vial IVP 40 mg BID@0800,1600 FRANCISCO Administration Losartan Potassium 25 mg 02/23/25 08:30 02/23/25 08:43 Losartan 25 Mg Tab PO 25 mg DAILY FRANCISCO Administration Metoprolol Tartrate 50 mg 02/23/25 09:00 02/23/25 15:37 Metoprolol 50 Mg Tab PO 50 mg Q6H FRANCISCO Administration Potassium Chloride 20 meq 02/23/25 08:30 02/23/25 08:43 Potassium Chloride 20 Meq Tabcr PO 20 meq DAILY FRANCISCO Administration Torsemide 20 mg 02/23/25 00:30 02/23/25 00:40 Torsemide 20 Mg Tab PO 20 mg On Hold: 02/23/25 08:51 0800,1200 FRANCISCO Administration Triamcinolone Acetonide 1 gm 02/23/25 08:30 02/23/25 08:30 Triamcinolone 0.1% Oint 15 Gm Tube TP 1 applic BID FRANCISCO Administration IV IV Catheter Type [Right Peripheral IV Antecubital] IV Catheter Type [Left Forearm Saline Lock ] IV Catheter Gauge [Right 20 Antecubital] IV Catheter Gauge [Left 18 Forearm] Diagnostics 02/23/25 02/23/25 02/22/25 Range/Units 09:30 09:12 19:34 WBC 6.71 (4.4-10.8) 10^3/uL RBC 4.49 (4.36-5.78) 10^6/uL Hgb 13.3 L (13.5-17.5) g/dL Hct 40.6 (40.0-50.0) % MCV 90 (80-95) fL MCH 29.6 (27.0-33.0) pg MCHC 32.8 (32.0-36.0) % RDW 13.6 (11.8-14.1) % Plt Count 203 (130-400) 10^3/uL MPV 10.5 (8.0-11.0) fL Immature Gran % % Neutrophils % % Lymphocytes % % Monocytes % % Eosinophils % % Basophils % % Nucleated RBC % (0.0-0.3) % Absolute Neutrophils (1.2-6.7) 10^3/uL Absolute Lymphocytes (1.2-3.4) 10^3/uL Absolute Monocytes (0.1-0.8) 10^3/uL Absolute Eosinophils (0.0-0.7) 10^3/uL Absolute Basophils (0.0-0.2) 10^3/uL VBG pH (7.31-7.41) VBG pCO2 (41-51) mmHg VBG pO2 mmHg VBG HCO3 (23-28) mmol/L VBG Total CO2 (24-29) mmol/L VBG O2 Saturation % VBG Base Excess (-2-3) mmol/L VBG Lactate (<or=2.0) mmol/L Sodium 139 (136-145) mmol/L Potassium 3.8 (3.5-5.1) mmol/L Chloride 99 (98-107) mmol/L Carbon Dioxide 31.8 H (20.0-31.0) mmol/L Anion Gap 8.5 (3-11) mmol/L BUN 21 (9-23) mg/dL Creatinine 1.3 H (0.73-1.18) mg/dL Est GFR (CKD-EPI 2020) 54.81 (mL/min/1.73m2) Glucose 182 H (74-106) mg/dL Calcium 9.0 (8.3-10.6) mg/dL Magnesium (1.6-2.6) mg/dL Total Bilirubin 1.00 (0.2-1.2) mg/dL AST 24 (<34) U/L ALT 20 (10-49) U/L Alkaline Phosphatase 104 (46-116) U/L Troponin I 32 32 (<54) ng/L NT-Pro-B Natriuret Pep (<300) pg/mL Total Protein 6.9 (5.7-8.2) g/dL Albumin 4.0 (3.4-5.0) g/dL TSH 2.91 (0.55-4.78) uIU/mL COVID-19 Source SARS-CoV-2 (PCR) (Negative) Influenza Type A (PCR) (Negative) Influenza Type B (PCR) (Negative) RSV (PCR) (Negative) Add-On Test Request DONE 02/22/25 02/22/25 Range/Units 18:12 17:57 WBC 6.48 (4.4-10.8) 10^3/uL RBC 4.80 (4.36-5.78) 10^6/uL Hgb 14.0 (13.5-17.5) g/dL Hct 43.5 (40.0-50.0) % MCV 91 (80-95) fL MCH 29.2 (27.0-33.0) pg MCHC 32.2 (32.0-36.0) % RDW 13.4 (11.8-14.1) % Plt Count 208 (130-400) 10^3/uL MPV 10.2 (8.0-11.0) fL Immature Gran % 0.3 % Neutrophils % 74.3 % Lymphocytes % 13.1 % Monocytes % 9.7 % Eosinophils % 2.3 % Basophils % 0.3 % Nucleated RBC % 0.0 (0.0-0.3) % Absolute Neutrophils 4.81 (1.2-6.7) 10^3/uL Absolute Lymphocytes 0.85 L (1.2-3.4) 10^3/uL Absolute Monocytes 0.63 (0.1-0.8) 10^3/uL Absolute Eosinophils 0.15 (0.0-0.7) 10^3/uL Absolute Basophils 0.02 (0.0-0.2) 10^3/uL VBG pH 7.40 (7.31-7.41) VBG pCO2 57 H (41-51) mmHg VBG pO2 22 mmHg VBG HCO3 35 H (23-28) mmol/L VBG Total CO2 31 H (24-29) mmol/L VBG O2 Saturation 34 % VBG Base Excess 10 H (-2-3) mmol/L VBG Lactate 0.9 (<or=2.0) mmol/L Sodium 141 (136-145) mmol/L Potassium 3.6 (3.5-5.1) mmol/L Chloride 100 (98-107) mmol/L Carbon Dioxide 34.2 H (20.0-31.0) mmol/L Anion Gap 6.9 (3-11) mmol/L BUN 21 (9-23) mg/dL Creatinine 1.3 H (0.73-1.18) mg/dL Est GFR (CKD-EPI 2020) 51.95 (mL/min/1.73m2) Glucose 114 H (74-106) mg/dL Calcium 9.1 (8.3-10.6) mg/dL Magnesium 1.9 (1.6-2.6) mg/dL Total Bilirubin 0.90 (0.2-1.2) mg/dL AST 24 (<34) U/L ALT 22 (10-49) U/L Alkaline Phosphatase 108 (46-116) U/L Troponin I 30 (<54) ng/L NT-Pro-B Natriuret Pep 6987 H (<300) pg/mL Total Protein 7.4 (5.7-8.2) g/dL Albumin 4.3 (3.4-5.0) g/dL TSH (0.55-4.78) uIU/mL COVID-19 Source Nasopharynx SARS-CoV-2 (PCR) Negative (Negative) Influenza Type A (PCR) Negative (Negative) Influenza Type B (PCR) Negative (Negative) RSV (PCR) Negative (Negative) Add-On Test Request Intake and Output - 24 Hour Total 02/22/25 17:00 thru 02/23/25 14:41 Intake Total 645.000 Output Total 985 Balance -340.000 Weight 108 kg Intake: IV 345.000 Oral 300 Output: Urine 985 Other: Urine Color Straw Urine Appearance Clear Urine Odor Normal Falls Risk Assessment History of Falls Previous History 02/23/25 00:10 Contributing Factors Medications 02/23/25 00:10 Ambulatory Aids Independent 02/23/25 00:10 Tubes/Lines With any additional score 02/23/25 00:10 Gait Evaluation No gait disturbance 02/23/25 00:10 Cognition No cognitive impairment 02/22/25 18:13 Fall Total Score 38 02/23/25 00:10 Level of Risk Moderate Risk 02/23/25 00:10 Problems (Last Reviewed 05/20/24 @ 09:16 by Charlotte Gordon RN) CHF (congestive heart failure) (Chronic) Sinus tachycardia (Acute) Heart palpitations (Acute) Atrial fibrillation with rapid ventricular response (Acute) Cardiomyopathy (Chronic) Coronary atherosclerosis of [place] coronary vessel (Chronic) History of atrial fibrillation (Chronic) Hypertension (Chronic) Hyperlipidemia (Chronic) Attestation Statement: By documenting the first initial, last name, and credentials of the reporting nurse below, both parties acknowledge that all relevant information regarding the patient handoff has been communicated, and that all questions have been addressed to ensure continuity and safety of care. Additional Patient Information/Comments: A&O x4, Lungs Dim bases, heart irregular, here for Afib w/ RVR, +BS, Continenet of Bowel and bladder, stand by contact alex, O2 destats at night, was placed on 2L over night via NC, on RA during the day, Report Received From: Ketty TORRES RN at 1400
[2025-02-23] MEDS: Multivitamin TAB 1 TAB PO (21:08)
[2025-02-23] MEDS: Allopurinol 100 MG TAB 50 MG PO (21:08)
[2025-02-23] MEDS: Atorvastatin 40 MG TAB PO (21:09)
[2025-02-23] MEDS: Normal Saline Flush 10 ML SYR (21:56)
[2025-02-24] VITALS (48 sets, daily range): BP systolic 82–122; BP diastolic 56–97; PULSE 50–134; RESP 14–29; TEMP 35.8–36.7; O2SAT 87–98
[2025-02-24] MEDS: Metoprolol 50 MG TAB PO ×3 (03:17→20:50)
[2025-02-24] MEDS: Empaglifozin 10 MG TAB PO (09:02)
[2025-02-24] MEDS: Cholecalciferol (Vitamin D3) 1,000 UNIT TAB 1000 UNITS PO (09:02)
[2025-02-24] MEDS: Ascorbic Acid 500 MG TAB PO (09:02)
[2025-02-24] MEDS: Potassium Chloride 20 MEQ TABCR PO (09:02)
[2025-02-24] MEDS: Losartan 25 MG TAB PO (09:02)
[2025-02-24] MEDS: Apixaban 2.5 MG TAB PO ×2 (09:02→20:49)
[2025-02-24] MEDS: Furosemide 40 MG/4 ML VIAL IVP ×2 (09:02→10:17)
--- NOTE | 2025-02-24 10:04 | CMPROGNOTE_ITS ---
Date of service: 02/24/25 Time of Service: 10:04 Care Management Progress Note Progress Note Text Progress Note Text: Isa was reclining in bed when CM met with him. He had been transferred to the ICU earlier and was placed on an Amiodarone drip. Isa remains in afib with RVR. He informed CM that if he does not spontaneously convert to NSR by tomorrow, he will likely undergo cardioversion. Isa shared that he has had this procedure at least twice before and has also had ablations. Isa had a Palliative Care consult this afternoon with Lexie Holm. As with CM yesterday, Isa was reluctant to engage in conversation with Lexie about certain issues. He has definite feelings about who should/should not have access to his HPI and was careful not to disclose unnecessary information. Overall, Isa appeared to be in fairly good spirits this afternoon and was a bit more engaged with CM. He stated that he is not optimistic about converting to NSR with or without the cardioversion and has come to accept that he just has to live with his afib. Discharge Potential Discharge Needs: PCP F/U Appt Anticipated Barriers to Discharge: None Identified Patient/Family Education Needs: Review discharge instructions, discuss Ask Me Three Transportation: Private vehicle Plan: Anticipate Isa will be discharged home with no new services when medically cleared. He will follow up with his PCP and Boxing Machine Operator as well as his discharge plan of care as prescribed. Isa will transport home via private vehicle with family. CM will follow and continue to assess for discharge needs. Social Determinants of Health Screening Will the Patient Participate in the Screening?: Declined to provide
[2025-02-24] MEDS: Normal Saline Flush 10 ML SYR IVP ×3 (10:17→20:52)
[2025-02-24] MEDS: Triamcinolone 0.1% OINT 15 GM TUBE TP (10:18)
--- NOTE | 2025-02-24 12:40 | W.PM.PROGNOT ---
Date of Service Date of service: 02/24/25 Time of Service: 12:40 Assessment and Plan Assessment and plan (1) Atrial fibrillation with rapid ventricular response: Status: Acute Assessment and plan: Has been in poorly controlled afib for weeks or longer, Redevelopment Manager increased his metoprolol but persistened. Converted with IV diltiazem, stopped diltiazem 02/23 given reduced LVEF. His machine container washer is a Dr. Jerry Shah, discussed today, recommended amiodarone. He had some heart block with amiodarone in the past, will monitor closely in ICU. He is on apixaban 2.5 mg twice daily (baseline Cr >1.5 though low today, age >80), which covers VTE prophylaxis, has been anticoagulated mcc. Consult Marvin to consider cardioversion 02/25 if he tolerates amiodarone but doesn't convert on his own (2) Coronary atherosclerosis of [place] coronary vessel: Status: Chronic Assessment and plan: Patient is status post CABG in 2017. Recent stress test done area was nondiagnostic for ischemia. Troponins reassuring here. Worse cardiomyopathy but likely rate related. continue outpatient therapy (3) Cardiomyopathy: Status: Chronic Assessment and plan: MPI in November, 2-3 months after most recent echo, showed worse hypokenesis and LVEF 10% vs 40% on echo. Given MPI result, echo repeated and confirmed low LVEF of 10%, likely rate related per cardiology Increased loop diuretic to 40mg IV BID 02/23, poor response, go to 80mg. likely would also benefit from SGLT2i, started 02/24 (4) Hypertension: Status: Chronic Assessment and plan: Patient is on losartan as well as torsemide. Blood pressure on low side so would not tolerate adding MRA for now. (5) CHF (congestive heart failure): Status: Chronic Assessment and plan: see above. On BB/ARB/SGLT2i, bp low for adding MRA or ARNI transition Subjective Subjective Patient reports: no new complaints, tolerating a regular diet and voiding w/o difficulty; denies diarrhea, nausea, vomiting, shortness of breath or fever Interval history since last seen: Events: echocardiogram showing LVEF down to 10% Frequent PVC, runs of VT on tele (vs afib with abarrency?) Feels okay. Doesn't feel chest pain or palpatiations. He doesn't feel like he is urinating more after the 40mg furosemide. He is eating and drinking. Edema the same. Exam Narrative Exam Narrative: GEN: alert and oriented, NAD Cardiovascular: irregularly irregular, no m/g/r. No elevation JVP notable. Lungs: clear to auscultation bilaterally good air exchange Abdomen soft nontender nondistended bowel sounds active Extremity 1-2+ lower extremity edema bilaterally Neuro nonfocal Objective Last Vital Signs Temp 36.5 C 02/24/25 11:28 Pulse 104 H 02/24/25 11:28 Resp 17 02/24/25 11:28 BP 82/64 L 02/24/25 11:28 Pulse Ox 94 02/24/25 11:28 Time Spent with Patient Time Spent with Patient: >50 minutes Time was spent: preparing to see the patient(eg.review tests), obtaining and/or reviewing separately otained hiistory, ordering medications,tests, procedures, referring, communicating with other health critical care physician assistant, indepentently interpreting results, counseling the patient and care coordination
[2025-02-24 13:01] LABS: Anion Gap 6.5 mmol/L (3-11); BUN 26 mg/dL (9-23); CO2 31.5 mmol/L (20.0-31.0); Calcium 9.2 mg/dL (8.3-10.6); Chloride 102 mmol/L (98-107); Glucose 113 mg/dL (74-106); Magnesium 2.1 mg/dL (1.6-2.6); Potassium 3.8 mmol/L (3.5-5.1); Sodium 140 mmol/L (136-145)
[2025-02-24] MEDS: Amiodarone in Dextrose 360 MG/200 ML BAG 500 MG IV INF (14:14)
--- NOTE | 2025-02-24 15:18 | W.PC.ACHO ---
Registration Status: ADM IN Primary Language: Preferred Language: Greek ED Information & Data Chief Complaint Palpitatns 02/22/25 22:41 Triage Note pt with afib pt was seen at 02/22/25 17:14 supervisor sanding last saturday for elevated heart rate pt states increased metoprolol dose was increased heart rate still remaining elevated Medical / Surgical History (Last Reviewed 05/20/24 @ 09:16 by Charlotte Gordon RN) Alcohol abuse History of tobacco use Infected finger joint (12/16/14) Edema Gout of hand Acute urinary retention (05/15/13) Encounter for rehabilitation (05/15/13) (Last Updated 05/29/24 @ 14:47 by Zina Hart) History of colonoscopy (~05/2024) History of hip replacement History of tonsillectomy and adenoidectomy History of cataract removal with insertion of prosthetic lens Status post ablation of atrial fibrillation Status post total bilateral knee replacement Replacement of total knee joint Prosthesis, Penile implant Colonoscopy - MAC Extraction of cataract Recurrent major depression in partial remission Most Recent Vital Signs Temperature 36.7 C 02/24/25 13:10 Temperature Source Temporal Artery Scan 02/24/25 13:10 Pulse 114 H 02/24/25 14:16 Pulse 87 02/24/25 14:16 Respiratory Rate 23 02/24/25 14:16 Respiratory Effort Normal 02/24/25 13:10 Respiratory Depth Normal 02/24/25 13:10 Respiratory Pattern Tachypnea 02/24/25 13:10 Blood Pressure 95/63 L 02/24/25 14:16 Blood Pressure Mean 71 02/24/25 14:16 Blood Pressure Position Sitting 02/24/25 13:10 Pulse Oximetry 92 02/24/25 14:16 Oxygen Delivery Method Room Air 02/24/25 13:10 Oxygen Flow Rate 0 02/24/25 13:10 Pain Level 0 02/23/25 14:20 Allergies adhesive Adverse Reaction (Intermediate, Verified 02/22/25 17:19) skin irritation/rash has been able to tolerate medipore tape. amiodarone Adverse Reaction (Intermediate, Unverified 02/23/25 00:52) Cardiac Dysrhythmia PT reports he was started on this and supervisor sanding told him he had too many long pauses JAMAL Inhibitors Adverse Reaction (Mild, Verified 02/22/25 17:19) COUGH Active Medications Generic Name Dose Route Start Last Admin Trade Name Rebekah PRN Reason Stop Dose Admin Allopurinol 50 mg 02/23/25 20:00 02/23/25 21:08 Allopurinol 100 Mg Tab PO 50 mg HS FRANCISCO Administration Apixaban 2.5 mg 02/23/25 01:00 02/24/25 09:02 Apixaban 2.5 Mg Tab PO 2.5 mg BID FRANCISCO Administration Ascorbic Acid 500 mg 02/23/25 08:30 02/24/25 09:02 Ascorbic Acid 500 Mg Tab PO 500 mg DAILY FRANCISCO Administration Atorvastatin Calcium 40 mg 02/23/25 20:00 02/23/25 21:09 Atorvastatin 40 Mg Tab PO 40 mg QPM FRANCISCO Administration Cholecalciferol 1,000 units 02/23/25 08:30 02/24/25 09:02 Cholecalciferol (Vitamin D3) 1,000 Unit Tab PO 1,000 units DAILY FRANCISCO Administration Empagliflozin 10 mg 02/24/25 08:30 02/24/25 09:02 Empaglifozin 10 Mg Tab PO 10 mg QAM FRANCISCO Administration Furosemide 80 mg 02/24/25 16:00 02/24/25 14:47 Furosemide 40 Mg/4 Ml Vial IVP Not Given BID@0800,1600 [facility] Amiodarone HCl/Dextrose 360 mg in 200 mls @ 33.333 mls/hr 02/24/25 13:38 02/24/25 14:14 Nexterone IV INF 02/24/25 19:37 1 mg/min DIRECTED FRANCISCO 33.333 mls/hr Protocol Administration 1 MG/MIN Losartan Potassium 25 mg 02/23/25 08:30 02/24/25 09:02 Losartan 25 Mg Tab PO 25 mg DAILY FRANCISCO Administration Metoprolol Tartrate 50 mg 02/23/25 09:00 02/24/25 14:47 Metoprolol 50 Mg Tab PO Not Given Q6H FRANCISCO Multivitamins 1 tab 02/23/25 20:00 02/23/25 21:08 Multivitamin Tab PO 1 tab HS FRANCISCO Administration Potassium Chloride 20 meq 02/23/25 08:30 02/24/25 09:02 Potassium Chloride 20 Meq Tabcr PO 20 meq DAILY FRANCISCO Administration Sodium Chloride 0 ml 02/24/25 00:21 02/24/25 14:49 Normal Saline Flush 10 Ml Syr IVP 20 ml PRN PRN Administration Sodium Chloride 0 ml 02/24/25 08:30 02/24/25 10:17 Normal Saline Flush 10 Ml Syr IVP 10 ml BID FRANCISCO Administration Torsemide 20 mg 02/23/25 00:30 02/23/25 00:40 Torsemide 20 Mg Tab PO 20 mg On Hold: 02/23/25 08:51 0800,1200 FRANCISCO Administration Triamcinolone Acetonide 1 gm 02/23/25 08:30 02/24/25 10:18 Triamcinolone 0.1% Oint 15 Gm Tube TP 1 applic BID FRANCISCO Administration IV IV Catheter Type [Right Saline Lock Antecubital] IV Catheter Type [Left Forearm Saline Lock ] IV Catheter Gauge [Right 20 Antecubital] IV Catheter Gauge [Left 18 Forearm] Diagnostics 02/24/25 Range/Units 12:20 Sodium 140 (136-145) mmol/L Potassium 3.8 (3.5-5.1) mmol/L Chloride 102 (98-107) mmol/L Carbon Dioxide 31.5 H (20.0-31.0) mmol/L Anion Gap 6.5 (3-11) mmol/L BUN 26 H (9-23) mg/dL Creatinine 1.3 H (0.73-1.18) mg/dL Est GFR (CKD-EPI 2020) 51.05 (mL/min/1.73m2) Glucose 113 H (74-106) mg/dL Calcium 9.2 (8.3-10.6) mg/dL Magnesium 2.1 (1.6-2.6) mg/dL Intake and Output - 24 Hour Total 02/22/25 17:00 thru 02/24/25 13:10 Intake Total 1705.000 Output Total 1660 Balance 45.000 Weight 108.5 kg Intake: IV 355.000 Oral 1350 Output: Urine 1660 Other: Urine Color Yellow Urine Appearance Clear Urine Odor Normal Comment pt voids in urinal. Falls Risk Assessment History of Falls No History 02/24/25 13:10 Contributing Factors Unstable,Medications 02/24/25 13:10 Ambulatory Aids Independent 02/24/25 13:10 Tubes/Lines With any additional score 02/24/25 13:10 Gait Evaluation No gait disturbance 02/24/25 13:10 Cognition No cognitive impairment 02/24/25 13:10 Fall Total Score 26 02/24/25 13:10 Level of Risk Moderate Risk 02/24/25 13:10 Problems (Last Reviewed 05/20/24 @ 09:16 by Charlotte Gordon RN) CHF (congestive heart failure) (Chronic) Sinus tachycardia (Acute) Heart palpitations (Acute) Atrial fibrillation with rapid ventricular response (Acute) Cardiomyopathy (Chronic) Coronary atherosclerosis of [place] coronary vessel (Chronic) History of atrial fibrillation (Chronic) Hypertension (Chronic) Hyperlipidemia (Chronic) Attestation Statement: By documenting the first initial, last name, and credentials of the reporting nurse below, both parties acknowledge that all relevant information regarding the patient handoff has been communicated, and that all questions have been addressed to ensure continuity and safety of care. Additional Patient Information/Comments: Report Received From: Gutierrez Mayo RN
--- NOTE | 2025-02-24 15:35 | PCNE_ITS ---
Date of service: 02/24/25 Time of Service: 14:45 History of Present Illness Narrative: Mr. Moss is an 79 y/o M currently hospitalized 2/2 A fib w/RVR; PMHx sig for CHFrEF (h/o CABG 2016), a fib (h/o ablations and cardioversion) and gout; Hospital course: presented to ED on 02/22 w/ rapid HR despite home medication titration, malaise and SYKES; work-up unremarkable w/limited improvement in HR despite PO BB, admitted for further management, started on Cardizem drip w/good improvement, converted to NSR morning of 02/23; Cardizem stopped; ECHO revealed reduced EF from 40% in September to 20% 02/23/25; diuretic increased to 40mg IV BID; today per recommendations from cardio they will start amiodarone loading dose, transferred to unit for this; shola will plan outpatient f/u, feel EF worse 2/2 tachycardia - started on drip, now w/c/o nausea and MCNEILL Isa lives in [facility] w/his Jackie. He is happy in general. As he has aged, in recent years he has had several friends . Some have used MAID. He states growing old if kind of a hoot. He likes to face things one at a time and as they present. His goal is to get out of the hospital. He has completed an AD, he does NOT like people looking into it, feels it is a private document for him/his family, and concerns that the outside world crowds in, or meddles with things. Today, he is comfortable w/being in the ICU and receiving treatment to try to stabilize his heart. He feels that some of his friends/experiences w/chronic heart disease taper out and forget to live, in their sleep. Today, he wants the chance to stay alive, but not just alive, have a QoL as well. He does not feel he would want to be kept alive on machines indefinitely. He feels his /HCA Jackie has a good sense of his preferences and he trusts her. He would want to consider MAID if he were eligible, he has talked to some people about this. Assessment and Plan Assessment and plan (1) CHF (congestive heart failure): Status: Chronic (2) Sinus tachycardia: Status: Acute (3) Nausea: Status: Acute (4) Acute on chronic heart failure with reduced ejection fraction and diastolic dysfunction: Status: Acute (5) Atrial fibrillation with rapid ventricular response: Status: Acute (6) Chronic pain: Status: Chronic (7) Palliative care encounter: Status: Acute Assessment and plan: PC will not plan on follow up w/Isa during this inpatient stay d/t his stated preferences today - Unless there is an acute status change or he/family request palliative follow up future visits, if he is agreeable, to review MAID requirements/process, sxs management if needed, terminal operations manager planning for living life he wants; as approriate review CODE status and CPR statistics Isa's preference today was for him to call palliative office for follow up and requested no one reach out to him (8) ACP (advance care planning): Status: Acute Assessment and plan: reviewed palliative care, a medical specialty aimed at focusing on QoL and sxs management for people living w/serious illness. reviewed PC is here to work w/patient on their terms, navigating health care system, decision making and treatment preferences reviewed current AD, Jackie is HCA and feels she is UTD w/his preferences and able to advocate for him reviewed current preferences to have all life sustaining interventions/treatments, okay w/ICU level of care and receiving all current treatments; spent 25m w/ACP Review of Systems Narrative: as per HPI PFSH All Active Problems (Updated 02/24/25 @ 15:57 by Lexie Holm NP) ACP (advance care planning) (Acute) Palliative care encounter (Acute) CHF (congestive heart failure) (Chronic) Sinus tachycardia (Acute) Heart palpitations (Acute) Nausea (Acute) Squamous cell carcinoma of back (Acute) Dysplastic nevus (Acute) Seborrheic keratoses (Acute) Non-healing wound of left lower extremity (Acute) Actinic keratosis (Acute) Gout (Chronic) Medication monitoring encounter (Acute) Abnormal gall bladder diagnostic imaging (Acute) Cor pulmonale (Acute) Acute on chronic heart failure with reduced ejection fraction and diastolic dysfunction (Acute) RUQ abdominal tenderness (Acute) Atrial fibrillation with rapid ventricular response (Acute) Acute HFrEF (heart failure with reduced ejection fraction) (Acute) Chronic venous stasis dermatitis of both lower extremities (Acute) COVID-19 (Acute ~12/28/22) Bilateral knee pain (Acute) Chronic pain (Chronic) Joint pain (Acute) Asymmetrical sensorineural hearing loss (Acute) Hearing loss (Acute) Hip pain, right (Acute) Stage 3 chronic kidney disease (Acute) 09/2021- cr-1.6 Premature ventricular contractions (Acute) History of cardiac radiofrequency ablation (Acute) last ablation 03/27 [facility] Fibrothorax (Acute) Bronchiectasis (Acute) Pulmonary hypertension (Acute) Biventricular heart failure (Acute) Restrictive lung disease (Acute) Dyspnea on exertion (Acute) Chronic cough (Acute) Abnormal chest CT (Acute) CVA (cerebral vascular accident) (Chronic) righgt hemispshere during AF ablation. 04.04.20 Pre-operative cardiovascular examination (Acute) Facial skin lesion (Acute) Anticoagulation adequate (Acute) Hypoxemia (Acute) Exertional dyspnea (Acute) Depressive disorder (Acute) Perennial allergic rhinitis (Acute 03/22/16) Sacroiliitis (Chronic) Primary osteoarthritis of left hip (Chronic) Steroid injection: 07/28/2018 Chronic anticoagulation (Acute) Tubular adenoma of colon (Chronic) 01/29/14-DR. 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) Diverticulosis (Chronic) Cardiomyopathy (Chronic) Coronary atherosclerosis of [place] coronary vessel (Chronic) Atrial fibrillation (Chronic) success after multiple ablations Anxiety (Chronic) Anal fistula (Chronic) Recurrent right pleural effusion (Chronic) s/p VATS total decortication 04/18/19 Diabetes mellitus (Chronic) History of atrial fibrillation (Chronic) Hypertension (Chronic) Osteoarthritis (Chronic) Obstructive sleep apnea (Chronic) Hyperlipidemia (Chronic) Medical History Alcohol abuse History of tobacco use Infected finger joint (12/16/14) Edema Gout of hand index finger Acute urinary retention (05/15/13) Encounter for rehabilitation (05/15/13) Surgical History History of colonoscopy (~05/2024) History of hip replacement History of tonsillectomy and adenoidectomy History of cataract removal with insertion of prosthetic lens Status post ablation of atrial fibrillation Status post total bilateral knee replacement Replacement of total knee joint 2012; [facility] [place]; RIGHT, left Prosthesis, Penile implant Colonoscopy - MAC 01/29/14 Extraction of cataract Bilateral Recurrent major depression in partial remission Atrial Family History Brother Stroke Diabetes Father Heart attack pt of [place] at 51 Mother Skin cancer Breast cancer Colon cancer Social History Smoking/Tobacco Use Status: Former Tobacco Use tobacco type: cigarettes Quit Date: 04/08/79 Smoking risk assessment performed?: Yes Alcohol Intake: current Alcohol Intake frequency: a few times a week Drug use: Never Substance use type: does not use Housing: house Pets and animals: Yes Pets and animals: cat(s) and dog(s) What type of physical activity do you participate in: 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 Do you feel safe at home: Yes Do you feel safe in your relationship?: Yes Exam Narrative Exam Narrative: General: older adult male, lying flat in ICU bed; thin appearing HEENT: normocephalic, atraumatic, MMM, hearing grossly WNL Resp: normal resp effort, speaks full sentences w/o SOB; no cough; no audible wheeze Psych: MS WNL; speech clear; cooperative to guarded depending on subject, refuses to answer, thought process illogical, impoverished; thought content normal; insight/judgment fair to limited Results Last Vital Signs Temp 98.1 F 02/24/25 13:10 Pulse 114 H 02/24/25 14:16 Resp 23 02/24/25 14:16 BP 95/63 L 02/24/25 14:16 Pulse Ox 92 02/24/25 14:16 Labs 02/23/25 09:30 02/24/25 12:20 Labs: Laboratory Results - last 24 hr 02/24/25 12:20 Sodium 140 Potassium 3.8 Chloride 102 Carbon Dioxide 31.5 H Anion Gap 6.5 BUN 26 H Creatinine 1.3 H Est GFR (CKD-EPI 2020) 51.05 Glucose 113 H Calcium 9.2 Magnesium 2.1 Time Spent Time Spent with Patient Time Spent(min): 65
[2025-02-24] MEDS: Amiodarone in Dextrose 360 MG/200 ML BAG 33.333 MG IV INF (17:26)
--- NOTE | 2025-02-24 20:15 | RT.EKG_ITS ---
APPROVED REPORT Exam: Resting ECG Reason for Exam: Change in rhythm Patient Location: I HR:103 bpm ECG Measurements Heart Rate 103 AXIS AL [id number] P [id number] QRSd 168 QRS -73 QT 451 T 57 QTc 591 Conclusion Atrial fibrillation...V-rate 101-105, irreg A-activity Ventricular premature complex...V complex w/ short R-R interval RBBB Baseline wander in lead(s) II,III,aVF,V2
[2025-02-24] MEDS: Amiodarone in Dextrose 360 MG/200 ML BAG 16.667 MG IV INF (20:40)
[2025-02-24] MEDS: Multivitamin TAB 1 TAB PO (20:46)
[2025-02-24] MEDS: Atorvastatin 40 MG TAB PO (20:46)
[2025-02-24] MEDS: Allopurinol 100 MG TAB 50 MG PO (20:47)
[2025-02-25] VITALS (43 sets, daily range): BP systolic 66–130; BP diastolic 48–97; PULSE 47–111; RESP 9–29; TEMP 36–36.5; O2SAT 85–96
[2025-02-25] MEDS: Metoprolol 50 MG TAB 25 MG PO ×2 (01:16→08:01)
[2025-02-25] MEDS: Normal Saline Flush 10 ML SYR IVP ×2 (01:18→08:00)
[2025-02-25 06:55] LABS: Magnesium 2.2 mg/dL (1.6-2.6)
[2025-02-25 06:58] LABS: Anion Gap 8.3 mmol/L (3-11); BUN 31 mg/dL (9-23); CO2 32.7 mmol/L (20.0-31.0); Calcium 9.0 mg/dL (8.3-10.6); Chloride 101 mmol/L (98-107); Glucose 110 mg/dL (74-106); Potassium 3.7 mmol/L (3.5-5.1); Sodium 142 mmol/L (136-145)
[2025-02-25] MEDS: Furosemide 40 MG/4 ML VIAL 80 MG IVP (08:00)
[2025-02-25] MEDS: Potassium Chloride 20 MEQ TABCR PO (08:00)
[2025-02-25] MEDS: Losartan 25 MG TAB PO (08:01)
[2025-02-25] MEDS: Apixaban 2.5 MG TAB PO ×2 (08:01→19:53)
[2025-02-25] MEDS: Empaglifozin 10 MG TAB PO (08:01)
[2025-02-25] MEDS: Cholecalciferol (Vitamin D3) 1,000 UNIT TAB 1000 UNITS PO (08:01)
[2025-02-25] MEDS: Ascorbic Acid 500 MG TAB PO (08:01)
[2025-02-25] MEDS: Amiodarone in Dextrose 360 MG/200 ML BAG 16.667 MG IV INF (08:02)
[2025-02-25] MEDS: Triamcinolone 0.1% OINT 15 GM TUBE TP (08:07)
--- NOTE | 2025-02-25 08:12 | RESPIRATORY ---
Spoke with patient about DOLLY diagnosis and pt advised he had a sleep study and previously had a CPAP machine but hasn't worn it in approx. 20 years after weight loss of 100+lbs.
--- NOTE | 2025-02-25 09:25 | CMPROGNOTE_ITS ---
Date of service: 02/25/25 Time of Service: 09:26 Care Management Progress Note Progress Note Text Progress Note Text: Isa was sitting up on the side of the bed when CM met with him. He was pleasant in interaction and appeared to be in good spirits. Isa remains in afib with a rate between 90 and 110. There was a tentative plan to perform a cardioversion today but Dr. Wong (Barrel Dedenting Machine Operator) did not feel it was indicated. Isa informed CM that his medication has been changed from IV to PO and that he will remain hospitalized one more night to monitor the effects of the change. He plans to discharge home tomorrow and follow up with his production tester at [facility]. Discharge Potential Discharge Needs: PCP F/U Appt and Other (Cardiology) Anticipated Barriers to Discharge: None Identified Patient/Family Education Needs: Review discharge instructions, discuss Ask Me Three Transportation: Private vehicle Plan: Anticipate Isa will be discharged home with no new services when medically cleared. He will follow up with his PCP and Barrel Dedenting Machine Operator as well as his discharge plan of care as prescribed. Isa will transport home via private vehicle with family. CM will follow and continue to assess for discharge needs. Social Determinants of Health Screening Will the Patient Participate in the Screening?: Declined to provide
--- NOTE | 2025-02-25 10:24 | PGE_ITS ---
Date of Service Date of service: 02/25/25 Time of Service: 07:30 Assessment and Plan Assessment and plan (1) Atrial fibrillation with rapid ventricular response: Status: Acute Assessment and plan: -Rate controlled on IV amiodarone and metoprolol 25 mg IV q6h, plan to transition to PO amiodarone and metoprolol after IV infusion finished -Pt initially converted to NSR with diltiazem, but this was discontinued due to reduced LVEF (20%) -Consulted with [facility] architectural inspector, pt would not be a candidate for cardioversion per Dr Wong -home anticoagulation continued (eliquis 2.5 mg PO BID due to baseline creat >1.5 and age >80) -consulted with Dr Shah to discuss plan for discharge home; he recommends loading dose/titration protocol of 400mg BID x 1 week, 200 mg BID x 1 week, followed by 200 mg daily. Recommends outpatient f/u for possible cardioversion in next few weeks (2) Coronary atherosclerosis of [place] coronary vessel: Status: Chronic Assessment and plan: - Stress test performed 02/18/25 (pharmacologic) at [facility], no evidence of ischemia. EF calculated was 10%, worsened from previous echo (40% on 09/24/24) -Troponins flat in ED, negative. No reported chest pain. - Patient is status post CABG in 2017. (3) Cardiomyopathy: Status: Chronic Assessment and plan: - echo performed 02/23/25, EF calculated was 20%, worsened from previous echo (40% on 09/24/24), global hypokinesis of LV noted. - Stress test performed 02/18/25 (pharmacologic) at [facility], no evidence of ischemia. - IV furosemide given (80 mg BID given); pt on torsemide PO at home. -SGLTI (Jardiance) initiated 02/24/25. - continue home meds as prescribed (4) Hypertension: Status: Chronic Assessment and plan: -continue home meds (losartan, metoprolol, torsemide- switched to furosemide IV) (5) CHF (congestive heart failure): Status: Chronic Assessment and plan: -continue home meds -as BP has been on low side, pt would not tolerate addition of MRA or ARNI for heart failure -continue outpatient f/u with [facility] architectural inspector Subjective Subjective Patient reports: no new complaints, tolerating a regular diet and voiding w/o difficulty; denies shortness of breath Interval history since last seen: No acute overnight events. Isa reports he is overall feeling unchanged, though says he has had few symptoms other than occasional chest tightness, associated with afib with RVR. Occasional brief episodes of lightheadedness, which he attributes to laying in bed. Denies fever/chills, chest pain, change in baseline shortness of breath, nausea/vomiting, abdominal pain, nosebleeds/blood in stool/gum bleeding, change in baseline pedal edema. Reviewed plan to transition rate controller meds to PO, he is agreeable with plan but does request that it be run by his architectural inspector at [facility], Dr Shah. Exam Const General: cooperative, comfortable and no acute distress Nutritional Appearance: thin Orientation: alert and oriented x3 Resp Effort & Inspection: normal respiratory effort and able to speak in complete sentences Auscultation: clear to auscultation bilaterally Cardio Rate: regular rate (80s-100s) Rhythm: abnormal rhythm irregularly irregular Heart Sounds: no murmurs Pulses: radial pulses present GI Inspection: normal to inspection and non-distended Palpation: soft, not firm, no guarding and no masses Skin General skin exam: ecchymosis (scattered, over arms. ) Neuro General: patient alert, patient oriented x3, tone normal and moves all extremities Extrem General: normal to inspection and edema Laterality: bilateral (to lower legs and feet, +1 pitting) Objective Last Vital Signs Temp 96.8 F L 02/25/25 03:02 Pulse 91 H 02/25/25 06:00 Resp 15 02/25/25 06:00 BP 107/76 02/25/25 03:02 Pulse Ox 95 02/25/25 08:11 Laboratory Results - last 24 hr 02/24/25 02/25/25 12:20 05:38 Sodium 140 142 Potassium 3.8 3.7 Chloride 102 101 Carbon Dioxide 31.5 H 32.7 H Anion Gap 6.5 8.3 BUN 26 H 31 H Creatinine 1.3 H 1.4 H Est GFR (CKD-EPI 2020) 51.05 47.36 Glucose 113 H 110 H Calcium 9.2 9.0 Magnesium 2.1 2.2 Time Spent with Patient Time Spent with Patient: >50 minutes Time was spent: preparing to see the patient(eg.review tests), obtaining and/or reviewing separately otained hiistory, ordering medications,tests, procedures, referring, communicating with other health primary care sales representative, indepentently interpreting results, counseling the patient and care coordination
[2025-02-25] MEDS: Atorvastatin 40 MG TAB PO (19:51)
[2025-02-25] MEDS: Multivitamin TAB 1 TAB PO (19:51)
[2025-02-25] MEDS: Amiodarone 200 MG TAB 400 MG PO (19:52)
[2025-02-25] MEDS: Metoprolol 25 MG TAB 50 MG PO (19:52)
[2025-02-25] MEDS: Allopurinol 100 MG TAB 50 MG PO (19:53)
[2025-02-26] VITALS (24 sets, daily range): BP systolic 71–129; BP diastolic 50–92; PULSE 48–111; RESP 13–33; TEMP 36.2; O2SAT 86–95
[2025-02-26] MEDS: Triamcinolone 0.1% OINT 15 GM TUBE TP ×2 (00:20→08:54)
[2025-02-26] MEDS: Normal Saline Flush 10 ML SYR IVP ×2 (00:20→08:54)
[2025-02-26 06:17] LABS: HCT 40.1 % (40.0-50.0); HGB 14.7 g/dL (13.5-17.5); MCH 33.6 pg (27.0-33.0); MCHC 36.7 % (32.0-36.0); MCV 92 fL (80-95); MPV 10.4 fL (8.0-11.0); Platelet Count 200 10^3/uL (130-400); RBC 4.37 10^6/uL (4.36-5.78); RDW 13.5 % (11.8-14.1); RDW-SD 46.0 fL; WBC 5.71 10^3/uL (4.4-10.8)
[2025-02-26 06:45] LABS: ALT 19 U/L (10-49); AST 19 U/L (<34); Albumin 3.8 g/dL (3.4-5.0); Alkaline Phosphatase 94 U/L (46-116); Anion Gap 6.3 mmol/L (3-11); BUN 35 mg/dL (9-23); Bilirubin, Total 0.50 mg/dL (0.2-1.2); CO2 31.7 mmol/L (20.0-31.0); Calcium 8.9 mg/dL (8.3-10.6); Chloride 103 mmol/L (98-107); Glucose 118 mg/dL (74-106); Potassium 3.7 mmol/L (3.5-5.1); Sodium 141 mmol/L (136-145); Total Protein 6.6 g/dL (5.7-8.2)
[2025-02-26] MEDS: Ondansetron O.D.T. 4 MG TABEF PO (08:08)
[2025-02-26] MEDS: Empaglifozin 10 MG TAB PO (08:51)
[2025-02-26] MEDS: Apixaban 2.5 MG TAB PO (08:51)
[2025-02-26] MEDS: Ascorbic Acid 500 MG TAB PO (08:51)
[2025-02-26] MEDS: Cholecalciferol (Vitamin D3) 1,000 UNIT TAB 1000 UNITS PO (08:51)
[2025-02-26] MEDS: Torsemide 20 MG TAB PO (08:52)
[2025-02-26] MEDS: Losartan 25 MG TAB PO (08:52)
[2025-02-26] MEDS: Amiodarone 200 MG TAB 400 MG PO (08:53)
[2025-02-26] MEDS: Potassium Chloride 20 MEQ TABCR PO (08:53)
[2025-02-26] MEDS: Metoprolol 25 MG TAB 50 MG PO (08:53)
--- NOTE | 2025-02-26 11:06 | W.PM.DS.N ---
Date of service: 02/26/25 Time of Service: 11:06 DS: Diagnosis Discharge Diagnosis (1) Atrial fibrillation with rapid ventricular response: Status: Acute (2) Coronary atherosclerosis of [place] coronary vessel: Status: Chronic (3) Cardiomyopathy: Status: Chronic (4) Hypertension: Status: Chronic (5) CHF (congestive heart failure): Status: Chronic Discharge Plan Disposition Patient Disposition: Home W/Home Health Services Condition: Improving Discharge Details Reason For Visit: Afib with RVR Admit Date/Time: 02/22/25 22:35 Admit Provider: Scooby Soto Attending Provider: Scooby Soto Primary Care Provider: Severiano Coy Hospital Course Hospital Course: Patient initially presented with signs and symptoms consistent with A-fib with RVR. He was initially put on IV diltiazem and did convert to normal sinus rhythm but this was discontinued due to his history of congestive heart failure. His retort firer at [facility] [place]. Shah recommends starting amiodarone IV and if patient did not convert recommended electrical cardioversion. However, when consulting our retort firer Dr. Wong she did not feel comfortable cardioverting the patient at this time. Dr. Shah was again consulted and recommended transitioning to a tapering dose of p.o. amiodarone, continuing p.o. metoprolol and having close outpatient follow-up where he would cardiovert the patient at that time. Given that patient's heart rate is now controlled it was determined that he was stable for discharge home. Home Meds and New Rx's Prescriptions: New Jardiance 10 mg Tablet 10 mg PO QAM Qty: 30 0RF amiodarone [Pacerone] 200 mg Tablet 400 mg PO BID Qty: 90 0RF Rx Instructions: 400mg BID until AM 11, then 200mg BID until AM 12/4, then 200mg daily after that metoprolol tartrate 25 mg Tablet 50 mg PO BID Qty: 90 0RF Continued tramadol 50 mg tablet 50 mg PO Q8H PRN (Reason: pain) Qty: 20 0RF apixaban 2.5 mg tablet 2.5 mg PO BID Qty: 180 3RF ondansetron 4 mg tablet,disintegrating 4 mg PO Q8H PRN (Reason: nausea and vomiting) Qty: 14 0RF triamcinolone acetonide 0.1 % ointment 1 applic topical BID Qty: 80 2RF atorvastatin 40 mg tablet 40 mg PO DAILY Qty: 90 3RF torsemide 20 mg tablet 20 mg PO BID Qty: 180 3RF Rx Instructions: double dose 01/28/25 potassium chloride 20 mEq tablet,ER particles/crystals 20 meq PO DAILY Qty: 90 3RF multivitamin [Daily Multi-Vitamin] 1 EACH tablet 1 ea PO DAILY cholecalciferol (vitamin D3) 1,000 UNIT tablet 1,000 unit PO DAILY ascorbic acid (vitamin C) [Vitamin C] 500 MG tablet 500 mg PO DAILY (DME) FreeStyle Test Strip 1 ea Miscellaneous DAILY Qty: 90 3RF Rx Instructions: test in a.m. daily (DME) lancets [FreeStyle Lancets] 28 gauge misc 1 ea Miscellaneous DAILY Qty: 90 3RF Rx Instructions: test daily in a.m losartan 25 mg tablet 25 mg PO DAILY Qty: 90 3RF allopurinol 100 mg tablet 50 mg PO DAILY Qty: 45 3RF lorazepam 1 mg capsule,extended release 24hr 1 mg PO DAILY PRN metoprolol succinate 50 mg tablet extended release 24 hr 100 mg PO BID Rx Instructions: TAKE ONE TABLET BY MOUTH EVERY DAY Discharge Instructions Stand Alone Forms: Portal Information Activity:: Activity as Tolerated Equipment/Supplies:: No Equipment Needed Diet:: As Tolerated Discharge Orders Discharge Orders: Discharge Order (Routine); Ordered 02/26/25 Ordered By: Pelon Xie DS: Summary Time Spent with Patient providing and/or coordinating discharge services: Greater than 30 minutes Status at Discharge Functional status at discharge: independent ambulation Overall status at discharge: patient is back to baseline Mental Status: mental status grossly normal Speech and Movement: speech and movement normal Mood: congruent mood Affect: normal affect Exam Const General: cooperative, comfortable and no acute distress Nutritional Appearance: thin Orientation: alert and oriented x3 Resp Effort & Inspection: normal respiratory effort and able to speak in complete sentences Auscultation: clear to auscultation bilaterally Cardio Rate: regular rate (80s-100s) Rhythm: abnormal rhythm irregularly irregular Heart Sounds: no murmurs Pulses: radial pulses present GI Inspection: normal to inspection and non-distended Palpation: soft, not firm, no guarding and no masses Skin General skin exam: ecchymosis (scattered, over arms. ) Neuro General: patient alert, patient oriented x3, tone normal and moves all extremities Extrem General: normal to inspection and edema Laterality: bilateral (to lower legs and feet, +1 pitting) Psych Mental Status: mental status grossly normal Speech and Movement: speech and movement normal Mood: congruent mood Affect: normal affect DS: Data Vitals/I&O Vitals and I&O: Vital Signs Temperature 97.2 F L 02/26/25 08:01 Temperature Source Temporal Artery Scan 02/25/25 08:05 Pulse 75 02/26/25 11:00 Pulse 78 02/26/25 11:00 Respiratory Rate 19 02/26/25 11:00 Respiratory Effort Normal 02/24/25 13:10 Respiratory Depth Normal 02/24/25 13:10 Respiratory Pattern Tachypnea 02/24/25 13:10 Blood Pressure 117/91 H 02/26/25 10:01 Blood Pressure Mean 99 02/26/25 10:01 Blood Pressure Position Sitting 02/24/25 13:10 Pulse Oximetry 91 L 02/26/25 11:00 Oxygen Delivery Method Room Air 02/26/25 08:04 Oxygen Flow Rate 0 02/26/25 08:04 Pain Level 36 02/24/25 16:00 Intake & Output 02/25/25 02/26/25 02/26/25 17:59 05:59 17:59 Intake Total 1211.448 / 1211.448 440 / 1651.448 480 / 480 Output Total 1200 / 1200 1150 / 2350 175 / 175 Balance 11.448 / 11.448 -710 / -698.552 305 / 305 Weight 238 lb 8.642 oz Intake: IV 189.448 / 189.448 Oral 1022 / 1022 440 / 1462 480 / 480 Output: Urine 1200 / 1200 1150 / 2350 175 / 175 Other: Urine Color Yellow Yellow Yellow Urine Appearance Clear Clear Clear Urine Odor Normal Normal Data Completed and Pending Pending Labs at Discharge: 02/22/25 02/22/25 02/22/25 17:57 18:12 19:34 WBC 6.48 RBC 4.80 Hgb 14.0 Hct 43.5 MCV 91 MCH 29.2 MCHC 32.2 RDW 13.4 Plt Count 208 MPV 10.2 Immature Gran % 0.3 Neutrophils % 74.3 Lymphocytes % 13.1 Monocytes % 9.7 Eosinophils % 2.3 Basophils % 0.3 Nucleated RBC % 0.0 Absolute Neutrophils 4.81 Absolute Lymphocytes 0.85 L Absolute Monocytes 0.63 Absolute Eosinophils 0.15 Absolute Basophils 0.02 VBG pH 7.40 VBG pCO2 57 H VBG pO2 22 VBG HCO3 35 H VBG Total CO2 31 H VBG O2 Saturation 34 VBG Base Excess 10 H VBG Lactate 0.9 Sodium 141 Potassium 3.6 Chloride 100 Carbon Dioxide 34.2 H Anion Gap 6.9 BUN 21 Creatinine 1.3 H Est GFR (CKD-EPI 2020) 51.95 Glucose 114 H Calcium 9.1 Magnesium 1.9 Total Bilirubin 0.90 AST 24 ALT 22 Alkaline Phosphatase 108 Troponin I 30 32 NT-Pro-B Natriuret Pep 6987 H Total Protein 7.4 Albumin 4.3 TSH COVID-19 Source Nasopharynx SARS-CoV-2 (PCR) Negative Influenza Type A (PCR) Negative Influenza Type B (PCR) Negative RSV (PCR) Negative Add-On Test Request 02/23/25 02/23/25 02/24/25 09:12 09:30 12:20 WBC 6.71 RBC 4.49 Hgb 13.3 L Hct 40.6 MCV 90 MCH 29.6 MCHC 32.8 RDW 13.6 Plt Count 203 MPV 10.5 Immature Gran % Neutrophils % Lymphocytes % Monocytes % Eosinophils % Basophils % Nucleated RBC % Absolute Neutrophils Absolute Lymphocytes Absolute Monocytes Absolute Eosinophils Absolute Basophils VBG pH VBG pCO2 VBG pO2 VBG HCO3 VBG Total CO2 VBG O2 Saturation VBG Base Excess VBG Lactate Sodium 139 140 Potassium 3.8 3.8 Chloride 99 102 Carbon Dioxide 31.8 H 31.5 H Anion Gap 8.5 6.5 BUN 21 26 H Creatinine 1.3 H 1.3 H Est GFR (CKD-EPI 2020) 54.81 51.05 Glucose 182 H 113 H Calcium 9.0 9.2 Magnesium 2.1 Total Bilirubin 1.00 AST 24 ALT 20 Alkaline Phosphatase 104 Troponin I 32 NT-Pro-B Natriuret Pep Total Protein 6.9 Albumin 4.0 TSH 2.91 COVID-19 Source SARS-CoV-2 (PCR) Influenza Type A (PCR) Influenza Type B (PCR) RSV (PCR) Add-On Test Request DONE 02/25/25 02/26/25 05:38 05:27 WBC 5.71 RBC 4.37 Hgb 14.7 Hct 40.1 MCV 92 MCH 33.6 H MCHC 36.7 H D RDW 13.5 Plt Count 200 MPV 10.4 Immature Gran % Neutrophils % Lymphocytes % Monocytes % Eosinophils % Basophils % Nucleated RBC % Absolute Neutrophils Absolute Lymphocytes Absolute Monocytes Absolute Eosinophils Absolute Basophils VBG pH VBG pCO2 VBG pO2 VBG HCO3 VBG Total CO2 VBG O2 Saturation VBG Base Excess VBG Lactate Sodium 142 141 Potassium 3.7 3.7 Chloride 101 103 Carbon Dioxide 32.7 H 31.7 H Anion Gap 8.3 6.3 BUN 31 H 35 H Creatinine 1.4 H 1.6 H Est GFR (CKD-EPI 2020) 47.36 40.72 Glucose 110 H 118 H Calcium 9.0 8.9 Magnesium 2.2 Total Bilirubin 0.50 AST 19 ALT 19 Alkaline Phosphatase 94 Troponin I NT-Pro-B Natriuret Pep Total Protein 6.6 Albumin 3.8 TSH COVID-19 Source SARS-CoV-2 (PCR) Influenza Type A (PCR) Influenza Type B (PCR) RSV (PCR) Add-On Test Request PFSH All Active Problems (Updated 02/26/25 @ 11:06 by Pelon Xie MD) ACP (advance care planning) (Acute) Palliative care encounter (Acute) CHF (congestive heart failure) (Chronic) Sinus tachycardia (Acute) Heart palpitations (Acute) Nausea (Acute) Squamous cell carcinoma of back (Acute) Dysplastic nevus (Acute) Seborrheic keratoses (Acute) Non-healing wound of left lower extremity (Acute) Actinic keratosis (Acute) Gout (Chronic) Medication monitoring encounter (Acute) Abnormal gall bladder diagnostic imaging (Acute) Cor pulmonale (Acute) Acute on chronic heart failure with reduced ejection fraction and diastolic dysfunction (Acute) RUQ abdominal tenderness (Acute) Atrial fibrillation with rapid ventricular response (Acute) Acute HFrEF (heart failure with reduced ejection fraction) (Acute) Chronic venous stasis dermatitis of both lower extremities (Acute) COVID-19 (Acute ~12/28/22) Bilateral knee pain (Acute) Chronic pain (Chronic) Joint pain (Acute) Asymmetrical sensorineural hearing loss (Acute) Hearing loss (Acute) Hip pain, right (Acute) Stage 3 chronic kidney disease (Acute) 09/2021- cr-1.6 Premature ventricular contractions (Acute) History of cardiac radiofrequency ablation (Acute) last ablation 03/27 [facility] Fibrothorax (Acute) Bronchiectasis (Acute) Pulmonary hypertension (Acute) Biventricular heart failure (Acute) Restrictive lung disease (Acute) Dyspnea on exertion (Acute) Chronic cough (Acute) Abnormal chest CT (Acute) CVA (cerebral vascular accident) (Chronic) righgt hemispshere during AF ablation. 04.04.20 Pre-operative cardiovascular examination (Acute) Facial skin lesion (Acute) Anticoagulation adequate (Acute) Hypoxemia (Acute) Exertional dyspnea (Acute) Depressive disorder (Acute) Perennial allergic rhinitis (Acute 03/22/16) Sacroiliitis (Chronic) Primary osteoarthritis of left hip (Chronic) Steroid injection: 07/28/2018 Chronic anticoagulation (Acute) Tubular adenoma of colon (Chronic) 01/29/14-DR. 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) Diverticulosis (Chronic) Cardiomyopathy (Chronic) Coronary atherosclerosis of [place] coronary vessel (Chronic) Atrial fibrillation (Chronic) success after multiple ablations Anxiety (Chronic) Anal fistula (Chronic) Recurrent right pleural effusion (Chronic) s/p VATS total decortication 04/18/19 Diabetes mellitus (Chronic) History of atrial fibrillation (Chronic) Hypertension (Chronic) Osteoarthritis (Chronic) Obstructive sleep apnea (Chronic) Hyperlipidemia (Chronic) Medical History Alcohol abuse History of tobacco use Infected finger joint (12/16/14) Edema Gout of hand index finger Acute urinary retention (05/15/13) Encounter for rehabilitation (05/15/13) Surgical History History of colonoscopy (~05/2024) History of hip replacement History of tonsillectomy and adenoidectomy History of cataract removal with insertion of prosthetic lens Status post ablation of atrial fibrillation Status post total bilateral knee replacement Replacement of total knee joint 2012; [facility]; RIGHT, left Prosthesis, Penile implant Colonoscopy - MAC 01/29/14 Extraction of cataract Bilateral Recurrent major depression in partial remission Atrial Family History Brother Stroke Diabetes Father Heart attack pt of [place] at 51 Mother Skin cancer Breast cancer Colon cancer Social History Smoking/Tobacco Use Status: Former Tobacco Use tobacco type: cigarettes Quit Date: 04/08/79 Smoking risk assessment performed?: Yes Alcohol Intake: current Alcohol Intake frequency: a few times a week Drug use: Never Substance use type: does not use Housing: house Pets and animals: Yes Pets and animals: cat(s) and dog(s) What type of 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
--- NOTE | 2025-02-26 11:49 | PDOC.CMDIS ---
Date of service: 02/26/25 Time of Service: 11:49 LACE Index Scoring Tool Questions: Length of Stay (in days): 4 - 6 Was the patient admitted via the E.D.?: Yes Comorbidities: Cerebrovascular Disease, Congestive Heart Failure and Liver or Renal Disease E.D. Visits: 1 Answers: Total Score: 13 Risk of Readmission: High Risk Care Management Discharge Plan Reason for Hospitalization: Afib with RVR Discharge Plan: Vinny is discharged home via private vehicle with family. He will follow up with community providers and continue per his discharge plan of care as directed. No new services are ordered prior to discharge. Patient/Family Education Needs: Review discharge instructions and plan to follow up after discharge. Discuss ask me three.
== END 2025-02-26 11:50 | disposition home health service (06) | DRG 308 ==
LOC: ER 22:41 → ICU 23:51 → MS 02-23 22:45 → ICU 02-24 13:40
PROVIDERS: Family Medicine; Admitting Provider Hospitalist; Emergency Provider General Practice; PCP Family Medicine; Responsible Provider Family Medicine; Visit Provider Hospitalist
DX: I48.91 Unspecified atrial fibrillation (principal); I50.43 Acute on chronic combined systolic (congestive) and diastolic (congestive) heart failure; I13.0 Hypertensive heart and chronic kidney disease with heart failure and stage 1 through stage 4 chronic kidney disease, or unspecified chronic kidney disease; I42.9 Cardiomyopathy, unspecified; I25.10 Atherosclerotic heart disease of native coronary artery without angina pectoris; E78.5 Hyperlipidemia, unspecified; G89.29 Other chronic pain; R11.0 Nausea; Z95.0 Presence of cardiac pacemaker; Z95.1 Presence of aortocoronary bypass graft; I08.2 Rheumatic disorders of both aortic and tricuspid valves; I45.2 Bifascicular block; I87.2 Venous insufficiency (chronic) (peripheral); N18.30 Chronic kidney disease, stage 3 unspecified; I49.3 Ventricular premature depolarization; I27.20 Pulmonary hypertension, unspecified; J98.4 Other disorders of lung; R05.3 Chronic cough; Z86.73 Personal history of transient ischemic attack (TIA), and cerebral infarction without residual deficits; Z79.01 Long term (current) use of anticoagulants; J47.9 Bronchiectasis, uncomplicated; M46.1 Sacroiliitis, not elsewhere classified; E66.9 Obesity, unspecified; M16.12 Unilateral primary osteoarthritis, left hip; F41.9 Anxiety disorder, unspecified; G47.33 Obstructive sleep apnea (adult) (pediatric); Z96.653 Presence of artificial knee joint, bilateral; F33.41 Major depressive disorder, recurrent, in partial remission
CPT/HCPCS: 00123; 36415; 80048; 80053; 82805; 85027; 87637; 93005; 96374; 99285; 71045; 83605; 83735; 83880; 84443; 84484; 85025; 93010; 93306; 94760; 99223; 99233; 99238; J0283; J1938; J3480